=== PATIENT | male | born 1945 | race Caucasian/White ===

== ENCOUNTER 2020-04-24 14:58 | Outpatient (REF) | payer MEDICARE, SELFPAY | END 2020-04-24 14:59 | disposition home or self-care (01) | LOC: HO.LNP 14:58 | PROVIDERS: Visit Provider Internal Medicine | DX: Z20.828 Contact with and (suspected) exposure to other viral communicable diseases (principal); R43.8 Other disturbances of smell and taste | CPT/HCPCS: U0003 ==

== ENCOUNTER 2020-05-06 08:03 | Emergency (ER) | payer MEDICARE, SELFPAY ==
[2020-05-06 08:11] VITALS: BP 150/74; PULSE 86; RESP 18; TEMP 37; O2SAT 97; BMI 18.4
--- NOTE | 2020-05-06 08:23 | ECG_ITS ---
Test Reason : SOB Blood Pressure : / mmHG Vent. Rate : 061 BPM Atrial Rate : 061 BPM P-R Int : 152 ms QRS Dur : 092 ms QT Int : 424 ms P-R-T Axes : 046 083 079 degrees QTc Int : 426 ms Normal sinus rhythm RSR' or QR pattern in V1 suggests right ventricular conduction delay Otherwise normal ECG When compared with ECG of 13-JAN-2020 14:31, No significant change was found Referred By: Iirna Cordon Electronically Signed By:CARLO MONTES MD
--- NOTE | 2020-05-06 08:23 | XR_ITS ---
EXAMINATION: XR CHEST CLINICAL INFORMATION: SOB. COMPARISON: None TECHNIQUE: Frontal view of the chest was obtained. FINDINGS: No significant abnormality is noted involving the heart, lungs, mediastinum, bony thorax or soft tissues. XR/XR chest 1V IMPRESSION: Unremarkable chest exam.
[2020-05-06 08:47] LABS: MANUAL DIFF FLAG NO
[2020-05-06 08:48] LABS: Basophils Absolute Auto 0.1 X10*3/uL (0.0-0.2); Basophils Percent Auto 1.3 % (0-2); Eosinophils Absolute Auto 0.1 X10*3/uL (0.0-0.4); Eosinophils Percent Auto 2.5 % (0-4); Hematocrit 47.1 % (42-52); Hemoglobin 15.9 g/dl (14.0-18.0); Imm Gran Abs Auto 0.01 X10*3/uL (0.00-0.03); Imm Gran Pct Auto 0.2 % (0.0-0.4); Lymphocytes Percent Auto 36.1 % (20-40); Mean Corpuscular HGB Conc 33.8 g/dl (31.0-36.0); Mean Corpuscular Hemoglobin 31.5 pg (27.0-33.0); Mean Corpuscular Volume 93.5 fL (80-98); Mean Platelet Volume 8.5 fL (9.4-12.4); Monocytes Absolute Auto 0.5 X10*3/uL (0.1-1.2); Neutrophils Absolute Auto 2.8 X10*3/uL (2.0-8.3); Neutrophils Percent Auto 50.9 % (45-73); Platelet Count 271 X10*3/uL (160-400); Red Blood Count 5.04 X10*6/uL (4.60-5.80); Red Cell Distribution Width 12.3 % (11.0-16.0); White Blood Count 5.6 X10*3/uL (4.8-10.8)
--- NOTE | 2020-05-06 09:00 | PC.NURSE ---
Patient arrives reporting shortness of breath x 2 days. Reports loss of taste and smell two weeks ago but was COVID tested and negative. Patient is alert and oriented. Respirations appear regular, even, and nonlabored. Skin PWD. O2 sat high 90s on room air. Lungs clear throughout. EKG obtained at bedside. iv established and labs drawn. Patient placed on secured entrance monitor. Awaiting lab results.
[2020-05-06 09:04] LABS: Anion Gap 13 (12-20); Blood Urea Nitrogen 22 mg/dL (9-16); Calcium 10.2 mg/dL (8.4-10.2); Carbon Dioxide 27 mmol/L (22-29); Chloride 105 mmol/L (96-108); Creatinine Clr Calc Pharmacy 67.6; Estimated Glomerular Filt Rate > 60; Glucose Random 96 mg/dL (60-115); Potassium 4.1 mmol/l (3.3-5.1); Sodium 141 mmol/L (135-145)
[2020-05-06 09:11] LABS: B Type Natriuretic Peptide 15 pg/mL (<100); Troponin-I High Sensitivity < 3.5 ng/L (<3.5-35.0)
[2020-05-06 09:32] LABS: Influenza A PCR NEGATIVE (Negative); Influenza B PCR NEGATIVE (Negative); Resp Syncy Virus RNA Qual PCR NEGATIVE (Negative); SARS COV2 PCR INHOUSE NEGATIVE (Negative)
[2020-05-06 10:00] VITALS: BP 128/69; PULSE 54; RESP 18; O2SAT 99
--- NOTE | 2020-05-06 10:44 | ED_ITS ---
HPI - SOB/Dyspnea General Chief Complaint: Dyspnea Stated Complaint: sob Time Seen by Provider: 05/06/20 08:21 History of Present Illness HPI Narrative: 74-year-old male who presents emergency department for evaluation of shortness of breath, fatigue, loss of sense of taste and smell. The patient states that he has not been feeling well for at least 2 weeks. He states that he lost his sense of taste in his mouth but did have a negative COVID-19 test as an outpatient. He states that yesterday he developed shortness of breath. He states that it came on gradually but got progressively worse. He states the shortness of breath is worse with lying down flat. He denied associated fever, chills, cough, myalgias. He states that he has had increased pain in his arthritic joints however but this is not unusual for him. He states that he gets occasional, intermittent, sharp, chest pain which lasts seconds to minutes and is worse if he lies down flat. The patient states he does have increased anxiety but he does not think the anxiety is causing his symptoms. Related Data Previous Rx's Medication Instructions Recorded finasteride 5 mg tablet 5 mg PO DAILY #90 tab 04/10/20 tamsulosin 0.4 mg capsule 0.4 mg PO BEDTIME #90 cap 04/16/20 Allergies Allergy/AdvReac Type Severity Reaction Status Date / Time phenytoin [Dilantin] Allergy Unknown Verified 12/20/19 00:00 From DILANTIN Allergy Unknown ITCH RASH Uncoded 02/28/20 14:49 Review of Systems Review of Systems: Yes all other systems are reviewed and are negative Constitutional: Constitutional: Reports as per HPI Eyes: Eyes: Reports as per HPI ENT: Reports as per HPI Cardiovascular: Cardiovascular: Reports as per HPI Respiratory: Respiratory: Reports as per HPI Gastrointestinal: Gastrointestinal: Reports as per HPI Genitourinary: Genitourinary: Reports as per HPI Musculoskeletal: Musculoskeletal: Reports as per HPI Integumentary/Breasts: Skin/Breast: Reports as per HPI Neurologic: Reports as per HPI and Reports Abnormal speech present Psychiatric: Psychiatric: Reports as per HPI Allergic/Immunologic: Allergic/Immunologic: Reports as per HPI PMFSH Past Medical History Medical History Brain hematoma Enlarged prostate Surgical History History of hip replacement, total Social History Social History Alcohol intake: never Smoking Status: Never smoker Use of substances other than those prescribed or required for medical reasons: No Advance Directives: No Advance Directives Information Provided: No Physical Exam Vital Signs: Vital Signs: Last Vital Signs Temp 98.6 F 05/06/20 08:11 Pulse 54 05/06/20 10:00 Resp 18 05/06/20 10:00 BP 128/69 05/06/20 10:00 Pulse Ox 99 05/06/20 10:00 Body Mass Index 18.4 Const: General: cooperative, no acute distress, alert and awake Orientation/consciousness: oriented to person and oriented to place Limitations: no limitations HENMT: Head: Yes normal to inspection, Yes normocephalic and Yes atraumatic Ears: external ears normal Eyes: General: appearance normal, both eyes and all related structures Periorbital: periorbital findings normal Eyelids: Yes eyelids normal Conjunctivae: conjunctivae normal Sclerae: sclerae normal Corneas: corneas normal Pupils: Equal, round and reactive pupils present Direct Ophthalmoscopy: normal light reflex Neck: Neck: Yes normal visual inspection and Yes supple Lymphatic: no lymphadenopathy noted Chest: Chest palpation & inspection: normal inspection of the chest and normal palpation of entire chest wall Resp: Effort & Inspection: normal respiratory effort, abnormal respiratory pattern, no audible wheezes and no respiratory distress Auscultation: clear to auscultation bilaterally, no crackles, no rales, no rhonchi and no wheezes Cardio: Rate: regular rate Rhythm: regular rhythm Heart sounds: S1 normal heart sound present, S2 normal heart sound present and Murmur heart sound present GI: Inspection: No distended Palpation (GI): Soft to palpation, nontender, no guarding and No hepatosplenomegaly present Auscultation: normal bowel sounds : General: Yes no CVA tenderness Back/Spine/Pelvis: Back: no CVA tenderness Skin: General skin exam: no rashes or lesions noted Lesions: no lesions Rashes: no rashes Wounds: no wounds Neuro: General: oriented to person and oriented to place Cranial nerves: Yes CN's II-XII intact bilaterally and Yes Equal, round and reactive pupils present Cognition (Neuro): normal cognition Speech: Abnormal speech present Motor exam (neuro): 5/5 motor strength present throughout Extrem: General: Yes normal to inspection, Yes full ROM, Yes no pedal edema and Yes no calf tenderness Psych: Appearance: grossly normal Mental Status: mental status grossly normal Speech and movement: Clear speech present Affect: normal affect Thought process: Normal thought process present Course Course Course Narrative: 74-year-old male who presents emergency department for evaluation for loss of sense of taste and smell x2 weeks and shortness of breath that began yesterday. The patient's shortness of breath is worse with lying down flat clearly has minimal dyspnea on exertion. Patient has occasional chest pain which is sometimes associated with shortness of breath. The patient has also had increased fatigue. Patient's physical examination was unremarkable and his vital signs were normal with O2 saturations are 97% on room air. The patient was not tachypneic or tachycardic. The patient's laboratory evaluation was normal. The patient had a COVID/flu/RSV screen which was negative. Laboratory evaluation was unremarkable including a normal troponin and BNP. Chest x-ray revealed no acute abnormality. Twelve lead EKG was unremarkable. At this time I do not have a clear etiology for the patient's symptoms I did discuss this with him. Given his negative workup believes the patient can be discharged home. The patient was advised follow up with his doctor in 2 days and return to the emergency department if his symptoms got worse or he develops any symptoms of a concerning to him. MDM - SOB/Dyspnea Lab Data Result diagrams: 05/06/20 08:33 05/06/20 08:33 Labs: Lab Results 05/06/20 05/06/20 05/06/20 Range/Units 08:33 08:33 08:33 WBC 5.6 (4.8-10.8) X10*3/uL RBC 5.04 (4.60-5.80) X10*6/uL Hgb 15.9 (14.0-18.0) g/dl Hct 47.1 (42-52) % MCV 93.5 (80-98) fL MCH 31.5 (27.0-33.0) pg MCHC 33.8 (31.0-36.0) g/dl RDW 12.3 (11.0-16.0) % Plt Count 271 (160-400) X10*3/uL MPV 8.5 L (9.4-12.4) fL Immature Gran % (Auto) 0.2 (0.0-0.4) % Neut % (Auto) 50.9 (45-73) % Lymph % (Auto) 36.1 (20-40) % [place] % (Auto) 9.0 (2-11) % Eos % (Auto) 2.5 (0-4) % Baso % (Auto) 1.3 (0-2) % Lymph # (Auto) 2.0 (1.2-4.9) X10*3/uL [place] # (Auto) 0.5 (0.1-1.2) X10*3/uL Eos # (Auto) 0.1 (0.0-0.4) X10*3/uL Baso # (Auto) 0.1 (0.0-0.2) X10*3/uL Abs Immat Gran (auto) 0.01 (0.00-0.03) X10*3/uL Absolute Neuts (auto) 2.8 (2.0-8.3) X10*3/uL Absolute Nucleated RBC 0.000 (0.0-0.012) X10*3/uL Nucleated RBC % (auto) 0.0 (0.0-0.2) /100WBC Hold Blue Top SEE NOTE Sodium 141 (135-145) mmol/L Potassium 4.1 (3.3-5.1) mmol/l Chloride 105 (96-108) mmol/L Carbon Dioxide 27 (22-29) mmol/L Anion Gap 13 (12-20) BUN 22 H (9-16) mg/dL Creatinine 0.78 (0.5-1.4) mg/dL Estim Creat Clear Calc 67.6 Estimated GFR > 60 Random Glucose 96 (60-115) mg/dL Calcium 10.2 (8.4-10.2) mg/dL Troponin I High Sens (<3.5-35.0) ng/L B-Natriuretic Peptide (<100) pg/mL Coronavirus (PCR) (Negative) Influenza Type A (PCR) (Negative) Influenza Type B (PCR) (Negative) RSV RNA Qual (PCR) (Negative) 05/06/20 05/06/20 Range/Units 08:33 08:36 WBC (4.8-10.8) X10*3/uL RBC (4.60-5.80) X10*6/uL Hgb (14.0-18.0) g/dl Hct (42-52) % MCV (80-98) fL MCH (27.0-33.0) pg MCHC (31.0-36.0) g/dl RDW (11.0-16.0) % Plt Count (160-400) X10*3/uL MPV (9.4-12.4) fL Immature Gran % (Auto) (0.0-0.4) % Neut % (Auto) (45-73) % Lymph % (Auto) (20-40) % [place] % (Auto) (2-11) % Eos % (Auto) (0-4) % Baso % (Auto) (0-2) % Lymph # (Auto) (1.2-4.9) X10*3/uL [place] # (Auto) (0.1-1.2) X10*3/uL Eos # (Auto) (0.0-0.4) X10*3/uL Baso # (Auto) (0.0-0.2) X10*3/uL Abs Immat Gran (auto) (0.00-0.03) X10*3/uL Absolute Neuts (auto) (2.0-8.3) X10*3/uL Absolute Nucleated RBC (0.0-0.012) X10*3/uL Nucleated RBC % (auto) (0.0-0.2) /100WBC Hold Blue Top Sodium (135-145) mmol/L Potassium (3.3-5.1) mmol/l Chloride (96-108) mmol/L Carbon Dioxide (22-29) mmol/L Anion Gap (12-20) BUN (9-16) mg/dL Creatinine (0.5-1.4) mg/dL Estim Creat Clear Calc Estimated GFR Random Glucose (60-115) mg/dL Calcium (8.4-10.2) mg/dL Troponin I High Sens < 3.5 (<3.5-35.0) ng/L B-Natriuretic Peptide 15 (<100) pg/mL Coronavirus (PCR) NEGATIVE (Negative) Influenza Type A (PCR) NEGATIVE (Negative) Influenza Type B (PCR) NEGATIVE (Negative) RSV RNA Qual (PCR) NEGATIVE (Negative) ECG Data Attestation: I personally reviewed and interpreted this ECG as follows: ECG interpretation date: 05/06/20 ECG interpretation time: 08:50 Prior ECG tracings: not available for review Interpretation: Normal sinus rhythm at a rate of 61, normal GA, QRS and QTC intervals, no ST segment elevation, no ST segment depression, no old EKG for comparison. Discharge Plan Discharge Clinical Impression: Acute dyspnea Patient Disposition: Home, Self-Care Instructions: Dyspnea (ED) Additional Instructions: Your blood work here in the emergency department today was normal which is re assuring. Your EKG was unremarkable. Your chest x-ray revealed no evidence of pneumonia or fluid in the lungs. Your COVID test is negative. Your flu test was negative. At this time, I do not have a clear cause for his symptoms but I think that it is okay to send you home. Please rest at home, take Tylenol 500 mg pills, 2 pills every 4-6 hours as needed for pain and continue medications as prescribed by your doctor. Follow-up with your doctor in 2 days for re-evaluation. Please return to the emergency department if your symptoms get worse or if you develop any new symptoms that are concerning to you. Prescriptions: No Action finasteride 5 mg tablet 5 mg PO DAILY Qty: 90 RF: 2 tamsulosin 0.4 mg capsule 0.4 mg PO BEDTIME Qty: 90 RF: 1
== END 2020-05-06 11:03 | disposition home or self-care (01) ==
PROVIDERS: Physician Assistant; Emergency Provider Emergency Medicine Emergency Medical Services; PCP Internal Medicine
DX: R06.00 Dyspnea, unspecified (principal); Z79.899 Other long term (current) drug therapy; Z20.828 Contact with and (suspected) exposure to other viral communicable diseases
CPT/HCPCS: 0241U; 36415; 71045; 80048; 83880; 84484; 85025; 93005; 99284

== ENCOUNTER → 2020-05-20 13:20 | Outpatient (REF) | payer MEDICARE, SELFPAY ==
--- NOTE | 2020-05-20 13:34 | ECG_ITS ---
Hook-up date: 2020-05-20 13:36:00 Duration: 41:55:00 Test Indications: PVC Medications: 96935 QRS complexes 4338 Ventricular ectopics which represent 4 % of total QRS comp. 203 Supraventricular ectopics which represent <1 % of total QRS comp. * Paced QRS complexs which represent % of total QRS comp. VENTRICULAR ECTOPY 3612 Isolated 526 Bigeminal Cycles 351 Couplets 8 Runs 24 Beats in Runs 3 Beats LONGEST at 133 BPM at 14:37:43 2020-05-20 3 Beats FASTEST at 172 BPM at 09:39:08 2020-05-21 SUPRAVENTRICULAR ECTOPY 166 Isolated 0 Couplets 7 Runs 37 Beats in Runs 9 Beats LONGEST at 140 BPM at 06:39:30 2020-05-21 5 Beats FASTEST at 147 BPM at 11:54:03 2020-05-21 HEART RATES 45 MIN at 00:25:43 2020-05-21 64 AVG 118 MAX at 11:41:39 2020-05-21 LONGEST RR 1.9360 secs at 15:41:04 2020-05-20 S-T LEVELS Channel 1 - 128 mm at 13:36:00 2020-05-20 - 128 mm at 13:36:00 2020-05-20 Channel 2 - 128 mm at 13:36:00 2020-05-20 - 128 mm at 13:36:00 2020-05-20 Channel 3 - 128 mm at 03:25:51 -- - 128 mm at 03:25:51 Pt completed holter for c/o palp,sob, to r/o arhythmias Max HR 118, min 45. No diary entries with this study Baseline rhythm is NSR. Occ PVC's and couplets noted Occ bigeminy runs, and more couplets noted but without reported sxs. Two triplets noted Several SVT runs of between 4-9 beats. no afib. no R on T noted In summary this study shows frequent non-sustained vent ectopic beats without sustained arrhythmias, and no R on T episodes. There are also several short SVT bursts of less than 10 bpm. No sxs reported. no intervention indicated at this time Referred By: Lee Montes Overread By: CARLO MONTES MD
== END ==
LOC: HO.CARD 13:20
PROVIDERS: PCP Internal Medicine; Visit Provider Internal Medicine
DX: I49.3 Ventricular premature depolarization (principal)
CPT/HCPCS: 93225; 93226

== ENCOUNTER 2020-06-19 05:31 | Emergency (ER) | payer MEDICARE, SELFPAY ==
[2020-06-19 05:39] VITALS: PULSE 50; RESP 16; TEMP 36.5; O2SAT 97; BMI 19.5
--- NOTE | 2020-06-19 05:41 | ECG_ITS ---
Test Reason : SOB Blood Pressure : / mmHG Vent. Rate : 052 BPM Atrial Rate : 312 BPM P-R Int : 000 ms QRS Dur : 096 ms QT Int : 438 ms P-R-T Axes : 047 081 066 degrees QTc Int : 407 ms Sinus bradycardia Abnormal ECG When compared with ECG of 06-MAY-2020 08:50, No significant changes seen Referred By: Rosario Sánchez Electronically Signed By:Coy Scott
--- NOTE | 2020-06-19 05:42 | XR_ITS ---
EXAMINATION: XR CHEST CLINICAL INFORMATION: Cough COMPARISON: 05/06/2020 TECHNIQUE: Frontal view of the chest was obtained. FINDINGS: The lungs are well expanded. No consolidation, edema, or effusion. No pneumothorax. The cardiomediastinal silhouette is normal in size, with a calcified aorta. Degenerative changes of the shoulders. XR/XR chest 1V IMPRESSION: No acute pulmonary finding.
--- NOTE | 2020-06-19 05:51 | PC.NURSE ---
PT TO ED VIA AMBULANCE WITH C/O HEARING THUMPING IN LEFT EAR . PT DENIES NAUSEA, VOMITING, FEVER, CHILLS. PT CHG INTO GOWN AND AWAITING MD'S EVAL. PT ALERT, RESPIRATIONS EASY, N/L. SKIN W/D. WILL CONTINUE TO MONITOR PT.
[2020-06-19 06:00] VITALS: BP 138/83; PULSE 55; RESP 18; TEMP 36.7; O2SAT 98
--- NOTE | 2020-06-19 06:34 | ED_ITS ---
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 He states that this jolted him awake and was not associated with any chest pain/palpitations, GI symptoms, or symptoms. He states that he tried telling himself that the sound was likely from something else, but says he was unable to do so and became very anxious and called 911. Patient currently denies any depressive feelings, but states that he has some mild anxiety currently. Related Data Previous Rx's Medication Instructions Recorded finasteride 5 mg tablet 5 mg PO DAILY #90 tab 04/10/20 tamsulosin 0.4 mg capsule 0.4 mg PO BEDTIME #90 cap 04/16/20 Allergies Allergy/AdvReac Type Severity Reaction Status Date / Time phenytoin [Dilantin] Allergy Unknown Verified 12/20/19 00:00 From DILANTIN Allergy Unknown ITCH RASH Uncoded 02/28/20 14:49 Review of Systems Review of Systems: Pertinent positives and negatives as stated in HPI 10 point review of systems otherwise negative. [facility] Past Medical History Medical History (Updated 06/19/20 @ 07:52 by Rosario Sánchez MD) Anxiety Brain hematoma Depression Enlarged prostate Surgical History History of hip replacement, total Social History Social History Alcohol intake: never Smoking Status: Never smoker Smoked in Last 30 Days: No Use of substances other than those prescribed or required for medical reasons: No Advance Directives: No Advance Directives Information Provided: No Physical Exam Vital Signs: Vital Signs: Last Vital Signs Temp 97.7 F 06/19/20 07:19 Pulse 52 06/19/20 07:19 Resp 14 06/19/20 07:19 BP 125/67 06/19/20 07:19 Pulse Ox 97 06/19/20 07:19 Body Mass Index 19.5 VITAL SIGNS: Reviewed. GENERAL: Poor nutrition, in no acute distress. HEAD: Normocephalic/atraumatic, EYES: PERRLA, EOMI EARS: Ext canals without abnormality, TMs non-bulging and non-erythematous NOSE: Nares patent bilateral OROPHARYNX: no oral lesions noted, posterior pharynx clear NECK: Supple, no adenopathy LUNGS: Normal breath sounds. No adventitious sounds or accessory muscle use. SpO2<97> CARDIOVASCULAR: Regular rate and rhythm without noted murmurs, no JVD or lower extremity edema. ABDOMEN: Soft, non-tender, non-distended with bowel sounds. No rigidity. No guarding. No palpable masses or hernias noted NEUROLOGIC: Alert and oriented x 4. Strength and sensation to light touch were grossly intact x 4. Course Course Course Narrative: This is a 75-year-old male with history and clinical presentation consistent with suspected anxiety but will evaluate for any evidence of infection, anemia. All investigations reviewed and there are no acute findings to suggest pneumonia, infection, anemia, and no changes on EKG. Patient is otherwise stable for discharge to home. Medical Decision Making Lab Data Result diagrams: 06/19/20 06:23 06/19/20 06:23 Labs: Lab Results 06/19/20 06/19/20 06/19/20 Range/Units 06:23 06:23 06:23 WBC 6.2 (4.8-10.8) X10*3/uL RBC 4.57 L (4.60-5.80) X10*6/uL Hgb 14.1 (14.0-18.0) g/dl Hct 43.2 (42-52) % MCV 94.5 (80-98) fL MCH 30.9 (27.0-33.0) pg MCHC 32.6 (31.0-36.0) g/dl RDW 12.4 (11.0-16.0) % Plt Count 251 (160-400) X10*3/uL MPV 8.8 L (9.4-12.4) fL Immature Gran % (Auto) 0.2 (0.0-0.4) % Neut % (Auto) 53.6 (45-73) % Lymph % (Auto) 34.9 (20-40) % [place] % (Auto) 8.1 (2-11) % Eos % (Auto) 2.1 (0-4) % Baso % (Auto) 1.1 (0-2) % Lymph # (Auto) 2.2 (1.2-4.9) X10*3/uL [place] # (Auto) 0.5 (0.1-1.2) X10*3/uL Eos # (Auto) 0.1 (0.0-0.4) X10*3/uL Baso # (Auto) 0.1 (0.0-0.2) X10*3/uL Abs Immat Gran (auto) 0.01 (0.00-0.03) X10*3/uL Absolute Neuts (auto) 3.3 (2.0-8.3) X10*3/uL Absolute Nucleated RBC 0.000 (0.0-0.012) X10*3/uL Nucleated RBC % (auto) 0.0 (0.0-0.2) /100WBC Sodium 139 (135-145) mmol/L Potassium 4.1 (3.3-5.1) mmol/l Chloride 103 (96-108) mmol/L Carbon Dioxide 28 (22-29) mmol/L Anion Gap 12 (12-20) BUN 21 H (9-16) mg/dL Creatinine 0.81 (0.5-1.4) mg/dL Estim Creat Clear Calc 67.9 Estimated GFR > 60 Random Glucose 107 (60-115) mg/dL Calcium 9.9 (8.4-10.2) mg/dL Total Bilirubin 0.5 (0.0-1.0) mg/dL AST 17 (5-37) U/L ALT 14 (0-40) U/L Alkaline Phosphatase 62 (39-117) U/L Troponin I High Sens (<3.5-35.0) ng/L Total Protein 6.0 L (6.5-8.0) g/dL Albumin 3.9 (3.5-5.0) g/dL TSH 1.77 (0.32-4.0) mIU/mL Coronavirus (PCR) NEGATIVE (Negative) Influenza Type A (PCR) NEGATIVE (Negative) Influenza Type B (PCR) NEGATIVE (Negative) RSV RNA Qual (PCR) NEGATIVE (Negative) 06/19/20 Range/Units 06:23 WBC (4.8-10.8) X10*3/uL RBC (4.60-5.80) X10*6/uL Hgb (14.0-18.0) g/dl Hct (42-52) % MCV (80-98) fL MCH (27.0-33.0) pg MCHC (31.0-36.0) g/dl RDW (11.0-16.0) % Plt Count (160-400) X10*3/uL MPV (9.4-12.4) fL Immature Gran % (Auto) (0.0-0.4) % Neut % (Auto) (45-73) % Lymph % (Auto) (20-40) % [place] % (Auto) (2-11) % Eos % (Auto) (0-4) % Baso % (Auto) (0-2) % Lymph # (Auto) (1.2-4.9) X10*3/uL [place] # (Auto) (0.1-1.2) X10*3/uL Eos # (Auto) (0.0-0.4) X10*3/uL Baso # (Auto) (0.0-0.2) X10*3/uL Abs Immat Gran (auto) (0.00-0.03) X10*3/uL Absolute Neuts (auto) (2.0-8.3) X10*3/uL Absolute Nucleated RBC (0.0-0.012) X10*3/uL Nucleated RBC % (auto) (0.0-0.2) /100WBC Sodium (135-145) mmol/L Potassium (3.3-5.1) mmol/l Chloride (96-108) mmol/L Carbon Dioxide (22-29) mmol/L Anion Gap (12-20) BUN (9-16) mg/dL Creatinine (0.5-1.4) mg/dL Estim Creat Clear Calc Estimated GFR Random Glucose (60-115) mg/dL Calcium (8.4-10.2) mg/dL Total Bilirubin (0.0-1.0) mg/dL AST (5-37) U/L ALT (0-40) U/L Alkaline Phosphatase (39-117) U/L Troponin I High Sens < 3.5 (<3.5-35.0) ng/L Total Protein (6.5-8.0) g/dL Albumin (3.5-5.0) g/dL TSH (0.32-4.0) mIU/mL Coronavirus (PCR) (Negative) Influenza Type A (PCR) (Negative) Influenza Type B (PCR) (Negative) RSV RNA Qual (PCR) (Negative) ECG Data Attestation: I personally reviewed and interpreted this ECG as follows: Prior ECG tracings: available for review (05/06/2020 no acute changes on comparison) Interpretation: Sinus bradycardia, HR-52, no evidence of acute ischemia, GA/QRS/QTC are within normal limits. Discharge Plan Discharge Clinical Impression: Anxiety Patient Disposition: Home, Self-Care Instructions: Anxiety (ED) Additional Instructions: Please resume all of your home medications as prescribed. Please follow-up with your primary care provider for further management of your anxiety in an outpatient setting. Prescriptions: No Action finasteride 5 mg tablet 5 mg PO DAILY Qty: 90 RF: 2 tamsulosin 0.4 mg capsule 0.4 mg PO BEDTIME Qty: 90 RF: 1 Referrals: Physician,Unknown [Primary Care Provider] - 2 days (Re-evaluation for anxiety)
[2020-06-19 06:37] LABS: MANUAL DIFF FLAG NO
[2020-06-19 06:48] LABS: Basophils Absolute Auto 0.1 X10*3/uL (0.0-0.2); Basophils Percent Auto 1.1 % (0-2); Eosinophils Absolute Auto 0.1 X10*3/uL (0.0-0.4); Eosinophils Percent Auto 2.1 % (0-4); Hematocrit 43.2 % (42-52); Hemoglobin 14.1 g/dl (14.0-18.0); Imm Gran Abs Auto 0.01 X10*3/uL (0.00-0.03); Imm Gran Pct Auto 0.2 % (0.0-0.4); Lymphocytes Absolute Auto 2.2 X10*3/uL (1.2-4.9); Lymphocytes Percent Auto 34.9 % (20-40); Mean Corpuscular HGB Conc 32.6 g/dl (31.0-36.0); Mean Corpuscular Hemoglobin 30.9 pg (27.0-33.0); Mean Corpuscular Volume 94.5 fL (80-98); Mean Platelet Volume 8.8 fL (9.4-12.4); Monocytes Absolute Auto 0.5 X10*3/uL (0.1-1.2); Monocytes Percent Auto 8.1 % (2-11); Neutrophils Absolute Auto 3.3 X10*3/uL (2.0-8.3); Neutrophils Percent Auto 53.6 % (45-73); Platelet Count 251 X10*3/uL (160-400); Red Blood Count 4.57 X10*6/uL (4.60-5.80); Red Cell Distribution Width 12.4 % (11.0-16.0); White Blood Count 6.2 X10*3/uL (4.8-10.8)
[2020-06-19 07:12] LABS: Alanine Aminotransferase 14 U/L (0-40); Albumin Level 3.9 g/dL (3.5-5.0); Alkaline Phosphatase 62 U/L (39-117); Anion Gap 12 (12-20); Aspartate Amino Transferase 17 U/L (5-37); Bilirubin Total 0.5 mg/dL (0.0-1.0); Blood Urea Nitrogen 21 mg/dL (9-16); Calcium 9.9 mg/dL (8.4-10.2); Carbon Dioxide 28 mmol/L (22-29); Chloride 103 mmol/L (96-108); Creatinine Clr Calc Pharmacy 67.9; Estimated Glomerular Filt Rate > 60; Glucose Random 107 mg/dL (60-115); Potassium 4.1 mmol/l (3.3-5.1); Sodium 139 mmol/L (135-145)
[2020-06-19 07:18] LABS: Influenza A PCR NEGATIVE (Negative); Influenza B PCR NEGATIVE (Negative); Resp Syncy Virus RNA Qual PCR NEGATIVE (Negative); SARS COV2 PCR INHOUSE NEGATIVE (Negative); Troponin-I High Sensitivity < 3.5 ng/L (<3.5-35.0)
[2020-06-19 07:19] VITALS: BP 125/67; PULSE 52; RESP 14; TEMP 36.5; O2SAT 97
[2020-06-19 07:33] LABS: TSH reflex Free T4 1.77 mIU/mL (0.32-4.0)
== END 2020-06-19 08:09 | disposition home or self-care (01) ==
PROVIDERS: Emergency Provider Student in an Organized Health Care Education/Training Program
DX: F41.9 Anxiety disorder, unspecified (principal); Z20.822 Contact with and (suspected) exposure to COVID-19
CPT/HCPCS: 0241U; 36415; 71045; 80053; 84443; 84484; 85025; 93005; 99283; 99284

== ENCOUNTER 2020-09-05 10:45 | Outpatient (REF) | payer MEDICARE, SELFPAY ==
[2020-09-05 15:02] LABS: Prostate Specific Antigen 5.52 ng/mL (<0.05-4.0)
== END 2020-09-05 10:46 | disposition home or self-care (01) ==
LOC: HO.HMGCLDS 10:45
PROVIDERS: PCP Internal Medicine; Visit Provider Urology
DX: R97.20 Elevated prostate specific antigen [PSA] (principal); Z12.5 Encounter for screening for malignant neoplasm of prostate
CPT/HCPCS: 36415; 84153

== ENCOUNTER → 2020-09-11 16:02 | Outpatient (BNVA) | payer MEDICARE, SELFPAY | PROVIDERS: PCP Internal Medicine; Visit Provider Urology | CPT/HCPCS: Q3014 ==

== ENCOUNTER 2020-10-13 11:46 | Outpatient (REF) | payer MEDICARE, SELFPAY ==
[2020-10-13 14:03] LABS: Glucose Urine UA NEG (NEG); Leukocyte Esterase Urine NEG (NEG); Nitrite Urine POS (NEG); UACC Culture Trigger YES; Urine Blood TRACE (NEG); Urine Ketones NEG (NEG); Urine Protein NEG (NEG-TRACE)
[2020-10-13 14:08] LABS: Appearance Urine HAZY; Color Urine YELLOW
[2020-10-13 14:56] LABS: Amorphous Sediment Urine 4+ /LPF; Bacteria Urine 1+ /LPF; RBC Urine 0 /HPF (0); Squamous Epithelial Cell Urine 1+ /LPF
== END 2020-10-13 11:47 | disposition home or self-care (01) ==
LOC: HO.HMGCLDS 11:46
PROVIDERS: PCP Internal Medicine; Visit Provider Internal Medicine
DX: R30.0 Dysuria (principal)
CPT/HCPCS: 81001; 81003; 87086

== ENCOUNTER 2020-10-14 15:20 | Emergency (ER) | payer MEDICARE, SELFPAY ==
--- NOTE | ~2020-10-14 | XR_ITS ---
EXAMINATION: XR CHEST CLINICAL INFORMATION: Palpitations. Shortness of breath. COMPARISON: 06/19/2020 TECHNIQUE: Frontal view of the chest was obtained. FINDINGS: The lungs are well expanded. There is no focal consolidation, edema, or effusion. No pneumothorax. The cardiomediastinal silhouette is within normal limits of size with a calcified aorta. No acute osseous abnormality. XR/XR chest 1V IMPRESSION: No acute pulmonary finding.
[2020-10-14 15:27] VITALS: BP 152/80; PULSE 71; RESP 18; TEMP 36.6; O2SAT 96; BMI 20.3
[2020-10-14 19:45] VITALS: BP 158/70; PULSE 66; RESP 18; TEMP 37; O2SAT 97
--- NOTE | 2020-10-14 19:46 | ED_ITS ---
HPI - General Adult General Chief complaint: General Medical Stated complaint: Crisis Time Seen by Provider: 10/14/20 19:46 Source: patient Mode of arrival: ambulatory Limitations: no limitations History of Present Illness HPI narrative: 75-year-old male with past anxiety disorder, brain hematoma in the past, depression, enlarged prostate and status post total hip replacement was history of elevated PSA and chronic hematuria being followed by Urology here he presents today with constellation of symptoms since yesterday having inability to sleep has been overwhelmed thinking a lot upset stomach and feels like he is having palpitations. States onset symptoms after finding out that a close friend of theirs suddenly through mail notification. Onset (ago): day(s) Radiation: non-radiation Severity: moderate Quality: aching Pain Consistency: intermittent Relieving factors: none Exacerbating factors: none Associated symptoms: denies other symptoms Treatments prior to arrival: none Related Data Previous Rx's Medication Instructions Recorded finasteride 5 mg tablet 5 mg PO DAILY #90 tab 04/10/20 tamsulosin 0.4 mg capsule 0.4 mg PO BEDTIME #90 cap 04/16/20 hydroxyzine HCl 50 mg PO BID PRN #30 tab 10/15/20 Allergies Allergy/AdvReac Type Severity Reaction Status Date / Time phenytoin [Dilantin] Allergy Unknown Redness of Verified 10/14/20 15:27 Skin Review of Systems Review of Systems: Constitutional: No Weight loss, No Fever, No Chills, No Night Sweats, No Fatigue, No Malaise ENT/Mouth: No Hearing loss, No Ear Pain, No Nasal Congestion, No Sinus Pain, No Hoarseness, No sore throat, No Rhinorrhea, No Swallowing Difficulty Eyes: No Eye Pain, No Swelling, No Redness, No Foreign Body, No Discharge, No Vision Changes Cardiovascular: No SOB, No Dyspnea on Exertion, No Orthopnea, No Edema, No Palpitations Respiratory: No Cough, No Sputum, No Wheezing, No Smoke Exposure, No Dyspnea Gastrointestinal: No Nausea, No Vomiting, No Diarrhea, No Constipation, No abdominal Pain, No Hematochezia, No Melena Genitourinary: no irregular bleeding, No Dysuria, No Urinary Frequency, No Hematuria, No Urinary Incontinence, No Urgency, No Flank Pain, No Urinary Flow Changes, No Hesitancy Musculoskeletal: No joint pain, No Myalgias, No Joint Swelling Skin: No Skin Lesions, No rash Neuro: No Weakness, No Numbness, No Paresthesias, No Loss of Consciousness, No Dizziness, No Headache Psych: + Anxiety/Panic, No Depression, No SI/HI/AH/VH Heme/Lymph: No Bruising, No Bleeding,No Lymphadenopathy Endocrine: No Polyuria, No Polydipsia, No Temperature Intolerance Yes all other systems are reviewed and are negative [facility] Past Medical History Medical History Anxiety Brain hematoma Depression Enlarged prostate Surgical History History of hip replacement, total Social History Social History Alcohol intake: never Smoking Status: Never smoker Use of substances other than those prescribed or required for medical reasons: No Advance Directives: Yes Advance Directives Information Provided: No Advance Directives on File: No Physical Exam Vital Signs: Vital Signs: Last Vital Signs Temp 98.6 F 10/14/20 19:45 Pulse 66 10/14/20 19:45 Resp 18 10/14/20 19:45 BP 158/70 H 10/14/20 19:45 Pulse Ox 97 10/14/20 19:45 Body Mass Index 20.3 Reviewed Const: General: cooperative, healthy appearing and anxious; No intoxicated appearing Nutritional Appearance: average body habitus Orientation/consciousness: patient oriented x3 HENMT: Head: Yes normal to inspection Ears: hearing grossly normal bila terally Eyes: General: appearance normal, both eyes and all related structures Visual Stinson: normal visual stinson by confrontation Neck: Neck: Yes normal visual inspection, No positive Brudzinski's sign, No positive Kernig's sign and No tender Thyroid: Thyroid normal Chest: Chest palpation & inspection: normal inspection of the chest Resp: Effort & Inspection: normal respiratory effort Auscultation: clear to auscultation bilaterally Cardio: Jugular venous distension: no JVD Rhythm: regular rhythm Heart sounds: S1 normal heart sound present and S2 normal heart sound present GI: Inspection: Yes normal to inspection Palpation (GI): Soft to palpation Percussion: Yes normal to percussion Auscultation: normal bowel sounds : General: Yes no CVA tenderness Back/Spine/Pelvis: Back: no CVA tenderness Skin: General skin exam: no rashes or lesions noted Neuro: General: patient oriented x3 Extrem: General: Yes normal to inspection Course Consultations Consultation #1: Urine chronic appearing his asymptomatic a urological standpoint will culture this chronically has nitrate history of BPH with urinary OBS/LUTS, elevated PSA being followed by Urology. In relation today visit labs otherwise stable reports feeling much better after talking to care team and has an appointment coming up with Psychiatry. He takes Ativan at bedtime 1 mg and is requesting additional medication will start on p.r.n. hydroxyzine. No SI or HI. Cleared from care team for discharge with outpatient services. Medical Decision Making Lab Data Result diagrams: 10/14/20 20:07 10/14/20 20:07 Labs: Lab Results 10/14/20 10/14/20 10/14/20 Range/Units 20:07 20:07 20:07 WBC 9.5 (4.8-10.8) X10*3/uL RBC 5.05 (4.60-5.80) X10*6/uL Hgb 15.8 (14.0-18.0) g/dl Hct 46.9 (42-52) % MCV 92.9 (80-98) fL MCH 31.3 (27.0-33.0) pg MCHC 33.7 (31.0-36.0) g/dl RDW 12.5 (11.0-16.0) % Plt Count 293 (160-400) X10*3/uL MPV 8.6 L (9.4-12.4) fL Immature Gran % (Auto) 0.3 (0.0-0.4) % Neut % (Auto) 72.5 (45-73) % Lymph % (Auto) 19.5 L (20-40) % Vance % (Auto) 6.8 (2-11) % Eos % (Auto) 0.3 (0-4) % Baso % (Auto) 0.6 (0-2) % Lymph # (Auto) 1.9 (1.2-4.9) X10*3/uL Vance # (Auto) 0.7 (0.1-1.2) X10*3/uL Eos # (Auto) 0.0 (0.0-0.4) X10*3/uL Baso # (Auto) 0.1 (0.0-0.2) X10*3/uL Abs Immat Gran (auto) 0.03 (0.00-0.03) X10*3/uL Absolute Neuts (auto) 6.9 (2.0-8.3) X10*3/uL Absolute Nucleated RBC 0.000 (0.0-0.012) X10*3/uL Nucleated RBC % (auto) 0.0 (0.0-0.2) /100WBC PT 12.6 (10.8-13.0) SEC INR 1.1 (0.9-1.1) APTT 36.0 (24.1-38.0) SEC Sodium 140 (135-145) mmol/L Potassium 4.0 (3.3-5.1) mmol/L Chloride 104 (96-108) mmol/L Carbon Dioxide 27 (22-29) mmol/L Anion Gap 13 (12-20) BUN 21 H (9-16) mg/dL Creatinine 0.83 (0.5-1.4) mg/dL Estim Creat Clear Calc 69.1 Estimated GFR > 60 Random Glucose 165 H D (60-115) mg/dL Calcium 10.5 H D (8.4-10.2) mg/dL Magnesium 2.0 (1.6-2.6) mg/dL Total Bilirubin 0.7 (0.0-1.0) mg/dL AST 18 (5-37) U/L ALT 10 (0-40) U/L Alkaline Phosphatase 73 (39-117) U/L Troponin I High Sens (<3.5-35.0) ng/L Total Protein 6.9 (6.5-8.0) g/dL Albumin 4.5 (3.5-5.0) g/dL TSH 1.61 (0.32-4.0) uIU/mL Urine Color Urine Appearance Urine pH (5.0-8.0) Ur Specific [place] (1.005-1.025) Urine Protein (NEG-TRACE) MG/DL Urine Glucose (UA) (NEG) MG/DL Urine Ketones (NEG) MG/DL Urine Blood (NEG) Urine Nitrite (NEG) Ur Leukocyte Esterase (NEG) Urine RBC (0) /HPF Urine WBC (0-4) /HPF Ur Squamous Epith Cells /LPF Urine Bacteria /LPF Urine Opiates Screen (Not Detect) Ur Barbiturates Screen (Not Detect) Ur Phencyclidine Scrn (Not Detect) Ur Amphetamines Screen (Not Detect) U Benzodiazepines Scrn (Not Detect) Urine Cocaine Screen (Not Detect) U Marijuana (THC) Screen (Not Detect) Ethyl Alcohol mg/dL 10/14/20 10/14/20 10/14/20 Range/Units 20:07 20:07 21:21 WBC (4.8-10.8) X10*3/uL RBC (4.60-5.80) X10*6/uL Hgb (14.0-18.0) g/dl Hct (42-52) % MCV (80-98) fL MCH (27.0-33.0) pg MCHC (31.0-36.0) g/dl RDW (11.0-16.0) % Plt Count (160-400) X10*3/uL MPV (9.4-12.4) fL Immature Gran % (Auto) (0.0-0.4) % Neut % (Auto) (45-73) % Lymph % (Auto) (20-40) % Vance % (Auto) (2-11) % Eos % (Auto) (0-4) % Baso % (Auto) (0-2) % Lymph # (Auto) (1.2-4.9) X10*3/uL Vance # (Auto) (0.1-1.2) X10*3/uL Eos # (Auto) (0.0-0.4) X10*3/uL Baso # (Auto) (0.0-0.2) X10*3/uL Abs Immat Gran (auto) (0.00-0.03) X10*3/uL Absolute Neuts (auto) (2.0-8.3) X10*3/uL Absolute Nucleated RBC (0.0-0.012) X10*3/uL Nucleated RBC % (auto) (0.0-0.2) /100WBC PT (10.8-13.0) SEC INR (0.9-1.1) APTT (24.1-38.0) SEC Sodium (135-145) mmol/L Potassium (3.3-5.1) mmol/L Chloride (96-108) mmol/L Carbon Dioxide (22-29) mmol/L Anion Gap (12-20) BUN (9-16) mg/dL Creatinine (0.5-1.4) mg/dL Estim Creat Clear Calc Estimated GFR Random Glucose (60-115) mg/dL Calcium (8.4-10.2) mg/dL Magnesium (1.6-2.6) mg/dL Total Bilirubin (0.0-1.0) mg/dL AST (5-37) U/L ALT (0-40) U/L Alkaline Phosphatase (39-117) U/L Troponin I High Sens < 3.5 (<3.5-35.0) ng/L Total Protein (6.5-8.0) g/dL Albumin (3.5-5.0) g/dL TSH (0.32-4.0) uIU/mL Urine Color YELLOW Urine Appearance CLOUDY Urine pH 6.5 (5.0-8.0) Ur Specific [place] 1.025 (1.005-1.025) Urine Protein NEG (NEG-TRACE) MG/DL Urine Glucose (UA) NEG (NEG) MG/DL Urine Ketones 15 (NEG) MG/DL Urine Blood 2+ H (NEG) Urine Nitrite POS H (NEG) Ur Leukocyte Esterase NEG (NEG) Urine RBC 1-4 (0) /HPF Urine WBC 1-4 (0-4) /HPF Ur Squamous Epith Cells TRACE /LPF Urine Bacteria 2+ /LPF Urine Opiates Screen (Not Detect) Ur Barbiturates Screen (Not Detect) Ur Phencyclidine Scrn (Not Detect) Ur Amphetamines Screen (Not Detect) U Benzodiazepines Scrn (Not Detect) Urine Cocaine Screen (Not Detect) U Marijuana (THC) Screen (Not Detect) Ethyl Alcohol < 10 mg/dL 10/14/20 Range/Units 21:21 WBC (4.8-10.8) X10*3/uL RBC (4.60-5.80) X10*6/uL Hgb (14.0-18.0) g/dl Hct (42-52) % MCV (80-98) fL MCH (27.0-33.0) pg MCHC (31.0-36.0) g/dl RDW (11.0-16.0) % Plt Count (160-400) X10*3/uL MPV (9.4-12.4) fL Immature Gran % (Auto) (0.0-0.4) % Neut % (Auto) (45-73) % Lymph % (Auto) (20-40) % Vance % (Auto) (2-11) % Eos % (Auto) (0-4) % Baso % (Auto) (0-2) % Lymph # (Auto) (1.2-4.9) X10*3/uL Vance # (Auto) (0.1-1.2) X10*3/uL Eos # (Auto) (0.0-0.4) X10*3/uL Baso # (Auto) (0.0-0.2) X10*3/uL Abs Immat Gran (auto) (0.00-0.03) X10*3/uL Absolute Neuts (auto) (2.0-8.3) X10*3/uL Absolute Nucleated RBC (0.0-0.012) X10*3/uL Nucleated RBC % (auto) (0.0-0.2) /100WBC PT (10.8-13.0) SEC INR (0.9-1.1) APTT (24.1-38.0) SEC Sodium (135-145) mmol/L Potassium (3.3-5.1) mmol/L Chloride (96-108) mmol/L Carbon Dioxide (22-29) mmol/L Anion Gap (12-20) BUN (9-16) mg/dL Creatinine (0.5-1.4) mg/dL Estim Creat Clear Calc Estimated GFR Random Glucose (60-115) mg/dL Calcium (8.4-10.2) mg/dL Magnesium (1.6-2.6) mg/dL Total Bilirubin (0.0-1.0) mg/dL AST (5-37) U/L ALT (0-40) U/L Alkaline Phosphatase (39-117) U/L Troponin I High Sens (<3.5-35.0) ng/L Total Protein (6.5-8.0) g/dL Albumin (3.5-5.0) g/dL TSH (0.32-4.0) uIU/mL Urine Color Urine Appearance Urine pH (5.0-8.0) Ur Specific [place] (1.005-1.025) Urine Protein (NEG-TRACE) MG/DL Urine Glucose (UA) (NEG) MG/DL Urine Ketones (NEG) MG/DL Urine Blood (NEG) Urine Nitrite (NEG) Ur Leukocyte Esterase (NEG) Urine RBC (0) /HPF Urine WBC (0-4) /HPF Ur Squamous Epith Cells /LPF Urine Bacteria /LPF Urine Opiates Screen Not Detected (Not Detect) Ur Barbiturates Screen Not Detected (Not Detect) Ur Phencyclidine Scrn Not Detected (Not Detect) Ur Amphetamines Screen Not Detected (Not Detect) U Benzodiazepines Scrn Not Detected (Not Detect) Urine Cocaine Screen Not Detected (Not Detect) U Marijuana (THC) Screen Not Detected (Not Detect) Ethyl Alcohol mg/dL Imaging Data Chest x-ray: Radiologist's impression: Dominguez Solitario [address] [id number] ReportSigned Patient: Dominguez Solitario RMR#: [id number]: [id number]/Sex: 75 / MADM Date: 10/14/20Loc: [email or web address].EDAttending Dr: Ordering Physician: Vincent Estrada NP Date of Service: 10/14/20 Procedure(s): XR chest 1V Accession Number(s): [id number] cc: Vincent Estrada BOILER WASHER~ EXAMINATION: XR CHEST CLINICAL INFORMATION: Palpitations. Shortness of breath. COMPARISON: 06/19/2020 TECHNIQUE: Frontal view of the chest was obtained. FINDINGS: The lungs are well expanded. There is no focal consolidation, edema, or effusion. No pneumothorax. The cardiomediastinal silhouette is within normal limits of size with a calcified aorta. No acute osseous abnormality. XR/XR chest 1V IMPRESSION: No acute pulmonary finding. Dictated By:Garrett Rubin MDSigned By:<Electronically signed by Garrett Rubin MD in OV>10/14/20 2338 DD/ 2227TD/TT: Financial Aid Coordinator: JUSTINO ECG Data Interpretation: Sinus bradycardia Rate 57 NH interval 138 QT/QTC 418/[address] segment changes Discharge Plan Discharge Clinical Impression: Anxiety Patient Disposition: Home, Self-Care Instructions: Anxiety (ED), Anxiolysis in Adults (ED) Additional Instructions: Please take medication as prescribed Return if any concerns or worsening symptoms Follow-up with your psychiatrist appointment as planned Stress relieving techniques Meditation Balanced diet Plenty of sleep Also schedule follow-up with her primary care doctor Thank you Prescriptions: New hydroxyzine HCl 50 mg tablet 50 mg PO BID PRN (Reason: anxiety) Qty: 30 RF: 0 No Action finasteride 5 mg tablet 5 mg PO DAILY Qty: 90 RF: 2 tamsulosin 0.4 mg capsule 0.4 mg PO BEDTIME Qty: 90 RF: 1 Referrals: Lee Patel MD [Primary Care Provider] - 1 week Discharge Date/Time: 10/15/20 00:35
--- NOTE | 2020-10-14 19:48 | ECG_ITS ---
Test Reason : Medical clearance Blood Pressure : / mmHG Vent. Rate : 057 BPM Atrial Rate : 057 BPM P-R Int : 138 ms QRS Dur : 088 ms QT Int : 418 ms P-R-T Axes : 006 076 061 degrees QTc Int : 406 ms Sinus bradycardia Otherwise normal ECG When compared with ECG of 19-JUN-2020 06:28, No significant changes seen Referred By: Vincent Estrada Electronically Signed By:KANE GARZA
[2020-10-14 20:12] LABS: MANUAL DIFF FLAG NO
[2020-10-14 20:14] LABS: Basophils Absolute Auto 0.1 X10*3/uL (0.0-0.2); Basophils Percent Auto 0.6 % (0-2); Eosinophils Percent Auto 0.3 % (0-4); Hematocrit 46.9 % (42-52); Hemoglobin 15.8 g/dl (14.0-18.0); Imm Gran Abs Auto 0.03 X10*3/uL (0.00-0.03); Imm Gran Pct Auto 0.3 % (0.0-0.4); Lymphocytes Absolute Auto 1.9 X10*3/uL (1.2-4.9); Lymphocytes Percent Auto 19.5 % (20-40); Mean Corpuscular HGB Conc 33.7 g/dl (31.0-36.0); Mean Corpuscular Hemoglobin 31.3 pg (27.0-33.0); Mean Corpuscular Volume 92.9 fL (80-98); Mean Platelet Volume 8.6 fL (9.4-12.4); Monocytes Absolute Auto 0.7 X10*3/uL (0.1-1.2); Monocytes Percent Auto 6.8 % (2-11); Neutrophils Absolute Auto 6.9 X10*3/uL (2.0-8.3); Neutrophils Percent Auto 72.5 % (45-73); Platelet Count 293 X10*3/uL (160-400); Red Blood Count 5.05 X10*6/uL (4.60-5.80); Red Cell Distribution Width 12.5 % (11.0-16.0); White Blood Count 9.5 X10*3/uL (4.8-10.8)
[2020-10-14 20:19] LABS: INTERNATIONAL NORM RATIO 1.1 (0.9-1.1); Prothrombin Time 12.6 SEC (10.8-13.0)
[2020-10-14 20:33] LABS: Ethanol < 10 mg/dL
[2020-10-14 20:39] LABS: Alanine Aminotransferase 10 U/L (0-40); Albumin Level 4.5 g/dL (3.5-5.0); Alkaline Phosphatase 73 U/L (39-117); Anion Gap 13 (12-20); Aspartate Amino Transferase 18 U/L (5-37); Bilirubin Total 0.7 mg/dL (0.0-1.0); Blood Urea Nitrogen 21 mg/dL (9-16); Calcium 10.5 mg/dL (8.4-10.2); Carbon Dioxide 27 mmol/L (22-29); Chloride 104 mmol/L (96-108); Creatinine Clr Calc Pharmacy 69.1; Estimated Glomerular Filt Rate > 60; Glucose Random 165 mg/dL (60-115); Sodium 140 mmol/L (135-145); Total Protein 6.9 g/dL (6.5-8.0)
[2020-10-14 20:55] LABS: TSH reflex Free T4 1.61 uIU/mL (0.32-4.0)
[2020-10-14 21:47] LABS: Glucose Urine UA NEG (NEG); Leukocyte Esterase Urine NEG (NEG); Nitrite Urine POS (NEG); PH 6.5 (5.0-8.0); Specific Gravity - Urine 1.025 (1.005-1.025); UACC Culture Trigger YES; Urine Blood 2+ (NEG); Urine Ketones 15 MG/DL (NEG); Urine Protein NEG (NEG-TRACE)
[2020-10-14 21:48] LABS: Appearance Urine CLOUDY; Color Urine YELLOW
[2020-10-14 21:57] LABS: Bacteria Urine 2+ /LPF; Squamous Epithelial Cell Urine TRACE /LPF; UACC CULT YES
[2020-10-14 22:12] LABS: Amphetamine Screen Urine Not Detected (Not Detect); Barbiturates, Urine Not Detected (Not Detect); Benzodiazepines Screen Urine Not Detected (Not Detect); Cannabinoid Screen Urine Not Detected (Not Detect); Cocaine Screen Urine Not Detected (Not Detect); Opiate Screen Urine Not Detected (Not Detect); Phencyclidine Screen Urine Not Detected (Not Detect)
[2020-10-14 23:16] LABS: Troponin-I High Sensitivity < 3.5 ng/L (<3.5-35.0)
--- NOTE | 2020-10-15 00:26 | MHC.CARE ---
Pt is a 75 year old homosexual, , white male who self presented to ED with somatic complaints of eye swelling, nausea when eyes are closed, and difficulty with sleep and anxiety. Pt has a history of similar somatic preoccupation and anxiety and was admitted for psychiatric treatment in October 2019. Pt's presentation is not acute and pt is not experiencing thoughts of suicide, helplessness, or hopelessness at this time. Pt denied any changes with his appetite, though endorsed that he has been having trouble sleeping and has been increasingly anxious about possible medical problems that could be happening to him. Pt reported that he has been working with a therapist through [facility] (Dacia Guillen) though he doesn't feel like she listens to him, and when he tried to talk to her about what was going on with him this afternoon she recommended that he come to the emergency department. Pt reported that he has been on the same medications since his discharge from , with a brief trial of another antidepressant prescribed by his PCP (Dr. Patel). Pt has an appointment on 12/08/20 with a psychiatrist at [facility], however he feels that he needs help sooner, particularly for his anxiety and sleep, and his PCP is not agreeable to trialing any medications for sleep. Pt expressed frustration and feeling that things will get worse if he doesn't get help. This group underwriter spoke with pt about various treatment options, such as respite, partial hospitalization program (PHP), and inpatient. Given pt's presentation, out of the aforementioned options it is the impression of this group underwriter that PHP would be the most appropriate and beneficial with regards to pt's symptoms and needs. Pt was provided with information for PHP, consulted with ED provider who is in agreement with plan of care. ED is also provider providing pt with a short term script for hydroxyzine as needed for sleep and anxiety. Current medications: lorazepam 1mg BID PRN mirtazapine 15mg QD
== END 2020-10-15 00:35 | disposition home or self-care (01) ==
PROVIDERS: Nurse Practitioner Primary Care; Emergency Provider Internal Medicine; PCP Internal Medicine
DX: F41.9 Anxiety disorder, unspecified (principal); Z79.899 Other long term (current) drug therapy; R00.1 Bradycardia, unspecified
CPT/HCPCS: 36415; 71045; 80053; 80307; 80320; 81001; 83735; 84443; 84484; 85025; 85610; 85730; 93005; 99285

== ENCOUNTER 2020-11-27 15:37 | Outpatient (REF) | payer MEDICARE, SELFPAY ==
--- NOTE | ~2020-11-27 | MR_ITS ---
EXAMINATION: MR BRAIN WITHOUT CONTRAST CLINICAL INFORMATION: Tinnitus. COMPARISON: None available. TECHNIQUE: Multiplanar multisequence MRI of the brain was performed without contrast. FINDINGS: The inner ear structures demonstrate normal fluid signal. No vestibular schwannoma is seen. There is no mass in the posterior fossa. Fairly extensive superficial siderosis is seen throughout the cerebellum predominantly involving the cerebellar folia. In the supratentorial structures, scattered superficial siderosis is seen about the sulci and numerous foci of microhemorrhage are noted in the parenchyma in a peripheral distribution. There is no acute infarction, mass, or extra-axial fluid collection. 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 The ventricles and sulci are commensurate. Some gliotic changes seen within the cerebellar vermis. The right vertebral artery flow void is not seen. The remainder of the major arterial flow voids appear preserved. There are bilateral lens replacements. A mucosal retention cyst is present within the right maxillary sinus. MR/MR head/brain wo con IMPRESSION: Fairly extensive superficial siderosis seen within the infratentorial and supratentorial compartments. Numerous foci of susceptibility signal are seen in a peripheral distribution within the cerebral hemispheres. 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 Small areas of chronic infarction are seen in the high left frontal and high left parietal lobes.
== END 2020-11-27 15:38 | disposition home or self-care (01) ==
LOC: HO.MRI 15:37
PROVIDERS: Visit Provider Psychiatry & Neurology Neurology
DX: H93.19 Tinnitus, unspecified ear (principal); Z86.79 Personal history of other diseases of the circulatory system
CPT/HCPCS: 70551

== ENCOUNTER 2021-03-11 09:25 | Emergency (ER) | payer MEDICARE, SELFPAY ==
--- NOTE | 2021-03-11 | ECG_ITS ---
Test Reason : PALPITATIONS Blood Pressure : / mmHG Vent. Rate : 057 BPM Atrial Rate : 057 BPM P-R Int : 146 ms QRS Dur : 090 ms QT Int : 414 ms P-R-T Axes : 031 078 064 degrees QTc Int : 402 ms Sinus bradycardia Nonspecific ST abnormality Abnormal ECG When compared with ECG of 14-OCT-2020 20:02, Nonspecific ST abnormality is now Present Referred By: Generic ED Physician Electronically Signed By:AIXA CLEMONS
--- NOTE | ~2021-03-11 | XR_ITS ---
EXAMINATION: XR CHEST CLINICAL INFORMATION: Chest pain COMPARISON: Chest radiographs 10/14/2020, 06/19/2020, 05/06/2020 TECHNIQUE: 2 views of the chest were obtained. FINDINGS: There is mild hyperinflation similar to prior pneumothorax or pneumomediastinum. The lungs are clear and there is no consolidation or groundglass opacity or effusion. There is a probable nipple shadow overlying the left anterior fifth rib. This could be confirmed with repeat frontal view with nipple marker. The heart is normal in size. The vascularity is normal. The hilar and mediastinal contours are unremarkable. There is no acute bony abnormality. XR/XR chest 2V IMPRESSION: 1. No acute intrathoracic disease. 2. Probable nipple shadow overlying left anterior fifth rib. This could be confirmed with repeat frontal view with nipple marker
[2021-03-11 10:02] VITALS: BP 123/72; PULSE 54; RESP 22; TEMP 36.7; O2SAT 97; BMI 19.2
--- NOTE | 2021-03-11 10:20 | ED_ITS ---
HPI - Arrhythmia/Palpitations General Chief Complaint: Arrhythmia/Palpitations Stated Complaint: Heart palpitations Time Seen by Provider: 03/11/21 09:56 Source: patient Mode of arrival: ambulatory Limitations: no limitations History of Present Illness HPI narrative: 75-year-old male with a past medical history of anxiety, BPH here with complaints of palpitations. Patient tells me that yesterday he had episode of palpitations which lasted for several seconds and resolved while at rest. Today he had a similar episode prior to arrival. Both episodes occurred while at rest. There was no other associated symptoms with them. Patient tells me is a history of same. He had outpatient Holter on 05/20/2020 which was showed -In summary this study shows frequent non-sustained vent ectopic beats without sustained arrhythmias, and no R on T episodes. There are also several short SVT bursts of less than 10 bpm. No sxs reported. no intervention indicated at this time This is ordered by his primary care doctor and he has not seen a inspector materials and processes. Patient tells me does have a history of anxiety depression. He has Ativan as needed at home. Also started Prozac 2 weeks ago by his psychiatrist. He does see a therapist at [facility] Related Data Previous Rx's Medication Instructions Recorded finasteride 5 mg tablet 5 mg PO DAILY #90 tab 04/10/20 hydroxyzine HCl 50 mg tablet 50 mg PO BID PRN #30 tab 10/15/20 tamsulosin 0.4 mg capsule 0.4 mg PO BEDTIME #90 cap 11/11/20 Allergies Allergy/AdvReac Type Severity Reaction Status Date / Time phenytoin [Dilantin] Allergy Unknown Redness of Verified 10/14/20 15:27 Skin Review of Systems Review of Systems: Yes all other systems are reviewed and are negative Constitutional: Constitutional: Reports no additional constitutional complaints, Denies body ache(s), Denies chills, Denies fever(s), Denies headache(s) and Denies weakness Eyes: Eyes: Reports no additional eye complaints and Denies change in vision ENT: Reports system reviewed and no additional complaints, except as documented, Denies dizziness, Denies headache(s), Denies nasal congestion, Denies nasal discharge and Denies neck pain Cardiovascular: Cardiovascular: Reports no additional cardiovascular complaints, Denies chest pain, Denies leg edema, Reports palpitations and Denies dyspnea Respiratory: Respiratory: Reports no additional respiratory complaints, Denies cough and Denies dyspnea Gastrointestinal: Gastrointestinal: Reports no additional gastrointestinal complaints, Denies abdominal pain, Denies diarrhea, Denies nausea and Denies vomiting Genitourinary: Genitourinary: Denies urinary incontinence Musculoskeletal: Musculoskeletal: Reports no additional musculoskeletal complaints, Denies back pain, Denies arthralgias, Denies joint swelling, Denies neck pain, Denies numbness and Denies tingling Integumentary/Breasts: Skin/Breast: Reports system reviewed and no additional complaints, except as docu and Denies rash Neurologic: Reports system reviewed and no additional complaints, except as documented, Denies Abnormal speech present, Denies dizziness, Denies headache(s), Denies numbness, Denies tingling and Denies weakness Endocrine: Endocrine: Reports palpitations PMFSH Past Medical History Attestation statement: The following information was validated with the patient. Source: old records reviewed and nursing notes reviewed Medical History Anxiety Brain hematoma Depression Enlarged prostate Surgical History History of hip replacement, total Social History Social History Alcohol intake: never Patient Tobacco Use Status: Never used Tobacco Use of substances other than those prescribed or required for medical reasons: No Advance Directives: Yes Advance Directives Information Provided: No Advance Directives on File: No Physical Exam Vital Signs: Vital Signs: Last Vital Signs Temp 98.0 F 03/11/21 10:02 Pulse 74 03/11/21 12:47 Resp 18 03/11/21 12:47 BP 121/68 03/11/21 12:47 Pulse Ox 100 03/11/21 12:47 Body Mass Index 19.2 Const: General: cooperative, healthy appearing, comfortable and no acute distress Orientation/consciousness: patient oriented x3 Limitations: no limitations HENMT: Head: Yes normal to inspection Ears: hearing grossly normal bilatera lly General nose exam: Normal external nose present Face and sinus: Yes normal facial exam Mouth: Normal oral and palatal mucosa present Throat: Yes posterior oropharynx normal Eyes: General: appearance normal, both eyes and all related structures Pupils: Equal, round and reactive pupils present Neck: Neck: Yes normal visual inspection Chest: Chest palpation & inspection: normal inspection of the chest Resp: Effort & Inspection: normal respiratory effort Auscultation: clear to auscultation bilaterally Cardio: Rate: bradycardic (57) Rhythm: regular rhythm Peripheral pulses: Peripheral pulses 2+ throughout GI: Inspection: Yes normal to inspection Palpation (GI): Soft to palpation and nontender Auscultation: normal bowel sounds Back/Spine/Pelvis: Thoracic/Lumbar Spine: thoracic and lumbar spine normal to inspection Skin: General skin exam: no rashes or lesions noted Neuro: General: patient oriented x3, no focal motor deficits and normal sensation to monofilament Cranial nerves: Yes Equal, round and reactive pupils present Cognition (Neuro): normal cognition Speech: No Abnormal speech present Gait exam (Neuro): Normal gait present Motor exam (neuro): 5/5 motor strength present throughout Extrem: General: Yes normal to inspection, Yes no pedal edema and Yes no calf tenderness Course Course Course Narrative: 75-year-old male here with 2 episodes of palpitations which lasted several seconds long in the last 48 hours. On arrival he is not having any palpitations. He has no other reported symptoms with these palpitations. He has a history of same and has had all patient Holter which showed frequent nonsustained ventricular topic beats without any sustained arrhythmias and several short SVT purse of less than 10 beats per minute. He also has a history of anxiety depression and is taking Ativan as needed and recently started Prozac 2 weeks ago. Will check EKG, labs, chest x-ray 1330-labs unremarkable. EKG and chest x-ray show no acute finding. Patient was monitored in the emergency department for 3 hours with no changes in his rhythm . ?anxiety. I recommended the patient follow-up with his primary care doctor as well as a inspector materials and processes for outpatient Holter. Reviewed worrisome signs and symptoms of when to return to the emergency department. Comfortable discharge home. MDM - Arrhythmia/Palpitations MDM Narrative Medical decision making narrative: Tachyarrhythmia, anxiety, acs, thyroiditis Differential Diagnosis Differential diagnosis: Likely palpitations Medical Records Attestation: I reviewed the patient's medical records. Lab Data Attestation: I reviewed the patient's lab results. Result diagrams: 03/11/21 11:42 03/11/21 11:42 Labs: Lab Results 03/11/21 03/11/21 03/11/21 Range/Units 11:42 11:42 11:42 WBC 6.1 (4.8-10.8) X10*3/uL RBC 5.05 (4.60-5.80) X10*6/uL Hgb 15.6 (14.0-18.0) g/dl Hct 47.5 (42-52) % MCV 94.1 (80-98) fL MCH 30.9 (27.0-33.0) pg MCHC 32.8 (31.0-36.0) g/dl RDW 12.2 (11.0-16.0) % Plt Count 254 (160-400) X10*3/uL MPV 9.0 L (9.4-12.4) fL Immature Gran % (Auto) 0.2 (0.0-0.4) % Neut % (Auto) 72.8 (45-73) % Lymph % (Auto) 20.2 (20-40) % [place] % (Auto) 5.8 (2-11) % Eos % (Auto) 0.2 (0-4) % Baso % (Auto) 0.8 (0-2) % Lymph # (Auto) 1.2 (1.2-4.9) X10*3/uL [place] # (Auto) 0.4 (0.1-1.2) X10*3/uL Eos # (Auto) 0.0 (0.0-0.4) X10*3/uL Baso # (Auto) 0.1 (0.0-0.2) X10*3/uL Abs Immat Gran (auto) 0.01 (0.00-0.03) X10*3/uL Absolute Neuts (auto) 4.4 (2.0-8.3) X10*3/uL Absolute Nucleated RBC 0.000 (0.0-0.012) X10*3/uL Nucleated RBC % (auto) 0.0 (0.0-0.2) /100WBC Sodium 140 (135-145) mmol/L Potassium 4.4 (3.3-5.1) mmol/L Chloride 106 (96-108) mmol/L Carbon Dioxide 27 (22-29) mmol/L Anion Gap 11 L (12-20) BUN 17 H (9-16) mg/dL Creatinine 0.86 (0.5-1.4) mg/dL Estim Creat Clear Calc 62.8 Estimated GFR > 60 Random Glucose 170 H (60-115) mg/dL Calcium 10.2 (8.4-10.2) mg/dL Magnesium 2.1 (1.6-2.6) mg/dL Total Bilirubin 1.0 (0.0-1.0) mg/dL Direct Bilirubin 0.4 (0.0-0.5) mg/dL AST 20 (5-37) U/L ALT 15 (0-40) U/L Alkaline Phosphatase 70 (39-117) U/L Troponin I High Sens < 3.5 (<3.5-35.0) ng/L Total Protein 6.4 L (6.5-8.0) g/dL Albumin 4.2 (3.5-5.0) g/dL TSH 1.12 (0.32-4.0) uIU/mL Imaging Data Chest x-ray: Attestation: I personally reviewed and interpreted this imaging study as follows: Radiologist's impression: [place] [id number] XRay Report Signed Patient: Dominguez Solitario MR#: [id number] : 1945 Acct:[id number] Age/Sex: 75 / M ADM Date: 03/11/21 Loc: .ED Attending Dr: Ordering Physician: Vane Duong NP Date of Service: 03/11/21 Procedure(s): XR chest 2V Accession Number(s): [id number] cc: Vane Duong NP~ EXAMINATION: XR CHEST CLINICAL INFORMATION: Chest pain COMPARISON: Chest radiographs 10/14/2020, 06/19/2020, 05/06/2020 TECHNIQUE: 2 views of the chest were obtained. FINDINGS: There is mild hyperinflation similar to prior pneumothorax or pneumomediastinum. The lungs are clear and there is no consolidation or groundglass opacity or effusion. There is a probable nipple shadow overlying the left anterior fifth rib. This could be confirmed with repeat frontal view with nipple marker. The heart is normal in size. The vascularity is normal. The hilar and mediastinal contours are unremarkable. There is no acute bony abnormality. XR/XR chest 2V IMPRESSION: ? 1. No acute intrathoracic disease. ? 2. Probable nipple shadow overlying left anterior fifth rib. This could be confirmed with repeat frontal view with nipple marker ECG Data Attestation: I personally reviewed and interpreted this ECG as follows: ECG interpretation date: 03/11/21 ECG interpretation time: : Interpretation: Sinus bradycardia with a rate of 57, normal SD, normal QRS, normal QT Discharge Plan Discharge Clinical Impression: Palpitations Patient Disposition: Home, Self-Care Instructions: Heart Palpitations (ED) Additional Instructions: Your lab work, EKG and chest x-ray all look normal Follow-up with cardiology as discussed Continue your normal medication Prescriptions: No Action finasteride 5 mg tablet 5 mg PO DAILY Qty: 90 RF: 2 tamsulosin 0.4 mg capsule 0.4 mg PO BEDTIME Qty: 90 RF: 1 hydroxyzine HCl 50 mg tablet 50 mg PO BID PRN (Reason: anxiety) Qty: 30 RF: 0 Referrals: Mirza Morton MD [Physician] - 2 days Interventions: ED Discharge Assessment Last Done: 03/11/21 12:53 Discharge Date/Time: 03/11/21 12:54
[2021-03-11 11:32] VITALS: PULSE 67
[2021-03-11 11:52] LABS: MANUAL DIFF FLAG NO
[2021-03-11 11:56] LABS: Basophils Absolute Auto 0.1 X10*3/uL (0.0-0.2); Basophils Percent Auto 0.8 % (0-2); Eosinophils Percent Auto 0.2 % (0-4); Hematocrit 47.5 % (42-52); Hemoglobin 15.6 g/dl (14.0-18.0); Imm Gran Abs Auto 0.01 X10*3/uL (0.00-0.03); Imm Gran Pct Auto 0.2 % (0.0-0.4); Lymphocytes Absolute Auto 1.2 X10*3/uL (1.2-4.9); Lymphocytes Percent Auto 20.2 % (20-40); Mean Corpuscular HGB Conc 32.8 g/dl (31.0-36.0); Mean Corpuscular Hemoglobin 30.9 pg (27.0-33.0); Mean Corpuscular Volume 94.1 fL (80-98); Monocytes Absolute Auto 0.4 X10*3/uL (0.1-1.2); Monocytes Percent Auto 5.8 % (2-11); Neutrophils Absolute Auto 4.4 X10*3/uL (2.0-8.3); Neutrophils Percent Auto 72.8 % (45-73); Platelet Count 254 X10*3/uL (160-400); Red Blood Count 5.05 X10*6/uL (4.60-5.80); Red Cell Distribution Width 12.2 % (11.0-16.0); White Blood Count 6.1 X10*3/uL (4.8-10.8)
[2021-03-11 12:15] LABS: Alanine Aminotransferase 15 U/L (0-40); Albumin Level 4.2 g/dL (3.5-5.0); Alkaline Phosphatase 70 U/L (39-117); Anion Gap 11 (12-20); Aspartate Amino Transferase 20 U/L (5-37); Bilirubin Direct 0.4 mg/dL (0.0-0.5); Blood Urea Nitrogen 17 mg/dL (9-16); Calcium 10.2 mg/dL (8.4-10.2); Carbon Dioxide 27 mmol/L (22-29); Chloride 106 mmol/L (96-108); Creatinine Clr Calc Pharmacy 62.8; Estimated Glomerular Filt Rate > 60; Glucose Random 170 mg/dL (60-115); Magnesium 2.1 mg/dL (1.6-2.6); Potassium 4.4 mmol/L (3.3-5.1); Sodium 140 mmol/L (135-145); Total Protein 6.4 g/dL (6.5-8.0)
[2021-03-11 12:16] LABS: Troponin-I High Sensitivity < 3.5 ng/L (<3.5-35.0)
[2021-03-11 12:30] LABS: Thyroid Stimulating Hormone 1.12 uIU/mL (0.32-4.0)
[2021-03-11 12:47] VITALS: BP 121/68; PULSE 74; RESP 18; O2SAT 100
== END 2021-03-11 12:54 | disposition home or self-care (01) ==
PROVIDERS: Nurse Practitioner Family; Emergency Provider Emergency Medicine Emergency Medical Services; PCP Internal Medicine
DX: R00.2 Palpitations (principal); R07.9 Chest pain, unspecified; Z79.899 Other long term (current) drug therapy
CPT/HCPCS: 36415; 71046; 80048; 80076; 83735; 84443; 84484; 85025; 93005; 99283; 99285

== ENCOUNTER 2021-03-20 12:53 | Emergency (ER) | payer MEDICARE, SELFPAY ==
--- NOTE | ~2021-03-20 | CT_ITS ---
EXAMINATION: CT ABDOMEN AND PELVIS WITH CONTRAST CLINICAL INFORMATION: Abdominal pain and weight loss. COMPARISON: CT abdomen/pelvis dated from 11/30/2019. TECHNIQUE: Multidetector volumetric images were obtained from the superior aspect of the liver through the pubic symphysis following administration 85 mL of Omnipaque 350 intravenous contrast. Sagittal and coronal reformatted images were obtained on the technologist's workstation. Oral contrast: No This CT examination was performed using dose optimization techniques as appropriate, variously including the following: *Automated exposure control *Adjustment of mA and/or kV according to patient size (this includes techniques or standardized protocols for targeted exams where dose is matched to indication/reason for exam; i.e. extremities or head) *Use of iterative reconstruction technique DLP: 432 mGy-cm FINDINGS: LUNG BASES: A 2 mm partially calcified nodule in the left lung base (114:4) is unchanged. Mild subsegmental atelectasis. No focal consolidation or pleural effusion. LIVER, GALLBLADDER, AND BILIARY TREE: The liver is normal in size, shape, and attenuation. No focal hepatic lesion or biliary ductal dilatation is present. The gallbladder is unremarkable with no evidence of radiopaque gallstones, gallbladder wall thickening, or obvious pericholecystic inflammatory changes. PANCREAS: No focal abnormalities. The main pancreatic duct is nondilated. No peripancreatic free fluid or fat stranding. SPLEEN: Unremarkable. ADRENAL GLANDS: Unremarkable. KIDNEYS AND URETERS: Unchanged cortical thinning/scarring in the inferior pole of the left kidney with a similar associated 3 mm parenchymal calcification (33:7). Stable nonobstructive 3 mm calculus in the interpolar region of the right kidney (36, 7). There are a few bilateral too small to characterize hypodensities that appears similar since 2020 and statistically are likely to represent simple cysts not requiring further workup. There is no hydronephrosis or hydroureter. There is no perinephric fat stranding. BLADDER: The urinary bladder wall is slightly trabeculated likely related with chronic outlet obstruction in the setting of an enlarged prostate. No focal abnormalities. No perivesical fat stranding. GASTROINTESTINAL TRACT: Small hiatal hernia. There is mild hyperemia of the duodenal sweep, predominantly descending duodenum, of uncertain significance in the absence of associated inflammatory changes. There is no bowel obstruction. The distal colon is underdistended limiting assessment for wall thickening, there are however no significant pericolic inflammatory changes to suspect acute colitis or diverticulitis. ABDOMINAL WALL: Small fat-containing umbilical hernia. Small fat-containing bilateral inguinal hernias. LYMPH NODES: A few prominent pelvic lymph nodes measuring up to 7 mm short axis on the left side (64:3) and 1.2 cm short axis on the right side (57:3) are unchanged. No abdominal lymphadenopathy. VASCULAR: Scattered atherosclerotic disease. The abdominal aorta is of normal caliber. PELVIC VISCERA: Redemonstration of a markedly enlarged prostate protruding into the bladder base, similar since 2020. OSSEOUS STRUCTURES: No acute or aggressive osseous abnormalities. Multilevel thoracolumbar spondylosis. Partial visualization of a total left hip arthroplasty. CT/CT abdomen pelvis w con IMPRESSION: Questionable hyperemia of the duodenal sweep of uncertain significance in the absence of surrounding inflammatory changes or bowel obstruction. This could be seen in the setting of gastroenteritis. Colonic diverticulosis without significant associated inflammatory changes to suspect acute diverticulitis. Nonobstructive right renal calculus, similar to prior. Redemonstration of a markedly enlarged heterogeneous prostate protruding into the bladder base and leading to chronic outlet obstruction. Prominent pelvic lymph nodes are of uncertain etiology and stable since 2020.
--- NOTE | ~2021-03-20 | XR_ITS ---
EXAMINATION: XR CHEST CLINICAL INFORMATION: Palpitations. COMPARISON: Chest 03/11/2021 TECHNIQUE: Frontal view of the chest was obtained. FINDINGS: The lungs are well-expanded and clear. Heart size and pulmonary vascularity is normal. There is mild spondylosis dorsal spine. No lytic process. XR/XR chest 1V IMPRESSION: No acute process seen in the chest. Previously seen nipple shadow in the left lower lobe is not visualized at this time.
--- NOTE | 2021-03-20 13:14 | ECG_ITS ---
Test Reason : PALPITATIONS Blood Pressure : / mmHG Vent. Rate : 070 BPM Atrial Rate : 070 BPM P-R Int : 112 ms QRS Dur : 088 ms QT Int : 402 ms P-R-T Axes : -28 077 077 degrees QTc Int : 434 ms Normal sinus rhythm RSR' or QR pattern in V1 suggests right ventricular conduction delay Nonspecific ST abnormality Abnormal ECG When compared with ECG of 11-MAR-2021 09:29, Heart rate has increased Referred By: Generic ED Physician Electronically Signed By:CARLO MONTES MD
[2021-03-20 14:27] VITALS: BP 141/85; PULSE 83; RESP 16; TEMP 36.8; O2SAT 83; BMI 16.5
--- NOTE | 2021-03-20 15:51 | ED_ITS ---
HPI - General Adult General Chief complaint: Arrhythmia/Palpitations Stated complaint: heart palpitations Time Seen by Provider: 03/20/21 14:34 Source: patient Mode of arrival: ambulatory Limitations: no limitations History of Present Illness HPI narrative: 75-year-old patient with past medical history of BPH, elevated PSA, anxiety presents to ED with palpitations for months. Patient has been seen in the ED multiple times for this complaint and also has had Holter monitor workup that did not show any sustained arrhythmia. Patient states also abdominal pain and some weight loss. Patient denies any chest pain or shortness of breath. Patient does have history of anxiety Related Data Previous Rx's Medication Instructions Recorded finasteride 5 mg tablet 5 mg PO DAILY #90 tab 04/10/20 hydroxyzine HCl 50 mg tablet 50 mg PO BID PRN #30 tab 10/15/20 tamsulosin 0.4 mg capsule 0.4 mg PO BEDTIME #90 cap 11/11/20 Allergies Allergy/AdvReac Type Severity Reaction Status Date / Time phenytoin [Dilantin] Allergy Unknown Redness of Verified 10/14/20 15:27 Skin Review of Systems Constitutional: Constitutional: Reports as per HPI and Reports no additional constitutional complaints Eyes: Eyes: Reports as per HPI and Reports no additional eye complaints ENT: Reports system reviewed and no additional complaints, except as documented and Reports as per HPI Cardiovascular: Cardiovascular: Reports as per HPI and Reports no additional cardiovascular complaints Respiratory: Respiratory: Reports as per HPI and Reports no additional respiratory complaints Gastrointestinal: Gastrointestinal: Reports as per HPI, Reports no additional gastrointestinal complaints and Reports abdominal pain Comments: Weight loss Musculoskeletal: Musculoskeletal: Reports no additional musculoskeletal complaints and Reports as per HPI Neurologic: Reports system reviewed and no additional complaints, except as documented and Reports as per HPI Psychiatric: Psychiatric: Reports no additional psychiatric complaints and Reports as per HPI Comments: Seemed anxious PMFSH Past Medical History Medical History Anxiety Brain hematoma Depression Enlarged prostate Surgical History History of hip replacement, total Social History Social History Alcohol intake: never Patient Tobacco Use Status: Never used Tobacco Advance Directives: No Advance Directives Information Provided: No Physical Exam Vital Signs: Vital Signs: Last Vital Signs Temp 98.4 F 03/20/21 15:59 Pulse 70 03/20/21 17:15 Resp 18 03/20/21 17:15 BP 118/88 03/20/21 17:15 Pulse Ox 98 03/20/21 17:15 Body Mass Index 16.5 Const: General: cooperative, healthy appearing, comfortable, no acute distress, well developed, alert, awake and Physically active Orientation/co nsciousness: patient oriented x3 HENMT: Head: Yes normal to inspection, Yes No palpable skull fracture present, Yes normocephalic, Yes atraumatic and No abrasion Eyes: General: appearance normal, both eyes and all related structures Neck: Neck: Yes normal visual inspection, Yes full ROM, Yes no lymphadenopathy, Yes no meningeal signs, Yes trachea midline, Yes supple and No tender Chest: Chest palpation & inspection: normal inspection of the chest and normal palpation of entire chest wall Resp: Effort & Inspection: normal respiratory effort and able to speak in complete sentences Auscultation: clear to auscultation bilaterally Cardio: Jugular venous distension: no JVD Heart sounds: S1 normal heart sound present and S2 normal heart sound present GI: Inspection: Yes normal to inspection and No abdominal wall ecchymosis Palpation (GI): Soft to palpation, not firm, nontender, no guarding and not rigid : General: No CVA tenderness and Yes no CVA tenderness Back/Spine/Pelvis: Back: no CVA tenderness, No CVA tenderness and No back tenderness Skin: General skin exam: no rashes or lesions noted and elasticity normal Neuro: General: patient oriented x3, gait normal, no meningeal signs and CN's II-XI intact bilaterally Cranial nerves: Yes CN's II-XII intact bilaterally Extrem: Other: Lower extremities negative for swelling, pitting edema, or calf tenderness. General: Yes normal to inspection and Yes full ROM Psych: Appearance: grossly normal, well kempt and not disheveled Course Course Course Narrative: Patient is not hypoxic. Repeat O2 sat 96% on room air with good waveform patient speaking in full sentence not use accessory muscles. O2 sat 83% was not accurate. Will do medical evaluation due to age. Reevaluation(s) Reevaluation #1: Patient's EKG negative STEMI. Patient's troponin and D-dimer negative. Patient's thyroid came back normal. BNP normal. COVID swab is negative Due to patient stating abdominal pain and weight loss. Patient will be sent for CT scan to rule out mass and cancer. Case will be signed out to night TATIANNA provider Time: 18:33 Medical Decision Making MDM Narrative Medical decision making narrative: Anxiety. Palpitations. Lab Data Result diagrams: 03/20/21 16:10 03/20/21 16:58 Labs: Lab Results 03/20/21 03/20/21 03/20/21 Range/Units 16:10 16:10 16:10 WBC 8.2 (4.8-10.8) X10*3/uL RBC 5.16 (4.60-5.80) X10*6/uL Hgb 15.6 (14.0-18.0) g/dl Hct 47.4 (42-52) % MCV 91.9 (80-98) fL MCH 30.2 (27.0-33.0) pg MCHC 32.9 (31.0-36.0) g/dl RDW 12.2 (11.0-16.0) % Plt Count 302 (160-400) X10*3/uL MPV 9.1 L (9.4-12.4) fL Immature Gran % (Auto) 0.2 (0.0-0.4) % Neut % (Auto) 73.8 H (45-73) % Lymph % (Auto) 18.3 L (20-40) % [place] % (Auto) 6.8 (2-11) % Eos % (Auto) 0.5 (0-4) % Baso % (Auto) 0.4 (0-2) % Lymph # (Auto) 1.5 (1.2-4.9) X10*3/uL [place] # (Auto) 0.6 (0.1-1.2) X10*3/uL Eos # (Auto) 0.0 (0.0-0.4) X10*3/uL Baso # (Auto) 0.0 (0.0-0.2) X10*3/uL Abs Immat Gran (auto) 0.02 (0.00-0.03) X10*3/uL Absolute Neuts (auto) 6.0 (2.0-8.3) X10*3/uL Absolute Nucleated RBC 0.000 (0.0-0.012) X10*3/uL Nucleated RBC % (auto) 0.0 (0.0-0.2) /100WBC PT 11.7 (9.9-13.0) SEC INR 1.0 (0.9-1.1) APTT 31.4 (24.1-38.0) SEC D-Dimer < 200 NG/ML Sodium (135-145) mmol/L Potassium (3.3-5.1) mmol/L Chloride (96-108) mmol/L Carbon Dioxide (22-29) mmol/L Anion Gap (12-20) BUN (9-16) mg/dL Creatinine (0.5-1.4) mg/dL Estim Creat Clear Calc Estimated GFR Random Glucose (60-115) mg/dL Calcium (8.4-10.2) mg/dL Total Bilirubin (0.0-1.0) mg/dL Direct Bilirubin (0.0-0.5) mg/dL AST (5-37) U/L ALT (0-40) U/L Alkaline Phosphatase (39-117) U/L Troponin I High Sens < 3.5 (<3.5-35.0) ng/L B-Natriuretic Peptide 47 (<100) pg/mL Total Protein (6.5-8.0) g/dL Albumin (3.5-5.0) g/dL TSH (0.32-4.0) uIU/mL COVID-19 ([facility]) (Negative) COVID-19 Clin Com 03/20/21 03/20/21 Range/Units 16:10 16:58 WBC (4.8-10.8) X10*3/uL RBC (4.60-5.80) X10*6/uL Hgb (14.0-18.0) g/dl Hct (42-52) % MCV (80-98) fL MCH (27.0-33.0) pg MCHC (31.0-36.0) g/dl RDW (11.0-16.0) % Plt Count (160-400) X10*3/uL MPV (9.4-12.4) fL Immature Gran % (Auto) (0.0-0.4) % Neut % (Auto) (45-73) % Lymph % (Auto) (20-40) % [place] % (Auto) (2-11) % Eos % (Auto) (0-4) % Baso % (Auto) (0-2) % Lymph # (Auto) (1.2-4.9) X10*3/uL [place] # (Auto) (0.1-1.2) X10*3/uL Eos # (Auto) (0.0-0.4) X10*3/uL Baso # (Auto) (0.0-0.2) X10*3/uL Abs Immat Gran (auto) (0.00-0.03) X10*3/uL Absolute Neuts (auto) (2.0-8.3) X10*3/uL Absolute Nucleated RBC (0.0-0.012) X10*3/uL Nucleated RBC % (auto) (0.0-0.2) /100WBC PT (9.9-13.0) SEC INR (0.9-1.1) APTT (24.1-38.0) SEC D-Dimer NG/ML Sodium 141 (135-145) mmol/L Potassium 4.6 (3.3-5.1) mmol/L Chloride 108 (96-108) mmol/L Carbon Dioxide 27 (22-29) mmol/L Anion Gap 11 L (12-20) BUN 18 H (9-16) mg/dL Creatinine 0.72 (0.5-1.4) mg/dL Estim Creat Clear Calc 64.6 Estimated GFR > 60 Random Glucose 102 D (60-115) mg/dL Calcium 9.5 D (8.4-10.2) mg/dL Total Bilirubin 0.9 (0.0-1.0) mg/dL Direct Bilirubin 0.4 (0.0-0.5) mg/dL AST 15 (5-37) U/L ALT 12 (0-40) U/L Alkaline Phosphatase 66 (39-117) U/L Troponin I High Sens (<3.5-35.0) ng/L B-Natriuretic Peptide (<100) pg/mL Total Protein 5.7 L (6.5-8.0) g/dL Albumin 3.7 (3.5-5.0) g/dL TSH 0.83 (0.32-4.0) uIU/mL COVID-19 ([facility]) Negative (Negative) COVID-19 Clin Com See Note ECG Data Interpretation: Normal sinus rhythm. Ventricular rate 70. Pr interval 112. QRS 88. QTC 434. Negative STEMI Discharge Plan Discharge Clinical Impression: Palpitations Instructions: Heart Palpitations (ED) Additional Instructions: Return to the ED immediately for any chest pain, shortness of breath, abdominal pain, dysuria, hematuria, flank pain, fever, chills, any other concerning symptoms. Please follow-up with PCP Prescriptions: No Action finasteride 5 mg tablet 5 mg PO DAILY Qty: 90 RF: 2 tamsulosin 0.4 mg capsule 0.4 mg PO BEDTIME Qty: 90 RF: 1 hydroxyzine HCl 50 mg tablet 50 mg PO BID PRN (Reason: anxiety) Qty: 30 RF: 0 Print Language: Slovenian
[2021-03-20 15:59] VITALS: BP 124/69; PULSE 60; RESP 18; TEMP 36.9; O2SAT 97
[2021-03-20] MEDS: 0.9 % Sodium Chloride 1,000 ML 999 ML IV ×2 (16:12→18:39)
[2021-03-20 16:19] LABS: MANUAL DIFF FLAG NO
[2021-03-20 16:29] LABS: Prothrombin Time 11.7 SEC (9.9-13.0)
[2021-03-20 16:30] LABS: Basophils Percent Auto 0.4 % (0-2); Eosinophils Percent Auto 0.5 % (0-4); Hematocrit 47.4 % (42-52); Hemoglobin 15.6 g/dl (14.0-18.0); Imm Gran Abs Auto 0.02 X10*3/uL (0.00-0.03); Imm Gran Pct Auto 0.2 % (0.0-0.4); Lymphocytes Absolute Auto 1.5 X10*3/uL (1.2-4.9); Lymphocytes Percent Auto 18.3 % (20-40); Mean Corpuscular HGB Conc 32.9 g/dl (31.0-36.0); Mean Corpuscular Hemoglobin 30.2 pg (27.0-33.0); Mean Corpuscular Volume 91.9 fL (80-98); Mean Platelet Volume 9.1 fL (9.4-12.4); Monocytes Absolute Auto 0.6 X10*3/uL (0.1-1.2); Monocytes Percent Auto 6.8 % (2-11); Neutrophils Percent Auto 73.8 % (45-73); Platelet Count 302 X10*3/uL (160-400); Red Blood Count 5.16 X10*6/uL (4.60-5.80); Red Cell Distribution Width 12.2 % (11.0-16.0); White Blood Count 8.2 X10*3/uL (4.8-10.8)
[2021-03-20 16:32] LABS: Partial Thromboplastin Time 31.4 SEC (24.1-38.0)
[2021-03-20 16:33] LABS: D Dimer < 200 NG/ML
[2021-03-20 16:41] LABS: B Type Natriuretic Peptide 47 pg/mL (<100); Troponin-I High Sensitivity < 3.5 ng/L (<3.5-35.0)
[2021-03-20 17:15] VITALS: BP 118/88; PULSE 70; RESP 18; O2SAT 98
[2021-03-20 17:27] LABS: Alanine Aminotransferase 12 U/L (0-40); Albumin Level 3.7 g/dL (3.5-5.0); Alkaline Phosphatase 66 U/L (39-117); Anion Gap 11 (12-20); Aspartate Amino Transferase 15 U/L (5-37); Bilirubin Direct 0.4 mg/dL (0.0-0.5); Bilirubin Total 0.9 mg/dL (0.0-1.0); Blood Urea Nitrogen 18 mg/dL (9-16); Calcium 9.5 mg/dL (8.4-10.2); Carbon Dioxide 27 mmol/L (22-29); Chloride 108 mmol/L (96-108); Creatinine Clr Calc Pharmacy 64.6; Estimated Glomerular Filt Rate > 60; Glucose Random 102 mg/dL (60-115); Potassium 4.6 mmol/L (3.3-5.1); Sodium 141 mmol/L (135-145); Total Protein 5.7 g/dL (6.5-8.0)
[2021-03-20 17:45] LABS: COVID-19 Test Negative (Negative)
[2021-03-20 17:47] LABS: TSH reflex Free T4 0.83 uIU/mL (0.32-4.0)
[2021-03-20] MEDS: iohexoL 350 MG/ML 100 ML INFUS..BTL 85 ML IV (18:29)
[2021-03-20 19:44] VITALS: BP 138/75; PULSE 65; RESP 18; TEMP 36.4; O2SAT 98
--- NOTE | 2021-03-20 20:01 | PC.NURSE ---
maintenance mechanic technician at bedside for bladder scan, 850 ml noted on scan. maintenance mechanic technician placing valdes cath due to urinary retention.
[2021-03-20 20:11] LABS: Appearance Urine HAZY; Color Urine YELLOW; Glucose Urine UA NEG (NEG); Leukocyte Esterase Urine NEG (NEG); Nitrite Urine POS (NEG); UACC Culture Trigger YES; Urine Blood 2+ (NEG); Urine Ketones 40 MG/DL (NEG); Urine Protein NEG (NEG-TRACE)
[2021-03-20 20:18] LABS: Bacteria Urine 4+ /LPF; Squamous Epithelial Cell Urine TRACE /LPF
[2021-03-20 20:20] LABS: Mucus Urine TRACE /LPF
[2021-03-20 21:13] VITALS: BP 142/76; PULSE 70; RESP 20; O2SAT 95
--- NOTE | 2021-03-20 21:17 | PC.NURSE ---
LEG BAG APPLIED FOR DISCHARGE PER MD.
== END 2021-03-20 21:22 | disposition home or self-care (01) ==
PROVIDERS: Physician Assistant; Emergency Provider Emergency Medicine; PCP Internal Medicine
DX: R00.2 Palpitations (principal); R63.4 Abnormal weight loss; N40.1 Benign prostatic hyperplasia with lower urinary tract symptoms; R33.8 Other retention of urine; Z20.822 Contact with and (suspected) exposure to COVID-19
CPT/HCPCS: 36415; 71045; 74177; 80053; 81001; 82248; 83880; 84443; 84484; 85025; 85379; 85610; 85730; 87086; 87635; 93005; 96360; 99284; Q9967

== ENCOUNTER 2021-03-21 16:13 | Emergency (ER) | payer MEDICARE, SELFPAY ==
[2021-03-21 16:18] VITALS: BP 118/73; PULSE 107; RESP 20; TEMP 37; BMI 19.2
--- NOTE | 2021-03-21 20:31 | ED_ITS ---
HPI - Male Genitourinary General Chief complaint: Urogenital-Male Stated complaint: Catheter issue Time Seen by Provider: 03/21/21 20:28 Source: patient and old records reviewed Mode of arrival: ambulatory Limitations: no limitations History of Present Illness Complaint: other (urinating around the valdes and noted some blood at the meatus) Onset (ago): hour(s) (earlier today) Duration: intermittent Location: penis Radiation: penis Severity: mild Relieving factors: none Exacerbating factors: urination Context: other (new 16Fr valdes yesterday) Associated symptoms: Reports denies other symptoms Related Data Previous Rx's Medication Instructions Recorded finasteride 5 mg tablet 5 mg PO DAILY #90 tab 04/10/20 hydroxyzine HCl 50 mg tablet 50 mg PO BID PRN #30 tab 10/15/20 tamsulosin 0.4 mg capsule 0.4 mg PO BEDTIME #90 cap 11/11/20 cefuroxime axetil 500 mg tablet 500 mg PO BID 10 Days #20 tab 03/21/21 Allergies Allergy/AdvReac Type Severity Reaction Status Date / Time phenytoin [Dilantin] Allergy Unknown Redness of Verified 10/14/20 15:27 Skin Review of Systems Review of Systems: Constitutional : No Weight loss, No Fever, No Chills, No Fatigue, No Malaise ENT/Mouth : No sore throat, No Rhinorrhea Eyes: No Eye Pain, No Swelling, No Redness Cardiovascular : No Chest Pain, No SOB, No Dyspnea on Exertion, No Orthopnea, No Edema, No Palpitations Respiratory : No Cough, No Sputum, No Wheezing Gastrointestinal : No Nausea, No Vomiting, No Diarrhea, No Constipation, No abdominal Pain, No Hematochezia, No Melena Genitourinary : No Dysuria, No Urinary Frequency, No Hematuria, pos urination around the catheter Musculoskeletal : No joint pain, No Myalgias, No Joint Swelling Skin : No Skin Lesions, No rash Neuro : No Weakness, No Numbness, No Dizziness, No Headache PMFSH Past Medical History Attestation statement: The following information was validated with the patient. Medical History Anxiety Brain hematoma Depression Enlarged prostate Surgical History History of hip replacement, total Social History Social History Alcohol intake: never Patient Tobacco Use Status: Never used Tobacco Advance Directives: No Advance Directives Information Provided: No Physical Exam Vital Signs: Vital Signs: Last Vital Signs Temp 98.4 F 03/21/21 21:55 Pulse 74 03/21/21 21:55 Resp 16 03/21/21 21:55 BP 141/73 H 03/21/21 21:55 Pulse Ox 97 03/21/21 21:55 Body Mass Index 19.2 Appearance: Alert. Oriented X3. No acute distress. Eyes: Pupils equal, round and reactive to light. ENT: Pharynx normal. Neck: Normal inspection. Neck supple. CVS: Normal heart rate and rhythm. Pulses normal. Respiratory: No respiratory distress. Breath sounds normal. Abdomen: Soft and nontender. : valdes seems too small for his urethral opening I do not see blood at his meatus or in the catheter Skin: Skin warm and dry. Normal skin color. Normal skin turgor. Extremities: No lower extremity edema. No calf ttp Neuro: Oriented X 3. No motor deficit. No sensory deficit. Course Course Course Narrative: valdes cath placed without issue, given ceftin for UTI no fevers, vomiting or flank pain MDM - Male Genitourinary MDM Narrative Medical decision making narrative: 75 yo male with hx of PSA< anxiety, BPH with frequent caths had catheter placed yesterday - leaking around it and noted blood at the tip, his exam is normal at this time. Will obtain UA and switch out for larger size. Dispo per results and findings. Lab Data Labs: Lab Results 03/21/21 Range/Units 21:57 Urine Color NNAMDI Urine Appearance CLOUDY Urine pH 6.0 (5.0-8.0) Ur Specific [place] >= 1.030 H (1.005-1.025) Urine Protein 2+ H (NEG-TRACE) MG/DL Urine Glucose (UA) NEG (NEG) MG/DL Urine Ketones 15 (NEG) MG/DL Urine Blood 3+ H (NEG) Urine Nitrite POS H (NEG) Ur Leukocyte Esterase TRACE H (NEG) Discharge Plan Discharge Clinical Impression: Valdes catheter in place Urinary tract infection Qualifiers: Urinary tract infection type: acute cystitis Hematuria presence: without hematuria Qualified Code(s): N30.00 - Acute cystitis without hematuria Patient Disposition: Home, Self-Care Instructions: Urinary Tract Infection in Men (ED), How to Care for Your Suprapubic Catheter (DC) Additional Instructions: return to ED for any worsening symptoms or concerns Prescriptions: New cefuroxime axetil 500 mg tablet 500 mg PO BID 10 Days Qty: 20 RF: 0 No Action finasteride 5 mg tablet 5 mg PO DAILY Qty: 90 RF: 2 tamsulosin 0.4 mg capsule 0.4 mg PO BEDTIME Qty: 90 RF: 1 hydroxyzine HCl 50 mg tablet 50 mg PO BID PRN (Reason: anxiety) Qty: 30 RF: 0 Referrals: Lee Patel MD [Primary Care Provider] - 3 days
[2021-03-21] MEDS: Lidocaine HCl 2 % Urojet 10 ML JEL.PF.APP TOPICAL (21:19)
--- NOTE | 2021-03-21 21:52 | PC.NURSE ---
MD Webster ask to have size 18 Frisian catch be inserted
[2021-03-21 21:55] VITALS: BP 141/73; PULSE 74; RESP 16; TEMP 36.9; O2SAT 97
[2021-03-21 22:10] LABS: Appearance Urine CLOUDY; Glucose Urine UA NEG (NEG); Leukocyte Esterase Urine TRACE (NEG); Nitrite Urine POS (NEG); Specific Gravity - Urine >= 1.030 (1.005-1.025); UACC Culture Trigger YES; Urine Blood 3+ (NEG); Urine Ketones 15 MG/DL (NEG); Urine Protein 2+ MG/DL (NEG-TRACE)
[2021-03-21 22:12] LABS: Color Urine AMBER
[2021-03-21 22:39] LABS: Bacteria Urine TRACE /LPF; Calcium Oxalate Crystals Urine 3+ /LPF; Mucus Urine 4+ /LPF; RBC Urine TNTC /HPF (0); Squamous Epithelial Cell Urine 2+ /LPF; WBC Clumps Urine NOTED
== END 2021-03-21 22:40 | disposition home or self-care (01) ==
PROVIDERS: Emergency Provider Emergency Medicine; PCP Internal Medicine
DX: N30.00 Acute cystitis without hematuria (principal); Z79.899 Other long term (current) drug therapy
CPT/HCPCS: 81001; 81003; 87086; 99284

== ENCOUNTER 2021-03-28 11:24 | Emergency (ER) | payer MEDICARE, SELFPAY ==
--- NOTE | ~2021-03-28 | XR_ITS ---
EXAMINATION: XR CHEST CLINICAL INFORMATION: Chest pain. COMPARISON: Multiple priors, most recent chest radiograph dated 03/20/2021. TECHNIQUE: Frontal view of the chest was obtained. FINDINGS: Hyperexpansion of the lungs, consistent with COPD. No new airspace consolidation. No pleural effusion or pneumothorax. Stable cardiomediastinal silhouette. No acute osseous abnormality. XR/XR chest 1V IMPRESSION: No acute cardiopulmonary findings.
[2021-03-28 11:29] VITALS: BP 123/82; PULSE 87; RESP 16; TEMP 36.2; O2SAT 96; BMI 18.3
--- NOTE | 2021-03-28 13:32 | ECG_ITS ---
Test Reason : cp Blood Pressure : / mmHG Vent. Rate : 080 BPM Atrial Rate : 080 BPM P-R Int : 146 ms QRS Dur : 088 ms QT Int : 390 ms P-R-T Axes : 070 084 068 degrees QTc Int : 449 ms Normal sinus rhythm RSR' or QR pattern in V1 suggests right ventricular conduction delay Nonspecific ST abnormality Abnormal ECG No significant changes seen Referred By: Micah Plaza Electronically Signed By:CARLO MONTES MD
--- NOTE | 2021-03-28 13:33 | ED_ITS ---
HPI - Chest Pain General Chief Complaint: Chest Pain Stated Complaint: CHEST PAIN Time Seen by Provider: 03/28/21 11:40 Source: patient Mode of arrival: ambulatory Limitations: no limitations History of Present Illness HPI narrative: 75 years old male came in for evaluation of left-sided chest pain and palpitation. Symptoms started about 3 weeks ago patient was evaluated in the emergency department 2 weeks ago and is already have an appointment with looping machine operator in 2 weeks. Pain is localized to the left chest area, no radiation, described as intermittent, moderate about 5/10, no relieving factor, no aggravating factor, associated with palpitation. No shortness of breath, no fever, no chills. No lower extremities swelling or edema. Related Data Previous Rx's Medication Instructions Recorded hydroxyzine HCl 50 mg tablet 50 mg PO BID PRN #30 tab 10/15/20 tamsulosin 0.4 mg capsule 0.4 mg PO BEDTIME #90 cap 11/11/20 cefuroxime axetil 500 mg tablet 500 mg PO BID 10 Days #20 tab 03/21/21 finasteride 5 mg tablet 5 mg PO DAILY #90 tab 03/27/21 Allergies Allergy/AdvReac Type Severity Reaction Status Date / Time phenytoin [Dilantin] Allergy Unknown Redness of Verified 10/14/20 15:27 Skin Review of Systems Review of Systems: All other systems are reviewed and are negative Constitutional: Reports as per HPI and Reports no additional constitutional complaints Eyes: Reports as per HPI and Reports no additional eye complaints Reports system reviewed and no additional complaints, except as documented Cardiovascular: Reports as per HPI and Reports no additional cardiovascular complaints Respiratory: Reports as per HPI and Reports no additional respiratory complaints Gastrointestinal: Reports as per HPI and Reports no additional gastrointestinal complaints Genitourinary: Reports no additional female genitourinary complaints Musculoskeletal: Reports no additional musculoskeletal complaints Skin/Breast: Reports system reviewed and no additional complaints, except as docu Psychiatric: Reports no additional psychiatric complaints Endocrine: Reports no additional endocrine complaints Hematologic/Lymphatic: Reports no additional hematologic/lymphatic complaints Allergic/Immunologic: Reports no additional allergic/immunologic complaints Reports system reviewed and no additional complaints, except as documented and Reports Abnormal speech present PMFSH Past Medical History Medical History Anxiety Brain hematoma Depression Enlarged prostate Surgical History History of hip replacement, total Social History Social History Alcohol intake: never Patient Tobacco Use Status: Never used Tobacco Advance Directives: Yes Advance Directives Information Provided: Yes Advance Directives on File: No Physical Exam Vital Signs: Vital Signs: Last Vital Signs Temp 98 F 03/28/21 13:45 Pulse 78 03/28/21 13:45 Resp 18 03/28/21 13:45 BP 131/72 03/28/21 13:45 Pulse Ox 98 03/28/21 13:45 Body Mass Index 18.3 Vital signs have been reviewed as appeared to be correct. Blood pressure normal. Heart rate normal. Respiration rate normal. Temperature normal. Oxygen saturation normal. Appearance: Alert. Oriented X3. No acute distress. Head: Normal external exam. Normocephalic. Atraumatic. No Humphries signs noted. No raccoon eyes noted Eyes: PERRLA. EOMI. Conjunctiva and sclera normal. Eyelids normal. ENT: TM's Normal. Pharynx normal. Uvula midline. Moist mucous membranes. No trismus noted. No drooling noted. No muffled voice noted. Neck: Normal inspection. Neck supple. FROM. No adenopathy. Thyroid Normal. No meningeal signs. No neck mass noted. CVS: Normal heart rate and rhythm. Heart sound normal. No murmurs noted. Pulses normal throughout. Respiratory: No respiratory distress. Painless inspiration. Breath sounds normal. No wheezes/rales/rhonchi noted. Chest nontender. No accessory muscle usage noted or decreased air movement noted. Abdomen: Soft and nontender. Bowel sounds normal in all 4 quadrants. No distention noted. No organomegaly noted. No visible injury noted. Back: No CVA tenderness. Full range of motion noted. Skin: Skin warm and dry. Normal skin color. Normal skin turgor. No rashes/lesions/lacerations noted. Extremities: No lower extremity edema. Extremities exhibit normal range of motion. Extremities nontender. Neuro: Oriented X 3. Cranial nerve exam: II-XII are grossly intact No motor deficit. No sensory deficit. Reflexes normal. Course Course Course Narrative: Assessment and plan. 75-year-old male came in for evaluation chest pain, patient has been evaluated for chest pain in the emergency department in the past with negative blood workup, today's workup was negative for ACS or PE. already has an appointment with looping machine operator in 2 weeks. Will reassure and discharge to continue his appointment was looping machine operator to [facility] - Chest Pain Medical Records Data Attestation: I reviewed the patient's medical records. Lab Data Attestation: I reviewed the patient's lab results. Result diagrams: 03/28/21 13:50 03/28/21 13:50 Labs: Lab Results 03/28/21 03/28/21 03/28/21 Range/Units 13:50 13:50 13:50 WBC 7.9 (4.8-10.8) X10*3/uL RBC 4.84 (4.60-5.80) X10*6/uL Hgb 15.1 (14.0-18.0) g/dl Hct 44.3 (42-52) % MCV 91.5 (80-98) fL MCH 31.2 (27.0-33.0) pg MCHC 34.1 (31.0-36.0) g/dl RDW 12.3 (11.0-16.0) % Plt Count 330 (160-400) X10*3/uL MPV 8.8 L (9.4-12.4) fL Immature Gran % (Auto) 0.4 (0.0-0.4) % Neut % (Auto) 73.2 H (45-73) % Lymph % (Auto) 16.3 L (20-40) % [place] % (Auto) 8.0 (2-11) % Eos % (Auto) 1.5 (0-4) % Baso % (Auto) 0.6 (0-2) % Lymph # (Auto) 1.3 (1.2-4.9) X10*3/uL [place] # (Auto) 0.6 (0.1-1.2) X10*3/uL Eos # (Auto) 0.1 (0.0-0.4) X10*3/uL Baso # (Auto) 0.1 (0.0-0.2) X10*3/uL Abs Immat Gran (auto) 0.03 (0.00-0.03) X10*3/uL Absolute Neuts (auto) 5.8 (2.0-8.3) X10*3/uL Absolute Nucleated RBC 0.000 (0.0-0.012) X10*3/uL Nucleated RBC % (auto) 0.0 (0.0-0.2) /100WBC D-Dimer NG/ML Sodium 139 (135-145) mmol/L Potassium 3.9 (3.3-5.1) mmol/L Chloride 103 (96-108) mmol/L Carbon Dioxide 29 (22-29) mmol/L Anion Gap 11 L (12-20) BUN 21 H (9-16) mg/dL Creatinine 0.82 (0.5-1.4) mg/dL Estim Creat Clear Calc 62.8 Estimated GFR > 60 Random Glucose 119 H (60-115) mg/dL Calcium 10.1 D (8.4-10.2) mg/dL Total Bilirubin 0.8 (0.0-1.0) mg/dL Direct Bilirubin 0.3 (0.0-0.5) mg/dL AST 15 (5-37) U/L ALT 9 (0-40) U/L Alkaline Phosphatase 73 (39-117) U/L Troponin I High Sens < 3.5 (<3.5-35.0) ng/L B-Natriuretic Peptide 25 (<100) pg/mL Total Protein 6.1 L (6.5-8.0) g/dL Albumin 3.9 (3.5-5.0) g/dL Lipase 32 (8-78) U/L 03/28/ Range/Units 13:50 WBC (4.8-10.8) X10*3/uL RBC (4.60-5.80) X10*6/uL Hgb (14.0-18.0) g/dl Hct (42-52) % MCV (80-98) fL MCH (27.0-33.0) pg MCHC (31.0-36.0) g/dl RDW (11.0-16.0) % Plt Count (160-400) X10*3/uL MPV (9.4-12.4) fL Immature Gran % (Auto) (0.0-0.4) % Neut % (Auto) (45-73) % Lymph % (Auto) (20-40) % [place] % (Auto) (2-11) % Eos % (Auto) (0-4) % Baso % (Auto) (0-2) % Lymph # (Auto) (1.2-4.9) X10*3/uL [place] # (Auto) (0.1-1.2) X10*3/uL Eos # (Auto) (0.0-0.4) X10*3/uL Baso # (Auto) (0.0-0.2) X10*3/uL Abs Immat Gran (auto) (0.00-0.03) X10*3/uL Absolute Neuts (auto) (2.0-8.3) X10*3/uL Absolute Nucleated RBC (0.0-0.012) X10*3/uL Nucleated RBC % (auto) (0.0-0.2) /100WBC D-Dimer < 200 NG/ML Sodium (135-145) mmol/L Potassium (3.3-5.1) mmol/L Chloride (96-108) mmol/L Carbon Dioxide (22-29) mmol/L Anion Gap (12-20) BUN (9-16) mg/dL Creatinine (0.5-1.4) mg/dL Estim Creat Clear Calc Estimated GFR Random Glucose (60-115) mg/dL Calcium (8.4-10.2) mg/dL Total Bilirubin (0.0-1.0) mg/dL Direct Bilirubin (0.0-0.5) mg/dL AST (5-37) U/L ALT (0-40) U/L Alkaline Phosphatase (39-117) U/L Troponin I High Sens (<3.5-35.0) ng/L B-Natriuretic Peptide (<100) pg/mL Total Protein (6.5-8.0) g/dL Albumin (3.5-5.0) g/dL Lipase (8-78) U/L Imaging Data Chest x-ray: Radiologist's impression: No acute cardiopulmonary findings. ECG Data ECG #1: Attestation: I personally reviewed and interpreted this ECG as follows: Interpretation: Normal sinus rhythm at 80 beats per minutes, normal intervals, nonspecific ST-T changes to Discharge Plan Discharge Clinical Impression: Anxiety, Chest pain Patient Disposition: Home, Self-Care Instructions: Chest Pain (ED) Prescriptions: No Action tamsulosin 0.4 mg capsule 0.4 mg PO BEDTIME Qty: 90 RF: 1 finasteride 5 mg tablet 5 mg PO DAILY Qty: 90 RF: 3 hydroxyzine HCl 50 mg tablet 50 mg PO BID PRN (Reason: anxiety) Qty: 30 RF: 0 cefuroxime axetil 500 mg tablet 500 mg PO BID 10 Days Qty: 20 RF: 0 Referrals: Lee Patel MD [Primary Care Provider] - 2 days Mirza Morton MD [Physician] - 2 days
[2021-03-28 13:45] VITALS: BP 131/72; PULSE 78; RESP 18; TEMP 36.6; O2SAT 98
[2021-03-28 13:55] LABS: MANUAL DIFF FLAG NO
[2021-03-28 13:56] LABS: Basophils Absolute Auto 0.1 X10*3/uL (0.0-0.2); Basophils Percent Auto 0.6 % (0-2); Eosinophils Absolute Auto 0.1 X10*3/uL (0.0-0.4); Eosinophils Percent Auto 1.5 % (0-4); Hematocrit 44.3 % (42-52); Hemoglobin 15.1 g/dl (14.0-18.0); Imm Gran Abs Auto 0.03 X10*3/uL (0.00-0.03); Imm Gran Pct Auto 0.4 % (0.0-0.4); Lymphocytes Absolute Auto 1.3 X10*3/uL (1.2-4.9); Lymphocytes Percent Auto 16.3 % (20-40); Mean Corpuscular HGB Conc 34.1 g/dl (31.0-36.0); Mean Corpuscular Hemoglobin 31.2 pg (27.0-33.0); Mean Corpuscular Volume 91.5 fL (80-98); Mean Platelet Volume 8.8 fL (9.4-12.4); Monocytes Absolute Auto 0.6 X10*3/uL (0.1-1.2); Neutrophils Absolute Auto 5.8 X10*3/uL (2.0-8.3); Neutrophils Percent Auto 73.2 % (45-73); Platelet Count 330 X10*3/uL (160-400); Red Blood Count 4.84 X10*6/uL (4.60-5.80); Red Cell Distribution Width 12.3 % (11.0-16.0); White Blood Count 7.9 X10*3/uL (4.8-10.8)
[2021-03-28 14:09] LABS: D Dimer < 200 NG/ML
[2021-03-28 14:10] LABS: Alanine Aminotransferase 9 U/L (0-40); Albumin Level 3.9 g/dL (3.5-5.0); Alkaline Phosphatase 73 U/L (39-117); Anion Gap 11 (12-20); Aspartate Amino Transferase 15 U/L (5-37); Bilirubin Direct 0.3 mg/dL (0.0-0.5); Bilirubin Total 0.8 mg/dL (0.0-1.0); Blood Urea Nitrogen 21 mg/dL (9-16); Calcium 10.1 mg/dL (8.4-10.2); Carbon Dioxide 29 mmol/L (22-29); Chloride 103 mmol/L (96-108); Creatinine Clr Calc Pharmacy 62.8; Estimated Glomerular Filt Rate > 60; Glucose Random 119 mg/dL (60-115); Lipase 32 U/L (8-78); Potassium 3.9 mmol/L (3.3-5.1); Sodium 139 mmol/L (135-145); Total Protein 6.1 g/dL (6.5-8.0)
[2021-03-28 14:17] LABS: B Type Natriuretic Peptide 25 pg/mL (<100); Troponin-I High Sensitivity < 3.5 ng/L (<3.5-35.0)
== END 2021-03-28 16:10 | disposition home or self-care (01) ==
PROVIDERS: Emergency Provider Emergency Medicine; PCP Internal Medicine
DX: F41.9 Anxiety disorder, unspecified (principal); R07.9 Chest pain, unspecified
CPT/HCPCS: 36415; 71045; 80048; 80076; 83690; 83880; 84484; 85025; 85379; 93005; 99283

== ENCOUNTER → 2021-04-03 09:13 | Outpatient (BNVA) | payer MEDICARE, SELFPAY | PROVIDERS: PCP Internal Medicine; Visit Provider Urology | DX: N13.8 Other obstructive and reflux uropathy (principal) | CPT/HCPCS: 51700; 51701; 51798 ==

== ENCOUNTER → 2021-05-01 09:53 | Outpatient (BNVA) | payer MEDICARE, SELFPAY | PROVIDERS: PCP Internal Medicine; Visit Provider Urology | DX: N40.1 Benign prostatic hyperplasia with lower urinary tract symptoms (principal); N13.8 Other obstructive and reflux uropathy; R33.9 Retention of urine, unspecified; R97.20 Elevated prostate specific antigen [PSA] | CPT/HCPCS: 51700; 52000; 99212 ==

== ENCOUNTER 2021-05-02 09:58 | Emergency (ER) | payer MEDICARE, SELFPAY ==
[2021-05-02 10:50] VITALS: BP 107/64; PULSE 85; RESP 18; TEMP 36.2; O2SAT 96; BMI 40.6
--- NOTE | 2021-05-02 12:20 | ED_ITS ---
HPI - General Adult General Chief complaint: General Medical Stated complaint: unable to urinate Time Seen by Provider: 05/02/21 11:28 Source: patient Mode of arrival: ambulatory Limitations: no limitations History of Present Illness HPI narrative: 75 y/o male with history of BPH with urinary retention requiring Haq catheter for the last 3+ weeks who presents back to the ER 1 day after Haq removal for complaints of urinary retention. He reports after the catheter was removed in Dr. iWggins's office yesterday he was able to void completely while in the office. When he went home he woke up in the middle of the night at 3am and was able to void a small amount. He has been afraid to drink anything because the urine has no where to go. He is currently on treatment for UTI with Ciprofloxicin. He denies any dysuria, hematuria, urgency or frequency. No fever, chills, diarrhea or vomiting. He is anxious and worried to drink due to urinary retention. MD complaint: urinary retention Onset (ago): hour(s) Related Data Home Medications Medication Instructions Recorded Confirmed ciprofloxacin HCl 500 mg tablet 500 mg PO BID 05/01/21 famotidine 20 mg tablet 20 mg PO BID 05/01/21 fluoxetine 20 mg tablet 20 mg PO DAILY 05/01/21 lorazepam 1 mg tablet 1 mg PO DAILY PRN 05/01/21 mirtazapine 15 mg tablet 15 mg PO BEDTIME 05/01/21 omeprazole 40 mg capsule,delayed 40 mg PO DAILY 05/01/21 release ondansetron HCl 4 mg tablet mg PO 05/01/21 simvastatin 40 mg tablet 40 mg PO BEDTIME 05/01/21 Previous Rx's Medication Instructions Recorded hydroxyzine HCl 50 mg tablet 50 mg PO BID PRN #30 tab 10/15/20 tamsulosin 0.4 mg capsule 0.4 mg PO BEDTIME #90 cap 11/11/20 cefuroxime axetil 500 mg tablet 500 mg PO BID 10 Days #20 tab 03/21/21 finasteride 5 mg tablet 5 mg PO DAILY #90 tab 03/27/21 oxybutynin chloride 5 mg tablet 5 mg PO .PRN PRN #20 tab 04/03/21 Allergies Allergy/AdvReac Type Severity Reaction Status Date / Time phenytoin [Dilantin] Allergy Unknown Redness of Verified 05/01/21 10:07 Skin Review of Systems Review of Systems: Constitutional: No Fever, No Chills ENT/Mouth: No sore throat, No Rhinorrhea, No Swallowing Difficulty Cardiovascular: No Chest Pain, No SOB Respiratory: No Cough, No Sputum, No Wheezing, No dyspnea Gastrointestinal: No Nausea, No Vomiting, No Diarrhea, No abdominal Pain Genitourinary: No Dysuria, No Urinary Frequency, No Hematuria, +urinary retention Musculoskeletal: No joint pain, No Myalgias Skin: No Skin Lesions, No rash Neuro: No Weakness, No Numbness, No Dizziness, No Headache Psych: + Anxiety/Panic, No Depression Heme/Lymph: No Bruising, No Lymphadenopathy Endocrine: No Polyuria, No Polydipsia PMFSH Past Medical History Medical History Anxiety Brain hematoma Depression Enlarged prostate H/O urinary frequency H/O urinary retention History of elevated PSA Hydrocele Renal stones Spermatocele Vasculogenic erectile dysfunction Surgical History History of hip replacement, total Social History Social History Alcohol intake: former Patient Tobacco Use Status: Former Tobacco user Use of substances other than those prescribed or required for medical reasons: No Advance Directives: No Physical Exam Vital Signs: Vital Signs: Last Vital Signs Temp 97.9 F 05/02/21 14:00 Pulse 61 05/02/21 14:00 Resp 18 05/02/21 14:00 BP 144/85 H 05/02/21 14:00 Pulse Ox 98 05/02/21 14:00 Body Mass Index 40.6 Appearance: Alert. Oriented X3. No acute distress. Eyes: Pupils equal, round and reactive to light. ENT: Pharynx normal. Neck: Normal inspection. Neck supple. CVS: Normal heart rate and rhythm. Pulses normal. Respiratory: No respiratory distress. Breath sounds normal. Abdomen: Soft and nontender, No suprapubic tenderness. no palpable bladder distention. normal +BS x4 Skin: Skin warm and dry. Normal skin color. Normal skin turgor. No rashes. Extremities: No lower extremity edema. Neuro: Oriented X 3. No motor deficit. No sensory deficit. Course Course Course Narrative: 75-year-old male with a history of BPH and urinary retention requiring a Haq catheter presents to the ER with reports of difficulty urinating 1 day after Haq catheter was removed. On arrival he only has 180 cc in his bladder. He has no desire or urge to urinate at this time. He denies any suprapubic pain. No dysuria. He remains on ciprofloxacin for her current UTI. Will plan to encourage oral fluids and get a vomiting trial in the emergency room. Will get a postvoid ultrasound to see if he is retaining or not completely emptying his bladder. If he is unable to urinate will need to replace Haq catheter. Reevaluation(s) Reevaluation #1: Patient concerned about dehydration, basic lab workup been ordered. He is drinking adequate amount of fluids in the ER with no urge to urinate. Reevaluation #2: After oral hydration patient only able to urinate 170 cc in and 350 cc were left in her bladder on postvoid ultrasound. Therefore will place coude Haq catheter for ongoing urinary retention. Urinalysis sent to assess ongoing presence of infection. He will call Dr. Wiggins office on Tuesday for follow-up. He reports Dr. Wiggins wants to do a surgical procedure to remove part of the prostate and alleviate the obstruction. At this time is stable for discharge home with a Haq catheter in place. Reevaluation #3: 18- [place] Islander coude catheter successfully place. Urinalysis sent. Plan to continue oral Cipro whiile awaiting urine culture. Stable for discharge home Medical Decision Making Lab Data Result diagrams: 05/02/21 13:11 05/02/21 13:11 Labs: Lab Results 05/02/21 05/02/21 05/02/21 Range/Units 13:11 13:11 14:10 WBC 6.5 (4.8-10.8) X10*3/uL RBC 4.78 (4.60-5.80) X10*6/uL Hgb 14.8 (14.0-18.0) g/dl Hct 45.2 (42.0-52.0) % MCV 94.6 (80.0-98.0) fL MCH 31.0 (27.0-33.0) pg MCHC 32.7 (31.0-36.0) g/dl RDW 12.7 (11.0-16.0) % Plt Count 262 (160-400) X10*3/uL MPV 8.5 L (9.4-12.4) fL Immature Gran % (Auto) 0.5 H (0.0-0.4) % Neut % (Auto) 68.4 (45-73) % Lymph % (Auto) 21.6 (20-40) % [place] % (Auto) 7.6 (2-11) % Eos % (Auto) 1.1 (0-4) % Baso % (Auto) 0.8 (0-2) % Lymph # (Auto) 1.4 (1.2-4.9) X10*3/uL [place] # (Auto) 0.5 (0.1-1.2) X10*3/uL Eos # (Auto) 0.1 (0.0-0.4) X10*3/uL Baso # (Auto) 0.1 (0.0-0.2) X10*3/uL Abs Immat Gran (auto) 0.03 (0.00-0.03) X10*3/uL Absolute Neuts (auto) 4.5 (2.0-8.3) x10*3/uL Absolute Nucleated RBC 0.000 (0.0-0.012) X10*3/uL Nucleated RBC % (auto) 0.0 (0.0-0.2) /100WBC Sodium 134 L (135-145) mmol/L Potassium 3.9 (3.3-5.1) mmol/L Chloride 100 (96-108) mmol/L Carbon Dioxide 27 (22-29) mmol/L Anion Gap 11 L (12-20) BUN 14 (9-16) mg/dL Creatinine 0.78 (0.5-1.4) mg/dL Estim Creat Clear Calc 108.6 Estimated GFR > 60 Random Glucose 149 H (60-115) mg/dL Calcium 9.9 (8.4-10.2) mg/dL Urine Color YELLOW Urine Appearance HAZY Urine pH 6.0 (5.0-8.0) Ur Specific [place] 1.025 (1.005-1.025) Urine Protein TRACE (NEG-TRACE) MG/DL Urine Glucose (UA) NEG (NEG) MG/DL Urine Ketones NEG (NEG) MG/DL Urine Blood 3+ H (NEG) Urine Nitrite NEG (NEG) Ur Leukocyte Esterase 2+ H (NEG) Urine RBC 30-49 H (0) /HPF Urine WBC 30-49 H (0-4) /HPF Ur Squamous Epith Cells NONE /LPF Calcium Oxalate Crystal 2+ /LPF Urine Bacteria TRACE /LPF Urine Mucus TRACE /LPF Discharge Plan Discharge Clinical Impression: Urinary retention with incomplete bladder emptying Patient Disposition: Home, Self-Care Instructions: Urinary Retention in Men (ED), Haq Catheter Placement and Care (ED) Additional Instructions: Your lab workup today was unremarkable. Follow-up with Dr. Wiggins next week. Continue your previously prescribed antibiotics. If you develop new or worsening symptoms call 911 or come back to the ER for further evaluation. Prescriptions: No Action tamsulosin 0.4 mg capsule 0.4 mg PO BEDTIME Qty: 90 RF: 1 finasteride 5 mg tablet 5 mg PO DAILY Qty: 90 RF: 3 hydroxyzine HCl 50 mg tablet 50 mg PO BID PRN (Reason: anxiety) Qty: 30 RF: 0 cefuroxime axetil 500 mg tablet 500 mg PO BID 10 Days Qty: 20 RF: 0 oxybutynin chloride 5 mg tablet 5 mg PO .PRN PRN (Reason: bladder spasms) Qty: 20 RF: 0 Referrals: Zaid Wiggins MD [Physician] - 2 days ( BPH with urinary retention requiring replacement of Haq catheter.)
[2021-05-02 12:21] VITALS: BP 145/79; PULSE 53; RESP 17; O2SAT 99
--- NOTE | 2021-05-02 12:23 | PC.NURSE ---
patient a&ox3, vss, family at bedside, pt drinking pitcher of water given to him by provider, will continue to monitor.
[2021-05-02 13:19] LABS: Basophils Absolute Auto 0.1 X10*3/uL (0.0-0.2); Basophils Percent Auto 0.8 % (0-2); Eosinophils Absolute Auto 0.1 X10*3/uL (0.0-0.4); Eosinophils Percent Auto 1.1 % (0-4); Hematocrit 45.2 % (42.0-52.0); Hemoglobin 14.8 g/dl (14.0-18.0); Imm Gran Abs Auto 0.03 X10*3/uL (0.00-0.03); Imm Gran Pct Auto 0.5 % (0.0-0.4); Lymphocytes Absolute Auto 1.4 X10*3/uL (1.2-4.9); Lymphocytes Percent Auto 21.6 % (20-40); MANUAL DIFF FLAG NO; Mean Corpuscular HGB Conc 32.7 g/dl (31.0-36.0); Mean Corpuscular Volume 94.6 fL (80.0-98.0); Mean Platelet Volume 8.5 fL (9.4-12.4); Monocytes Absolute Auto 0.5 X10*3/uL (0.1-1.2); Monocytes Percent Auto 7.6 % (2-11); Neutrophils Absolute Auto 4.5 x10*3/uL (2.0-8.3); Neutrophils Percent Auto 68.4 % (45-73); Platelet Count 262 X10*3/uL (160-400); Red Blood Count 4.78 X10*6/uL (4.60-5.80); Red Cell Distribution Width 12.7 % (11.0-16.0); White Blood Count 6.5 X10*3/uL (4.8-10.8)
[2021-05-02 13:47] LABS: Anion Gap 11 (12-20); Blood Urea Nitrogen 14 mg/dL (9-16); Calcium 9.9 mg/dL (8.4-10.2); Carbon Dioxide 27 mmol/L (22-29); Chloride 100 mmol/L (96-108); Creatinine Clr Calc Pharmacy 108.6; Estimated Glomerular Filt Rate > 60; Glucose Random 149 mg/dL (60-115); Potassium 3.9 mmol/L (3.3-5.1); Sodium 134 mmol/L (135-145)
[2021-05-02 14:00] VITALS: BP 144/85; PULSE 61; RESP 18; TEMP 36.6; O2SAT 98
--- NOTE | 2021-05-02 14:12 | PC.NURSE ---
patient a&ox3, no c/o pain, vss, obtained urine for lab, bladder scan obtained-tech will notify provider of retention, will continue to monitor.
[2021-05-02 14:17] LABS: Appearance Urine HAZY; Color Urine YELLOW; Glucose Urine UA NEG (NEG); Leukocyte Esterase Urine 2+ (NEG); Nitrite Urine NEG (NEG); Specific Gravity - Urine 1.025 (1.005-1.025); UACC Culture Trigger YES; Urine Blood 3+ (NEG); Urine Ketones NEG (NEG); Urine Protein TRACE MG/DL (NEG-TRACE)
[2021-05-02 14:30] LABS: Bacteria Urine TRACE /LPF; Calcium Oxalate Crystals Urine 2+ /LPF; Mucus Urine TRACE /LPF; RBC Urine 30-49 /HPF (0); WBC Urine 30-49 /HPF (0-4)
[2021-05-02] MEDS: Lidocaine HCl 2 % Urojet 10 ML JEL.PF.APP TOPICAL (14:30)
--- NOTE | 2021-05-02 14:45 | PC.NURSE ---
1430 valdes inserted per order
== END 2021-05-02 14:54 | disposition home or self-care (01) ==
PROVIDERS: Physician Assistant; Emergency Provider Emergency Medicine Emergency Medical Services; PCP Internal Medicine
DX: N40.1 Benign prostatic hyperplasia with lower urinary tract symptoms (principal); R33.8 Other retention of urine; N39.0 Urinary tract infection, site not specified
CPT/HCPCS: 36415; 51701; 51798; 80048; 81001; 85025; 87086; 99283; 99285

== ENCOUNTER 2021-06-01 07:16 | Day surgery (SDC) | payer MEDICARE, SELFPAY ==
[2021-05-25 14:33] VITALS: BMI 18.3
[2021-05-29 14:50] LABS: MANUAL DIFF FLAG NO
[2021-05-29 14:55] LABS: Basophils Absolute Auto 0.1 X10*3/uL (0.0-0.2); Basophils Percent Auto 0.8 % (0-2); Eosinophils Absolute Auto 0.1 X10*3/uL (0.0-0.4); Eosinophils Percent Auto 1.9 % (0-4); Hematocrit 45.4 % (42.0-52.0); Hemoglobin 14.6 g/dl (14.0-18.0); Imm Gran Abs Auto 0.01 X10*3/uL (0.00-0.03); Imm Gran Pct Auto 0.2 % (0.0-0.4); Lymphocytes Absolute Auto 1.5 X10*3/uL (1.2-4.9); Lymphocytes Percent Auto 23.3 % (20-40); Mean Corpuscular HGB Conc 32.2 g/dl (31.0-36.0); Mean Corpuscular Hemoglobin 30.2 pg (27.0-33.0); Mean Platelet Volume 8.6 fL (9.4-12.4); Monocytes Absolute Auto 0.5 X10*3/uL (0.1-1.2); Monocytes Percent Auto 7.4 % (2-11); Neutrophils Absolute Auto 4.1 x10*3/uL (2.0-8.3); Neutrophils Percent Auto 66.4 % (45-73); Platelet Count 328 X10*3/uL (160-400); Red Blood Count 4.83 X10*6/uL (4.60-5.80); Red Cell Distribution Width 12.6 % (11.0-16.0); White Blood Count 6.2 X10*3/uL (4.8-10.8)
[2021-05-29 15:03] LABS: Estimated Average Glucose 114 mg/dL; Hemoglobin A1c % 5.6 %
[2021-05-29 15:29] LABS: Alanine Aminotransferase 11 U/L (0-40); Alkaline Phosphatase 75 U/L (39-117); Anion Gap 11 (12-20); Aspartate Amino Transferase 16 U/L (5-37); Bilirubin Total 0.7 mg/dL (0.0-1.0); Blood Urea Nitrogen 21 mg/dL (9-16); Calcium 10.1 mg/dL (8.4-10.2); Carbon Dioxide 29 mmol/L (22-29); Chloride 104 mmol/L (96-108); Creatinine Clr Calc Pharmacy 61.3; Estimated Glomerular Filt Rate > 60; Glucose Random 104 mg/dL (60-115); Potassium 3.9 mmol/L (3.3-5.1); Sodium 140 mmol/L (135-145); Total Protein 6.3 g/dL (6.5-8.0)
[2021-05-29 15:44] LABS: PSA,Total (Free>4and<10) 4.51 ng/mL (0.00-4.00)
[2021-06-01] VITALS (12 sets, daily range): BP systolic 112–144; BP diastolic 64–86; PULSE 71–89; RESP 12–16; TEMP 36.1–36.8; O2SAT 98–100
[2021-06-01] MEDS: Acetaminophen 325 MG TABLET 650 MG PO (08:15)
--- NOTE | 2021-06-01 08:25 | P.HPSUR_ITS ---
Pre-Procedural Eval Section A Date of Service: 06/01/21 Section B Chief Complaint: BPH Details of Present Illness: BPH Relevant Family History (Specify if Yes): No Relevant Social History: None Present Medications: see Short Stay Collaborative assessment Medical History: No relevant PMH History of Previous Operations: No relevant previous surgery Allergies: Allergies Allergy/AdvReac Type Severity Reaction Status Date / Time phenytoin [Dilantin] Allergy Severe Redness of Verified 05/25/21 14:26 Skin lactose Allergy Intermediate Gastrointestinal Verified 05/25/21 14:26 Upset Review of Systems Sugical H&P ROS: Negative: Constitution, Cardiovascular, Respiratory, Neurological, Psychiatric, Hem-Onc, Allergic/Immunologic, Gastrointestinal, Genitourinary, Musculoskeletal, Integumentary, Endocrine and Eyes/Ears/Nose/Thro at Exam Surgical H&P Exam: Normal: HEENT, Normal: Heart, Normal: Lungs, Normal: Extremities, Normal: Abdomen, Normal: Skin and Normal: Neurological Plan Diagnosis/Plan: Unchanged (GreenLight laser prostatectomy) I have reviewed the history and physical and performed a pertinent physical examination on my patient. No changes have occurred unless specified.
--- NOTE | 2021-06-01 08:41 | P.CONAN_ITS ---
HPI - Anesthesia Eval Consult details Narrative: 75 M for laser ablation PMFSH Active Problems Active Problems: All Active Problems (Updated 05/25/21 @ 14:47 by Zulma Alvarez, STEPHON) Elevated PSA (Acute) BPH w urinary obs/LUTS (Acute) Urinary retention with incomplete bladder emptying (Acute) Anxiety (Acute) Past Medical History Medical History (Updated 06/01/21 @ 08:44 by Winsome Killian RN) Anxiety Balance problems Brain hematoma Depression Enlarged prostate H/O urinary frequency H/O urinary retention History of elevated PSA History of skin cancer Hydrocele Renal stones Spermatocele Vasculogenic erectile dysfunction Family History Family history of problems with anesthesia: No Surgical History Surgical History (Updated 06/01/21 @ 08:44 by Winsome Killian RN) History of brain surgery History of hip replacement, total Hx of colonoscopy History of Problems with Anesthesia: No Social History Social History Are you a primary physician locums urgent care to a significant other at home: No Alcohol intake: former Patient Tobacco Use Status: Former Tobacco user Quit Date: 1978 Tobacco use type: Cigarette Use of substances other than those prescribed or required for medical reasons: No Have you been hit, kicked, punched, or otherwise hurt by someone within the past year? If so, by whom?: No Are you DNR?: No Advance Directives: Yes Advance Directives Information Provided: No Advance Directives on File: Yes Advance Directives Date on File: 06/01/21 Recently lost weight without trying: Yes How much weight loss: 2-13 pounds Eating poorly because of decreased appetite: Yes Nutrition screen score: 4 Poor oral hygiene: No Meds Allergies Allergy/AdvReac Type Severity Reaction Status Date / Time phenytoin [Dilantin] Allergy Severe Redness of Verified 05/25/21 14:26 Skin lactose Allergy Intermediate Gastrointestinal Verified 05/25/21 14:26 Upset Active Medications: Current Medications Lactated Ringer's (Lr) 1,000 mls @ 80 mls/hr IVCONT .[id number] [facility] Home Medications Medication Instructions Recorded Confirmed Last Taken Type fluoxetine 20 mg tablet 20 mg PO DAILY 05/01/21 05/25/21 Unknown History lorazepam 1 mg tablet 1 mg PO BEDTIME PRN 05/01/21 05/25/21 Unknown History simvastatin 40 mg tablet 40 mg PO BEDTIME 05/01/21 05/25/21 Unknown History Exam Exam Date and Time: June 01, 2021 0841 Height,Weight and Vital Signs: Height 5 ft 9 in Weight 56.245 kg Last Vital Signs Temp 98.3 F 06/01/21 07:45 Pulse 72 06/01/21 07:45 Resp 16 06/01/21 07:45 BP 144/86 H 06/01/21 07:45 Pulse Ox 98 06/01/21 07:45 Pertinent Lab Results Pertinent Lab Results: Laboratory Tests 05/29/21 05/29/21 05/29/21 14:48 14:48 14:48 WBC 6.2 RBC 4.83 Hgb 14.6 Hct 45.4 MCV 94.0 MCH 30.2 MCHC 32.2 RDW 12.6 Plt Count 328 D MPV 8.6 L Immature Gran % (Auto) 0.2 Neut % (Auto) 66.4 Lymph % (Auto) 23.3 [place] % (Auto) 7.4 Eos % (Auto) 1.9 Baso % (Auto) 0.8 Lymph # (Auto) 1.5 [place] # (Auto) 0.5 Eos # (Auto) 0.1 Baso # (Auto) 0.1 Abs Immat Gran (auto) 0.01 Absolute Neuts (auto) 4.1 Absolute Nucleated RBC 0.000 Nucleated RBC % (auto) 0.0 Sodium 140 Potassium 3.9 Chloride 104 Carbon Dioxide 29 Anion Gap 11 L BUN 21 H Creatinine 0.84 Estim Creat Clear Calc 61.3 Estimated GFR > 60 Random Glucose 104 Estimat Average Glucose 114 Hemoglobin A1c % 5.6 Calcium 10.1 Total Bilirubin 0.7 AST 16 ALT 11 Alkaline Phosphatase 75 Total Protein 6.3 L Albumin 4.0 Total PSA 05/29/21 14:48 WBC RBC Hgb Hct MCV MCH MCHC RDW Plt Count MPV Immature Gran % (Auto) Neut % (Auto) Lymph % (Auto) [place] % (Auto) Eos % (Auto) Baso % (Auto) Lymph # (Auto) [place] # (Auto) Eos # (Auto) Baso # (Auto) Abs Immat Gran (auto) Absolute Neuts (auto) Absolute Nucleated RBC Nucleated RBC % (auto) Sodium Potassium Chloride Carbon Dioxide Anion Gap BUN Creatinine Estim Creat Clear Calc Estimated GFR Random Glucose Estimat Average Glucose Hemoglobin A1c % Calcium Total Bilirubin AST ALT Alkaline Phosphatase Total Protein Albumin Total PSA 4.51 H Airway Mallampati Class: I Neck ROM: Full Denture: Upper Loose/Missing/Broken Teeth: Yes (Chipped and missing ) Heart: rrr Lungs: bl breath sounds Assessment and Plan Final Anesthetic Review Family History of Problems with Anesthesia: No History of Problems with Anesthesia: No NPO: Yes ASA Class: III Final Preanesthetic Review: Meds/Allgs Chart Reviewed and Anes Risks/Benef Reviewed Patient Risk: Intermediate Procedure Risk: Intermediate Anesthetic Plan Anesthetic Plan: GA Disposition: Standard PACU
[2021-06-01] MEDS: Lactated Ringers 1,000 ML 80 ML IVCONT (08:50)
--- NOTE | 2021-06-01 08:52 | PC.NURSE ---
Anesthia made aware of no med clearance note from 05/29 visit, and okay to proceed without it.
--- NOTE | 2021-06-01 08:57 | PC.NURSE ---
PCP office called - verbally cleared for surg.
--- NOTE | 2021-06-01 11:07 | W.PM.OPN ---
Operative Note Operative Note Date of Service: 06/01/21 Narrative: PreOperative Diagnosis: Bladder outlet obstruction Post Operative Diagnosis: Bladder outlet obstruction Procedure: GreenLight laser enucleation of the prostate Surgeon: Dr Zaid Wiggins Anesthesia: General Indications for procedure: History of bladder outlet obstruction. Seen with urinary retention. Failed voiding trial. Has been on combination therapy for 6 weeks. Large median lobe seen during cystoscopy in office. Procedure: After informed consent was verified the patient was brought to the operating room and placed in a supine position. Anesthesia was administered per protocol. Patient was placed in modified dorsal lithotomy position and prepped and draped in a sterile fashion. Safety pause time-out was confirmed. Antibiotics have been given. Twenty-four [place] laser cystoscope was inserted per urethra. No abnormalities found the anterior posterior urethra. The bladder was filled on both ureteric orifices were seen in normal position away from our area of interest. Using a GreenLight laser settings of 80 w incisions were made at the 5 and 7 o'clock position. They were taken down and then laterally on each side. They were brought from the bladder neck down to the level of the veru. These defined the lateral aspects of the median lobe area. The median lobe was extremely large. We carefully controlled each side taken down through to the veru which was over 4 cm. The large median lobe was then divided longer 2 newly into 4 separate segments. Then horizontal ablation enucleation was performed. This was extensive and took approximately 60 minutes. Once completed there was freedom throughout the opening of the prostatic fossa. Each of the lateral lobes was relatively minor in comparison. These had been effectively ablated in the bottom half. A decision was made to complete the procedure at this point. When this was completed debris and pieces of prostate removed from the bladder. Both ureteric orifices were reviewed again in shown to be patent in away from any areas of energy damage. The apical area was reviewed in any stray ooze was controlled. A 22 [place] 30 cc balloon Haq catheter was placed over stylet into the bladder. Clear efflux was obtained. 30 cc was placed in the balloon and gentle traction was placed. A snap was used to hold tension once the patient will be moved and transported. Once transportation its finish this novel be removed. A belladonna and opiate suppository was placed for postprocedure pain management. He tolerated procedure well was extubated in the operating and transferred in a stable condition to the recovery area. Total laser energy 365 kilojoules. total lasing time 45 minutes 20 seconds Pathology: Prostate tissue Drains: Haq catheter
[2021-06-01 13:07] LABS: Free Prostate Spec Ag 0.7 ng/mL; Percent Free Prostate Spec Ag 16 % (calc) (>25); Prostate Specific Ag Total 4.5 ng/mL (< OR = 4.0)
--- NOTE | 2021-06-03 16:41 | HP_ITS ---
DATE OF SERVICE: 06/01/2021 The patient is a 75-year-old male who is seen today for preop evaluation prior to prostate surgery scheduled on June [address] Wiggins. REVIEW OF SYSTEMS: The patient has lost 8 pounds since his last visit in September. He was 139, he is now 116, so he has lost a total of 23 pounds in the last 8 months. No fevers, chills, or sweats. No chest pains, some palpitations. No voice changes. No shortness of breath, coughing, or wheezing. No peripheral edema. Some occasional lightheadedness. No headaches. No stomach pains, heartburn. Some constipation. He has a Haq catheter in place. No arthritis complaints. Speech is normal. Chronic anxiety and depression. Sleep and appetite are unchanged. Occasional seasonal allergies. No skin complaints. PAST MEDICAL HISTORY: Significant for BPH, elevated cholesterol, hay fever, anxiety, depression, elevated PSA, diverticulosis. FAMILY HISTORY: Mother and father passed, 1 brother from mesothelioma, 1 brother from cirrhosis, 1 brother survives. SOCIAL HISTORY: He lives with his significant other. He has no children. He is retired. PRESENT MEDICATIONS: Simvastatin 40 mg a day. Flomax 0.4 mg a day. Vitamin D, mirtazapine 15 mg, lorazepam 0.5 mg, Claritin 10 mg as needed for hay fever. He has a Haq catheter in place at this time. ALLERGIES: HE LISTS AN ALLERGY TO DILANTIN AND BEES. PHYSICAL EXAMINATION: GENERAL: He is awake, anxious, in no acute distress. VITAL SIGNS: Temperature 98.2, pulse 70, respirations 12, pressure 100/60. His weight is 116. He is 5 feet 9 inches. EYES: Pupils equal, pharynx clear. NECK: Supple. No nodes, bruits, or masses. HEART: Sounds S1 and S2. LUNGS: Clear. ABDOMEN: Soft, nontender. Positive bowel sounds. No HSM. EXTREMITIES: No clubbing, cyanosis, or edema. 1+ pulses. NEUROLOGIC: Nonfocal. He is medically stable for the proposed procedure. EKG done in the office shows sinus rhythm at 65. Some artifact. No ischemic changes. No arrhythmias. Within normal limits. He is going to get a CBC, chemistry profile, an A1c completed today or tomorrow morning before the surgery. He does have labs from an emergency room visit on May 02 with a normal CBC. Normal electrolytes. Sugar 149, calcium 9.9. He is medically stable for the proposed procedure. I will be available if there are any medical questions. Kristofer Patel MD FC/COREY / [id number]
== END 2021-06-01 15:35 | disposition home or self-care (01) ==
PROVIDERS: Absent Provider Internal Medicine; PCP Internal Medicine; Visit Provider Urology
PROC: (CPT 52648; principal; 2021-06-01 09:00)
DX: N40.1 Benign prostatic hyperplasia with lower urinary tract symptoms (principal); N13.8 Other obstructive and reflux uropathy; R33.8 Other retention of urine; F32.9 Major depressive disorder, single episode, unspecified; Z88.8 Allergy status to other drugs, medicaments and biological substances
CPT/HCPCS: 52649; 36415; 80053; 83036; 84153; 84154; 85025; 88305; J1956; J3010

== ENCOUNTER → 2021-06-04 09:38 | Outpatient (BNVA) | payer MEDICARE, SELFPAY | PROVIDERS: Visit Provider Urology | DX: R33.9 Retention of urine, unspecified (principal) | CPT/HCPCS: 51700; 51798 ==

== ENCOUNTER → 2021-07-14 13:27 | Outpatient (BNVA) | payer MEDICARE, SELFPAY | PROVIDERS: PCP Internal Medicine; Visit Provider Urology | DX: Z48.816 Encounter for surgical aftercare following surgery on the genitourinary system (principal); N40.1 Benign prostatic hyperplasia with lower urinary tract symptoms; N13.8 Other obstructive and reflux uropathy; N39.0 Urinary tract infection, site not specified | CPT/HCPCS: 51798; 99212 ==

== ENCOUNTER 2021-09-21 16:17 | Emergency (ER) | payer MEDICARE, SELFPAY ==
--- NOTE | ~2021-09-21 | XR_ITS ---
EXAMINATION: PORTABLE CHEST 1 VIEW CLINICAL INFORMATION: SOB . COMPARISON: 03/28/2021. TECHNIQUE: Portable frontal view of the chest was obtained. FINDINGS: The lungs are hyperinflated. No focal infiltrate, effusion, edema, or pneumothorax. Cardiac and mediastinal silhouettes are within normal limits for technique. No acute bony abnormality seen. XR/XR chest 1V IMPRESSION: Hyperinflated but otherwise no evidence of acute disease.
[2021-09-21 16:41] VITALS: BP 153/85; PULSE 115; RESP 18; TEMP 37.8; O2SAT 96; BMI 18.4
--- NOTE | 2021-09-21 16:46 | ECG_ITS ---
Test Reason : SOB Blood Pressure : / mmHG Vent. Rate : 098 BPM Atrial Rate : 098 BPM P-R Int : 200 ms QRS Dur : 078 ms QT Int : 336 ms P-R-T Axes : 095 084 069 degrees QTc Int : 428 ms Normal sinus rhythm Normal ECG When compared with ECG of 28-MAR-2021 11:59, No significant change was found Referred By: Generic ED Physician Electronically Signed By:Coy Scott
[2021-09-21 17:08] LABS: MANUAL DIFF FLAG NO
[2021-09-21 17:09] LABS: Basophils Percent Auto 0.5 % (0-2); Eosinophils Percent Auto 0.4 % (0-4); Hematocrit 47.6 % (42.0-52.0); Hemoglobin 15.9 g/dl (14.0-18.0); Imm Gran Abs Auto 0.01 X10*3/uL (0.00-0.03); Imm Gran Pct Auto 0.1 % (0.0-0.4); Lymphocytes Absolute Auto 0.7 X10*3/uL (1.2-4.9); Lymphocytes Percent Auto 10.1 % (20-40); Mean Corpuscular HGB Conc 33.4 g/dl (31.0-36.0); Mean Corpuscular Hemoglobin 30.9 pg (27.0-33.0); Mean Corpuscular Volume 92.4 fL (80.0-98.0); Mean Platelet Volume 8.6 fL (9.4-12.4); Monocytes Absolute Auto 0.4 X10*3/uL (0.1-1.2); Monocytes Percent Auto 5.7 % (2-11); Neutrophils Absolute Auto 6.1 x10*3/uL (2.0-8.3); Neutrophils Percent Auto 83.2 % (45-73); Platelet Count 227 X10*3/uL (160-400); Red Blood Count 5.15 X10*6/uL (4.60-5.80); Red Cell Distribution Width 12.6 % (11.0-16.0); White Blood Count 7.3 X10*3/uL (4.8-10.8)
[2021-09-21 17:32] LABS: B Type Natriuretic Peptide 65 pg/mL (<100); Troponin-I High Sensitivity < 3.5 ng/L (<3.5-35.0)
[2021-09-21 17:40] LABS: Anion Gap 11 (12-20); Blood Urea Nitrogen 15 mg/dL (9-16); Calcium 10.5 mg/dL (8.4-10.2); Carbon Dioxide 27 mmol/L (22-29); Chloride 104 mmol/L (96-108); Creatinine Clr Calc Pharmacy 60.9; Estimated Glomerular Filt Rate > 60; Glucose Random 130 mg/dL (60-115); Sodium 138 mmol/L (135-145)
--- NOTE | 2021-09-21 20:43 | ED_ITS ---
HPI - SOB/Dyspnea General Chief Complaint: Dyspnea Stated Complaint: SOB Time Seen by Provider: 09/21/21 20:43 Source: patient Mode of arrival: ambulatory Limitations: no limitations History of Present Illness HPI Narrative: Patient history of anxiety on lorazepam has not taken his medicine lately and next refill is due next month has old prescription bottle at home comes here for increased anxiety palpitation shortness of breath similar to that when he gets anxiety attack no cough no fever no chills Related Data Home Medications Medication Instructions Recorded Confirmed fluoxetine 20 mg tablet 20 mg PO DAILY 05/01/21 05/25/21 lorazepam 1 mg tablet 1 mg PO BEDTIME PRN 05/01/21 05/25/21 simvastatin 40 mg tablet 40 mg PO BEDTIME 05/01/21 05/25/21 azithromycin 500 mg tablet 0 mg PO 07/14/21 erythromycin 5 mg/gram (0.5 %) eye 0 mg OPHTHALMIC (EYE) 07/14/21 ointment mirtazapine 15 mg tablet 15 mg PO BEDTIME 07/14/21 Previous Rx's Medication Instructions Recorded hydroxyzine HCl 50 mg tablet 50 mg PO BID PRN #30 tab 10/15/20 finasteride 5 mg tablet 5 mg PO DAILY #90 tab 03/27/21 tamsulosin 0.4 mg capsule 0.8 mg PO BEDTIME 90 Days #180 cap 05/11/21 sulfamethoxazole 400 1 tab PO DAILY #10 tab 06/01/21 mg-trimethoprim 80 mg tablet (Bactrim) tramadol 50 mg tablet 50 mg PO Q6H PRN #14 tab 06/01/21 tranexamic acid 650 mg tablet 650 mg PO BID 5 Days #10 tab 06/01/21 sulfamethoxazole 800 1 tab PO BID 5 Days #10 tab 07/14/21 mg-trimethoprim 160 mg tablet (Bactrim DS) Allergies Allergy/AdvReac Type Severity Reaction Status Date / Time phenytoin [Dilantin] Allergy Severe Redness of Verified 07/14/21 13:31 Skin lactose Allergy Intermediate Gastrointestinal Verified 07/14/21 13:31 Upset Review of Systems Review of Systems: Yes all other systems are reviewed and are negative PMFSH Past Medical History Medical History Anxiety Balance problems Brain hematoma Depression Enlarged prostate H/O urinary frequency H/O urinary retention History of elevated PSA History of skin cancer Hydrocele Renal stones Spermatocele Vasculogenic erectile dysfunction Surgical History History of brain surgery History of hip replacement, total Hx of colonoscopy Social History Social History Are you a primary career technical counselor to a significant other at home: No Alcohol intake: former Patient Tobacco Use Status: Former Tobacco user Quit Date: 1978 Tobacco use type: Cigarette Advance Directives: Yes Advance Directives on File: Yes Advance Directives Date on File: 06/01/21 Physical Exam Vital Signs: Vital Signs: Last Vital Signs Temp 100.1 F 09/21/21 16:41 Pulse 115 H 09/21/21 16:41 Resp 18 09/21/21 16:41 BP 153/85 H 09/21/21 16:41 Pulse Ox 96 09/21/21 16:41 BMI result Body Mass Index 18.4 Appearance: Alert. Oriented X3. No acute distress. Anxious Eyes: No pallor ENT: Pharynx normal. Oral Mucosa moist Neck: Normal inspection. Neck supple. CVS: Normal heart rate and rhythm. Pulses normal. Respiratory: No respiratory distress. Equal air entry bilateral, no wheezing/rales/rhonchi Abdomen: Soft and nontender. Bowel sounds are present, Skin: Skin warm and dry. Normal skin color. Normal skin turgor. Extremities: No lower extremity edema. No calf tenderness Neuro: Oriented X 3. No motor deficit. MDM - SOB/Dyspnea MDM Narrative Medical decision making narrative: Patient anxiety lungs are clear workup is negative saturating 96% at room air no fever no chills COVID influenza negative will discharge patient home Lab Data Attestation: I reviewed the patient's lab results. Result diagrams: 09/21/21 17:02 09/21/21 17:02 Labs: Lab Results 09/21/21 09/21/21 09/21/21 Range/Units 17:02 17:02 17:02 WBC 7.3 (4.8-10.8) X10*3/uL RBC 5.15 (4.60-5.80) X10*6/uL Hgb 15.9 (14.0-18.0) g/dl Hct 47.6 (42.0-52.0) % MCV 92.4 (80.0-98.0) fL MCH 30.9 (27.0-33.0) pg MCHC 33.4 (31.0-36.0) g/dl RDW 12.6 (11.0-16.0) % Plt Count 227 D (160-400) X10*3/uL MPV 8.6 L (9.4-12.4) fL Immature Gran % (Auto) 0.1 (0.0-0.4) % Neut % (Auto) 83.2 H (45-73) % Lymph % (Auto) 10.1 L (20-40) % [place] % (Auto) 5.7 (2-11) % Eos % (Auto) 0.4 (0-4) % Baso % (Auto) 0.5 (0-2) % Lymph # (Auto) 0.7 L (1.2-4.9) X10*3/uL [place] # (Auto) 0.4 (0.1-1.2) X10*3/uL Eos # (Auto) 0.0 (0.0-0.4) X10*3/uL Baso # (Auto) 0.0 (0.0-0.2) X10*3/uL Abs Immat Gran (auto) 0.01 (0.00-0.03) X10*3/uL Absolute Neuts (auto) 6.1 (2.0-8.3) x10*3/uL Absolute Nucleated RBC 0.000 (0.0-0.012) X10*3/uL Nucleated RBC % (auto) 0.0 (0.0-0.2) /100WBC Sodium 138 (135-145) mmol/L Potassium 4.0 (3.3-5.1) mmol/L Chloride 104 (96-108) mmol/L Carbon Dioxide 27 (22-29) mmol/L Anion Gap 11 L (12-20) BUN 15 (9-16) mg/dL Creatinine 0.84 (0.5-1.4) mg/dL Estim Creat Clear Calc 60.9 Estimated GFR > 60 Random Glucose 130 H (60-115) mg/dL Calcium 10.5 H (8.4-10.2) mg/dL Troponin I High Sens < 3.5 (<3.5-35.0) ng/L B-Natriuretic Peptide 65 (<100) pg/mL COVID-19 (MARYAM) (Negative) COVID-19 Clin Com Influenza Type A (TEJINDER) (Negative) Influenza Type B (TEJINDER) (Negative) Influenza A & B Note 09/21/21 09/21/21 Range/Units 21:12 21:12 WBC (4.8-10.8) X10*3/uL RBC (4.60-5.80) X10*6/uL Hgb (14.0-18.0) g/dl Hct (42.0-52.0) % MCV (80.0-98.0) fL MCH (27.0-33.0) pg MCHC (31.0-36.0) g/dl RDW (11.0-16.0) % Plt Count (160-400) X10*3/uL MPV (9.4-12.4) fL Immature Gran % (Auto) (0.0-0.4) % Neut % (Auto) (45-73) % Lymph % (Auto) (20-40) % [place] % (Auto) (2-11) % Eos % (Auto) (0-4) % Baso % (Auto) (0-2) % Lymph # (Auto) (1.2-4.9) X10*3/uL [place] # (Auto) (0.1-1.2) X10*3/uL Eos # (Auto) (0.0-0.4) X10*3/uL Baso # (Auto) (0.0-0.2) X10*3/uL Abs Immat Gran (auto) (0.00-0.03) X10*3/uL Absolute Neuts (auto) (2.0-8.3) x10*3/uL Absolute Nucleated RBC (0.0-0.012) X10*3/uL Nucleated RBC % (auto) (0.0-0.2) /100WBC Sodium (135-145) mmol/L Potassium (3.3-5.1) mmol/L Chloride (96-108) mmol/L Carbon Dioxide (22-29) mmol/L Anion Gap (12-20) BUN (9-16) mg/dL Creatinine (0.5-1.4) mg/dL Estim Creat Clear Calc Estimated GFR Random Glucose (60-115) mg/dL Calcium (8.4-10.2) mg/dL Troponin I High Sens (<3.5-35.0) ng/L B-Natriuretic Peptide (<100) pg/mL COVID-19 (MARYAM) Negative (Negative) COVID-19 Clin Com See Note Influenza Type A (TEJINDER) Negative (Negative) Influenza Type B (TEJINDER) Negative (Negative) Influenza A & B Note See Note Discharge Plan Discharge Clinical Impression: Anxiety Patient Disposition: Home, Self-Care Instructions: Anxiety (ED) Additional Instructions: Take medication as prescribed by your PCP and follow-up with him Prescriptions: No Action finasteride 5 mg tablet 5 mg PO DAILY Qty: 90 3RF tamsulosin 0.4 mg capsule 0.8 mg PO BEDTIME 90 Days Qty: 180 1RF hydroxyzine HCl 50 mg tablet 50 mg PO BID PRN (Reason: anxiety) Qty: 30 0RF sulfamethoxazole-trimethoprim [Bactrim] 400-80 mg tablet 1 tab PO DAILY Qty: 10 0RF tramadol 50 mg tablet 50 mg PO Q6H PRN (Reason: pain (scale score 4-6)) Qty: 14 0RF tranexamic acid 650 mg tablet 650 mg PO BID 5 Days Qty: 10 0RF simvastatin 40 mg tablet 40 mg PO BEDTIME 0RF lorazepam 1 mg tablet 1 mg PO BEDTIME PRN (Reason: Anxiety) 0RF fluoxetine 20 mg tablet 20 mg PO DAILY 0RF mirtazapine 15 mg tablet 15 mg PO BEDTIME 0RF azithromycin 500 mg tablet 0 mg PO 0RF erythromycin 5 mg/gram (0.5 %) ointment 0 mg ophthalmic (eye) 0RF sulfamethoxazole-trimethoprim [Bactrim DS] 800-160 mg tablet 1 tab PO BID 5 Days Qty: 10 0RF
[2021-09-21] MEDS: LORazepam 1 MG TABLET PO (21:20)
[2021-09-21 21:34] LABS: COVID-19 Test Negative (Negative); IDNOW Serial# 16C4AD1C; Influenza A Negative (Negative); Influenza B2 Negative (Negative)
[2021-09-21 22:29] VITALS: BP 133/84; PULSE 90; RESP 17; O2SAT 98
== END 2021-09-21 22:30 | disposition home or self-care (01) ==
PROVIDERS: Emergency Provider Internal Medicine; PCP Internal Medicine
DX: F41.9 Anxiety disorder, unspecified (principal); R06.02 Shortness of breath; Z20.822 Contact with and (suspected) exposure to COVID-19
CPT/HCPCS: 36415; 71045; 80048; 83880; 84484; 85025; 87502; 87635; 93005; 99283

== ENCOUNTER 2021-10-06 14:14 | Outpatient (REF) | payer MEDICARE, SELFPAY ==
[2021-10-06 17:29] LABS: PSA,Total (Free>4and<10) 3.83 ng/mL (0.00-4.00)
== END 2021-10-06 14:15 | disposition home or self-care (01) ==
LOC: HO.HMGCLDS 14:14
PROVIDERS: PCP Internal Medicine; Visit Provider Urology
DX: Z12.5 Encounter for screening for malignant neoplasm of prostate (principal); N40.1 Benign prostatic hyperplasia with lower urinary tract symptoms; N13.8 Other obstructive and reflux uropathy
CPT/HCPCS: 36415; 84153

== ENCOUNTER → 2021-10-13 12:47 | Outpatient (BNVA) | payer MEDICARE, SELFPAY | PROVIDERS: PCP Internal Medicine; Visit Provider Urology | DX: N40.1 Benign prostatic hyperplasia with lower urinary tract symptoms (principal); N13.8 Other obstructive and reflux uropathy; R97.20 Elevated prostate specific antigen [PSA] | CPT/HCPCS: 99212 ==

== ENCOUNTER 2021-11-06 12:42 | Emergency (ER) | payer MEDICARE, SELFPAY ==
--- NOTE | ~2021-11-06 | XR_ITS ---
EXAMINATION: XR CHEST CLINICAL INFORMATION: Heart palpitations and shortness of breath COMPARISON: Previous chest x-ray September 2021 TECHNIQUE: Frontal view of the chest was obtained. FINDINGS: The cardiac and mediastinal contours are normal. The lungs are clear. There is no pleural effusion or pneumothorax. There are degenerative changes of the spine. XR/XR chest 1V IMPRESSION: No evidence for acute disease in the chest.
--- NOTE | 2021-11-06 13:32 | ECG_ITS ---
Test Reason : palpitations Blood Pressure : / mmHG Vent. Rate : 060 BPM Atrial Rate : 060 BPM P-R Int : 154 ms QRS Dur : 088 ms QT Int : 396 ms P-R-T Axes : 027 082 066 degrees QTc Int : 396 ms Normal sinus rhythm Normal ECG When compared with ECG of 21-SEP-2021 16:43, Vent. rate has decreased BY 38 BPM Referred By: Generic ED Physician Electronically Signed By:Coy Scott
[2021-11-06 14:05] VITALS: BP 151/63; PULSE 60; RESP 18; TEMP 35.6; O2SAT 98; BMI 19.2
[2021-11-06 14:24] LABS: Basophils Absolute Auto 0.1 X10*3/uL (0.0-0.2); Basophils Percent Auto 0.7 % (0-2); Eosinophils Absolute Auto 0.1 X10*3/uL (0.0-0.4); Eosinophils Percent Auto 0.8 % (0-4); Hematocrit 49.4 % (42.0-52.0); Hemoglobin 16.4 g/dl (14.0-18.0); Imm Gran Abs Auto 0.02 X10*3/uL (0.00-0.03); Imm Gran Pct Auto 0.3 % (0.0-0.4); MANUAL DIFF FLAG NO; Mean Corpuscular HGB Conc 33.2 g/dl (31.0-36.0); Mean Corpuscular Hemoglobin 30.7 pg (27.0-33.0); Mean Corpuscular Volume 92.5 fL (80.0-98.0); Mean Platelet Volume 8.7 fL (9.4-12.4); Monocytes Absolute Auto 0.6 X10*3/uL (0.1-1.2); Monocytes Percent Auto 7.7 % (2-11); Neutrophils Absolute Auto 4.5 x10*3/uL (2.0-8.3); Neutrophils Percent Auto 62.5 % (45-73); Platelet Count 276 X10*3/uL (160-400); Red Blood Count 5.34 X10*6/uL (4.60-5.80); Red Cell Distribution Width 12.2 % (11.0-16.0); White Blood Count 7.2 X10*3/uL (4.8-10.8)
[2021-11-06 14:45] LABS: Anion Gap 13 (12-20); Blood Urea Nitrogen 17 mg/dL (9-16); Calcium 10.6 mg/dL (8.4-10.2); Carbon Dioxide 26 mmol/L (22-29); Chloride 105 mmol/L (96-108); Creatinine Clr Calc Pharmacy 61.9; Estimated Glomerular Filt Rate > 60; Glucose Random 106 mg/dL (60-115); Potassium 4.8 mmol/L (3.3-5.1); Sodium 139 mmol/L (135-145); Troponin-I High Sensitivity < 3.5 ng/L (<3.5-35.0)
--- NOTE | 2021-11-06 21:41 | ED_ITS ---
HPI - Arrhythmia/Palpitations General Chief Complaint: Arrhythmia/Palpitations Stated Complaint: heart palpitaions/stomach issues Time Seen by Provider: 11/06/21 21:11 Source: patient Mode of arrival: ambulatory Limitations: no limitations History of Present Illness HPI narrative: 76-year-old male who presents emergency department for evaluation of palpitations and hearing his pulse in his right ear. The patient states that he has a history of palpitations and gets them frequently. He states that since yesterday however the palpitations have become more frequent. He also states that he can hear his heartbeat in his right ear. He states that this is constant as well. The patient states that occasionally he feels short of breath when his heart being his rapid. He states that yesterday he did have a brief episode of chest pressure located in his left chest that lasted 30 seconds. He states that his had difficulty sleeping he does feel more anxious. The patient does take Ativan but he states that he ran out of this medication 2 days prior. He believes that the prescription may be at the pharmacy but he has not picked that up yet. The patient denied fever, chills. He has had rhinorrhea times several days. He denied sore throat, cough, dyspnea on exertion. He denied change in his bowel movements such as black tarry stools or bloody stools MD complaint: rapid heart beat and heart racing Onset (ago): day(s) (2) Duration: constant Severity: moderate Context: occurred during rest Associated symptoms: chest pain (One brief episode yesterday), shortness of breath and anxiety Related Data Home Medications Medication Instructions Recorded Confirmed fluoxetine 20 mg tablet 20 mg PO DAILY 05/01/21 10/13/21 lorazepam 1 mg tablet 1 mg PO BEDTIME PRN 05/01/21 10/13/21 simvastatin 40 mg tablet 40 mg PO BEDTIME 05/01/21 10/13/21 azithromycin 500 mg tablet 0 mg PO 07/14/21 10/13/21 erythromycin 5 mg/gram (0.5 %) eye 0 mg OPHTHALMIC (EYE) 07/14/21 10/13/21 ointment mirtazapine 15 mg tablet 15 mg PO BEDTIME 07/14/21 10/13/21 Previous Rx's Medication Instructions Recorded hydroxyzine HCl 50 mg tablet 50 mg PO BID PRN #30 tab 10/15/20 finasteride 5 mg tablet 5 mg PO DAILY #90 tab 03/27/21 tamsulosin 0.4 mg capsule 0.8 mg PO BEDTIME 90 Days #180 cap 05/11/21 sulfamethoxazole 400 1 tab PO DAILY #10 tab 06/01/21 mg-trimethoprim 80 mg tablet (Bactrim) tramadol 50 mg tablet 50 mg PO Q6H PRN #14 tab 06/01/21 tranexamic acid 650 mg tablet 650 mg PO BID 5 Days #10 tab 06/01/21 sulfamethoxazole 800 1 tab PO BID 5 Days #10 tab 07/14/21 mg-trimethoprim 160 mg tablet (Bactrim DS) lorazepam 1 mg tablet (Ativan) 1 mg PO BID PRN #10 tab 11/06/21 Allergies Allergy/AdvReac Type Severity Reaction Status Date / Time phenytoin [Dilantin] Allergy Severe Redness of Verified 10/13/21 13:01 Skin lactose Allergy Intermediate Gastrointestinal Verified 10/13/21 13:01 Upset Review of Systems Review of Systems: Yes all other systems are reviewed and are negative PMFSH Past Medical History Medical History Anxiety Balance problems Brain hematoma Depression Enlarged prostate H/O urinary frequency H/O urinary retention History of elevated PSA History of skin cancer Hydrocele Renal stones Spermatocele Vasculogenic erectile dysfunction Surgical History History of brain surgery History of hip replacement, total Hx of colonoscopy Social History Social History Are you a primary skin care instructor to a significant other at home: No Alcohol intake: former Patient Tobacco Use Status: Former Tobacco user Quit Date: 1978 Tobacco use type: Cigarette Advance Directives: Yes Advance Directives on File: Yes Advance Directives Date on File: 06/01/21 Physical Exam Vital Signs: Vital Signs: Last Vital Signs Temp 96.0 F L 11/06/21 14:05 Pulse 60 11/06/21 14:05 Resp 18 11/06/21 14:05 BP 151/63 H 11/06/21 14:05 Pulse Ox 98 11/06/21 14:05 BMI result Body Mass Index 19.2 Const: General: cooperative and no acute distress Orientation/consciousness: oriented to person and oriented to place Limitations: no limitations HEENT: Head: Yes normal to inspection, Yes normocephalic and Yes atraumatic Ears: external ears normal and TM's normal bilaterally General nose exam: Normal external nose present Face and sinus: Yes normal facial exam Mouth: Normal oral and palatal mucosa present Throat: Yes posterior oropharynx normal Eyes: General: appearance normal, both eyes and all related structures Pupils: Equal, round and reactive pupils present Neck: Neck: Yes normal visual inspection, Yes no lymphadenopathy, Yes trachea midline and Yes supple Chest: Chest palpation & inspection: normal inspection of the chest and normal palpation of entire chest wall Resp: Effort & Inspection: normal respiratory effort and able to speak in c omplete sentences Auscultation: clear to auscultation bilaterally Cardio: Rate: regular rate Rhythm: regular rhythm Heart sounds: S1 normal heart sound present, S2 normal heart sound present and no murmurs GI: Inspection: Yes normal to inspection Palpation (GI): Soft to palpation, nontender and no guarding Auscultation: normal bowel sounds : General: Yes no CVA tenderness Back/Spine/Pelvis: Back: no CVA tenderness Skin: General skin exam: no rashes or lesions noted Neuro: General: oriented to person and oriented to place Cranial nerves: Yes CN's II-XII intact bilaterally and Yes Equal, round and reactive pupils present Cognition (Neuro): normal cognition Motor exam (neuro): 5/5 motor strength present throughout Extrem: General: Yes normal to inspection Psych: Appearance: grossly normal Speech and movement: Normal speech and movement present Affect: normal affect Attitude: cooperative Thought process: Normal thought process present Thought content: Normal thought content present Course Course Course Narrative: 76-year-old male who presents emergency department for evaluation palpitations and hearing his heartbeat in his right ear. Patient states that he has a history of palpitations but they been worse over the past 2 days. He had 1 brief episode of chest pain yesterday he does feel short of breath but he has had no dyspnea on exertion. Patient does take Ativan for his anxiety but ran out of this med 2 days prior. Vital signs revealed an elevated blood pressure of 151/63, vital signs were otherwise unremarkable. Patient's physical examination was normal. Laboratory evaluation revealed a normal CBC and CMP. Patient's troponin was below detectable limits. Twelve EKG was unremarkable. At this time I think the patient's palpitations are secondary to anxiety and the fact that he ran out of his Ativan. Patient was given Ativan 1 mg orally here in the emergency department. I did prescribe Ativan 1 mg twice a day, dispense 10 tablets until he can get a refill from his PCP. He was given printed and verbal instructions discharged home. MDM - Arrhythmia/Palpitations Lab Data Result diagrams: 11/06/21 14:13 11/06/21 14:13 Labs: Lab Results 11/06/21 11/06/21 11/06/21 Range/Units 14:13 14:13 14:13 WBC 7.2 (4.8-10.8) X10*3/uL RBC 5.34 (4.60-5.80) X10*6/uL Hgb 16.4 (14.0-18.0) g/dl Hct 49.4 (42.0-52.0) % MCV 92.5 (80.0-98.0) fL MCH 30.7 (27.0-33.0) pg MCHC 33.2 (31.0-36.0) g/dl RDW 12.2 (11.0-16.0) % Plt Count 276 (160-400) X10*3/uL MPV 8.7 L (9.4-12.4) fL Immature Gran % (Auto) 0.3 (0.0-0.4) % Neut % (Auto) 62.5 (45-73) % Lymph % (Auto) 28.0 (20-40) % [place] % (Auto) 7.7 (2-11) % Eos % (Auto) 0.8 (0-4) % Baso % (Auto) 0.7 (0-2) % Lymph # (Auto) 2.0 (1.2-4.9) X10*3/uL [place] # (Auto) 0.6 (0.1-1.2) X10*3/uL Eos # (Auto) 0.1 (0.0-0.4) X10*3/uL Baso # (Auto) 0.1 (0.0-0.2) X10*3/uL Abs Immat Gran (auto) 0.02 (0.00-0.03) X10*3/uL Absolute Neuts (auto) 4.5 (2.0-8.3) x10*3/uL Absolute Nucleated RBC 0.000 (0.0-0.012) X10*3/uL Nucleated RBC % (auto) 0.0 (0.0-0.2) /100WBC Sodium 139 (135-145) mmol/L Potassium 4.8 (3.3-5.1) mmol/L Chloride 105 (96-108) mmol/L Carbon Dioxide 26 (22-29) mmol/L Anion Gap 13 (12-20) BUN 17 H (9-16) mg/dL Creatinine 0.86 (0.5-1.4) mg/dL Estim Creat Clear Calc 61.9 Estimated GFR > 60 Random Glucose 106 (60-115) mg/dL Calcium 10.6 H (8.4-10.2) mg/dL Troponin I High Sens < 3.5 (<3.5-35.0) ng/L ECG Data Attestation: I personally reviewed and interpreted this ECG as follows: Interpretation: 1347: Normal sinus rhythm rate of 60, normal ME interval, QRS duration and QTC interval, no ST segment elevation, no ST segment depression, no PACs, no PVCs, this is a normal EKG. Discharge Plan Discharge Clinical Impression: Palpitation, Anxiety Patient Disposition: Home, Self-Care Instructions: Heart Palpitations (DC), Anxiety (ED) Additional Instructions: Your blood work was unremarkable. Your high sensitivity troponin I (a marker of heart damage) was normal which is very reassuring. Your EKG was unremarkable. At this time, I believe that your rapid heart rate is due to your anxiety and the fact that she ran out of Ativan. I am prescribing Ativan 1 mg tablets twice a day and I am giving you 10 pills until you can get a refill from your primary care doctor. I want you to take 1/2 pill in the morning and 1/2 a pill at night, he continued to experience palpitations then you can increase the dose to 1/2 pill in the morning and 1 pill at night. Follow-up with your doctor in 2 days. Please return to the emergency department if your symptoms get worse or if you develop any symptoms that are concerning to you. Prescriptions: New lorazepam [Ativan] 1 mg tablet 1 mg PO BID PRN (Reason: anxiety) Qty: 10 0RF Rx Instructions: Patient may request partial fill No Action finasteride 5 mg tablet 5 mg PO DAILY Qty: 90 3RF tamsulosin 0.4 mg capsule 0.8 mg PO BEDTIME 90 Days Qty: 180 1RF hydroxyzine HCl 50 mg tablet 50 mg PO BID PRN (Reason: anxiety) Qty: 30 0RF sulfamethoxazole-trimethoprim [Bactrim] 400-80 mg tablet 1 tab PO DAILY Qty: 10 0RF tramadol 50 mg tablet 50 mg PO Q6H PRN (Reason: pain (scale score 4-6)) Qty: 14 0RF tranexamic acid 650 mg tablet 650 mg PO BID 5 Days Qty: 10 0RF simvastatin 40 mg tablet 40 mg PO BEDTIME 0RF lorazepam 1 mg tablet 1 mg PO BEDTIME PRN (Reason: Anxiety) 0RF fluoxetine 20 mg tablet 20 mg PO DAILY 0RF mirtazapine 15 mg tablet 15 mg PO BEDTIME 0RF azithromycin 500 mg tablet 0 mg PO 0RF erythromycin 5 mg/gram (0.5 %) ointment 0 mg ophthalmic (eye) 0RF sulfamethoxazole-trimethoprim [Bactrim DS] 800-160 mg tablet 1 tab PO BID 5 Days Qty: 10 0RF
[2021-11-06] MEDS: LORazepam 1 MG TABLET PO (22:15)
== END 2021-11-06 22:23 | disposition home or self-care (01) ==
PROVIDERS: Emergency Provider Emergency Medicine Emergency Medical Services; PCP Internal Medicine
DX: R00.2 Palpitations (principal); F41.9 Anxiety disorder, unspecified; Z79.899 Other long term (current) drug therapy
CPT/HCPCS: 36415; 71045; 80048; 84484; 85025; 93005; 99282; 99283

== ENCOUNTER 2022-03-17 12:32 | Emergency (ER) | payer MEDICARE, SELFPAY ==
--- NOTE | ~2022-03-17 | XR_ITS ---
EXAMINATION: XR RIBS, LEFT CLINICAL INFORMATION: Status post fall, chair caught under ribs COMPARISON: Chest x-ray 11/06/2021 TECHNIQUE: 3 views of the left ribs were obtained. FINDINGS: Lungs are clear. No consolidation, pneumothorax, or pleural effusion. Mild biapical pleural thickening, unchanged. The cardiomediastinal silhouette and pulmonary vasculature are normal. Osseous structures are unremarkable. No acute displaced rib fractures identified. XR/XR ribs LT min 3V w CXR1V IMPRESSION: 1. No acute pulmonary process. 2. No acute displaced rib fracture identified.
[2022-03-17 12:56] VITALS: BP 120/68; PULSE 77; RESP 16; TEMP 36.7; O2SAT 97; BMI 19.2
--- NOTE | 2022-03-17 13:00 | ECG_ITS ---
Test Reason : CHEST DISCOMFORT Blood Pressure : / mmHG Vent. Rate : 065 BPM Atrial Rate : 065 BPM P-R Int : 152 ms QRS Dur : 090 ms QT Int : 402 ms P-R-T Axes : 057 086 074 degrees QTc Int : 418 ms Normal sinus rhythm Normal ECG When compared with ECG of 06-NOV-2021 13:47, No significant change was found Referred By: Generic ED Physician Electronically Signed By:AIXA CLEMONS
[2022-03-17 13:56] LABS: Hematocrit 47.8 % (42.0-52.0); Hemoglobin 15.9 g/dl (14.0-18.0); Mean Corpuscular HGB Conc 33.3 g/dl (31.0-36.0); Mean Corpuscular Hemoglobin 30.8 pg (27.0-33.0); Mean Corpuscular Volume 92.5 fL (80.0-98.0); Mean Platelet Volume 8.6 fL (9.4-12.4); Platelet Count 238 X10*3/uL (160-400); Red Blood Count 5.17 X10*6/uL (4.60-5.80); Red Cell Distribution Width 12.4 % (11.0-16.0); White Blood Count 6.4 X10*3/uL (4.8-10.8)
[2022-03-17 14:22] LABS: Anion Gap 12 (12-20); Blood Urea Nitrogen 16 mg/dL (9-16); Carbon Dioxide 29 mmol/L (22-29); Chloride 104 mmol/L (96-108); Creatinine Clr Calc Pharmacy 64.1; Estimated Glomerular Filt Rate > 60; Glucose Random 106 mg/dL (60-115); Sodium 141 mmol/L (135-145)
[2022-03-17 14:27] LABS: Troponin-I High Sensitivity < 3.5 ng/L (<3.5-35.0)
--- NOTE | 2022-03-17 17:43 | ED.CHESTPAIN ---
HPI - Chest Pain General Chief Complaint: Fall Stated Complaint: chest rib pain palpations fall wk ago Time Seen by Provider: 03/17/22 17:26 Source: patient Mode of arrival: ambulatory Limitations: no limitations History of Present Illness HPI narrative: Patient presents emergency department for evaluation of left anterior rib pain. He states about 1 week ago tripped and fell with his left anterior chest landing into the arm of a chair. He states that he initially had significant pain but is overall improving. He reports an episode this morning where he awoke from his sleep at 02:00 and felt as though he was gasping for air and had mid chest pain at that time. This pain and shortness of breath lasted a couple of seconds until he sat up in bed. Denies this pain at this time, and denies shortness of breath. He does reports some intermittent dizziness over the past few weeks but that is significantly improving, states that this was contributed to fluoxetine that he was initially started on and then had discontinued due to the dizziness. Related Data Home Medications Medication Instructions Recorded Confirmed fluoxetine 20 mg tablet 20 mg PO DAILY 05/01/21 10/13/21 lorazepam 1 mg tablet 1 mg PO BEDTIME PRN Anxiety 05/01/21 10/13/21 simvastatin 40 mg tablet 40 mg PO BEDTIME 05/01/21 10/13/21 azithromycin 500 mg tablet 0 mg PO 07/14/21 10/13/21 erythromycin 5 mg/gram (0.5 %) eye 0 mg ophthalmic (eye) 07/14/21 10/13/21 ointment mirtazapine 15 mg tablet 15 mg PO BEDTIME 07/14/21 10/13/21 Previous Rx's Medication Instructions Recorded hydroxyzine HCl 50 mg tablet 50 mg PO BID PRN anxiety #30 tabs 10/15/20 finasteride 5 mg tablet 5 mg PO DAILY #90 tabs 03/27/21 sulfamethoxazole 400 1 tab PO DAILY #10 tabs 06/01/21 mg-trimethoprim 80 mg tablet (Bactrim) tramadol 50 mg tablet 50 mg PO Q6H PRN pain (scale score 06/01/21 4-6) #14 tabs tranexamic acid 650 mg tablet 650 mg PO BID 5 days #10 tabs 06/01/21 sulfamethoxazole 800 1 tab PO BID 5 days #10 tabs 07/14/21 mg-trimethoprim 160 mg tablet (Bactrim DS) lorazepam 1 mg tablet (Ativan) 1 mg PO BID PRN anxiety #10 tabs 11/06/21 tamsulosin 0.4 mg capsule 0.8 mg PO BEDTIME 90 days #180 caps 11/12/21 Allergies Allergy/AdvReac Type Severity Reaction Status Date / Time phenytoin [Dilantin] Allergy Severe Redness of Verified 10/13/21 13:01 Skin lactose Allergy Intermediate Gastrointestinal Verified 10/13/21 13:01 Upset Review of Systems Review of Systems: Constitutional : No Weight loss, No Fever, No Chills ENT/Mouth :? No sore throat, No Rhinorrhea Eyes: No Eye Pain, No Swelling Cardiovascular : pos Chest Pain, pos SOB, no Dyspnea on Exertion, No Orthopnea, No Edema, No Palpitations Respiratory : No Cough, No Sputum Gastrointestinal : pos Nausea, No Vomiting, No Diarrhea, No abdominal Pain, No Hematochezia, No Melena Genitourinary : No Dysuria, No Urinary Frequency Musculoskeletal : No joint pain, No Myalgias, No Joint Swelling Skin : No Skin Lesions, No rash Neuro : No Weakness, No Numbness, No Dizziness, No Headache Psych : No Anxiety/Panic, No Depression Heme/Lymph: No Bruising, No Lymphadenopathy Endocrine : No Polyuria, No Polydipsia Yes all other systems are reviewed and are negative PMFSH Past Medical History Attestation statement: The following information was validated with the patient. Source: old records reviewed Medical History Anxiety Balance problems Brain hematoma Depression Enlarged prostate H/O urinary frequency H/O urinary retention History of elevated PSA History of skin cancer Hydrocele Renal stones Spermatocele Vasculogenic erectile dysfunction Surgical History History of brain surgery History of hip replacement, total Hx of colonoscopy Social History Social History Are you a primary primary health care nurse to a significant other at home: No Alcohol intake: former Patient Tobacco Use Status: Former Tobacco user Quit Date: 1978 Tobacco use type: Cigarette Advance Directives: Yes Advance Directives on File: Yes Advance Directives Date on File: 06/01/21 Physical Exam Vital Signs: Vital Signs: Last Vital Signs Temp 98.1 F 03/17/22 12:56 Pulse 77 03/17/22 12:56 Resp 16 03/17/22 12:56 BP 120/68 03/17/22 12:56 Pulse Ox 97 03/17/22 12:56 O2 Del Method 03/17/22 12:56 BMI result Body Mass Index 19.2 Vital signs have been reviewed as normal and appeared to be correct. Blood pressure normal.? Heart rate normal.? Respiration rate normal. Temperature normal.? Oxygen saturation normal. Appearance: Alert.?Oriented to person, place and time. No acute distress.?Normal affect. Eyes: Pupils equal, round and reactive to light.? ENT: Pharynx normal.?? Neck: Normal inspection.? Neck supple.?? CVS: Heart sounds normal. Normal heart rate and rhythm.? Pulses normal.?? Respiratory: No respiratory distress.? Lung sounds clear to auscultation bilaterally. Mild tenderness upon palpation over the left anterior lower ribs approximately 6-8. No crepitus. No obvious deformity. Abdomen: Soft and non-tender. Normoactive bowel sounds. Skin: Skin warm and dry.? Normal skin color.? Extremities: No lower extremity edema.? No calf ttp? Neuro: Moves all extremities spontaneously. Sensation intact bilaterally. CN II-XII intact. No focal neuro deficits. Ambulates with normal steady gait. Course Course Course Narrative: Patient is a 76-year-old male with a past medical history of anxiety, depression, BPH who presents emergency department for evaluation of chest pain. Left anterior chest pain /rib pain, with no concerning findings upon physical exam. Chest x-ray obtained reveals no acute rib fractures, no acute pulmonary process. Overall the pain is significantly improving since its onset 1 week ago. Patient was more concerned about the awaking from his sleep gasping for air with mid chest pain lasting only a few seconds. Does not seem consistent with pleuritic chest pain, unlikely to be pulmonary embolism. PERC Negative. EKG reveals normal sinus rhythm with no acute ischemic findings, troponin <3.5, not consistent with ACS. CBC and BMP are overall unremarkable. Discussed with patient that chest pain seems most consistent with rib contusion. Discussed plan of care for discharge home, rest, acetaminophen, bracing of the chest with coughing or certain movements. Outpatient follow-up with his primary care provider. Discussed worrisome signs and symptoms to return back to the emergency department for. All questions were answered. Patient discharged home in stable condition. MDM - Chest Pain Medical Records Data Attestation: I reviewed the patient's medical records. Lab Data Attestation: I reviewed the patient's lab results. Result diagrams: 03/17/22 13:50 03/17/22 13:50 Labs: Lab Results 03/17/22 03/17/22 03/17/22 Range/Units 13:50 13:50 13:50 WBC 6.4 (4.8-10.8) X10*3/uL RBC 5.17 (4.60-5.80) X10*6/uL Hgb 15.9 (14.0-18.0) g/dl Hct 47.8 (42.0-52.0) % MCV 92.5 (80.0-98.0) fL MCH 30.8 (27.0-33.0) pg MCHC 33.3 (31.0-36.0) g/dl RDW 12.4 (11.0-16.0) % Plt Count 238 (160-400) X10*3/uL MPV 8.6 L (9.4-12.4) fL Absolute Nucleated RBC 0.000 (0.0-0.012) X10*3/uL Nucleated RBC % (auto) 0.0 (0.0-0.2) /100WBC Sodium 141 (135-145) mmol/L Potassium 4.0 (3.3-5.1) mmol/L Chloride 104 (96-108) mmol/L Carbon Dioxide 29 (22-29) mmol/L Anion Gap 12 (12-20) BUN 16 (9-16) mg/dL Creatinine 0.83 (0.5-1.4) mg/dL Estim Creat Clear Calc 64.1 Estimated GFR > 60 Random Glucose 106 (60-115) mg/dL Calcium 10.0 (8.4-10.2) mg/dL Troponin I High Sens < 3.5 (<3.5-35.0) ng/L Imaging Data Chest x-ray: Radiologist's impression: XR/XR ribs LT min 3V w CXR1V IMPRESSION: ? 1. No acute pulmonary process. 2. No acute displaced rib fracture identified. ECG Data ECG #1: Attestation: I personally reviewed and interpreted this ECG as follows: ECG interpretation date: 03/17/22 Prior ECG tracings: available for review Interpretation: Rate: 65 Rhythm:? normal sinus rhythm [place]:? normal Normal P waves.? Normal MEE.?? Normal QRS complex.?? ST T wave :?? no ST elevation, no ST depression, no T-wave inversion qTC: 418 prior studies:? October 2021 The study has been interpreted contemporaneously by me. Discharge Plan Discharge Clinical Impression: Contusion of rib on left side Qualifiers: Encounter type: initial encounter Qualified Code(s): S20.212A - Contusion of left front wall of thorax, initial encounter Patient Disposition: Home, Self-Care Instructions: Rib Contusion (ED) Additional Instructions: You can take Tylenol 500 mg, 2 tablets (1,000mg) every 4-6 hours as needed for pain, but not to exceed 3 doses daily (3,000mg).? Return to emergency department with any new or worsening symptoms or concerns, including but not limited to increasing or worsening pain, shortness of breath, coughing up blood, fever, difficulty breathing. Contact your primary care provider to arrange for a follow-up visit within 3 days. Prescriptions: No Action finasteride 5 mg tablet 5 mg PO DAILY Qty: 90 3RF tamsulosin 0.4 mg capsule 0.8 mg PO BEDTIME 90 Days Qty: 180 3RF hydroxyzine HCl 50 mg tablet 50 mg PO BID PRN (Reason: anxiety) Qty: 30 0RF sulfamethoxazole-trimethoprim [Bactrim] 400-80 mg tablet 1 tab PO DAILY Qty: 10 0RF tramadol 50 mg tablet 50 mg PO Q6H PRN (Reason: pain (scale score 4-6)) Qty: 14 0RF tranexamic acid 650 mg tablet 650 mg PO BID 5 Days Qty: 10 0RF lorazepam [Ativan] 1 mg tablet 1 mg PO BID PRN (Reason: anxiety) Qty: 10 0RF Rx Instructions: Patient may request partial fill simvastatin 40 mg tablet 40 mg PO BEDTIME lorazepam 1 mg tablet 1 mg PO BEDTIME PRN (Reason: Anxiety) fluoxetine 20 mg tablet 20 mg PO DAILY mirtazapine 15 mg tablet 15 mg PO BEDTIME azithromycin 500 mg tablet 0 mg PO erythromycin 5 mg/gram (0.5 %) ointment 0 mg ophthalmic (eye) sulfamethoxazole-trimethoprim [Bactrim DS] 800-160 mg tablet 1 tab PO BID 5 Days Qty: 10 0RF
== END 2022-03-17 18:25 | disposition home or self-care (01) ==
PROVIDERS: Emergency Provider Emergency Medicine; PCP Internal Medicine
DX: R07.89 Other chest pain (principal); R00.2 Palpitations; Z79.899 Other long term (current) drug therapy; Z87.891 Personal history of nicotine dependence
CPT/HCPCS: 36415; 71101; 80048; 84484; 85027; 93005; 99283

== ENCOUNTER 2022-04-08 13:58 | Outpatient (REF) | payer MEDICARE, SELFPAY ==
[2022-04-08 16:43] LABS: Appearance Urine Clear; Color Urine Yellow; Glucose Urine UA Negative (Negative); Leukocyte Esterase Urine Small (1+) (Negative); Nitrite Urine Positive (Negative); Specific Gravity - Urine 1.015 (1.005-1.025); UMIC TRIGGER UA YES; Urine Blood Negative (Negative); Urine Ketones Negative (Negative); Urine Protein 30 (1+) mg/dL (Neg-Trace)
[2022-04-08 16:47] LABS: Bacteria Urine Trace (None Seen); Hyaline Casts Urine 0-2 /LPF (0-2); RBC Urine 0-2 /HPF (0-2)
== END 2022-04-08 13:59 | disposition home or self-care (01) ==
LOC: HO.HMGCLDS 13:58
PROVIDERS: PCP Internal Medicine; Visit Provider Urology
DX: Z12.5 Encounter for screening for malignant neoplasm of prostate (principal); A49.9 Bacterial infection, unspecified; N39.0 Urinary tract infection, site not specified; N13.8 Other obstructive and reflux uropathy; N40.1 Benign prostatic hyperplasia with lower urinary tract symptoms
CPT/HCPCS: 36415; 81001; 84153; 87086

== ENCOUNTER → 2022-04-14 12:56 | Outpatient (BNVA) | payer MEDICARE, SELFPAY | PROVIDERS: PCP Internal Medicine; Visit Provider Urology | DX: N40.1 Benign prostatic hyperplasia with lower urinary tract symptoms (principal); N13.8 Other obstructive and reflux uropathy; R97.20 Elevated prostate specific antigen [PSA] | CPT/HCPCS: 51798; 99212 ==

== ENCOUNTER 2022-06-09 11:03 | Outpatient (REF) | payer MEDICARE, SELFPAY ==
[2022-06-09 13:59] LABS: Appearance Urine Turbid; Color Urine Orange; Glucose Urine UA Negative (Negative); Leukocyte Esterase Urine Moderate (2+) (Negative); Nitrite Urine Positive (Negative); PH 5.5 (5.0-9.0); Specific Gravity - Urine 1.025 (1.005-1.025); UMIC TRIGGER UA YES; Urine Blood Large (3+) (Negative); Urine Ketones Trace mg/dL (Negative); Urine Protein 300 (3+) mg/dL (Neg-Trace)
[2022-06-09 14:13] LABS: Bacteria Urine 4+ (None Seen); Calcium Oxalate Crystals Urine Present; RBC Urine >20 /HPF (0-2); WBC Urine 21-50 /HPF (0-5)
== END 2022-06-09 11:04 | disposition home or self-care (01) ==
LOC: HO.HMGCLDS 11:03
PROVIDERS: PCP Internal Medicine; Visit Provider Urology
DX: N39.0 Urinary tract infection, site not specified (principal)
CPT/HCPCS: 81001; 87086

== ENCOUNTER 2022-06-19 08:32 | Emergency (ER) | payer MEDICARE, SELFPAY ==
--- NOTE | ~2022-06-19 | XR_ITS ---
EXAMINATION: XR CHEST CLINICAL INFORMATION: Chest pain COMPARISON: Chest x-ray 03/17/2022 TECHNIQUE: Frontal view of the chest was obtained. FINDINGS: The lungs are hyperinflated but clear. The heart size and pulmonary vascularity is normal. No gross bony abnormality seen. XR/XR chest 1V IMPRESSION: Hyperinflated lungs without acute process.
--- NOTE | 2022-06-19 08:33 | ED.ARRPALP ---
HPI - Arrhythmia/Palpitations General Chief Complaint: Arrhythmia/Palpitations Stated Complaint: palpitations Time Seen by Provider: 06/19/22 08:33 Source: patient, EMS, RN notes reviewed and old records reviewed Mode of arrival: EMS Limitations: no limitations History of Present Illness HPI narrative: 77-year-old male with a history of depression (recently off meds), anxiety on QHS ativan, kidney stones, BPH urinary retention requiring Haq catheter in the past, recurrent UTIs currently on Levaquin who presents to the ER for evaluation of left sided nonradiating chest pain and palpitations that started last night around 5-6pm when he was making dinner. He states the pain was is in his left lower chest and not that bad at a 5-6/10. When he went to lay down around 9pm he states the pain worsened and he had a strong heart beat and palpitations. He states he did not sleep all night and had episodes of whole body twitching. He called 911 this morning. He states his symptoms have improved. No current chest pain or palpations. He states he has had similar episodes and resolve when he is out of his environment. He reports he was seen at [facility] recently for the same and had a negative workup. He denies any history of cardiac issues in the past. MD complaint: rapid heart beat and palpitations Onset (ago): hour(s) (12) Duration: now resolved Severity: similar to previous episodes Context: occurred during rest Associated symptoms: chest pain, shortness of breath and muscle cramps Related Data Home Medications Medication Instructions Recorded Confirmed fluoxetine 20 mg tablet 20 mg PO DAILY 05/01/21 04/14/22 lorazepam 1 mg tablet 1 mg PO BEDTIME PRN Anxiety 05/01/21 04/14/22 simvastatin 40 mg tablet 40 mg PO BEDTIME 05/01/21 04/14/22 azithromycin 500 mg tablet 0 mg PO 07/14/21 04/14/22 erythromycin 5 mg/gram (0.5 %) eye 0 mg ophthalmic (eye) 07/14/21 04/14/22 ointment mirtazapine 15 mg tablet 15 mg PO BEDTIME 07/14/21 04/14/22 escitalopram oxalate 10 mg tablet 10 mg PO DAILY 04/12/22 04/14/22 fluoxetine 20 mg capsule 20 mg PO DAILY 04/12/22 04/14/22 Previous Rx's Medication Instructions Recorded hydroxyzine HCl 50 mg tablet 50 mg PO BID PRN anxiety #30 tabs 10/15/20 tramadol 50 mg tablet 50 mg PO Q6H PRN pain (scale score 06/01/21 4-6) #14 tabs tranexamic acid 650 mg tablet 650 mg PO BID 5 days #10 tabs 06/01/21 lorazepam 1 mg tablet (Ativan) 1 mg PO BID PRN anxiety #10 tabs 11/06/21 finasteride 5 mg tablet 5 mg PO DAILY 90 days #90 tabs 04/14/22 tamsulosin 0.4 mg capsule 0.8 mg PO BEDTIME 90 days #180 caps 04/14/22 levofloxacin 500 mg tablet 500 mg PO DAILY 7 days #7 tabs 06/17/22 Allergies Allergy/AdvReac Type Severity Reaction Status Date / Time phenytoin [Dilantin] Allergy Severe Redness of Verified 04/12/22 12:30 Skin lactose Allergy Intermediate Gastrointestinal Verified 04/12/22 12:30 Upset Review of Systems Review of Systems: Yes all other systems are reviewed and are negative PMFSH Past Medical History Medical History Anxiety Balance problems Brain hematoma Depression Enlarged prostate H/O urinary frequency H/O urinary retention History of elevated PSA History of skin cancer Hydrocele Renal stones Spermatocele Vasculogenic erectile dysfunction Surgical History History of brain surgery History of hip replacement, total Hx of colonoscopy Social History Social History Are you a primary wound care nurse to a significant other at home: No Alcohol intake: never Patient Tobacco Use Status: Former Tobacco user Quit Date: 1978 Tobacco use type: Cigarette Smoked in Last 30 Days: No Use of substances other than those prescribed or required for medical reasons: No Advance Directives: Yes Advance Directives on File: Yes Advance Directives Date on File: 06/01/21 Physical Exam Vital Signs: Vital Signs: Last Vital Signs Temp 99.7 F 06/19/22 09:03 Pulse 68 06/19/22 10:58 Resp 15 06/19/22 10:58 BP 123/65 06/19/22 10:58 Pulse Ox 98 01/07/23 10:58 O2 Del Method 06/19/22 10:58 BMI result Body Mass Index 18.1 Appearance: Alert, thin elderly male sitting up in the stretcher. Oriented X3. No acute distress. Eyes: Pupils equal, round and reactive to light. ENT: Pharynx normal. Neck: Normal inspection. Neck supple. CVS: Normal heart rate and rhythm. Pulses normal. Respiratory: No respiratory distress. Breath sounds normal. Abdomen: Soft and nontender. +BS x4 Skin: Skin warm and dry. Normal skin color. Normal skin turgor. No rashes. Extremities: No lower extremity edema. No calf tenderness or redness. Neuro: Oriented X 3. No motor deficit. No sensory deficit. CN II-XII intact. nonfocal. Normal speech and cognition. Course Course Course Narrative: 77 yo male presenting with palpitations and chest pain that started last night and have since resolved. In NSR for EMS, sinus in the 90s on arrival. Will get labs, EKG, and monitor on telemetry. Reevaluation(s) Reevaluation #1: Lab workup and EKG unremarkable. Patient continues to be chest pain free. Family member at the bedside who reports patient has been increasingly anxious at home. His symptoms may be due to anxiety. Reevaluation #2: Patient remained chest pain-free. Feeling much better. Stable for discharge home. Medical Decision Making Differential Diagnosis Differential Diagnoses: The differential diagnosis associated with the presentation includes AFib, a flutter, VFib, sinus tachycardia, anxiety, electrolyte abnormality or metabolic disturbance, ACS, PE, hyperthyroidism Lab Data MDM Lab Attestation statement: I reviewed the patient's lab results. Independently reviewed lab work, a normal CBC. No major electrolyte abnormalities or metabolic derangements. 06/19/22 09:02 06/19/22 09:02 Labs: Lab Results 06/19/22 06/19/22 06/19/22 Range/Units 09:02 09:02 09:02 WBC 7.8 (4.8-10.8) X10*3/uL RBC 4.88 (4.60-5.80) X10*6/uL Hgb 15.1 (14.0-18.0) g/dl Hct 45.5 (42.0-52.0) % MCV 93.2 (80.0-98.0) fL MCH 30.9 (27.0-33.0) pg MCHC 33.2 (31.0-36.0) g/dl RDW 12.8 (11.0-16.0) % Plt Count 233 (160-400) X10*3/uL MPV 8.9 L (9.4-12.4) fL Immature Gran % (Auto) 0.4 (0.0-0.4) % Neut % (Auto) 75.9 H (45-73) % Lymph % (Auto) 9.0 L (20-40) % [place] % (Auto) 8.8 (2-11) % Eos % (Auto) 5.0 H (0-4) % Baso % (Auto) 0.9 (0-2) % Lymph # (Auto) 0.7 L (1.2-4.9) X10*3/uL [place] # (Auto) 0.7 (0.1-1.2) X10*3/uL Eos # (Auto) 0.4 (0.0-0.4) X10*3/uL Baso # (Auto) 0.1 (0.0-0.2) X10*3/uL Abs Immat Gran (auto) 0.03 (0.00-0.03) X10*3/uL Absolute Neuts (auto) 5.9 (2.0-8.3) x10*3/uL Absolute Nucleated RBC 0.000 (0.0-0.012) X10*3/uL Nucleated RBC % (auto) 0.0 (0.0-0.2) /100WBC PT 12.3 (10.0-13.1) SEC INR 1.1 (0.9-1.1) APTT 34.0 (26.0-36.4) SEC Sodium 140 (135-145) mmol/L Potassium 4.2 (3.3-5.1) mmol/L Chloride 106 (96-108) mmol/L Carbon Dioxide 26 (22-29) mmol/L Anion Gap 12 (12-20) BUN 17 H (9-16) mg/dL Creatinine 0.82 (0.5-1.4) mg/dL Estim Creat Clear Calc 60.3 Estimated GFR > 60 Random Glucose 116 H (60-115) mg/dL Calcium 10.0 (8.4-10.2) mg/dL Magnesium 1.9 (1.6-2.6) mg/dL Total Bilirubin 1.2 H (0.0-1.0) mg/dL Direct Bilirubin 0.4 (0.0-0.5) mg/dL AST 13 (5-37) U/L ALT 8 (0-40) U/L Alkaline Phosphatase 84 (39-117) U/L Troponin I High Sens (<3.5-35.0) ng/L B-Natriuretic Peptide (<100) pg/mL Total Protein 5.9 L (6.5-8.0) g/dL Albumin 3.8 (3.5-5.0) g/dL TSH 0.62 (0.32-4.0) uIU/mL 06/19/22 06/19/22 Range/Units 09:02 09:02 WBC (4.8-10.8) X10*3/uL RBC (4.60-5.80) X10*6/uL Hgb (14.0-18.0) g/dl Hct (42.0-52.0) % MCV (80.0-98.0) fL MCH (27.0-33.0) pg MCHC (31.0-36.0) g/dl RDW (11.0-16.0) % Plt Count (160-400) X10*3/uL MPV (9.4-12.4) fL Immature Gran % (Auto) (0.0-0.4) % Neut % (Auto) (45-73) % Lymph % (Auto) (20-40) % [place] % (Auto) (2-11) % Eos % (Auto) (0-4) % Baso % (Auto) (0-2) % Lymph # (Auto) (1.2-4.9) X10*3/uL [place] # (Auto) (0.1-1.2) X10*3/uL Eos # (Auto) (0.0-0.4) X10*3/uL Baso # (Auto) (0.0-0.2) X10*3/uL Abs Immat Gran (auto) (0.00-0.03) X10*3/uL Absolute Neuts (auto) (2.0-8.3) x10*3/uL Absolute Nucleated RBC (0.0-0.012) X10*3/uL Nucleated RBC % (auto) (0.0-0.2) /100WBC PT (10.0-13.1) SEC INR (0.9-1.1) APTT (26.0-36.4) SEC Sodium (135-145) mmol/L Potassium (3.3-5.1) mmol/L Chloride (96-108) mmol/L Carbon Dioxide (22-29) mmol/L Anion Gap (12-20) BUN (9-16) mg/dL Creatinine (0.5-1.4) mg/dL Estim Creat Clear Calc Estimated GFR Random Glucose (60-115) mg/dL Calcium (8.4-10.2) mg/dL Magnesium (1.6-2.6) mg/dL Total Bilirubin (0.0-1.0) mg/dL Direct Bilirubin (0.0-0.5) mg/dL AST (5-37) U/L ALT (0-40) U/L Alkaline Phosphatase (39-117) U/L Troponin I High Sens < 3.5 (<3.5-35.0) ng/L B-Natriuretic Peptide 29 (<100) pg/mL Total Protein (6.5-8.0) g/dL Albumin (3.5-5.0) g/dL TSH (0.32-4.0) uIU/mL Independent Interpretation I performed an independent interpretation of an: EKG and Plain X-Ray Interpretation: EKG @ 08:45am independently reviewed - normal sinus rhythm with heart rates 74 beats per minute, normal MA interval, normal QTC, isolated T-wave inversion in V1 only. No ST segment elevations or depressions. CXR with no infiltrate or effusion Radiology Impression Discussion of test interpretation with radiology: I have reviewed the radiologist's reading. Radiologist Impression: FINDINGS: The lungs are hyperinflated but clear. The heart size and pulmonary vascularity is normal. No gross bony abnormality seen. XR/XR chest 1V IMPRESSION: Hyperinflated lungs without acute process. Independent Historian Clinical information obtained from an independent historian. History obtained from or confirmed by: EMS NSR on EMS arrival. hemodynamically stable External Record Review External record reviewed: Office record, Outpatient record and Prior outpatient labs Tests considered The following testing was considered but not selected: CTA considered, doubt PE. Critical Care Time Critical Care Time Critical Care Time: No Discharge Plan Discharge Clinical Impression: Palpitations, Anxiety Patient Disposition: Home, Self-Care Instructions: Heart Palpitations (DC), Anxiety (ED) Additional Instructions: Your lab workup today was unremarkable. Your EKG and lab work did not show any signs of damage to your heart. Your symptoms may be due to increased anxiety. If you have recurrent symptoms, recommend taking an extra dose of your lorazepam. Recommend following up with her PCP next week for further evaluation and treatment. Prescriptions: No Action levofloxacin 500 mg tablet 500 mg PO DAILY 7 Days Qty: 7 0RF hydroxyzine HCl 50 mg tablet 50 mg PO BID PRN (Reason: anxiety) Qty: 30 0RF tramadol 50 mg tablet 50 mg PO Q6H PRN (Reason: pain (scale score 4-6)) Qty: 14 0RF tranexamic acid 650 mg tablet 650 mg PO BID 5 Days Qty: 10 0RF lorazepam [Ativan] 1 mg tablet 1 mg PO BID PRN (Reason: anxiety) Qty: 10 0RF Rx Instructions: Patient may request partial fill simvastatin 40 mg tablet 40 mg PO BEDTIME lorazepam 1 mg tablet 1 mg PO BEDTIME PRN (Reason: Anxiety) fluoxetine 20 mg tablet 20 mg PO DAILY mirtazapine 15 mg tablet 15 mg PO BEDTIME azithromycin 500 mg tablet 0 mg PO erythromycin 5 mg/gram (0.5 %) ointment 0 mg ophthalmic (eye) escitalopram oxalate 10 mg tablet 10 mg PO DAILY fluoxetine 20 mg capsule 20 mg PO DAILY finasteride 5 mg tablet 5 mg PO DAILY 90 Days Qty: 90 1RF tamsulosin 0.4 mg capsule 0.8 mg PO BEDTIME 90 Days Qty: 180 1RF Referrals: Lee Patel MD [Primary Care Provider] -
[2022-06-19 08:41] VITALS: BP 120/78; BP 128/75; PULSE 81; PULSE 90; RESP 16; O2SAT 100; O2SAT 95; BMI 18.1
--- NOTE | 2022-06-19 08:41 | ECG_ITS ---
Test Reason : CP Blood Pressure : / mmHG Vent. Rate : 074 BPM Atrial Rate : 074 BPM P-R Int : 146 ms QRS Dur : 088 ms QT Int : 362 ms P-R-T Axes : 037 087 052 degrees QTc Int : 401 ms Normal sinus rhythm Normal ECG When compared with ECG of 17-MAR-2022 13:44, No significant change was found Referred By: Irina Cordon Electronically Signed By:KANE GARZA
[2022-06-19 09:03] VITALS: BP 112/66; PULSE 84; RESP 18; TEMP 37.6; O2SAT 95
[2022-06-19 09:10] LABS: MANUAL DIFF FLAG NO
[2022-06-19 09:14] VITALS: PULSE 73
[2022-06-19 09:17] LABS: INTERNATIONAL NORM RATIO 1.1 (0.9-1.1); Prothrombin Time 12.3 SEC (10.0-13.1)
[2022-06-19 09:25] LABS: Basophils Absolute Auto 0.1 X10*3/uL (0.0-0.2); Basophils Percent Auto 0.9 % (0-2); Eosinophils Absolute Auto 0.4 X10*3/uL (0.0-0.4); Hematocrit 45.5 % (42.0-52.0); Hemoglobin 15.1 g/dl (14.0-18.0); Imm Gran Abs Auto 0.03 X10*3/uL (0.00-0.03); Imm Gran Pct Auto 0.4 % (0.0-0.4); Lymphocytes Absolute Auto 0.7 X10*3/uL (1.2-4.9); Mean Corpuscular HGB Conc 33.2 g/dl (31.0-36.0); Mean Corpuscular Hemoglobin 30.9 pg (27.0-33.0); Mean Corpuscular Volume 93.2 fL (80.0-98.0); Mean Platelet Volume 8.9 fL (9.4-12.4); Monocytes Absolute Auto 0.7 X10*3/uL (0.1-1.2); Monocytes Percent Auto 8.8 % (2-11); Neutrophils Absolute Auto 5.9 x10*3/uL (2.0-8.3); Neutrophils Percent Auto 75.9 % (45-73); Platelet Count 233 X10*3/uL (160-400); Red Blood Count 4.88 X10*6/uL (4.60-5.80); Red Cell Distribution Width 12.8 % (11.0-16.0); White Blood Count 7.8 X10*3/uL (4.8-10.8)
--- NOTE | 2022-06-19 09:33 | PC.NURSE ---
pt is a/o x 4 no sob/vikas speaks in full sentences. noted lungs - cta. heart sound regular. abd soft, non-tender. bs + x 4 quads. pt aware of plan of care.
[2022-06-19 09:35] LABS: Alanine Aminotransferase 8 U/L (0-40); Albumin Level 3.8 g/dL (3.5-5.0); Alkaline Phosphatase 84 U/L (39-117); Anion Gap 12 (12-20); Aspartate Amino Transferase 13 U/L (5-37); Bilirubin Direct 0.4 mg/dL (0.0-0.5); Bilirubin Total 1.2 mg/dL (0.0-1.0); Blood Urea Nitrogen 17 mg/dL (9-16); Carbon Dioxide 26 mmol/L (22-29); Chloride 106 mmol/L (96-108); Creatinine Clr Calc Pharmacy 60.3; Estimated Glomerular Filt Rate > 60; Glucose Random 116 mg/dL (60-115); Magnesium 1.9 mg/dL (1.6-2.6); Potassium 4.2 mmol/L (3.3-5.1); Sodium 140 mmol/L (135-145); Total Protein 5.9 g/dL (6.5-8.0)
[2022-06-19 09:36] LABS: B Type Natriuretic Peptide 29 pg/mL (<100); Troponin-I High Sensitivity < 3.5 ng/L (<3.5-35.0)
[2022-06-19 09:51] LABS: TSH reflex Free T4 0.62 uIU/mL (0.32-4.0)
[2022-06-19 10:58] VITALS: BP 123/65; PULSE 68; RESP 15; O2SAT 98
[2022-06-19 11:12] LABS: Appearance Urine Clear; Color Urine Dark Yellow; Glucose Urine UA Negative (Negative); Leukocyte Esterase Urine Negative (Negative); Nitrite Urine Negative (Negative); PH 5.5 (5.0-9.0); UMIC TRIGGER UACC YES; Urine Blood Small (1+) (Negative); Urine Ketones Trace mg/dL (Negative); Urine Protein 30 (1+) mg/dL (Neg-Trace)
[2022-06-19 11:28] LABS: Bacteria Urine None Seen (None Seen); Calcium Oxalate Crystals Urine Present; Hyaline Casts Urine 0-2 /LPF (0-2); WBC Urine 0-5 /HPF (0-5)
== END 2022-06-19 11:27 | disposition home or self-care (01) ==
PROVIDERS: Physician Assistant; Emergency Provider Emergency Medicine Emergency Medical Services; PCP Internal Medicine
DX: R00.2 Palpitations (principal); F41.9 Anxiety disorder, unspecified; R06.02 Shortness of breath; Z79.899 Other long term (current) drug therapy; Z79.02 Long term (current) use of antithrombotics/antiplatelets
CPT/HCPCS: 36415; 71045; 80048; 80076; 81001; 83735; 83880; 84443; 84484; 85025; 85610; 85730; 93005; 99283; 99285

== ENCOUNTER 2022-07-12 12:42 | Emergency (ER) | payer MEDICARE, SELFPAY ==
--- NOTE | ~2022-07-12 | XR_ITS ---
EXAMINATION: XR CHEST CLINICAL INFORMATION: Chest pain. COMPARISON: Chest radiograph 06/19/2022. TECHNIQUE: Frontal view of the chest was obtained. FINDINGS: Normal appearance of the cardiomediastinal silhouette. EKG wires overlie the chest. No focal airspace opacity, pleural effusion or pneumothorax. No acute osseous abnormalities. Degenerative changes of the right shoulder. The visualized upper abdomen is within normal limits. XR/XR chest 1V IMPRESSION: No acute cardiopulmonary findings.
[2022-07-12 12:52] VITALS: BP 128/73; BP 131/72; PULSE 59; PULSE 60; RESP 18; TEMP 36.8; O2SAT 97; O2SAT 98; BMI 17.9
--- NOTE | 2022-07-12 13:36 | ED_ITS ---
HPI - Chest Pain General Chief Complaint: Chest Pain <SURESH Wallis - Last Filed: 07/12/22 18:10> Stated Complaint: SOB,CP,ASA GIVEN PER EMS <SURESH Wallis - Last Filed: 07/12/22 18:10> Time Seen by Provider: 07/12/22 13:36 <SURESH Wallis - Last Filed: 07/12/22 18:10> Source: patient <SURESH Wallis - Last Filed: 07/12/22 18:10> Mode of arrival: ambulatory <SURESH Wallis - Last Filed: 07/12/22 18:10> History of Present Illness HPI narrative: 77-year-old male with a past medical history of depression, anxiety, renal stones, BPH with urinary retention requiring catheter in the past, recurrent UTIs, presenting to the ED complaining of intermittent left-sided substernal chest pain described as pressure since last night prior to dinner. Reports associated palpitations and mild SOB. Reports increased anxiety, admits to similar symptoms in the past. Admits to symptomatic improvement at present. Denies fever, chills, cough, nausea / vomiting, radiation of pain, abdominal pain, pedal edema. <SURESH Wallis - Last Filed: 07/12/22 18:10> MD complaint: chest discomfort <SURESH Wallis - Last Filed: 07/12/22 18:10> Onset (ago): hour(s) <SURESH Wallis Last Filed: 07/12/22 18:10> Related Data Home Medications: Home Medications Medication Instructions Recorded Confirmed fluoxetine 20 mg tablet 20 mg PO DAILY 05/01/21 04/14/22 lorazepam 1 mg tablet 1 mg PO BEDTIME PRN Anxiety 05/01/21 04/14/22 simvastatin 40 mg tablet 40 mg PO BEDTIME 05/01/21 04/14/22 azithromycin 500 mg tablet 0 mg PO 07/14/21 04/14/22 erythromycin 5 mg/gram (0.5 %) eye 0 mg ophthalmic (eye) 07/14/21 04/14/22 ointment mirtazapine 15 mg tablet 15 mg PO BEDTIME 07/14/21 04/14/22 escitalopram oxalate 10 mg tablet 10 mg PO DAILY 04/12/22 04/14/22 fluoxetine 20 mg capsule 20 mg PO DAILY 04/12/22 04/14/22 Previous Rx's Medication Instructions Recorded hydroxyzine HCl 50 mg tablet 50 mg PO BID PRN anxiety #30 tabs 10/15/20 tramadol 50 mg tablet 50 mg PO Q6H PRN pain (scale score 06/01/21 4-6) #14 tabs tranexamic acid 650 mg tablet 650 mg PO BID 5 days #10 tabs 06/01/21 lorazepam 1 mg tablet (Ativan) 1 mg PO BID PRN anxiety #10 tabs 11/06/21 finasteride 5 mg tablet 5 mg PO DAILY 90 days #90 tabs 04/14/22 tamsulosin 0.4 mg capsule 0.8 mg PO BEDTIME 90 days #180 caps 04/14/22 levofloxacin 500 mg tablet 500 mg PO DAILY 7 days #7 tabs 06/17/22 <SURESH Wallis Last Filed: 07/12/22 18:10> Allergies/Adverse Reactions: Allergies Allergy/AdvReac Type Severity Reaction Status Date / Time phenytoin [Dilantin] Allergy Severe Redness of Verified 04/12/22 12:30 Skin lactose Allergy Intermediate Gastrointestinal Verified 04/12/22 12:30 Upset <SURESH Wallis Last Filed: 07/12/22 18:10> Review of Systems Review of Systems: Constitutional: No Fever, No Chills, No Fatigue, No Malaise ENT/Mouth: No Ear Pain, No Nasal Congestion, No sore throat, No Rhinorrhea, No Swallowing Difficulty Eyes: No Eye Pain, No Swelling, No Redness,No Vision Changes Cardiovascular: + Chest Pain, + SOB, No Dyspnea on Exertion, No Orthopnea, No Edema, + Palpitations Respiratory: No Cough, No Sputum, No Dyspnea Gastrointestinal: No Nausea, No Vomiting, No Diarrhea, No Constipation, No Abdominal pain Genitourinary: No Dysuria, No Urinary Frequency, No Hematuria, No Flank Pain Musculoskeletal: No joint pain, No Myalgias, No Joint Swelling Skin: No Skin Lesions, No rash Neuro: No Weakness, No Numbness, No Headache <SURESH Wallis Last Filed: 07/12/22 18:10> Yes all other systems are reviewed and are negative <SURESH Wallis - Last Filed: 07/12/22 18:10> Constitutional: Constitutional: Reports as per HPI <SURESH Wallis - Last Filed: 07/12/22 18:10> [facility] Past Medical History Attestation statement: The following information was validated with the patient. <SURESH Wallis - Last Filed: 07/12/22 18:10> Medical History: Medical History Anxiety Balance problems Brain hematoma Depression Enlarged prostate H/O urinary frequency H/O urinary retention History of elevated PSA History of skin cancer Hydrocele Renal stones Spermatocele Vasculogenic erectile dysfunction <SURESH Wallis - Last Filed: 07/12/22 18:10> Surgical History: Surgical History History of brain surgery History of hip replacement, total Hx of colonoscopy <SURESH Wallis - Last Filed: 07/12/22 18:10> Social History Social History: Social History Are you a primary long term care administrator to a significant other at home: No Alcohol intake: never Patient Tobacco Use Status: Former Tobacco user Quit Date: 1978 Tobacco use type: Cigarette Advance Directives: Yes Advance Directives on File: Yes Advance Directives Date on File: 06/01/21 <SURESH Wallis - Last Filed: 07/12/22 18:10> Physical Exam Vital Signs: Vital Signs: Last Vital Signs Temp 98.3 F 07/12/22 15:58 Pulse 65 07/12/22 15:58 Resp 19 07/12/22 15:58 BP 126/66 07/12/22 15:58 Pulse Ox 97 07/12/22 15:58 O2 Del Method 07/12/22 15:58 BMI result Body Mass Index 17.9 <SURESH Wallis - Last Filed: 07/12/22 18:10> Vital Signs: Last Vital Signs Temp 98.3 F 07/12/22 15:58 Pulse 65 07/12/22 15:58 Resp 19 07/12/22 15:58 BP 126/66 07/12/22 15:58 Pulse Ox 97 07/12/22 15:58 O2 Del Method 07/12/22 15:58 BMI result Body Mass Index 17.9 <Jt Sanders MD - Last Filed: 07/12/22 18:40> Const: General: cooperative, healthy appearing and no acute distress <SURESH Wallis - Last Filed: 07/12/22 18:10> Orientation/consciousness: patient oriented x3 <SURESH Wallis - Last Filed: 07/12/22 18:10> Limitations: no limitations <SURESH Wallis - Last Filed: 07/12/22 18:10> HEENT: Head: Yes normal to inspection and Yes atraumatic <SURESH Wallis - Last Filed: 07/12/22 18:10> Ears: hearing grossly normal bilaterally <SURESH Wallis - Last Filed: 07/12/22 18:10> General nose exam: Normal external nose present <SURESH Wallis - Last Filed: 07/12/22 18:10> Face and sinus: Yes normal facial exam <SURESH Wallis - Last Filed: 07/12/22 18:10> Eyes: General: appearance normal, both eyes and all related structures <SURESH Wallis - Last Filed: 07/12/22 18:10> EOM: EOMs intact bilaterally <SURESH Wallis - Last Filed: 07/12/22 18:10> Neck: Neck: Yes normal visual inspection and Yes no meningeal signs <SURESH Wallis - Last Filed: 07/12/22 18:10> Chest: Chest palpation & inspection: normal inspection of the chest, no crepitus and no tenderness <SURESH Wallis - Last Filed: 07/12/22 18:10> Resp: Effort & Inspection: normal respiratory effort and no respiratory distress <SURESH Wallis - Last Filed: 07/12/22 18:10> Auscultation: clear to auscultation bilaterally, no crackles, no rales, no r honchi and no wheezes <SURESH Wallis - Last Filed: 07/12/22 18:10> Cardio: Rate: regular rate <SURESH Wallis - Last Filed: 07/12/22 18:10> Heart sounds: S1 normal heart sound present and S2 normal heart sound present <Fabby Flores PA - Last Filed: 07/12/22 18:10> GI: Inspection: Yes normal to inspection <Fabby Flores PA - Last Filed: 07/12/22 18:10> Palpation (GI): Soft to palpation, nontender, no guarding and not rigid <Fabby Flores PA - Last Filed: 07/12/22 18:10> : General: Yes no CVA tenderness <Fabby Flores PA - Last Filed: 07/12/22 18:10> Back/Spine/Pelvis: Back: no CVA tenderness <Fabby Flores PA - Last Filed: 07/12/22 18:10> Skin: Rashes: no rashes <Fabby Flores PA - Last Filed: 07/12/22 18:10> Wounds: no wounds <Fabyb Flores PA - Last Filed: 07/12/22 18:10> Neuro: General: patient oriented x3, tone normal and no meningeal signs <Fabby Flores PA - Last Filed: 07/12/22 18:10> Gait exam (Neuro): Normal gait present <Fabby Flores PA - Last Filed: 18:10> Extrem: General: Yes normal to inspection, Yes no pedal edema and Yes no calf tenderness <SURESH Wallis - Last Filed: 07/12/22 18:10> Course Course Course Narrative: -1707-- no leukocytosis. Labs otherwise reassuring. Troponin negative. XR chest 1V IMPRESSION: No acute cardiopulmonary findings. Results discussed with patient including worrisome signs and symptoms and strict return precautions, and when to return to the emergency department. They verba lized understanding and feel safe for discharge at this time. <SURESH Wallis - Last Filed: 07/12/22 18:10> Medical Decision Making Medical Decision Making MDM Narrative: 77-year-old male with a past medical history of depression, anxiety, renal stones, BPH with urinary retention requiring catheter in the past, recurrent UTIs, presenting to the ED complaining of intermittent left-sided substernal chest pain, palpitations and mild SOB. on exam vital signs stable, NAD, nontoxic appearing, symptoms atypical for ACS or PE. Concern for anxiety. Rule out thyroid dysfunction vs infectious etiology including pneumonia. Low suspicion for DVT Plan: EKG, labs, CXR, COVID-19 testing, re-evaluation Please refer to course for remaining clinical decision making, interpretation of labs/imaging results, and discussions with consultants and/or family members. <SURESH Wallis - Last Filed: 07/12/22 18:10> Differential Diagnosis Differential Diagnoses: The differential diagnosis associated with the presentation includes <SURESH Wallis - Last Filed: 07/12/22 18:10> As above <SURESH Wallis - Last Filed: 07/12/22 18:10> Consult Healthcare Provider Dr. Sanders <SURESH Wallis - Last Filed: 07/12/22 18:10> Lab Data MDM Lab Attestation statement: I reviewed the patient's lab results. <SURESH Wallis - Last Filed: 07/12/22 18:10> Result Diagrams: 07/12/22 15:56 07/12/22 15:56 <SURESH Wallis - Last Filed: 07/12/22 18:10> Labs: Lab Results 07/12/22 07/12/22 07/12/22 Range/Units 15:56 15:56 15:56 WBC 6.5 (4.8-10.8) X10*3/uL RBC 4.81 (4.60-5.80) X10*6/uL Hgb 14.8 (14.0-18.0) g/dl Hct 45.0 (42.0-52.0) % MCV 93.6 (80.0-98.0) fL MCH 30.8 (27.0-33.0) pg MCHC 32.9 (31.0-36.0) g/dl RDW 12.7 (11.0-16.0) % Plt Count 245 (160-400) X10*3/uL MPV 9.1 L (9.4-12.4) fL Immature Gran % (Auto) 0.5 H (0.0-0.4) % Neut % (Auto) 63.4 (45-73) % Lymph % (Auto) 27.0 (20-40) % Swisher % (Auto) 6.3 (2-11) % Eos % (Auto) 1.4 (0-4) % Baso % (Auto) 1.4 (0-2) % Lymph # (Auto) 1.8 (1.2-4.9) X10*3/uL Swisher # (Auto) 0.4 (0.1-1.2) X10*3/uL Eos # (Auto) 0.1 (0.0-0.4) X10*3/uL Baso # (Auto) 0.1 (0.0-0.2) X10*3/uL Abs Immat Gran (auto) 0.03 (0.00-0.03) X10*3/uL Absolute Neuts (auto) 4.2 (2.0-8.3) x10*3/uL Absolute Nucleated RBC 0.000 (0.0-0.012) X10*3/uL Nucleated RBC % (auto) 0.0 (0.0-0.2) /100WBC Sodium 142 (135-145) mmol/L Potassium 4.3 (3.3-5.1) mmol/L Chloride 106 (96-108) mmol/L Carbon Dioxide 30 H (22-29) mmol/L Anion Gap 10 L (12-20) BUN 19 H (9-16) mg/dL Creatinine 0.78 (0.5-1.4) mg/dL Estim Creat Clear Calc 62.7 Estimated GFR > 60 Random Glucose 105 (60-115) mg/dL Calcium 9.8 (8.4-10.2) mg/dL Magnesium 2.0 (1.6-2.6) mg/dL Total Bilirubin 1.2 H (0.0-1.0) mg/dL Direct Bilirubin 0.3 (0.0-0.5) mg/dL AST 12 (5-37) U/L ALT 9 (0-40) U/L Alkaline Phosphatase 85 (39-117) U/L Troponin I High Sens < 3.5 (<3.5-35.0) ng/L Total Protein 5.9 L (6.5-8.0) g/dL Albumin 3.7 (3.5-5.0) g/dL TSH 0.57 (0.32-4.0) uIU/mL COVID-19 ([facility]) (Negative) COVID-19 Clin Com 07/12/22 Range/Units 15:56 WBC (4.8-10.8) X10*3/uL RBC (4.60-5.80) X10*6/uL Hgb (14.0-18.0) g/dl Hct (42.0-52.0) % MCV (80.0-98.0) fL MCH (27.0-33.0) pg MCHC (31.0-36.0) g/dl RDW (11.0-16.0) % Plt Count (160-400) X10*3/uL MPV (9.4-12.4) fL Immature Gran % (Auto) (0.0-0.4) % Neut % (Auto) (45-73) % Lymph % (Auto) (20-40) % Swisher % (Auto) (2-11) % Eos % (Auto) (0-4) % Baso % (Auto) (0-2) % Lymph # (Auto) (1.2-4.9) X10*3/uL Swisher # (Auto) (0.1-1.2) X10*3/uL Eos # (Auto) (0.0-0.4) X10*3/uL Baso # (Auto) (0.0-0.2) X10*3/uL Abs Immat Gran (auto) (0.00-0.03) X10*3/uL Absolute Neuts (auto) (2.0-8.3) x10*3/uL Absolute Nucleated RBC (0.0-0.012) X10*3/uL Nucleated RBC % (auto) (0.0-0.2) /100WBC Sodium (135-145) mmol/L Potassium (3.3-5.1) mmol/L Chloride (96-108) mmol/L Carbon Dioxide (22-29) mmol/L Anion Gap (12-20) BUN (9-16) mg/dL Creatinine (0.5-1.4) mg/dL Estim Creat Clear Calc Estimated GFR Random Glucose (60-115) mg/dL Calcium (8.4-10.2) mg/dL Magnesium (1.6-2.6) mg/dL Total Bilirubin (0.0-1.0) mg/dL Direct Bilirubin (0.0-0.5) mg/dL AST (5-37) U/L ALT (0-40) U/L Alkaline Phosphatase (39-117) U/L Troponin I High Sens (<3.5-35.0) ng/L Total Protein (6.5-8.0) g/dL Albumin (3.5-5.0) g/dL TSH (0.32-4.0) uIU/mL COVID-19 ([facility]) Negative (Negative) COVID-19 Clin Com See Note <SURESH Wallis - Last Filed: 07/12/22 18:10> Lab Results 07/12/22 07/12/22 07/12/22 Range/Units 15:56 15:56 15:56 WBC 6.5 (4.8-10.8) X10*3/uL RBC 4.81 (4.60-5.80) X10*6/uL Hgb 14.8 (14.0-18.0) g/dl Hct 45.0 (42.0-52.0) % MCV 93.6 (80.0-98.0) fL MCH 30.8 (27.0-33.0) pg MCHC 32.9 (31.0-36.0) g/dl RDW 12.7 (11.0-16.0) % Plt Count 245 (160-400) X10*3/uL MPV 9.1 L (9.4-12.4) fL Immature Gran % (Auto) 0.5 H (0.0-0.4) % Neut % (Auto) 63.4 (45-73) % Lymph % (Auto) 27.0 (20-40) % Swisher % (Auto) 6.3 (2-11) % Eos % (Auto) 1.4 (0-4) % Baso % (Auto) 1.4 (0-2) % Lymph # (Auto) 1.8 (1.2-4.9) X10*3/uL Swisher # (Auto) 0.4 (0.1-1.2) X10*3/uL Eos # (Auto) 0.1 (0.0-0.4) X10*3/uL Baso # (Auto) 0.1 (0.0-0.2) X10*3/uL Abs Immat Gran (auto) 0.03 (0.00-0.03) X10*3/uL Absolute Neuts (auto) 4.2 (2.0-8.3) x10*3/uL Absolute Nucleated RBC 0.000 (0.0-0.012) X10*3/uL Nucleated RBC % (auto) 0.0 (0.0-0.2) /100WBC Sodium 142 (135-145) mmol/L Potassium 4.3 (3.3-5.1) mmol/L Chloride 106 (96-108) mmol/L Carbon Dioxide 30 H (22-29) mmol/L Anion Gap 10 L (12-20) BUN 19 H (9-16) mg/dL Creatinine 0.78 (0.5-1.4) mg/dL Estim Creat Clear Calc 62.7 Estimated GFR > 60 Random Glucose 105 (60-115) mg/dL Calcium 9.8 (8.4-10.2) mg/dL Magnesium 2.0 (1.6-2.6) mg/dL Total Bilirubin 1.2 H (0.0-1.0) mg/dL Direct Bilirubin 0.3 (0.0-0.5) mg/dL AST 12 (5-37) U/L ALT 9 (0-40) U/L Alkaline Phosphatase 85 (39-117) U/L Troponin I High Sens < 3.5 (<3.5-35.0) ng/L Total Protein 5.9 L (6.5-8.0) g/dL Albumin 3.7 (3.5-5.0) g/dL TSH 0.57 (0.32-4.0) uIU/mL COVID-19 ([facility]) (Negative) COVID-19 Clin Com 07/12/22 Range/Units 15:56 WBC (4.8-10.8) X10*3/uL RBC (4.60-5.80) X10*6/uL Hgb (14.0-18.0) g/dl Hct (42.0-52.0) % MCV (80.0-98.0) fL MCH (27.0-33.0) pg MCHC (31.0-36.0) g/dl RDW (11.0-16.0) % Plt Count (160-400) X10*3/uL MPV (9.4-12.4) fL Immature Gran % (Auto) (0.0-0.4) % Neut % (Auto) (45-73) % Lymph % (Auto) (20-40) % Swisher % (Auto) (2-11) % Eos % (Auto) (0-4) % Baso % (Auto) (0-2) % Lymph # (Auto) (1.2-4.9) X10*3/uL Swisher # (Auto) (0.1-1.2) X10*3/uL Eos # (Auto) (0.0-0.4) X10*3/uL Baso # (Auto) (0.0-0.2) X10*3/uL Abs Immat Gran (auto) (0.00-0.03) X10*3/uL Absolute Neuts (auto) (2.0-8.3) x10*3/uL Absolute Nucleated RBC (0.0-0.012) X10*3/uL Nucleated RBC % (auto) (0.0-0.2) /100WBC Sodium (135-145) mmol/L Potassium (3.3-5.1) mmol/L Chloride (96-108) mmol/L Carbon Dioxide (22-29) mmol/L Anion Gap (12-20) BUN (9-16) mg/dL Creatinine (0.5-1.4) mg/dL Estim Creat Clear Calc Estimated GFR Random Glucose (60-115) mg/dL Calcium (8.4-10.2) mg/dL Magnesium (1.6-2.6) mg/dL Total Bilirubin (0.0-1.0) mg/dL Direct Bilirubin (0.0-0.5) mg/dL AST (5-37) U/L ALT (0-40) U/L Alkaline Phosphatase (39-117) U/L Troponin I High Sens (<3.5-35.0) ng/L Total Protein (6.5-8.0) g/dL Albumin (3.5-5.0) g/dL TSH (0.32-4.0) uIU/mL COVID-19 ([facility]) Negative (Negative) COVID-19 Clin Com See Note <Jt Sanders MD - Last Filed: 07/12/22 18:40> Independent Interpretation I performed an independent interpretation of an: EKG <SURESH Wallis - Last Filed: 07/12/22 18:10> Interpretation: my interpretation: EKG sinus bradycardia rate of 55. HI interval 146. No STEMI. Nonischemic <SURESH Wallis - Last Filed: 07/12/22 18:10> Radiology Impression Discussion of test interpretation with radiology: I have reviewed the radiologist's reading. <SURESH Wallis - Last Filed: 07/12/22 18:10> Independent Historian 77-year-old male with a past medical history of depression, anxiety, renal stones, BPH with urinary retention requiring catheter in the past, recurrent UTIs, presenting to the ED complaining of intermittent left-sided substernal chest pain described as pressure since last night prior to dinner. Reports associated palpitations and mild SOB. Reports increased anxiety, admits to similar symptoms in the past. Denies fever, chills, cough, nausea / vomiting, radiation of pain, abdominal pain, pedal edema. <SURESH Wallis - Last Filed: 07/12/22 18:10> External Record Review prior ED record <SURESH Wallis - Last Filed: 07/12/22 18:10> Prescription Management I considered prescription management with: Pain Medication <SURESH Wallis - Last Filed: 07/12/22 18:10> Attestation Attending Attestation: 77-year-old male presents with chest pain. Chest pain is nonexertional nature. It does not radiate. Is not associated with any significant additional symptoms. Symptoms have been going on for 2-3 days. Patient denies any recent immobilization or surgeries. Denies any fevers, chills, cough or mucus production. Examination revealed no acute distress male, lungs are clear to auscultation bilaterally. Cardiac exam revealed regular rate and rhythm with no murmurs rubs or gallops. EKG was nonischemic. His troponin was negative. Given the duration of his symptoms, negative troponin and an atypical story, doubt this represents acute coronary syndrome. Patient is safe for discharge. He has follow-up with a sofa cover inspector scheduled within the next couple of months. I personally discussed that should the symptoms return, worsen, change in nature, he should seek immediate attention in the emergency department. All questions were addressed and answered. <Jt Sanders MD - Last Filed: 07/12/22 18:40> Discharge Plan Discharge Clinical Impression: Atypical chest pain <SURESH Wallis - Last Filed: 07/12/22 18:10> Patient Disposition: Home, Self-Care <SURESH Wallis - Last Filed: 07/12/22 18:10> Instructions: Noncardiac Chest Pain (ED) <SURESH Wallis - Last Filed: 07/12/22 18:10> Additional Instructions: Your blood work is reassuring. x-ray is unremarkable. Please follow-up with Cardiology. Call to make an appointment. If symptoms persist or worsen, pain becomes unbearable/ constant you have shortness of breath or leg swelling return to the emergency department <SURESH Wallis - Last Filed: 07/12/22 18:10> Prescriptions: No Action levofloxacin 500 mg tablet 500 mg PO DAILY 7 Days Qty: 7 0RF hydroxyzine HCl 50 mg tablet 50 mg PO BID PRN (Reason: anxiety) Qty: 30 0RF tramadol 50 mg tablet 50 mg PO Q6H PRN (Reason: pain (scale score 4-6)) Qty: 14 0RF tranexamic acid 650 mg tablet 650 mg PO BID 5 Days Qty: 10 0RF lorazepam [Ativan] 1 mg tablet 1 mg PO BID PRN (Reason: anxiety) Qty: 10 0RF Rx Instructions: Patient may request partial fill simvastatin 40 mg tablet 40 mg PO BEDTIME lorazepam 1 mg tablet 1 mg PO BEDTIME PRN (Reason: Anxiety) fluoxetine 20 mg tablet 20 mg PO DAILY mirtazapine 15 mg tablet 15 mg PO BEDTIME azithromycin 500 mg tablet 0 mg PO erythromycin 5 mg/gram (0.5 %) ointment 0 mg ophthalmic (eye) escitalopram oxalate 10 mg tablet 10 mg PO DAILY fluoxetine 20 mg capsule 20 mg PO DAILY finasteride 5 mg tablet 5 mg PO DAILY 90 Days Qty: 90 1RF tamsulosin 0.4 mg capsule 0.8 mg PO BEDTIME 90 Days Qty: 180 1RF <SURESH Wallis - Last Filed: 07/12/22 18:10> Referrals: [facility] Cardi[facility] [Provider Group] Lee Patel MD [Primary Care Provider] - <SURESH Wallis - Last Filed: 07/12/22 18:10> Interventions: ED Discharge Assessment Last Done: 07/12/22 18:33 <SURESH Wallis - Last Filed: 07/12/22 18:10> Discharge Date/Time: 07/12/22 18:35 <SURESH Wallis - Last Filed: 07/12/22 18:10>
--- NOTE | 2022-07-12 13:45 | ECG_ITS ---
Test Reason : CHEST PAIN Blood Pressure : / mmHG Vent. Rate : 055 BPM Atrial Rate : 055 BPM P-R Int : 146 ms QRS Dur : 088 ms QT Int : 430 ms P-R-T Axes : -23 075 076 degrees QTc Int : 411 ms Sinus bradycardia Otherwise normal ECG When compared with ECG of 19-JUN-2022 08:45, No significant change was found Referred By: Fabby Flores Electronically Signed By:Coy Scott
[2022-07-12 15:58] VITALS: BP 126/66; PULSE 65; RESP 19; TEMP 36.8; O2SAT 97
[2022-07-12 16:00] LABS: MANUAL DIFF FLAG NO
[2022-07-12 16:02] LABS: Basophils Absolute Auto 0.1 X10*3/uL (0.0-0.2); Basophils Percent Auto 1.4 % (0-2); Eosinophils Absolute Auto 0.1 X10*3/uL (0.0-0.4); Eosinophils Percent Auto 1.4 % (0-4); Hemoglobin 14.8 g/dl (14.0-18.0); Imm Gran Abs Auto 0.03 X10*3/uL (0.00-0.03); Imm Gran Pct Auto 0.5 % (0.0-0.4); Lymphocytes Absolute Auto 1.8 X10*3/uL (1.2-4.9); Mean Corpuscular HGB Conc 32.9 g/dl (31.0-36.0); Mean Corpuscular Hemoglobin 30.8 pg (27.0-33.0); Mean Corpuscular Volume 93.6 fL (80.0-98.0); Mean Platelet Volume 9.1 fL (9.4-12.4); Monocytes Absolute Auto 0.4 X10*3/uL (0.1-1.2); Monocytes Percent Auto 6.3 % (2-11); Neutrophils Absolute Auto 4.2 x10*3/uL (2.0-8.3); Neutrophils Percent Auto 63.4 % (45-73); Platelet Count 245 X10*3/uL (160-400); Red Blood Count 4.81 X10*6/uL (4.60-5.80); Red Cell Distribution Width 12.7 % (11.0-16.0); White Blood Count 6.5 X10*3/uL (4.8-10.8)
[2022-07-12 16:15] LABS: COVID-19 Test Negative (Negative); IDNOW Serial# 9DB6401D
[2022-07-12 16:32] LABS: Alanine Aminotransferase 9 U/L (0-40); Albumin Level 3.7 g/dL (3.5-5.0); Alkaline Phosphatase 85 U/L (39-117); Anion Gap 10 (12-20); Aspartate Amino Transferase 12 U/L (5-37); Bilirubin Direct 0.3 mg/dL (0.0-0.5); Bilirubin Total 1.2 mg/dL (0.0-1.0); Blood Urea Nitrogen 19 mg/dL (9-16); Calcium 9.8 mg/dL (8.4-10.2); Carbon Dioxide 30 mmol/L (22-29); Chloride 106 mmol/L (96-108); Creatinine Clr Calc Pharmacy 62.7; Estimated Glomerular Filt Rate > 60; Glucose Random 105 mg/dL (60-115); Potassium 4.3 mmol/L (3.3-5.1); Sodium 142 mmol/L (135-145); Total Protein 5.9 g/dL (6.5-8.0)
[2022-07-12 16:36] LABS: Troponin-I High Sensitivity < 3.5 ng/L (<3.5-35.0)
[2022-07-12 16:47] LABS: TSH reflex Free T4 0.57 uIU/mL (0.32-4.0)
== END 2022-07-12 18:35 | disposition home or self-care (01) ==
PROVIDERS: Physician Assistant; Emergency Provider Emergency Medicine; PCP Internal Medicine
DX: R07.89 Other chest pain (principal); R06.02 Shortness of breath; F41.9 Anxiety disorder, unspecified; F43.0 Acute stress reaction; Z20.822 Contact with and (suspected) exposure to COVID-19; Z20.828 Contact with and (suspected) exposure to other viral communicable diseases; Z79.899 Other long term (current) drug therapy
CPT/HCPCS: 36415; 71045; 80048; 80076; 83735; 84443; 84484; 85025; 87635; 93005; 99283; 99284

== ENCOUNTER 2023-04-13 13:54 | Outpatient (REF) | payer MEDICARE, SELFPAY | END 2023-04-13 13:55 | disposition home or self-care (01) | LOC: HO.LAB 13:54 | PROVIDERS: PCP Internal Medicine; Visit Provider Nurse Practitioner Family | DX: N40.1 Benign prostatic hyperplasia with lower urinary tract symptoms (principal); N13.8 Other obstructive and reflux uropathy; Z12.5 Encounter for screening for malignant neoplasm of prostate | CPT/HCPCS: 36415; 84153 ==

== ENCOUNTER 2023-04-15 12:02 | Outpatient (REF) | payer MEDICARE, SELFPAY ==
[2023-04-15 12:16] LABS: MANUAL DIFF FLAG NO
[2023-04-15 12:57] LABS: Basophils Absolute Auto 0.1 X10*3/uL (0.0-0.2); Basophils Percent Auto 0.9 % (0-2); Eosinophils Absolute Auto 0.1 X10*3/uL (0.0-0.4); Eosinophils Percent Auto 1.5 % (0-4); Hematocrit 49.7 % (42.0-52.0); Hemoglobin 16.4 g/dl (14.0-18.0); Imm Gran Abs Auto 0.03 X10*3/uL (0.00-0.03); Imm Gran Pct Auto 0.4 % (0.0-0.4); Lymphocytes Absolute Auto 2.3 X10*3/uL (1.2-4.9); Mean Corpuscular Hemoglobin 30.8 pg (27.0-33.0); Mean Corpuscular Volume 93.2 fL (80.0-98.0); Mean Platelet Volume 9.2 fL (9.4-12.4); Monocytes Absolute Auto 0.6 X10*3/uL (0.1-1.2); Monocytes Percent Auto 7.5 % (2-11); Neutrophils Absolute Auto 4.6 x10*3/uL (2.0-8.3); Neutrophils Percent Auto 59.7 % (45-73); Platelet Count 306 X10*3/uL (160-400); Red Blood Count 5.33 X10*6/uL (4.60-5.80); Red Cell Distribution Width 12.5 % (11.0-16.0); White Blood Count 7.8 X10*3/uL (4.8-10.8)
[2023-04-15 14:13] LABS: Alanine Aminotransferase 13 U/L (0-40); Albumin Level 4.1 g/dL (3.5-5.0); Alkaline Phosphatase 80 U/L (39-117); Anion Gap 11 (12-20); Aspartate Amino Transferase 21 U/L (5-37); Bilirubin Total 1.1 mg/dL (0.0-1.0); Blood Urea Nitrogen 12 mg/dL (9-16); Calcium 10.2 mg/dL (8.4-10.2); Carbon Dioxide 27 mmol/L (22-29); Chloride 101 mmol/L (96-108); Cholesterol 293 mg/dL (<200); Estimated Glomerular Filt Rate > 60; Glucose Fasting 105 mg/dL (60-99); HDL Cholesterol 54 mg/dL (>40); LDL Cholesterol Calculated 220 mg/dL (<100); Sodium 135 mmol/L (135-145); Triglycerides 98 mg/dL (<150)
[2023-04-15 16:27] LABS: Appearance Urine Clear; Color Urine Yellow; Glucose Urine UA Negative (Negative); Leukocyte Esterase Urine Large (3+) (Negative); Nitrite Urine Positive (Negative); Specific Gravity - Urine <= 1.005 (1.005-1.025); UMIC TRIGGER UA YES; Urine Blood Moderate (2+) (Negative); Urine Ketones Negative (Negative); Urine Protein Negative (Neg-Trace)
[2023-04-15 16:36] LABS: Bacteria Urine Trace (None Seen); Hyaline Casts Urine 0-2 /LPF (0-2); Squamous Epithelial Cell Urine 0-2 /HPF (0-2); WBC Urine >50 /HPF (0-5)
== END 2023-04-15 12:03 | disposition home or self-care (01) ==
LOC: HO.LAB 12:02
PROVIDERS: PCP Internal Medicine; Visit Provider Internal Medicine
DX: E78.00 Pure hypercholesterolemia, unspecified (principal); N40.0 Benign prostatic hyperplasia without lower urinary tract symptoms
CPT/HCPCS: 36415; 80053; 80061; 81001; 85025

== ENCOUNTER 2023-04-18 14:12 | Outpatient (AMB) | payer MEDICARE, SELFPAY ==
--- NOTE | 2023-04-18 14:11 | MHC.OFFVIS ---
Intake Intake Visit Reasons: follow up/PSA Intake Note: Patient is present for PSA follow up Urology Medication: Tamsulosin, Finasteride Blood Thinner: none Insulation Nozzleman Required: No Accompanied by: Self / Same As Patient Allergies phenytoin [Dilantin] Allergy (Severe, Verified 04/18/23 14:20) Redness of Skin lactose Allergy (Intermediate, Verified 04/18/23 14:20) Gastrointestinal Upset Medication List - Last Reconciled 04/18/23 by JACOBO Flowers- HPI HPI Comments History of Present Illness Details Dominguez is a 77-year-old male patient of Dr. Patel. He has a past medical history of skin cancer, balance problems, nephrolithiasis, spermatocele, hydrocele, elevated PSA, erectile dysfunction, depression, anxiety, brain hematoma, and enlarged prostate. He is being follow-up on today via telehealth for his neurogenic bladder and elevated PSA. In discussion with the patient today he reports forgetting about todays in office scheduled appointment therefore this visit was telehealth to discussed elevated PSA. When asked patient reports to be doing and feeling well. He reports having stopped all medications approximately 6 months ago and discussing this with his primary care provider Dr. Patel. He denies any bothersome urinary issues or concerns at this time. Recent PSA results reviewed with the patient today. PSA 05/05--25.0. Discussed at length potential causes for elevated PSA. Discussed importance of following up for continuity of care. Discussed obtaining retroperitoneal ultrasound for further assessment evaluation as well as redraw of PSA with no sex the night before, no caffeine morning of, and no heavy lifting 1-2 days prior. Patient with a history of urinary tract infection will also order urinalysis for further assessment evaluation. Discussed and stressed the importance of taking medications as prescribed. Elevated PSA with lower urinary tract symptoms Prior negative biopsy - 2016 PSA - 03/02 5.3, 04/02 6.1, 06/02 4.5 16%, 10/02 3.8, 04/03 3.0, 05/05 25.0 Medication therapy - finasteride and tamsulosin longstanding with oxybutynin for urgency frequency Prostate intervention [facility] laser prostatectomy 06/02 Cystoscopy - prior gross hematuria with friable vessels Erectile dysfunction Positive result with Krysta previously Nephrolithiasis Known 4 mm stone with spermatocele and hydrocele - december 2018 [facility] Medical History History of skin cancer Balance problems Renal stones Spermatocele Hydrocele H/O urinary frequency H/O urinary retention History of elevated PSA Vasculogenic erectile dysfunction Depression Anxiety Brain hematoma Enlarged prostate Surgical History History of brain surgery History of hip replacement, total Hx of colonoscopy Social History Are you a primary healthcare applications analyst to a significant other at home: No Alcohol intake: never Patient Tobacco Use Status: Former Tobacco user Quit Date: 1978 Tobacco use type: Cigarette Advance Directives Date on File: 06/01/21 Review of Systems Eyes Reports no additional complaints ENT Reports no additional complaints Card Reports as per HPI Resp Reports no additional complaints GI Reports no additional complaints Reports as per HPI Musc Reports as per HPI Neuro Reports as per HPI Psych Reports as per HPI Endo Reports no additional complaints Juan Jose/Lymph Reports no additional complaints Aller/Immun Reports no additional complaints Physical Exam Const General: cooperative Orientation/consciousness: patient oriented x3 Resp Effort & Inspection: able to speak in complete sentences Neuro General: patient oriented x3 Psych Speech and movement: Clear speech present Attitude: cooperative Insight: Fair insight present (Psych) Judgement: Fair judgement present (Psych) Assessment & Plan Assessment & Plan (1) Elevated PSA: Code(s): R97.20 - Elevated prostate specific antigen [PSA] (2) Urinary retention with incomplete bladder emptying: Code(s): R33.9 - Retention of urine, unspecified Plan Recent PSA results reviewed with the patient today; as noted above. Discussed at length potential causes for elevated PSA. Discussed possible near future prostate biopsy verses prostate MRI. Will obtain redraw of PSA with specific instructions; as noted above. Will obtain retroperitoneal ultrasound for further assessment evaluation. Will obtain urinalysis for further assessment evaluation. Discussed and stressed the importance of following up with PCP regarding discontinuation of all medications. Discussed importance of taking medications as prescribed. Follow-up in 1 month with imaging and labs to be completed prior; or sooner with any issues, concerns, and or questions. Orders: Orders US retroperitoneal comp Today N13.8 - Other obstructive and reflux uropathy, N40.1 - Benign prostatic hyperplasia with lower urinary tract symptoms, R97.20 - Elevated prostate specific antigen [PSA] UA CC w/rflx Micro + Cult Today A49.9 - Bacterial infection, unspecified, N39.0 - Urinary tract infection, site not specified PSA,Total (Free>4and<10) Today R97.20 - Elevated prostate specific antigen [PSA] Patient Instructions: The patient had an opportunity to ask questions regarding the treatment plan. All questions were answered. Physical exam, labs, and imaging were discussed and reviewed in detail. As well as risks, benefits, and discussion of treatment choices. No major barriers to understanding were identified. The patient expressed understanding and agreement with the above treatment plan. The patient was made aware they should contact our office by phone for worsening of their current condition, the appearance of new symptoms, or with any questions or concerns. Compliance is encouraged with any medications and follow up testing that is ordered. It is a privilege to be allowed the opportunity to participate in? your urological care.? Again, if you have any questions or concerns If you have any questions or concerns please do not hesitate to contact me. The office is [phone]. This note is constructed using voice recognition software. While every effort has been made to ensure accuracy car wash attendant errors may have been included. Yours sincerely, [facility] Tele[facility] Telehealth Location of provider rendering services: practice address Location of patient: address on file Patient Identification confirmed using: Name, : Yes Telehealth method: voice only Patient verbally consented to treatment: Yes Patient verbally consented to billing insurance company: Yes Patient informed of any privacy concerns related to visit: Yes Minutes spent on Phone/Video with Pt.: 15 Coding Level of Care Code Tele Est Pt Level 3 (62714) Diagnoses Elevated PSA R97.20 Urinary retention with incomplete bladder emptying R33.9
== END 2023-04-18 14:30 | disposition home or self-care (01) ==
LOC: HO.HUSH 14:12
PROVIDERS: PCP Internal Medicine; Visit Provider Nurse Practitioner Family
DX: R97.20 Elevated prostate specific antigen [PSA] (principal); R33.9 Retention of urine, unspecified
CPT/HCPCS: 99442

== ENCOUNTER → 2023-04-18 14:12 | Outpatient (BNVA) | payer MEDICARE, SELFPAY | PROVIDERS: PCP Internal Medicine; Visit Provider Nurse Practitioner Family | DX: R97.20 Elevated prostate specific antigen [PSA] (principal); N40.1 Benign prostatic hyperplasia with lower urinary tract symptoms; N13.8 Other obstructive and reflux uropathy ==

== ENCOUNTER 2023-04-19 12:49 | Outpatient (REF) | payer MEDICARE, SELFPAY ==
[2023-04-19 13:55] LABS: Appearance Urine Clear; Color Urine Yellow; Glucose Urine UA Negative (Negative); Leukocyte Esterase Urine Large (3+) (Negative); Nitrite Urine Negative (Negative); Specific Gravity - Urine <= 1.005 (1.005-1.025); UMIC TRIGGER UACC YES; Urine Blood Large (3+) (Negative); Urine Ketones Negative (Negative); Urine Protein Negative (Neg-Trace)
[2023-04-19 14:08] LABS: Bacteria Urine 1+ (None Seen); Hyaline Casts Urine 0-2 /LPF (0-2); Squamous Epithelial Cell Urine 0-2 /HPF (0-2); UACC Culture Trigger YES; WBC Urine >50 /HPF (0-5)
[2023-04-19 14:29] LABS: Prostate Specific Antigen 17.71 ng/mL (<0.05-4.0)
== END 2023-04-19 12:50 | disposition home or self-care (01) ==
LOC: HO.LAB 12:49
PROVIDERS: Absent Provider Internal Medicine; PCP Internal Medicine; Visit Provider Nurse Practitioner Family
DX: N40.0 Benign prostatic hyperplasia without lower urinary tract symptoms (principal); Z12.5 Encounter for screening for malignant neoplasm of prostate
CPT/HCPCS: 36415; 81001; 84153; 87086; 87088; 87186

== ENCOUNTER 2023-05-11 09:07 | Emergency (ER) | payer MEDICARE, SELFPAY ==
--- NOTE | ~2023-05-11 | XR_ITS ---
EXAMINATION: BILATERAL ANKLE CLINICAL INFORMATION: Bilateral ankle pain COMPARISON: None available. TECHNIQUE: 3 views each ankle FINDINGS: Right ankle: No soft tissue swelling. Some minimal degenerative changes are seen with some mild osteophytes arising from the distal tibia both anteriorly and posteriorly. The ankle mortise is maintained. No ankle joint effusion. No fractures. A plantar calcaneal spur is present. Left ankle: There is no soft tissue swelling. The ankle mortise appears stable. No ankle joint effusion is seen. No fractures. XR/XR ankle RT 2V IMPRESSION: 1. Mild degenerative changes right ankle. 2. Normal left ankle.
--- NOTE | ~2023-05-11 | XR_ITS ---
EXAMINATION: BILATERAL ANKLE CLINICAL INFORMATION: Bilateral ankle pain COMPARISON: None available. TECHNIQUE: 3 views each ankle FINDINGS: Right ankle: No soft tissue swelling. Some minimal degenerative changes are seen with some mild osteophytes arising from the distal tibia both anteriorly and posteriorly. The ankle mortise is maintained. No ankle joint effusion. No fractures. A plantar calcaneal spur is present. Left ankle: There is no soft tissue swelling. The ankle mortise appears stable. No ankle joint effusion is seen. No fractures. XR/XR ankle LT 2V IMPRESSION: 1. Mild degenerative changes right ankle. 2. Normal left ankle.
[2023-05-11 09:28] VITALS: BP 155/52; PULSE 55; RESP 19; TEMP 36.6; O2SAT 98; BMI 21.3
--- NOTE | 2023-05-11 09:31 | ED.GENADULT ---
HPI - General Adult General Chief complaint: Extremity Injury, Lower Stated complaint: Pain in legs/feet Time Seen by Provider: 05/11/23 09:31 Source: patient Mode of arrival: ambulatory Limitations: no limitations History of Present Illness HPI narrative: Patient is a 77-year-old male with history of enlarged prostate, a brain hematoma, anxiety, depression, renal stones presenting to the emergency department with complaint of bilateral ankle pain for the past year. States pain radiates to feet. He states that the pain is intermittent. He reports that he has not taken any [id number] medications for his symptoms at all over the past year. He denies weakness, numbness or tingling. He states that he came to the emergency department because today he felt as though blood was being pushed into his feet upon standing which was a new symptom for him. States he has seen his PCP for the same symptoms without a diagnosis. Denies any precipitating injury or trauma to lower extremities. Denies any calf pain or swelling. MD complaint: ankle pain Onset (ago): year(s) Location: lower extremity Radiation: distal Severity: moderate Quality: aching Pain Consistency: intermittent Relieving factors: none Exacerbating factors: none Associated symptoms: denies other symptoms Treatments prior to arrival: none Related Data Previous Rx's Medication Instructions Recorded naproxen 500 mg tablet 500 mg PO BID #30 tabs 05/11/23 Allergies Allergy/AdvReac Type Severity Reaction Status Date / Time phenytoin [Dilantin] Allergy Severe Redness of Verified 05/11/23 09:27 Skin lactose Allergy Intermediate Gastrointestinal Verified 05/11/23 09:27 Upset Review of Systems Review of Systems: As per HPI. Yes all other systems are reviewed and are negative Constitutional: Constitutional: Reports as per HPI [facility], [facility] Past Medical History Medical History History of skin cancer Balance problems Renal stones Spermatocele Hydrocele H/O urinary frequency H/O urinary retention History of elevated PSA Vasculogenic erectile dysfunction Depression Anxiety Brain hematoma Enlarged prostate Surgical History History of brain surgery History of hip replacement, total Hx of colonoscopy Social History Social History Are you a primary dog daycare provider to a significant other at home: No Alcohol intake: never Patient Tobacco Use Status: Former Tobacco user Quit Date: 1978 Tobacco use type: Cigarette Smoked in Last 30 Days: No Use of substances other than those prescribed or required for medical reasons: No Advance Directives: Yes Advance Directives on File: Yes Advance Directives Date on File: 06/01/21 Physical Exam ED Vital Signs: Vital Signs - 24 hr 05/11/23 09:28 Temperature 98 F Pulse Rate 55 Respiratory Rate 19 Blood Pressure 155/52 H Pulse Oximetry 98 Oxygen Delivery Method Room Air BMI result Body Mass Index 21.3 Vital signs have been reviewed and appear to be correct. Blood pressure elevated. Heart rate normal. Respiratory rate normal. Temperature normal. Oxygen saturation normal. Const General: cooperative, healthy appearing and no acute distress Orientation/consciousness: oriented to person, oriented to place, oriented to time and patient oriented x3 Limitations: no limitations HENMT Head: Yes normocephalic and Yes atraumatic Ears: external ears normal General nose exam: Normal external nose present Face and sinus: Yes face symmetric Mouth: oropharynx normal and moist mucous membranes Throat: Yes uvula midline Eyes Pupils: Equal, round and reactive pupils present Neck Neck: Yes normal visual inspection and Yes supple Resp Effort & Inspection: normal respiratory effort and able to speak in complete sentences Auscultation: clear to auscultation bilaterally Cardio Rate: regular rate Rhythm: regular rhythm Heart sounds: S1 normal heart sound present and S2 normal heart sound present GI Palpation (GI): Soft to palpation and nontender Auscultation: normoactive bowel sounds General: Yes no CVA tenderness Back/Spine/Pelvis Back: no CVA tenderness Skin General skin exam: elasticity normal and turgor normal Neuro General: oriented to person, oriented to place, oriented to time, patient oriented x3, moves all extremities, no focal motor deficits and CN's II-XI intact bilaterally Cranial nerves: Yes Equal, round and reactive pupils present Cognition (Neuro): normal cognition Extrem General: Yes normal to inspection, Yes full ROM, Yes capillary refill normal, Yes no pedal edema and Yes no calf tenderness Right lower extremity: ankle Details: normal to inspection, no edema and normal ROM; no tenderness, no swelling and no unusual warmth and foot Details: normal capillary refill, normal to inspection, toes with normal ROM, no edema and vascular exam Details: dorsalis pedis pulse present, posterior tibial pulse present and normal capillary refill; no tenderness Left lower extremity: ankle Details: normal to inspection, no edema and normal ROM; no tenderness, no swelling and no warmth and foot Details: normal capillary refill, normal to inspection, toes with normal ROM, no edema and vascular exam Details: dorsalis pedis pulse present and posterior tibial pulse present; no tenderness and no unusual warmth Psych Mental Status: mental status grossly normal Affect: normal affect Thought process: Normal thought process present Medical Decision Making Medical Decision Making MDM Narrative: Patient is a 77-year-old male with history of enlarged prostate, a brain hematoma, anxiety, depression, renal stones presenting to the emergency department with complaint of bilateral ankle pain for the past year. On exam patient is awake, A+Ox3, BP mildly elevated, VS otherwise WNL, afebrile, normal neurological exam without focal deficits, physical exam findings as above. Given reported symptoms and physical exam findings, initial differential includes myalgias, osteoarthritis, calcaneal bursitis. Do not suspect achilles tendinopathy or tendon rupture. X-ray notable for mild degenerative changes to right ankle, normal left ankle. My interpretation is in agreement with the radiologist's interpretation. Will start patient on naproxen b.i.d. and advised patient to follow-up with primary care provider. Results discussed with patient and all questions answered. Return precautions discussed at bedside. Patient verbalized understanding of and agreement with plan. Differential Diagnosis Differential Diagnoses: The differential diagnosis associated with the presentation includes As per MDM. Independent Interpretation I performed an independent interpretation of an: Plain X-Ray Interpretation: Mild degenerative changes to right ankle, no degenerative changes or fractures to left ankle Radiology Impression Discussion of test interpretation with radiology: I have reviewed the radiologist's reading. Radiologist Impression: XR/XR ankle RT 2V IMPRESSION: 1. Mild degenerative changes right ankle. 2. Normal left ankle. External Record Review External record reviewed: Inpatient record, Office record and Outpatient record Prescription Management I considered prescription management with: Pain Medication Discharge Plan Discharge Clinical Impression: Bilateral ankle pain Qualifiers: Chronicity: unspecified Qualified Code(s): M25.571 - Pain in right ankle and joints of right foot Patient Disposition: Home, Self-Care Instructions: Arthralgia (ED) Additional Instructions: You were evaluated in the emergency department today for pain to your ankles and feet. Your evaluation did not reveal any conditions requiring emergent medical treatment at this time. You are being prescribed naproxen which is an anti inflammatory medication, please begin taking this as prescribed. Please schedule a follow-up appointment with her primary care provider this week. Return to the emergency department if you develop worsening pain, new weakness, numbness, tingling, change of color in your feet, or any other concerning symptoms. Prescriptions: New naproxen 500 mg tablet 500 mg PO BID Qty: 30 0RF
--- NOTE | 2023-05-11 09:51 | PC.NURSE ---
pt seen by provider - awaiting to be taken to xray at this time.
== END 2023-05-11 11:14 | disposition home or self-care (01) ==
PROVIDERS: Emergency Provider Emergency Medicine; PCP Internal Medicine
DX: M25.571 Pain in right ankle and joints of right foot (principal); M25.572 Pain in left ankle and joints of left foot
CPT/HCPCS: 73600; 99283; 99284

== ENCOUNTER 2023-05-15 06:44 | Emergency (ER) | payer MEDICARE, SELFPAY ==
--- NOTE | ~2023-05-15 | CT_ITS ---
EXAMINATION: CT ABDOMEN AND PELVIS WITH CONTRAST CLINICAL INFORMATION: Hematuria COMPARISON: 03/20/2021 TECHNIQUE: Multidetector volumetric images were obtained from the superior aspect of the liver through the pubic symphysis following administration 85 mL of Omnipaque 350 intravenous contrast. Sagittal and coronal reformatted images were obtained on the technologist's workstation. Oral contrast: No This CT examination was performed using dose optimization techniques as appropriate, variously including the following: *Automated exposure control *Adjustment of mA and/or kV according to patient size (this includes techniques or standardized protocols for targeted exams where dose is matched to indication/reason for exam; i.e. extremities or head) *Use of iterative reconstruction technique DLP: 458 mGy-cm FINDINGS: LUNG BASES: The visualized lung bases are unremarkable. LIVER, GALLBLADDER, AND BILIARY TREE: The liver is normal in size, shape, and attenuation. No focal hepatic lesion or biliary ductal dilatation is present. The gallbladder is unremarkable with no evidence of radiopaque gallstones, gallbladder wall thickening, or obvious pericholecystic inflammatory changes. PANCREAS: Unremarkable. SPLEEN: Unremarkable. ADRENAL GLANDS: Unremarkable. KIDNEYS AND URETERS: The kidneys are nonhydronephrotic. Early nephrographic phase. Small 3 mm nonobstructing calculus lower pole left. Probable small cyst medial midpole. Left. Small 2 mm calculus on right. BLADDER: 3 large bladder calculi. Largest 2.1 cm. Bladder wall thickening. GASTROINTESTINAL TRACT: Nonobstructing bowel pattern. Diverticulosis but no evidence for diverticulitis. ABDOMINAL WALL: Beginnings of left inguinal fatty herniation. LYMPH NODES: There is no bulky adenopathy here. Once again mildly prominent left obturator node unchanged. Other noted pelvic nodes not felt to be changed. VASCULAR: Unremarkable. PELVIC VISCERA: Once again significant prostate increase. This has significant effect on the inferior aspect of the bladder and for this reason a mucosal lesion in the bladder cannot be excluded. OSSEOUS STRUCTURES: Degenerative changes. Grade 1 anterolisthesis of L4 and L5. CT/CT abdomen pelvis w IV con IMPRESSION: 3 large bladder calculi are noted here and there is bladder wall thickening which may be consistent with cystitis or hypertrophy. Not present previously. Significant enlargement of the prostate once again seen having effect in the inferior aspect of the bladder and because of this exam mucosal lesion of the bladder cannot be excluded given the history. No evidence for renal obstruction. Fleischner guidelines were followed.
[2023-05-15 07:08] VITALS: BP 149/73; PULSE 62; RESP 20; TEMP 36.6; O2SAT 97; BMI 21.4
[2023-05-15 07:20] LABS: MANUAL DIFF FLAG NO
[2023-05-15 07:21] LABS: Basophils Absolute Auto 0.1 X10*3/uL (0.0-0.2); Basophils Percent Auto 0.8 % (0-2); Eosinophils Absolute Auto 0.2 X10*3/uL (0.0-0.4); Hematocrit 46.5 % (42.0-52.0); Hemoglobin 15.3 g/dl (14.0-18.0); Imm Gran Abs Auto 0.03 X10*3/uL (0.00-0.03); Imm Gran Pct Auto 0.4 % (0.0-0.4); Lymphocytes Percent Auto 25.4 % (20-40); Mean Corpuscular HGB Conc 32.9 g/dl (31.0-36.0); Mean Corpuscular Volume 94.1 fL (80.0-98.0); Mean Platelet Volume 8.6 fL (9.4-12.4); Monocytes Absolute Auto 0.6 X10*3/uL (0.1-1.2); Monocytes Percent Auto 8.1 % (2-11); Neutrophils Percent Auto 63.3 % (45-73); Platelet Count 276 X10*3/uL (160-400); Red Blood Count 4.94 X10*6/uL (4.60-5.80); Red Cell Distribution Width 12.8 % (11.0-16.0); White Blood Count 7.9 X10*3/uL (4.8-10.8)
[2023-05-15 07:33] LABS: Alanine Aminotransferase 17 U/L (0-40); Albumin Level 3.7 g/dL (3.5-5.0); Alkaline Phosphatase 68 U/L (39-117); Anion Gap 11 (12-20); Aspartate Amino Transferase 21 U/L (5-37); Blood Urea Nitrogen 20 mg/dL (9-16); Calcium 9.6 mg/dL (8.4-10.2); Carbon Dioxide 25 mmol/L (22-29); Chloride 107 mmol/L (96-108); Creatinine Clr Calc Pharmacy 71.2; Estimated Glomerular Filt Rate > 60; Glucose Random 105 mg/dL (60-115); Potassium 3.9 mmol/L (3.3-5.1); Sodium 139 mmol/L (135-145); Total Protein 6.3 g/dL (6.5-8.0)
--- NOTE | 2023-05-15 07:34 | ED.MALEGU ---
HPI - Male Genitourinary General Chief complaint: Urogenital-Male Stated complaint: blood in urine Time Seen by Provider: 05/15/23 07:28 Source: patient Mode of arrival: ambulatory Limitations: no limitations History of Present Illness HPI Narrative: This is a 77 years old male presented to emergency room with chief complaint of gross hematuria. Symptoms started this morning. Complaint: other (hematuria) Onset (ago): hour(s) (3) Duration: constant Severity: moderate Quality: aching Relieving factors: none Exacerbating factors: none Related Data Previous Rx's Medication Instructions Recorded naproxen 500 mg tablet 500 mg PO BID #30 tabs 05/11/23 ciprofloxacin HCl 500 mg tablet 500 mg PO BID #14 tabs 05/15/23 (Cipro) Allergies Allergy/AdvReac Type Severity Reaction Status Date / Time phenytoin [Dilantin] Allergy Severe Redness of Verified 05/15/23 07:07 Skin lactose Allergy Intermediate Gastrointestinal Verified 05/15/23 07:07 Upset Review of Systems Constitutional: Constitutional: Reports no additional constitutional complaints Cardiovascular: Cardiovascular: Reports no additional cardiovascular complaints Genitourinary: Genitourinary: Reports hematuria PMFSH Past Medical History Medical History History of skin cancer Balance problems Renal stones Spermatocele Hydrocele H/O urinary frequency H/O urinary retention History of elevated PSA Vasculogenic erectile dysfunction Depression Anxiety Brain hematoma Enlarged prostate Surgical History History of brain surgery Hx of colonoscopy History of hip replacement, total Social History Social History Are you a primary floor care specialist to a significant other at home: No Alcohol intake: never Patient Tobacco Use Status: Former Tobacco user Quit Date: 1978 Tobacco use type: Cigarette Advance Directives: No Advance Directives Information Provided: No Advance Directives Date on File: 06/01/21 Physical Exam Vital Signs: Vital Signs: Last Vital Signs Temp 98.0 F 05/15/23 08:00 Pulse 59 05/15/23 08:07 Resp 18 05/15/23 08:07 BP 133/64 05/15/23 08:07 Pulse Ox 95 05/15/23 08:07 O2 Del Method Room Air 05/15/23 08:07 BMI result Body Mass Index 21.4 Const: Other: Patient looks well is not toxic-appearing General: cooperative, healthy appearing, comfortable and no acute distress Nutritional Appearance: average body habitus and well nourished Orientation/consciousness: patient oriented x3 Limitations: no limitations HEENT: Head: Yes normal to inspection Ears: hearing grossly normal bilaterally General nose exam: Normal external nose present Face and sinus: Yes normal facial exam Mouth: Normal oral and palatal mucosa present Neck: Neck: Yes normal visual inspection and Yes full ROM Chest: Chest palpation & inspection: normal inspection of the chest Resp: Effort & Inspection: normal respiratory effort and able to speak in complete sentences Auscultation: clear to auscultation bilaterally Cardio: Jugular venous distension: no JVD Rate: regular rate Rhythm: regular rhythm GI: Inspection: Yes normal to inspection Palpation (GI): Soft to palpation Auscultation: normal bowel sounds Skin: General skin exam: no rashes or lesions noted and elasticity normal Lesions: no lesions Rashes: no rashes Hair: normal Neuro: General: patient oriented x3 Cranial nerves: Yes CN's II-XII intact bilaterally Course Reevaluation(s) Reevaluation #1: remain stable clinically urine cleared ct stone in the bladder will d/c home Time: 12:21 Medications Administered Discontinued Medications Generic Name Dose Route Start Last Admin Trade Name Freq PRN Reason Stop Dose Admin Iohexol 85 ml 05/15/23 07:58 05/15/23 07:59 Iohexol 350 Mg/Ml 100 Ml Infus..Btl IV 05/15/23 07:59 85 ml ONCE ONE Administration Medical Decision Making Medical Decision Making [facility] Narrative: Patient presented with gross hematuria workup showed 2 large stone in the bladder he is otherwise hemodynamically stable, his urine actually is more clear as 12:25 p.m.. He can follow-up with the urologist is comfortable with the plan of care Differential Diagnosis Differential Diagnoses: The differential diagnosis associated with the presentation includes Kidney stone/bladder cancer/tumor kidney Admission/Observation Consideration of admission/observation: Escalation of care including admission/observation considered Lab Data [facility] Lab Attestation statement: I reviewed the patient's lab results. 05/15/23 07:15 05/15/23 07:15 Labs: Lab Results 05/15/23 05/15/23 Range/Units 07:15 08:10 WBC 7.9 (4.8-10.8) X10*3/uL RBC 4.94 (4.60-5.80) X10*6/uL Hgb 15.3 (14.0-18.0) g/dl Hct 46.5 (42.0-52.0) % MCV 94.1 (80.0-98.0) fL MCH 31.0 (27.0-33.0) pg MCHC 32.9 (31.0-36.0) g/dl RDW 12.8 (11.0-16.0) % Plt Count 276 (160-400) X10*3/uL MPV 8.6 L (9.4-12.4) fL Immature Gran % (Auto) 0.4 (0.0-0.4) % Neut % (Auto) 63.3 (45-73) % Lymph % (Auto) 25.4 (20-40) % Wilbarger % (Auto) 8.1 (2-11) % Eos % (Auto) 2.0 (0-4) % Baso % (Auto) 0.8 (0-2) % Lymph # (Auto) 2.0 (1.2-4.9) X10*3/uL Wil[place]ger # (Auto) 0.6 (0.1-1.2) X10*3/uL Eos # (Auto) 0.2 (0.0-0.4) X10*3/uL Baso # (Auto) 0.1 (0.0-0.2) X10*3/uL Abs Immat Gran (auto) 0.03 (0.00-0.03) X10*3/uL Absolute Neuts (auto) 5.0 (2.0-8.3) x10*3/uL Absolute Nucleated RBC 0.000 (0.0-0.012) X10*3/uL Nucleated RBC % (auto) 0.0 (0.0-0.2) /100WBC Sodium 139 (135-145) mmol/L Potassium 3.9 (3.3-5.1) mmol/L Chloride 107 (96-108) mmol/L Carbon Dioxide 25 (22-29) mmol/L Anion Gap 11 L (12-20) BUN 20 H (9-16) mg/dL Creatinine 0.82 (0.5-1.4) mg/dL Estim Creat Clear Calc 71.2 Estimated GFR > 60 Random Glucose 105 (60-115) mg/dL Calcium 9.6 (8.4-10.2) mg/dL Total Bilirubin 1.0 (0.0-1.0) mg/dL AST 21 (5-37) U/L ALT 17 (0-40) U/L Alkaline Phosphatase 68 (39-117) U/L Total Protein 6.3 L (6.5-8.0) g/dL Albumin 3.7 (3.5-5.0) g/dL Urine Color RED Urine Appearance Cloudy Urine pH 7.5 (5.0-9.0) Ur Specific Harrell <= 1.005 (1.005-1.025) Urine Protein 100 (2+) H (Neg-Trace) mg/dL Urine Glucose (UA) Negative (Negative) mg/dL Urine Ketones Negative (Negative) mg/dL Urine Blood Large (3+) H (Negative) Urine Nitrite Positive H (Negative) Ur Leukocyte Esterase Large (3+) H (Negative) Urine RBC >20 H (0-2) /HPF Urine WBC >50 H (0-5) /HPF Ur Squamous Epith Cells 0-2 (0-2) /HPF Urine Bacteria 4+ (None Seen) Hyaline Casts 0-2 (0-2) /LPF Independent Interpretation I performed an independent interpretation of an: CT Scan Interpretation: Bladder stone Radiology Impression Discussion of test interpretation with radiology: I have reviewed the radiologist's reading. Radiologist Impression: es not felt to be changed. VASCULAR: Unremarkable. PELVIC VISCERA: Once again significant prostate increase. This has significant effect on the inferior aspect of the bladder and for this reason a mucosal lesion in the bladder cannot be excluded. OSSEOUS STRUCTURES: Degenerative changes. Grade 1 anterolisthesis of L4 and L5. CT/CT abdomen pelvis w IV con IMPRESSION: 3 large bladder calculi are noted here and there is bladder wall thickening which may be consistent with cystitis or hypertrophy. Not present previously. Significant enlargement of the prostate once again seen having effect in the inferior aspect of the bladder and because of this exam mucosal lesion of the bladder cannot be excluded given the history. No evidence for renal obstruction. Fleischner guidelines were followed. Dictated By: Roly Killian MD Signed By: <Electronically signed by Roly Killian MD in OV> 05/15/23 1015 Prescription Management I considered prescription management with: Antibiotic Discharge Plan Discharge Clinical Impression: Hematuria Patient Disposition: Home, Self-Care Instructions: Hematuria (ED) Additional Instructions: Follow-up with urology you have large stone in the bladder Prescriptions: New ciprofloxacin HCl [Cipro] 500 mg tablet 500 mg PO BID Qty: 14 0RF No Action naproxen 500 mg tablet 500 mg PO BID Qty: 30 0RF Referrals: Jaden Parra MD [Physician] - 1 day
[2023-05-15] MEDS: iohexoL 350 MG/ML 100 ML INFUS..BTL 85 ML IV (07:59)
[2023-05-15 08:00] VITALS: BP 133/64; PULSE 63; RESP 15; TEMP 36.7; O2SAT 96
[2023-05-15 08:07] VITALS: BP 133/64; PULSE 59; RESP 18; O2SAT 95
--- NOTE | 2023-05-15 08:10 | PC.NURSE ---
Patient reports blood in urine with hx of uti. Takes flomax BID, finasteride, ativan, simvastatin, and lexapro daily. Denies sob, chest pain, headache or abdominal pain.
[2023-05-15 08:17] LABS: Appearance Urine Cloudy; Color Urine RED; Glucose Urine UA Negative (Negative); Leukocyte Esterase Urine Large (3+) (Negative); Nitrite Urine Positive (Negative); PH 7.5 (5.0-9.0); Specific Gravity - Urine <= 1.005 (1.005-1.025); UMIC TRIGGER UACC YES; Urine Blood Large (3+) (Negative); Urine Ketones Negative (Negative); Urine Protein 100 (2+) mg/dL (Neg-Trace)
[2023-05-15 08:20] LABS: Bacteria Urine 4+ (None Seen); Hyaline Casts Urine 0-2 /LPF (0-2); RBC Urine >20 /HPF (0-2); Squamous Epithelial Cell Urine 0-2 /HPF (0-2); UACC Culture Trigger YES; WBC Urine >50 /HPF (0-5)
[2023-05-15 12:36] VITALS: BP 135/65; PULSE 70; RESP 18; O2SAT 97
== END 2023-05-15 12:37 | disposition home or self-care (01) ==
PROVIDERS: Emergency Provider Emergency Medicine; PCP Internal Medicine
DX: R31.9 Hematuria, unspecified (principal); Z87.442 Personal history of urinary calculi
CPT/HCPCS: 36415; 74177; 80053; 81001; 85025; 87086; 99284; Q9967

== ENCOUNTER 2023-05-18 15:37 | Outpatient (AMB) | payer MEDICARE, SELFPAY ==
--- NOTE | 2023-05-18 15:45 | MHC.OFFVIS ---
Intake Intake Visit Reasons: 1 month follow up/ Labs/ US Intake Note: Patient is present for PSA follow up/labs/ultrasound (psa 17.71) Urology Medication: none Blood Thinner: none Forestry And Wildlife Manager Required: No Accompanied by: Self / Same As Patient Allergies phenytoin [Dilantin] Allergy (Severe, Verified 05/18/23 20:31) Redness of Skin lactose Allergy (Intermediate, Verified 05/18/23 20:31) Gastrointestinal Upset Medication List - Last Reconciled 05/18/23 by JACOBO Flowers-LONDON ciprofloxacin HCl (Cipro) 500 mg PO BID naproxen 500 mg PO BID HPI HPI Comments History of Present Illness Details Dominguez is a 77-year-old male patient of Dr. Patel. He has a past medical history of skin cancer, balance problems, nephrolithiasis, spermatocele, hydrocele, elevated PSA, erectile dysfunction, depression, anxiety, brain hematoma, and enlarged prostate. Of note, patient was seen approximately 1 month ago at which time recommendations were made for retroperitoneal ultrasound and redraw of PSA for further assessment evaluation. However, since last office visit approximately 3 days ago patient seeked emergency room care for gross hematuria at which time a CT was ordered and performed. These results reviewed with the patient today. Three large bladder calculi are noted within the bladder as well as bladder wall thickening. Significant enlargement of the prostate is noted having affect in the inferior aspect of the bladder. Mucosal lesion of the bladder cannot be excluded. He has no evidence for renal obstruction. PSAs are as follows: 08/31--5.5 04/03--3.0 05/05--25 05/05--18 He reports having been prescribed ciprofloxacin by ER physician and is compliant with taking it daily BID. In office urinalysis today with positive nitrates. When asked he currently denies any UTI like symptoms. He denies urinary urgency, urinary frequency, incontinence, nocturia, dysuria, changes to urinary stream, flank pain, fever, and or chills. He does however report foul-smelling urine. Of note, during last telehealth visit patient had reported to have stopped all his medications that were prescribed by PCP. He discusses continuing to do so. Discussed at length CT results with bladder stones. Discussed although PSA has decreased it is still elevated. Patient with a history of GreenLight laser of the prostate [place] [address] Wiggins. Discussed surgical intervention of bladder stones as well as prostate biopsy. This was discussed at length. Discussed risks and benefits of further surgical intervention. Discussed and stressed the importance of taking medications as prescribed. Patient had previously been on finasteride, tamsulosin, and oxybutynin however has since stopped all his medications as noted above. Elevated PSA with lower urinary tract symptoms Prior negative biopsy - 2016 PSA - 03/02 5.3, 04/02 6.1, 06/02 4.5 16%, 10/02 3.8, 04/03 3.0, 05/05 25.0 Medication therapy - finasteride and tamsulosin longstanding with oxybutynin for urgency frequency Prostate intervention GreenLight laser prostatectomy 06/02 Cystoscopy - prior gross hematuria with friable vessels Erectile dysfunction Positive result with Cialis previously Nephrolithiasis Known 4 mm stone with spermatocele and hydrocele - december 2018 [facility] Medical History (Updated 05/18/23 @ 20:54 by TY Flowers) History of skin cancer Balance problems Renal stones Spermatocele Hydrocele H/O urinary frequency H/O urinary retention History of elevated PSA Vasculogenic erectile dysfunction Depression Anxiety Brain hematoma Enlarged prostate Surgical History History of brain surgery Hx of colonoscopy History of hip replacement, total Social History Are you a primary respite care provider to a significant other at home: No Alcohol intake: never Patient Tobacco Use Status: Former Tobacco user Quit Date: 1978 Tobacco use type: Cigarette Advance Directives Date on File: 06/01/21 Review of Systems Eyes Reports no additional complaints ENT Reports no additional complaints Card Reports as per HPI Resp Reports no additional complaints GI Reports no additional complaints Reports as per HPI Musc Reports as per HPI Neuro Reports as per HPI Psych Reports as per HPI Endo Reports no additional complaints Juan Jose/Lymph Reports no additional complaints Aller/Immun Reports no additional complaints Physical Exam Const General: cooperative, healthy appearing, comfortable, no acute distress, well developed, alert and awake Nutritional Appearance: thin Orientation/consciousness: oriented to person Limitations: no limitations HEENT Head: Yes normal to inspection, Yes normocephalic and Yes atraumatic Ears: hearing grossly normal bilaterally Eyes General: appearance normal, both eyes and all related structures Neck Neck: Yes normal visual inspection and Yes trachea midline Chest Chest palpation & inspection: normal inspection of the chest Resp Effort & Inspection: normal respiratory effort and able to speak in complete sentences Cardio Rate: regular rate GI Inspection: Yes normal to inspection General: Yes no CVA tenderness Back/Spine/Pelvis Back: no CVA tenderness Skin General skin exam: no rashes or lesions noted Neuro General: oriented to person Extrem General: Yes normal to inspection Psych Appearance: grossly normal and well kempt Mental Status: mental status grossly normal Speech and movement: Normal speech and movement present and Clear speech present Affect: normal affect Attitude: cooperative Thought process: Normal thought process present Thought content: Normal thought content present Insight: Fair insight present (Psych) Judgement: Fair judgement present (Psych) Results AMB Urinalysis, Automated UA Leukoctes 70 Otf/uL Last Edit by Fabulyzer on 05/18/23 16:00 UA Nitrite Positive Last Edit by Fabulyzer on 05/18/23 16:00 UA Urobilinogen 0.2 mg/dL Last Edit by Fidus Writer StephiePhloronol on 05/18/23 16:00 UA Protein 100 mg/dL Last Edit by Fabulyzer on 05/18/23 16:00 UA pH 5.5 Last Edit by Fabulyzer on 05/18/23 16:00 UA Blood 200 Tao/uL Last Edit by Fabulyzer on 05/18/23 16:00 UA Specific Kingman 1.030 Last Edit by Fabulyzer on 05/18/23 16:00 UA Ketone Negative Last Edit by Fidus Writer StephiePhloronol on 05/18/23 16:00 UA Bilirubin 0 mg/dL Last Edit by Fabulyzer on 05/18/23 16:00 UA Glucose 0 mg/dL Last Edit by Fabulyzer on 05/18/23 16:00 Results Reviewed Results Reviewed: Laboratory Last Values Urine pH (Auto) 5.5 05/18/23 15:57 Specific Kingman (Auto) 1.030 05/18/23 15:57 Urine Protein (Auto) 100 mg/dL 05/18/23 15:57 Glucose (UA)(Auto) 0 mg/dL 05/18/23 15:57 Urine Ketones (Auto) Negative 05/18/23 15:57 Urine Blood (Auto) 200 Tao/uL 05/18/23 15:57 Urine Nitrite (Auto) Positive 05/18/23 15:57 Urine Bilirubin (Auto) 0 mg/dL 05/18/23 15:57 Urine Urobilinogen (Auto) 0.2 mg/dL 05/18/23 15:57 Leukocyte Esterase (Auto) 70 Otf/uL 05/18/23 15:57 Date of Service: 05/15/23 EXAMINATION: CT ABDOMEN AND PELVIS WITH CONTRAST FINDINGS: LUNG BASES: The visualized lung bases are unremarkable. LIVER, GALLBLADDER, AND BILIARY TREE: The liver is normal in size, shape, and attenuation. No focal hepatic lesion or biliary ductal dilatation is present. The gallbladder is unremarkable with no evidence of radiopaque gallstones, gallbladder wall thickening, or obvious pericholecystic inflammatory changes. PANCREAS: Unremarkable. SPLEEN: Unremarkable. ADRENAL GLANDS: Unremarkable. KIDNEYS AND URETERS: The kidneys are nonhydronephrotic. Early nephrographic phase. Small 3 mm nonobstructing calculus lower pole left. Probable small cyst medial midpole. Left. Small 2 mm calculus on right. BLADDER: 3 large bladder calculi. Largest 2.1 cm. Bladder wall thickening. GASTROINTESTINAL TRACT: Nonobstructing bowel pattern. Diverticulosis but no evidence for diverticulitis. ABDOMINAL WALL: Beginnings of left inguinal fatty herniation. LYMPH NODES: There is no bulky adenopathy here. Once again mildly prominent left obturator node unchanged. Other noted pelvic nodes not felt to be changed. VASCULAR: Unremarkable. PELVIC VISCERA: Once again significant prostate increase. This has significant effect on the inferior aspect of the bladder and for this reason a mucosal lesion in the bladder cannot be excluded. OSSEOUS STRUCTURES: Degenerative changes. Grade 1 anterolisthesis of L4 and L5. IMPRESSION: 3 large bladder calculi are noted here and there is bladder wall thickening which may be consistent with cystitis or hypertrophy. Not present previously. Significant enlargement of the prostate once again seen having effect in the inferior aspect of the bladder and because of this exam mucosal lesion of the bladder cannot be excluded given the history. No evidence for renal obstruction. Assessment & Plan Assessment & Plan (1) Elevated PSA: Code(s): R97.20 - Elevated prostate specific antigen [PSA] (2) Urinary retention with incomplete bladder emptying: Code(s): R33.9 - Retention of urine, unspecified (3) UTI (urinary tract infection), bacterial: Code(s): N39.0 - Urinary tract infection, site not specified; A49.9 - Bacterial infection, unspecified (4) Bladder calculi: Code(s): N21.0 - Calculus in bladder (5) Hematuria: Code(s): R31.9 - Hematuria, unspecified Plan: Risks, benefits and alternatives to therapy were discussed. These include but are not limited to infection, bleeding, damage to local organs and tissues, need for further interventions. ? Anesthetic risks regarding cardiac arrhythmia, blood clots, and potential mortality were discussed. The patient understands the typical recovery time and the outpatient nature of the procedure. After consideration of these risks the patient gives full informed consent and they wish to move ahead with the procedure. (6) Renal stones: Code(s): N20.0 - Calculus of kidney Plan In office urinalysis results reviewed with the patient today; will send for urine culture as well as urine cytology. Recent CT results reviewed with the patient today; as noted above. Discussed, educated, encouraged on the importance of drinking plenty of water daily. Discussed at length further surgical intervention of bladder stones as well as prostate biopsy in the setting of elevated PSA. All questions were answered Discussed importance of completing antibiotic therapy as prescribed Discussed importance of taking medications as prescribed Will schedule for cystoscopy with laser of bladder stones as well as prostate biopsy in OR with Dr. Wiggins. Orders: Orders AMB Urinalysis Automated Today Z13.9 - Encounter for screening, unspecified Urine Cytology Today A49.9 - Bacterial infection, unspecified, N39.0 - Urinary tract infection, site not specified Urine Culture Today A49.9 - Bacterial infection, unspecified, N39.0 - Urinary tract infection, site not specified Patient Instructions: The patient had an opportunity to ask questions regarding the treatment plan. All questions were answered. Physical exam, labs, and imaging were discussed and reviewed in detail. As well as risks, benefits, and discussion of treatment choices. No major barriers to understanding were identified. The patient expressed understanding and agreement with the above treatment plan. The patient was made aware they should contact our office by phone for worsening of their current condition, the appearance of new symptoms, or with any questions or concerns. Compliance is encouraged with any medications and follow up testing that is ordered. It is a privilege to be allowed the opportunity to participate in? your urological care.? Again, if you have any questions or concerns If you have any questions or concerns please do not hesitate to contact me. The office is [phone]. This note is constructed using voice recognition software. While every effort has been made to ensure accuracy manager cosmetics errors may have been included. Yours sincerely, JACOBO Flowers-L[place]ON Coding Level of Care Code Est Pt Level 4 (35165) Diagnoses Elevated PSA R97.20 Urinary retention with incomplete bladder emptying R33.9 UTI (urinary tract infection), bacterial N39.0; A49.9 Bladder calculi N21.0 Hematuria R31.9 Renal stones N20.0
== END 2023-05-18 16:18 | disposition home or self-care (01) ==
LOC: HO.HUSH 15:37
PROVIDERS: PCP Internal Medicine; Visit Provider Nurse Practitioner Family
DX: R97.20 Elevated prostate specific antigen [PSA] (principal); R33.9 Retention of urine, unspecified; N39.0 Urinary tract infection, site not specified; A49.9 Bacterial infection, unspecified; N21.0 Calculus in bladder; R31.9 Hematuria, unspecified; N20.0 Calculus of kidney
CPT/HCPCS: 99214

== ENCOUNTER 2023-05-18 15:37 | Outpatient (REF) | payer MEDICARE, SELFPAY ==
[2023-05-18 16:45] LABS: Urine Cytology See Pathology rpt
== END 2023-05-18 15:38 | disposition home or self-care (01) ==
LOC: HO.LNP 15:37
PROVIDERS: PCP Internal Medicine; Visit Provider Nurse Practitioner Family
DX: R97.20 Elevated prostate specific antigen [PSA] (principal); R33.9 Retention of urine, unspecified; N39.0 Urinary tract infection, site not specified; A49.9 Bacterial infection, unspecified; N21.0 Calculus in bladder; R31.9 Hematuria, unspecified; N20.0 Calculus of kidney
CPT/HCPCS: 81003; 87086; 88112; 99212

== ENCOUNTER 2023-05-19 08:20 | Emergency (ER) | payer MEDICARE, SELFPAY ==
[2023-05-19 08:28] VITALS: BP 154/82; PULSE 64; RESP 18; TEMP 36.5; O2SAT 97; BMI 22.1
--- NOTE | 2023-05-19 09:24 | ED.LOWEXIN ---
HPI - Extremity Injury (Lower) General Chief Complaint: Extremity Injury, Lower Stated Complaint: Pain in feet Time Seen by Provider: 05/19/23 09:23 Source: patient, RN notes reviewed and old records reviewed Mode of arrival: ambulatory History of Present Illness HPI Narrative: 77 year male with a past medical history of arthritis, anxiety, depression, presenting to the ED complaining of bilateral foot pain to bottom of feet/arches x months. Patient reports chronic arthritis to feet/ankles. Takes Tylenol at home with little relief. Denies recent injury, trauma or fall. Admits pain is worse in the morning. Denies numbness, tingling, weakness, fever/chills Related Data Previous Rx's Medication Instructions Recorded naproxen 500 mg tablet 500 mg PO BID #30 tabs 05/11/23 ciprofloxacin HCl 500 mg tablet 500 mg PO BID #14 tabs 05/15/23 (Cipro) Allergies Allergy/AdvReac Type Severity Reaction Status Date / Time phenytoin [Dilantin] Allergy Severe Redness of Verified 05/19/23 08:30 Skin lactose Allergy Intermediate Gastrointestinal Verified 05/19/23 08:30 Upset Review of Systems Review of Systems: Constitutional: No Fever, No Chills Cardiovascular: No Chest Pain, No SOB Respiratory: No Cough Gastrointestinal: No Nausea, No Vomiting, No Diarrhea, No Constipation, No Abdominal pain Genitourinary: No Dysuria, No Urinary Frequency, No Flank Pain Musculoskeletal: + joint pain, No Myalgias, No Joint Swelling Skin: No Skin Lesions, No rash Neuro: No Weakness, No Numbness, No Paresthesias Yes all other systems are reviewed and are negative Constitutional: Constitutional: Reports as per [facility] Past Medical History Attestation statement: The following information was validated with the patient. Source: old records reviewed Medical History History of skin cancer Balance problems Renal stones Spermatocele Hydrocele H/O urinary frequency H/O urinary retention History of elevated PSA Vasculogenic erectile dysfunction Depression Anxiety Brain hematoma Enlarged prostate Surgical History History of brain surgery Hx of colonoscopy History of hip replacement, total Social History Social History Are you a primary after school caregiver to a significant other at home: No Alcohol intake: never Patient Tobacco Use Status: Former Tobacco user Quit Date: 1978 Tobacco use type: Cigarette Advance Directives: Yes Advance Directives on File: Yes Advance Directives Date on File: 06/01/21 Physical Exam Vital Signs: Vital Signs: Last Vital Signs Temp 97.7 F 05/19/23 08:28 Pulse 64 05/19/23 08:28 Resp 18 05/19/23 08:28 BP 154/82 H 05/19/23 08:28 Pulse Ox 97 05/19/23 08:28 O2 Del Method Room Air 05/19/23 08:28 BMI result Body Mass Index 22.1 Const: General: cooperative, healthy appearing and no acute distress Orientation/consciousness: patient oriented x3 Limitations: no limitations HEENT: Head: Yes normal to inspection and Yes atraumatic Ears: hearing grossly normal bilaterally General nose exam: Normal external nose present Face and sinus: Yes normal facial exam Eyes: General: appearance normal, both eyes and all related structures EOM: EOMs intact bilaterally Neck: Neck: Yes normal visual inspection and Yes no meningeal signs Resp: Effort & Inspection: normal respiratory effort and no respiratory distress Cardio: Rate: regular rate Skin: Rashes: no rashes Wounds: no wounds Neuro: General: patient oriented x3, tone normal and no meningeal signs Cranial nerves: Yes CN's II-XII intact bilaterally Gait exam (Neuro): Normal gait present Extrem: Other: Bilateral ankles/feet without deformities/erythema/rash or swelling. Neurovascularly intact. Mild tenderness to palpation to bilateral plantar fascia. No crepitus General: Yes normal to inspection Medical Decision Making Medical Decision Making MDM Narrative: 77 year male with a past medical history of arthritis, anxiety, depression, presenting to the ED complaining of bilateral foot pain to bottom of feet/arches x months. On exam vital signs stable, NAD, nontoxic appearing, physical exam as above consistent with plantar fasciitis. No evidence of cellulitis, infection, open wounds, low suspicion for DVT, septic joint/arthritis Plan: Discussed at length recommended putting a arches in shoes, supportive shoes, and podiatry follow-up Please refer to course for remaining clinical decision making, interpretation of labs/imaging results, and discussions with consultants and/or family members. Differential Diagnosis Differential Diagnoses: The differential diagnosis associated with the presentation includes As above External Record Review External record reviewed: Inpatient record, Office record, Outpatient record, Prior outpatient labs, Prior outpatient radiology, Primary care record and Outside ED record Tests considered The following testing was considered but not selected: As above Prescription Management I considered prescription management with: Pain Medication Discharge Plan Discharge Clinical Impression: Bilateral plantar fasciitis Patient Disposition: Home, Self-Care Instructions: Plantar Fasciitis (ED), Plantar Fasciitis Exercises (ED) Additional Instructions: Please by arches for your shoes Wear supportive shoes Take Tylenol and Motrin for pain Warm compresses Performed foot stretching exercises Follow-up with Podiatry and your doctor Prescriptions: No Action naproxen 500 mg tablet 500 mg PO BID Qty: 30 0RF ciprofloxacin HCl [Cipro] 500 mg tablet 500 mg PO BID Qty: 14 0RF Referrals: Lee Patel MD [Primary Care Provider] - Toño Elliott MD [Physician] - Raoul Elliott DPM [Physician] - Interventions: ED Discharge Assessment Last Done: 05/19/23 09:57 Discharge Date/Time: 05/19/23 09:57
== END 2023-05-19 09:57 | disposition home or self-care (01) ==
PROVIDERS: Emergency Provider Emergency Medicine Emergency Medical Services; PCP Internal Medicine
DX: M72.2 Plantar fascial fibromatosis (principal)
CPT/HCPCS: 99282

== ENCOUNTER 2023-05-25 06:56 | Emergency (ER) | payer MEDICARE, SELFPAY ==
[2023-05-25 07:08] VITALS: BP 147/76; PULSE 65; RESP 18; TEMP 36.6; O2SAT 97; BMI 22.0
--- NOTE | 2023-05-25 09:07 | ED.GENADULT ---
HPI - General Adult General Chief complaint: Extremity Injury, Lower Stated complaint: foot pain Time Seen by Provider: 05/25/23 09:04 Source: patient Mode of arrival: ambulatory Limitations: no limitations History of Present Illness HPI narrative: Patient is a 77 year old assigned male at with a history of BPH and anxiety presenting to the emergency department today with bilateral foot pain. Patient states that this has been going on for weeks in both of his feet. Patient states that he has been seen by an orthopedic doctor and a operation specialist who both told him nothing and did nothing . Patient states that the medication he's been given has not been helping. Patient denies any dizziness, lightheadedness, abdominal pain, nausea, vomiting, fever, chills, blurry vision, double vision, loss of vision, chest pain, difficulty breathing, shortness of breath, back pain, night sweats, pain with urination, increased urinary frequency, increased urinary urgency, blood in his urine or stool, syncope or a near syncopal episode, recent trauma or falls, bowel incontinence, bladder incontinence, bowel retention, bladder retention, or any other complaints at this time. Onset (ago): week(s) Location: left, right and lower extremity Radiation: non-radiation Severity: mild Severity scale (1-10): 4 Quality: aching and dull Pain Consistency: constant Relieving factors: none Exacerbating factors: none Associated symptoms: denies other symptoms Treatments prior to arrival: NSAID Related Data Previous Rx's Medication Instructions Recorded naproxen 500 mg tablet 500 mg PO BID #30 tabs 05/11/23 ciprofloxacin HCl 500 mg tablet 500 mg PO BID #14 tabs 05/15/23 (Cipro) prednisone 20 mg tablet 20 mg PO DAILY 7 days #7 tabs 05/25/23 Allergies Allergy/AdvReac Type Severity Reaction Status Date / Time phenytoin [Dilantin] Allergy Severe Redness of Verified 05/25/23 07:08 Skin lactose Allergy Intermediate Gastrointestinal Verified 05/25/23 07:08 Upset Review of Systems Constitutional: Constitutional: Reports no additional constitutional complaints, Denies chills, Denies fever(s) and Denies night sweats Eyes: Eyes: Reports no additional eye complaints, Denies blurry vision, Denies change in vision, Denies diplopia, Denies eye discharge, Denies loss of vision and Denies eye pain ENT: Denies dizziness Cardiovascular: Cardiovascular: Reports no additional cardiovascular complaints, Denies chest pain, Denies lightheadedness, Denies Loss of Consciousness and Denies dyspnea Respiratory: Respiratory: Reports no additional respiratory complaints and Denies dyspnea Gastrointestinal: Gastrointestinal: Reports no additional gastrointestinal complaints, Denies abdominal pain, Denies melena, Denies hematochezia, Denies change in bowel habits and Denies change in stool character Genitourinary: Genitourinary: Reports no additional male genitourinary complaints, Denies hematuria, Denies oliguria, Denies difficulty urinating, Denies dysuria, Denies urinary frequency, Denies urinary hesitancy, Denies urinary incontinence and Denies urinary urgency Musculoskeletal: Musculoskeletal: Reports no additional musculoskeletal complaints, Denies numbness and Denies tingling Comments: bilateral foot pain Neurologic: Denies dizziness, Denies loss of vision, Denies numbness and Denies tingling Psychiatric: Psychiatric: Reports no additional psychiatric complaints Endocrine: Endocrine: Reports no additional endocrine complaints Hematologic/Lymphatic: Hematologic/Lymphatic: Reports no additional hematologic/lymphatic complaints Allergic/Immunologic: Allergic/Immunologic: Reports no additional allergic/immunologic complaints [facility] Past Medical History Attestation statement: The following information was validated with the patient. Source: old records reviewed and nursing notes reviewed Medical History History of skin cancer Balance problems Renal stones Spermatocele Hydrocele H/O urinary frequency H/O urinary retention History of elevated PSA Vasculogenic erectile dysfunction Depression Anxiety Brain hematoma Enlarged prostate Surgical History History of brain surgery Hx of colonoscopy History of hip replacement, total Social History Social History Are you a primary nurse healthcare manager to a significant other at home: No Alcohol intake: never Patient Tobacco Use Status: Former Tobacco user Quit Date: 1978 Tobacco use type: Cigarette Advance Directives: Yes Advance Directives on File: Yes Advance Directives Date on File: 06/01/21 Physical Exam ED Vital Signs: Vital Signs - 24 hr 05/25/23 07:08 05/25/23 09:28 Temperature 97.8 F 97.7 F Pulse Rate 65 67 Respiratory Rate 18 16 Blood Pressure 147/76 H 128/75 Pulse Oximetry 97 97 Oxygen Delivery Method Room Air Room Air BMI result Body Mass Index 22.0 Const General: cooperative, no acute distress, alert and awake Nutritional Appearance: well nourished Orientation/consciousness: patient oriented x3 Limitations: no limitations HENMT Head: Yes normal to inspection and Yes atraumatic Ears: hearing grossly normal bilaterally and external ears normal General nose exam: Normal external nose present, no nasal discharge noted and no epistaxis Face and sinus: Yes normal facial exam, No abrasion and No laceration Mouth: Normal oral and palatal mucosa present, no drooling and no muffled voice Eyes General: appearance normal, both eyes and all related structures Periorbital: periorbital findings normal Eyelids: Yes eyelids normal Conjunctivae: conjunctivae normal Pupils: Equal, round and reactive pupils present EOM: EOMs intact bilaterally Neck Neck: Yes normal visual inspection, Yes full ROM and Yes no lymphadenopathy Chest Chest palpation & inspection: normal inspection of the chest Resp Effort & Inspection: normal respiratory effort and able to speak in complete sentences GI Inspection: Yes normal to inspection Neuro General: patient oriented x3 and moves all extremities Cranial nerves: Yes Equal, round and reactive pupils present Cognition (Neuro): normal cognition Motor exam (neuro): 5/5 motor strength present throughout Sensory Exam: Normal double simultaneous stimulation for sensation Coordination: [id number] test normal Extrem General: Yes normal to inspection, Yes full ROM and Yes capillary refill normal Psych Appearance: grossly normal Mental Status: mental status grossly normal Affect: normal affect Attitude: cooperative Thought process: Normal thought process present Thought content: Normal thought content present Insight: Good insight present (Psych) Medical Decision Making Medical Decision Making MDM Narrative: Patient is a 77 year old assigned male at with a history of anxiety and BPH presenting to the emergency department today with bilateral foot pain. Patient's physical exam was unremarkable. Patient's clinical presentation is most consistent with bilateral plantar fasciitis. I explained my physical exam findings to the patient. I answered all questions asked by the patient. I stressed the importance of the patient taking his medication as prescribed. I stressed the importance of the patient following up with his primary care provider, a operations plant attendant, and a pain specialist. I stressed the importance of the patient returning to the emergency department immediately if his symptoms were to worsen or if he were to develop any dizziness, shortness of breath, difficulty breathing, chest pain, blurry vision, loss of vision, nausea, vomiting, abdominal pain, fever, chills, back pain, or any other complaints. Patient verbalized agreement and understanding with this treatment plan and discharge. Differential Diagnosis Differential Diagnoses: The differential diagnosis associated with the presentation includes Bilateral foot pain Bilateral plantar fasciitis Discharge Plan Discharge Clinical Impression: Bilateral plantar fasciitis Patient Disposition: Home, Self-Care Instructions: Plantar Fasciitis (ED), Plantar Fasciitis Exercises (ED) Additional Instructions: Follow up with your primary care provider, a operations plant attendant, and a pain specialist. Return to the emergency department immediately if your symptoms worsen or if you develop any dizziness, shortness of breath, difficulty breathing, chest pain, blurry vision, loss of vision, nausea, vomiting, abdominal pain, fever, chills, back pain, or any other complaints. Prescriptions: New prednisone 20 mg tablet 20 mg PO DAILY 7 Days Qty: 7 0RF No Action naproxen 500 mg tablet 500 mg PO BID Qty: 30 0RF ciprofloxacin HCl [Cipro] 500 mg tablet 500 mg PO BID Qty: 14 0RF Referrals: Dominguez Pike DPM [Physician] - (Call to establish and follow up with a operation specialist.) Lee Patel MD [Primary Care Provider] - Evangelist Meadows MD [Physician] - (Call to establish and follow up with a pain specialist.) Interventions: ED Discharge Assessment Last Done: 05/25/23 09:29 Discharge Date/Time: 05/25/23 09:30 Print Language: Malay
[2023-05-25 09:28] VITALS: BP 128/75; PULSE 67; RESP 16; TEMP 36.5; O2SAT 97
== END 2023-05-25 09:30 | disposition home or self-care (01) ==
PROVIDERS: Emergency Provider Student in an Organized Health Care Education/Training Program; PCP Internal Medicine
DX: M72.2 Plantar fascial fibromatosis (principal); M79.672 Pain in left foot; M79.671 Pain in right foot; Z87.891 Personal history of nicotine dependence
CPT/HCPCS: 99283

== ENCOUNTER 2023-05-27 08:12 | Emergency (ER) | payer MEDICARE, SELFPAY ==
[2023-05-27 08:17] VITALS: BP 158/76; PULSE 68; RESP 18; TEMP 36.6; O2SAT 96; BMI 21.4
--- NOTE | 2023-05-27 08:23 | ED_ITS ---
HPI - General Adult General Chief complaint: Extremity Injury, Lower Stated complaint: Pain in Arches of Both Feet Time Seen by Provider: 05/27/23 08:16 Source: patient Mode of arrival: ambulatory Limitations: no limitations History of Present Illness HPI narrative: 77-year-old male with a history of anxiety and depression presents for evaluation of pain in both of his arches x several months. He described the pain as burning/tearing that is worst in the mornings when he first gets out of bed. He has been using Naproxen with good effect and is here today requesting another refill. He denies weakness and abnormalities in gait and coordination. No paresthesias or numbness. No headache or vision changes. No chest pain, palpitations, or shortness of breath. No fevers or chills. Related Data Previous Rx's Medication Instructions Recorded naproxen 500 mg tablet 500 mg PO BID #30 tabs 05/11/23 ciprofloxacin HCl 500 mg tablet 500 mg PO BID #14 tabs 05/15/23 (Cipro) prednisone 20 mg tablet 20 mg PO DAILY 7 days #7 tabs 05/25/23 naproxen 500 mg tablet 500 mg PO BID #30 tabs 05/27/23 Allergies Allergy/AdvReac Type Severity Reaction Status Date / Time phenytoin [Dilantin] Allergy Severe Redness of Verified 05/25/23 07:08 Skin lactose Allergy Intermediate Gastrointestinal Verified 05/25/23 07:08 Upset Review of Systems Review of Systems: Constitutional : No Weight loss, No Fever, No Chills, No Fatigue, No Malaise Cardiovascular : No Chest Pain, No SOB, No Edema, No Palpitations Respiratory : No Cough, No Sputum, No Wheezing Gastrointestinal : No Nausea, No Vomiting, No Diarrhea, No Constipation, No abdominal Pain, No Hematochezia, No Melena Genitourinary : No Dysuria, No Urinary Frequency, No Hematuria, Musculoskeletal : +Bilateral arch pain. No joint pain, No Myalgias, No Joint Swelling Skin : No Skin Lesions, No rash Neuro : No Weakness, No Numbness, No Dizziness, No Headache All other systems reviewed and are negative Yes all other systems are reviewed and are negative [facility] Past Medical History Medical History History of skin cancer Balance problems Renal stones Spermatocele Hydrocele H/O urinary frequency H/O urinary retention History of elevated PSA Vasculogenic erectile dysfunction Depression Anxiety Brain hematoma Enlarged prostate Surgical History History of brain surgery Hx of colonoscopy History of hip replacement, total Social History Social History Are you a primary daycare provider to a significant other at home: No Alcohol intake: never Patient Tobacco Use Status: Former Tobacco user Quit Date: 1978 Tobacco use type: Cigarette Advance Directives: Yes Advance Directives on File: Yes Advance Directives Date on File: 06/01/21 Physical Exam ED Vital Signs: Vital Signs - 24 hr 05/27/23 08:17 Temperature 97.9 F Pulse Rate 68 Respiratory Rate 18 Blood Pressure 158/76 H Pulse Oximetry 96 Oxygen Delivery Method Room Air BMI result Body Mass Index 21.4 Appearance: Alert.? Oriented X3.? No acute distress.? Head: Normocephalic, atraumatic, no step-offs or deformities Eyes: Pupils equal, round and reactive to light.? CVS: Normal heart rate and rhythm.? Pulses normal.? Respiratory: No respiratory distress.? Breath sounds normal.? Abdomen: Soft and nontender.? Skin: Skin warm and dry.? Normal skin color.? Normal skin turgor.? Extremities: No lower extremity edema.? No calf ttp. 5/5 strength and full ROM of bilateral lower extremities. No tenderness to palpation of the bilateral plantar aspects of the feet. 2+ DP, PT pulses bilaterally. No sensory deficits noted. Back: No midline tenderness, no C-spine tenderness, full range of motion, no CVA tenderness bilaterally Neuro: Oriented X 3.? No motor deficit.? No sensory deficit. CN 2-12 intact. Gait normal. Medical Decision Making Medical Decision Making MDM Narrative: 77 year male presents to the ED for evaluation of bilateral foot pain to his arches for several months. PE benign History and physical consistent with bilateral plantar fascitis; unlikely, septic joint, septic arthritis, DVT, , osteomyelitis, NV compromise Plan: DC home with naproxen and orthopedics follow-up. Discussed stretching the feet, using a frozen water bottle/golf ball to massage arches of feet, and util ization of foot braces for extra support Differential Diagnosis Differential Diagnoses: The differential diagnosis associated with the pr esentation includes History and physical consistent with bilateral plantar fascitis; unlikely, septic joint, septic arthritis, DVT, osteomyelitis, NV compromise Admission/Observation Consideration of admission/observation: Escalation of care including admission/observation considered unlikely Tests considered The following testing was considered but not selected: No trauma no neurovascular compromise no indication for imaging Prescription Management I considered prescription management with: Pain Medication Discharge Plan Discharge Clinical Impression: Plantar fasciitis, bilateral Patient Disposition: Home, Self-Care Instructions: Plantar Fasciitis (ED), Plantar Fasciitis Exercises (ED) Additional Instructions: Take your medications as prescribed. If you were prescribed antibiotics today, it is important that you take your medication to their entirety, do not skip any doses, do not finish them early. Follow-up with your primary care provider this week. Return to the emergency department with new or worsening symptoms. Such as fevers, chills, chest pain, shortness of breath, nausea, vomiting, dizziness, headache, vision changes, lethargy In case of emergency call 911 Prescriptions: New naproxen 500 mg tablet 500 mg PO BID Qty: 30 0RF No Action naproxen 500 mg tablet 500 mg PO BID Qty: 30 0RF ciprofloxacin HCl [Cipro] 500 mg tablet 500 mg PO BID Qty: 14 0RF prednisone 20 mg tablet 20 mg PO DAILY 7 Days Qty: 7 0RF Referrals: [facility] [Provider Group] - 1 week Lee Patel MD [Primary Care Provider] - 2 days Stand Alone Forms: Work/School Release Discharge Date/Time: 05/27/23 08:45
== END 2023-05-27 08:45 | disposition home or self-care (01) ==
PROVIDERS: Emergency Provider Emergency Medicine Emergency Medical Services; PCP Internal Medicine
DX: M72.2 Plantar fascial fibromatosis (principal)
CPT/HCPCS: 99281

== ENCOUNTER 2023-05-29 07:20 | Emergency (ER) | payer MEDICARE, SELFPAY ==
--- NOTE | ~2023-05-29 | XR_ITS ---
EXAMINATION: XR CHEST CLINICAL INFORMATION: Chest pain COMPARISON: None available. TECHNIQUE: Frontal view of the chest was obtained. FINDINGS: The lungs are well-expanded and clear of acute process. Heart size and pulmonary vascularity is normal. There is mild spondylosis dorsal spine. No aggressive lytic or sclerotic process seen. XR/XR chest 1V IMPRESSION: Unremarkable chest examination.
--- NOTE | 2023-05-29 07:30 | ECG_ITS ---
Test Reason : SOB Blood Pressure : / mmHG Vent. Rate : 081 BPM Atrial Rate : 081 BPM P-R Int : 160 ms QRS Dur : 090 ms QT Int : 356 ms P-R-T Axes : 024 060 037 degrees QTc Int : 413 ms Normal sinus rhythm with sinus arrhythmia Normal ECG When compared with ECG of 12-JUL-2022 14:54, No significant change was found Referred By: Generic ED Physician Electronically Signed By:Coy Scott
[2023-05-29 07:33] VITALS: BP 170/100; PULSE 103; O2SAT 96; BMI 22.7
[2023-05-29 07:40] VITALS: BP 135/69; PULSE 86; RESP 18; TEMP 37; O2SAT 94
[2023-05-29 08:51] VITALS: BP 126/72; PULSE 70; RESP 22; TEMP 36.6; O2SAT 96
[2023-05-29 09:12] LABS: MANUAL DIFF FLAG NO
[2023-05-29 09:24] LABS: Basophils Absolute Auto 0.1 X10*3/uL (0.0-0.2); Basophils Percent Auto 0.5 % (0-2); Eosinophils Absolute Auto 0.1 X10*3/uL (0.0-0.4); Hematocrit 43.6 % (42.0-52.0); Hemoglobin 14.5 g/dl (14.0-18.0); Imm Gran Abs Auto 0.04 X10*3/uL (0.00-0.03); Imm Gran Pct Auto 0.3 % (0.0-0.4); Lymphocytes Absolute Auto 1.6 X10*3/uL (1.2-4.9); Lymphocytes Percent Auto 13.5 % (20-40); Mean Corpuscular HGB Conc 33.3 g/dl (31.0-36.0); Mean Corpuscular Hemoglobin 31.4 pg (27.0-33.0); Mean Corpuscular Volume 94.4 fL (80.0-98.0); Mean Platelet Volume 8.8 fL (9.4-12.4); Monocytes Absolute Auto 0.8 X10*3/uL (0.1-1.2); Monocytes Percent Auto 6.3 % (2-11); Neutrophils Absolute Auto 9.4 x10*3/uL (2.0-8.3); Neutrophils Percent Auto 78.4 % (45-73); Platelet Count 358 X10*3/uL (160-400); Red Blood Count 4.62 X10*6/uL (4.60-5.80); Red Cell Distribution Width 13.2 % (11.0-16.0)
[2023-05-29 09:28] LABS: COVID-19 Test Negative (Negative); IDNOW Serial# BCCEAD1C
[2023-05-29 09:29] LABS: Alanine Aminotransferase 37 U/L (0-40); Albumin Level 3.7 g/dL (3.5-5.0); Alkaline Phosphatase 70 U/L (39-117); Anion Gap 12 (12-20); Aspartate Amino Transferase 32 U/L (5-37); Bilirubin Total 0.5 mg/dL (0.0-1.0); Blood Urea Nitrogen 26 mg/dL (9-16); Calcium 9.9 mg/dL (8.4-10.2); Carbon Dioxide 26 mmol/L (22-29); Chloride 106 mmol/L (96-108); Creatinine Clr Calc Pharmacy 80.5; Estimated Glomerular Filt Rate > 60; Glucose Random 117 mg/dL (60-115); Magnesium 1.9 mg/dL (1.6-2.6); Potassium 3.9 mmol/L (3.3-5.1); Sodium 140 mmol/L (135-145); Total Protein 6.2 g/dL (6.5-8.0)
[2023-05-29 09:30] VITALS: BP 126/72; PULSE 77; RESP 18; O2SAT 96
[2023-05-29 09:33] LABS: B Type Natriuretic Peptide 65 pg/mL (<100)
[2023-05-29 09:35] LABS: INTERNATIONAL NORM RATIO 0.9 (0.9-1.1); Prothrombin Time 11.2 SEC (11.1-13.3)
--- NOTE | 2023-05-29 09:59 | PC.NURSE ---
labs pending. pt reports that main complaint is a burning sensation in his feet. says it feels like pins and needles. pt is able to walk. telemetry monitor - NSR. plan of care ongoing
[2023-05-29 10:03] LABS: Troponin-I High Sensitivity < 2.7 ng/L (<3.5-35.0)
--- NOTE | 2023-05-29 10:15 | ED_ITS ---
HPI - Chest Pain General Chief Complaint: Chest Pain Stated Complaint: CHEST DISCOMFORT,STS CHEST/FEET FEEL WARM PER EMS Time Seen by Provider: 05/29/23 08:41 Source: patient Mode of arrival: ambulatory Limitations: no limitations History of Present Illness HPI narrative: This is a 77-year-old male history of BPH, anxiety, kidney stones presenting to the emergency department with bilateral lower extremity pain to the bottom of his feet, also complaining of some chest pain particularly to the left anterior chest, nonradiating, intermittent. He reports his feet hurt more he reports he has osteoarthritis of the feet and he thinks this could be contributing. Chest pain started while he was at rest, describes it as an intermittent pressure to the left side of his chest. No associated fevers, chills, shortness of breath, nausea, vomiting, abdominal pain, numbness, tingling. Related Data Previous Rx's Medication Instructions Recorded naproxen 500 mg tablet 500 mg PO BID #30 tabs 05/11/23 ciprofloxacin HCl 500 mg tablet 500 mg PO BID #14 tabs 05/15/23 (Cipro) prednisone 20 mg tablet 20 mg PO DAILY 7 days #7 tabs 05/25/23 naproxen 500 mg tablet 500 mg PO BID #30 tabs 05/27/23 cefuroxime axetil 250 mg tablet 250 mg PO BID 14 days #28 tabs 05/29/23 Allergies Allergy/AdvReac Type Severity Reaction Status Date / Time phenytoin [Dilantin] Allergy Severe Redness of Verified 05/25/23 07:08 Skin lactose Allergy Intermediate Gastrointestinal Verified 05/25/23 07:08 Upset Review of Systems 2 Review of Systems: Constitutional : No Weight loss, No Fever, No Chills, No Fatigue, No Malaise ENT/Mouth : No sore throat, No Rhinorrhea Eyes: No Eye Pain, No Swelling, No Redness Cardiovascular : + Chest Pain, No SOB, No Dyspnea on Exertion, No Orthopnea, No Edema, No Palpitations Respiratory : No Cough, No Sputum, No Wheezing Gastrointestinal : No Nausea, No Vomiting, No Diarrhea, No Constipation, No abdominal Pain, No Hematochezia, No Melena Genitourinary : No Dysuria, No Urinary Frequency, No Hematuria, Musculoskeletal : No joint pain, No Myalgias, No Joint Swelling, + pain to feet Skin : No Skin Lesions, No rash Neuro : No Weakness, No Numbness, No Dizziness, No Headache Psych : No Anxiety/Panic, No Depression All other systems reviewed and are negative Yes all other systems are reviewed and are negative [facility] Past Medical History Attestation statement: The following information was validated with the patient. Source: old records reviewed and nursing notes reviewed Medical History History of skin cancer Balance problems Renal stones Spermatocele Hydrocele H/O urinary frequency H/O urinary retention History of elevated PSA Vasculogenic erectile dysfunction Depression Anxiety Brain hematoma Enlarged prostate Surgical History History of brain surgery Hx of colonoscopy History of hip replacement, total Social History Social History Are you a primary behavioral health care coordinator to a significant other at home: No Alcohol intake: never Patient Tobacco Use Status: Former Tobacco user Quit Date: 1978 Tobacco use type: Cigarette Smoked in Last 30 Days: No Use of substances other than those prescribed or required for medical reasons: No Advance Directives: Yes Advance Directives on File: Yes Advance Directives Date on File: 06/01/21 Physical Exam 2 Vital Signs: Vital Signs: Last Vital Signs Temp 97.9 F 05/29/23 08:51 Pulse 77 05/29/23 09:30 Resp 18 05/29/23 09:30 BP 126/72 05/29/23 09:30 Pulse Ox 96 05/29/23 09:30 O2 Del Method Room Air 05/29/23 09:30 BMI result Body Mass Index 22.7 vss Appearance: Alert.? Oriented X3.? No acute distress.? Head: Normocephalic, atraumatic, no step-offs or deformities Eyes: Pupils equal, round and reactive to light.? ENT: Pharynx normal.? Neck: Normal inspection.? Neck supple.? CVS: Normal heart rate and rhythm.? Pulses normal.? Respiratory: No respiratory distress.? Breath sounds normal.? Abdomen: Soft and nontender.? Skin: Skin warm and dry.? Normal skin color.? Normal skin turgor.? Extremities: No lower extremity edema.? No calf ttp. 5/5 strength to bilateral upper and lower extremities Full rom to b/l feet 2+ DP,AT,PT pulses equal and b/l. Normal sensation distally. Cap refil < 2 seconds to b/l UE. Neuro: Oriented X 3.? No motor deficit.? No sensory deficit. CN 2-12 intact Course Reevaluation(s) Reevaluation #1: CBC leukocytosis, I do not suspect this is from infection. Chemistry unremarkable. Troponin negative, EKG nonischemic unlikely ACS ( heart score 2 no need for repeat trop MACE of 0.9-1.7%). BNP within normal limits. Covid negative. Chest xray unremarkable. Tordol given will reevaluate forrp ain Time: 10:24 Reevaluation #2: Patient's urine with infection, this also could explain the leukocytosis. Patient does report urinary frequency and darker urine. Will treat with Ceftin. No signs of pyelo at this time. Patient to be discharged home with urology follow-up and PCP follow-up . Educated patient on diagnosis and treatment plan, answered all question, patient verbalizes understanding. At this time patient will be discharged home, advised to return with new or worsening symptoms. Educated on worrisome signs and symptoms and when to return. At this time I feel comfortable discharge home. Time: 11:08 Reevaluation #3: Patient feeling a lot better after Toradol. Second troponin negative. Patient to be discharged Medications Administered Discontinued Medications Generic Name Dose Route Start Last Admin Trade Name Freq PRN Reason Stop Dose Admin Ketorolac Tromethamine 30 mg 05/29/23 10:20 05/29/23 11:07 Ketorolac Tromethamine 15 Mg/Ml Vial IM 05/29/23 10:21 30 mg ONCE ONE Administration Medical Decision Making Medical Decision Making [facility] Narrative: 47-year-old male presents with chest pain x2 days as well as lower extremity pain particularly in his feet thinks it is his osteoarthritis x2 days Physical examination benign History and physical exam concerning for possible noncardiac related chest pain versus viral illness. Unlikely ACS, PE, dissection, acute respiratory distress, pneumonia. Pain in feet likely osteoarthritis versus plantar fasciitis versus inflammatory arthritis vs neuropathy. No signs of arterial or venous occlusion of lower extremities. No signs of threat to limb or neurovascular compromise. No signs of stroke, posterior stroke. Plan at this time labs, urine, EKG, chest x-ray. Differential Diagnosis Differential Diagnoses: The differential diagnosis associated with the presentation includes History and physical exam concerning for possible noncardiac related chest pain versus viral illness. Unlikely ACS, PE, dissection, acute respiratory distress, pneumonia. Pain in feet likely osteoarthritis versus plantar fasciitis versus inflammatory arthritis vs neuropathy. No signs of arterial or venous occlusion of lower extremities. No signs of threat to limb or neurovascular compromise. No signs of stroke, posterior stroke. Admission/Observation Consideration of admission/observation: Escalation of care including admission/observation considered Unlikely Lab Data MDM Lab Attestation statement: I reviewed the patient's lab results. 05/29/23 09:03 05/29/23 09:03 Labs: Lab Results 05/29/23 05/29/23 Range/Units 09:03 10:40 WBC 12.0 H (4.8-10.8) X10*3/uL RBC 4.62 (4.60-5.80) X10*6/uL Hgb 14.5 (14.0-18.0) g/dl Hct 43.6 (42.0-52.0) % MCV 94.4 (80.0-98.0) fL MCH 31.4 (27.0-33.0) pg MCHC 33.3 (31.0-36.0) g/dl RDW 13.2 (11.0-16.0) % Plt Count 358 D (160-400) X10*3/uL MPV 8.8 L (9.4-12.4) fL Immature Gran % (Auto) 0.3 (0.0-0.4) % Neut % (Auto) 78.4 H (45-73) % Lymph % (Auto) 13.5 L (20-40) % Hartley % (Auto) 6.3 (2-11) % Eos % (Auto) 1.0 (0-4) % Baso % (Auto) 0.5 (0-2) % Lymph # (Auto) 1.6 (1.2-4.9) X10*3/uL Hartley # (Auto) 0.8 (0.1-1.2) X10*3/uL Eos # (Auto) 0.1 (0.0-0.4) X10*3/uL Baso # (Auto) 0.1 (0.0-0.2) X10*3/uL Abs Immat Gran (auto) 0.04 H (0.00-0.03) X10*3/uL Absolute Neuts (auto) 9.4 H (2.0-8.3) x10*3/uL Absolute Nucleated RBC 0.000 (0.0-0.012) X10*3/uL Nucleated RBC % (auto) 0.0 (0.0-0.2) /100WBC PT 11.2 (11.1-13.3) SEC INR 0.9 (0.9-1.1) Sodium 140 (135-145) mmol/L Potassium 3.9 (3.3-5.1) mmol/L Chloride 106 (96-108) mmol/L Carbon Dioxide 26 (22-29) mmol/L Anion Gap 12 (12-20) BUN 26 H (9-16) mg/dL Creatinine 0.77 (0.5-1.4) mg/dL Estim Creat Clear Calc 80.5 Estimated GFR > 60 Random Glucose 117 H (60-115) mg/dL Calcium 9.9 (8.4-10.2) mg/dL Magnesium 1.9 (1.6-2.6) mg/dL Total Bilirubin 0.5 (0.0-1.0) mg/dL AST 32 (5-37) U/L ALT 37 (0-40) U/L Alkaline Phosphatase 70 (39-117) U/L Troponin I High Sens < 2.7 < 2.7 (<3.5-35.0) ng/L B-Natriuretic Peptide 65 (<100) pg/mL Total Protein 6.2 L (6.5-8.0) g/dL Albumin 3.7 (3.5-5.0) g/dL Urine Color Yellow Urine Appearance Cloudy Urine pH 6.0 (5.0-9.0) Ur Specific Robson 1.020 (1.005-1.025) Urine Protein 30 (1+) H (Neg-Trace) mg/dL Urine Glucose (UA) Negative (Negative) mg/dL Urine Ketones Negative (Negative) mg/dL Urine Blood Large (3+) H (Negative) Urine Nitrite Positive H (Negative) Ur Leukocyte Esterase Moderate (2+) H (Negative) Urine RBC >20 H (0-2) /HPF Urine WBC >50 H (0-5) /HPF Ur Squamous Epith Cells 0-2 (0-2) /HPF Urine Bacteria 4+ (None Seen) Hyaline Casts 0-2 (0-2) /LPF COVID-19 ([facility]) Negative (Negative) COVID-19 Clin Com See Note Independent Interpretation I performed an independent interpretation of an: Plain X-Ray Radiology Impression Discussion of test interpretation with radiology: I have reviewed the radiologist's reading. Critical Care Time Critical Care Time Critical Care Time: No Discharge Plan Discharge Clinical Impression: Chest pain, Bilateral foot pain, Acute UTI Patient Disposition: Still a Patient Instructions: Chest Pain (DC), Urinary Tract Infection in Men (ED), Arthralgia (ED) Additional Instructions: Take your medications as prescribed. If you were prescribed antibiotics today, it is important that you take your medication to their entirety, do not skip any doses, do not finish them early. Follow-up with your primary care provider this week. Return to the emergency department with new or worsening symptoms. Such as fevers, chills, chest pain, shortness of breath, nausea, vomiting, dizziness, headache, vision changes, lethargy In case of emergency call 911 Prescriptions: New cefuroxime axetil 250 mg tablet 250 mg PO BID 14 Days Qty: 28 0RF No Action naproxen 500 mg tablet 500 mg PO BID Qty: 30 0RF naproxen 500 mg tablet 500 mg PO BID Qty: 30 0RF ciprofloxacin HCl [Cipro] 500 mg tablet 500 mg PO BID Qty: 14 0RF prednisone 20 mg tablet 20 mg PO DAILY 7 Days Qty: 7 0RF Referrals: [facility] [place] Cardiovascular Services [Provider Group] - 3 days [facility] [place] Urology Services [Provider Group] - 3 days Lee Patel MD [Primary Care Provider] - 2 days Stand Alone Forms: Work/School Release
[2023-05-29 10:59] LABS: Appearance Urine Cloudy; Glucose Urine UA Negative (Negative); Leukocyte Esterase Urine Moderate (2+) (Negative); Nitrite Urine Positive (Negative); UMIC TRIGGER UACC YES; Urine Blood Large (3+) (Negative); Urine Ketones Negative (Negative); Urine Protein 30 (1+) mg/dL (Neg-Trace)
[2023-05-29 11:00] LABS: Bacteria Urine 4+ (None Seen); Color Urine Yellow; Hyaline Casts Urine 0-2 /LPF (0-2); RBC Urine >20 /HPF (0-2); Squamous Epithelial Cell Urine 0-2 /HPF (0-2); UACC Culture Trigger YES; WBC Urine >50 /HPF (0-5)
[2023-05-29] MEDS: Ketorolac Tromethamine 15 MG/ML VIAL 30 MG IM (11:07)
[2023-05-29 11:18] LABS: Troponin-I High Sensitivity < 2.7 ng/L (<3.5-35.0)
[2023-05-29 11:43] VITALS: BP 124/73; PULSE 77; RESP 18; O2SAT 97
== END 2023-05-29 11:45 | disposition still patient (30) ==
PROVIDERS: Physician Assistant; Emergency Provider Emergency Medicine; PCP Internal Medicine
DX: R07.9 Chest pain, unspecified (principal); M79.672 Pain in left foot; M79.671 Pain in right foot; R35.0 Frequency of micturition; D72.829 Elevated white blood cell count, unspecified; Z11.52 Encounter for screening for COVID-19
CPT/HCPCS: 36415; 71045; 80053; 81001; 83735; 83880; 84484; 85025; 85610; 87086; 87635; 93005; 96372; 99285; J1885

== ENCOUNTER → 2023-05-29 07:30 | Outpatient (BNV) | payer MEDICARE, SELFPAY | PROVIDERS: Emergency Provider Emergency Medicine; PCP Internal Medicine; Visit Provider Internal Medicine Cardiovascular Disease | DX: R06.02 Shortness of breath (principal) | CPT/HCPCS: 93010 ==

== ENCOUNTER 2023-06-02 11:16 | Outpatient (REF) | payer MEDICARE, SELFPAY | END 2023-06-02 11:17 | disposition home or self-care (01) | LOC: HO.HMGCX 11:16 | PROVIDERS: PCP Internal Medicine; Visit Provider Nurse Practitioner Family | DX: Z13.89 Encounter for screening for other disorder (principal) ==

== ENCOUNTER 2023-06-07 09:03 | Outpatient (REF) | payer MEDICARE, SELFPAY ==
[2023-06-07 09:30] LABS: Appearance Urine Turbid; Color Urine Yellow; Glucose Urine UA 100 mg/dL (Negative); Leukocyte Esterase Urine Large (3+) (Negative); Nitrite Urine Negative (Negative); PH 5.5 (5.0-9.0); UMIC TRIGGER UA YES; Urine Blood Large (3+) (Negative); Urine Ketones Negative (Negative); Urine Protein 30 (1+) mg/dL (Neg-Trace)
[2023-06-07 09:35] LABS: Bacteria Urine Trace (None Seen); Hyaline Casts Urine 0-2 /LPF (0-2); RBC Urine >20 /HPF (0-2); WBC Urine >50 /HPF (0-5)
== END 2023-06-07 09:04 | disposition home or self-care (01) ==
LOC: HO.LAB 09:03
PROVIDERS: PCP Internal Medicine; Visit Provider Nurse Practitioner Family
DX: N39.0 Urinary tract infection, site not specified (principal); A49.9 Bacterial infection, unspecified
CPT/HCPCS: 81001; 87086

== ENCOUNTER 2023-06-09 13:48 | Outpatient (REF) | payer MEDICARE, SELFPAY ==
--- NOTE | ~2023-06-09 | US_ITS ---
EXAMINATION: US RETROPERITONEAL COMPLETE (RENAL) CLINICAL INFORMATION: Elevated PSA. COMPARISON: CT abdomen and pelvis 05/15/2023. Renal ultrasound 05/02/2015. TECHNIQUE: Real-time imaging of the kidneys and bladder. FINDINGS: RIGHT KIDNEY: 10.1 x 6.2 x 5.7 cm (SAG x AP x TRV). The kidney is normal in size, contour, and echogenicity. Renal cortical thickness is normal. No calculi or focal parenchymal lesions. No hydronephrosis. LEFT KIDNEY: 11.3 x 5.9 x 5.6 cm (SAG x AP x TRV). The kidney is normal in size, contour, and echogenicity. Renal cortical thickness is normal. No calculi or focal parenchymal lesions. No hydronephrosis. BLADDER: Partially distended urinary bladder with prevoid volume 170 mL and postvoid volume 75 mL. The bladder wall is diffusely thickened measuring 0.4 cm. There are 2 large bladder stones measuring 1.9 and 1.5 cm. ADDITIONAL FINDINGS: The prostate is enlarged measuring 115 mL. US/US retroperitoneal comp IMPRESSION: Enlarged prostate with thickened bladder wall consistent with chronic bladder outlet pathophysiology. Post void residual volume 75 mL. Two large bladder stones. No hydronephrosis.
== END 2023-06-09 13:49 | disposition home or self-care (01) ==
LOC: HO.HMGCX 13:48
PROVIDERS: PCP Internal Medicine; Visit Provider Nurse Practitioner Family
DX: R97.20 Elevated prostate specific antigen [PSA] (principal); N40.1 Benign prostatic hyperplasia with lower urinary tract symptoms; N13.8 Other obstructive and reflux uropathy
CPT/HCPCS: 76770

== ENCOUNTER 2023-06-11 09:10 | Outpatient (AMB) | payer MEDICARE, SELFPAY ==
--- NOTE | 2023-06-11 10:34 | MHC.OFFWIV ---
Intake Vital Signs 06/11/23 10:46 Height 5 ft 9 in Weight 151 lb BMI 22.3 BP 118/70 Blood Pressure Location Rt brachial Position Sitting Pulse 98 Pulse Source Pulse Oximeter Temp 98.2 F Temp Source Oral Pulse Oximetry (%) 97 Oxygen Delivery Method Room Air Intake Visit Reasons: EST/exposed to covid([phone]) Intake Note: Pt is here today exposed to COVID on 06/05 no sx's noted Patient Tobacco Use Status: Former Tobacco user Quit Date: 1978 Allergies phenytoin [Dilantin] Allergy (Severe, Verified 05/25/23 07:08) Redness of Skin lactose Allergy (Intermediate, Verified 05/25/23 07:08) Gastrointestinal Upset Do you need a note to return to daycare/school/sports/work: No HPI HPI Comments History of Present Illness Details This is a 77-year-old male with a past medical history of anxiety and BPH presenting after being exposed to COVID-19 at a social function on June 05, 2023. Patient is asymptomatic and denies having any fevers, chills, ear pain, sore throat, chest pain, shortness of breath, cough, nausea, vomiting or diarrhea. Patient states that he is fully vaccinated against COVID-19. [facility] Medical History History of skin cancer Balance problems Renal stones Spermatocele Hydrocele H/O urinary frequency H/O urinary retention History of elevated PSA Vasculogenic erectile dysfunction Depression Anxiety Brain hematoma Enlarged prostate Surgical History History of brain surgery Hx of colonoscopy History of hip replacement, total Social History Are you a primary healthcare social worker to a significant other at home: No Alcohol intake: never Patient Tobacco Use Status: Former Tobacco user Quit Date: 1978 Tobacco use type: Cigarette Advance Directives Date on File: 06/01/21 Review of Systems Const All systems reviewed & are unremarkable except as noted in HPI and below Eyes Reports no additional complaints ENT Reports no additional complaints Card Reports no additional complaints Resp Reports no additional complaints Skin/Breast Reports system reviewed and no additional complaints, except as documented Aller/Immun Reports no additional complaints Physical Exam Vital Signs: Last Vital Signs Temp 98.2 F 06/11/23 10:46 Pulse 98 06/11/23 10:46 BP 118/70 06/11/23 10:46 Pulse Ox 97 06/11/23 10:46 Oxygen Delivery Method Room Air 06/11/23 10:46 BMI result Body Mass Index 22.3 Const General: cooperative, healthy appearing, comfortable and no acute distress; No ill appearing Nutritional Appearance: average body habitus Orientation/consciousness: patient oriented x3 Limitations: no limitations HEENT Head: Yes normal to inspection Ears: hearing grossly normal bilaterally, external ears normal, TM's normal bilaterally and EAC's normal General nose exam: Normal external nose present Face and sinus: Yes normal facial exam and No sinus tenderness Mouth: Normal oral and palatal mucosa present Teeth and gingiva: dentition normal Throat: Yes posterior oropharynx normal and No postnasal drainage Eyes Eyelids: Yes eyelids normal Conjunctivae: conjunctivae normal Sclerae: sclerae normal Corneas: corneas normal Pupils: Equal, round and reactive pupils present EOM: EOMs intact bilaterally Neck Lymphatic: no lymphadenopathy noted Resp Effort & Inspection: normal respiratory effort, able to speak in complete sentences, no audible wheezes, no cough and no respiratory distress Auscultation: clear to auscultation bilaterally Cardio Rate: regular rate Rhythm: regular rhythm Skin General skin exam: no rashes or lesions noted Neuro General: patient oriented x3 Cranial nerves: Yes Equal, round and reactive pupils present Psych Appearance: grossly normal Mental Status: mental status grossly normal Insight: Good insight present (Psych) Judgement: Good judgement present (Psych) Assessment & Plan Assessment & Plan (1) Exposure to COVID-19 virus: Code(s): Z20.822 - Contact with and (suspected) exposure to COVID-19 Plan: SARS panel is initiated and results are pending. Patient to practice safe precautions until the results of his testing are available. Orders: Orders SARS-CoV2/FLU/RSV Today Z20.822 - Contact with and (suspected) exposure to COVID-19 Coding Level of Care Code New Pt Level 3 (52383) Diagnoses Exposure to COVID-19 virus Z20.822 Time Spent (min) 20
[2023-06-11 10:46] VITALS: BP 118/70; PULSE 98; TEMP 36.8; O2SAT 97; BMI 22.3
== END 2023-06-11 11:19 | disposition home or self-care (01) ==
PROVIDERS: PCP Internal Medicine; Visit Provider Physician Assistant
DX: Z20.822 Contact with and (suspected) exposure to COVID-19 (principal)
CPT/HCPCS: 99203

== ENCOUNTER 2023-06-11 11:06 | Outpatient (REF) | payer MEDICARE, SELFPAY ==
[2023-06-11 14:16] LABS: Influenza A PCR NEGATIVE (Negative); Influenza B PCR NEGATIVE (Negative); Resp Syncy Virus RNA Qual PCR NEGATIVE (Negative); SARS COV2 PCR INHOUSE NEGATIVE (Negative)
== END 2023-06-11 11:07 | disposition home or self-care (01) ==
LOC: HO.LAB 11:06
PROVIDERS: Visit Provider Physician Assistant
DX: Z20.822 Contact with and (suspected) exposure to COVID-19 (principal)
CPT/HCPCS: 0241U

== ENCOUNTER 2023-07-03 07:56 | Emergency (ER) | payer MEDICARE, SELFPAY ==
[2023-07-03 07:58] VITALS: BP 130/66; PULSE 114; RESP 18; TEMP 36.2; O2SAT 98; BMI 22.2
--- NOTE | 2023-07-03 08:04 | ED_ITS ---
HPI - Male Genitourinary General Chief complaint: Urogenital-Male Stated complaint: Blood in urine Time Seen by Provider: 07/03/23 08:04 Source: patient Mode of arrival: ambulatory Limitations: no limitations History of Present Illness HPI Narrative: 78 yo male with history of BPH, anxiety, bladder stones here with gross hematuria with no clots since yesterday with dysuria. No abdominal pain, back pain, fevers, chills, vomiting. Patient has f/u with his urologist 2/5 (Dr Wiggins). On 81mg ASA only, no additional AC therapy use Related Data Home Medications Medication Instructions Recorded Confirmed escitalopram oxalate 10 mg tablet 10 mg PO DAILY 06/11/23 finasteride 5 mg tablet 5 mg PO DAILY 06/11/23 lorazepam 0.5 mg tablet 0.5 mg PO DAILY PRN 06/11/23 simvastatin 40 mg tablet 40 mg PO BEDTIME 06/11/23 tamsulosin 0.4 mg capsule 0.8 mg PO DAILY 06/11/23 Previous Rx's Medication Instructions Recorded ciprofloxacin HCl 500 mg tablet 500 mg PO BID #20 tabs 07/03/23 Allergies Allergy/AdvReac Type Severity Reaction Status Date / Time phenytoin [Dilantin] Allergy Severe Redness of Verified 07/03/23 08:01 Skin lactose Allergy Intermediate Gastrointestinal Verified 07/03/23 08:01 Upset Review of Systems 2 Review of Systems: Yes all other systems are reviewed and are negative Constitutional: Constitutional: Reports no additional constitutional complaints, Denies body ache(s), Denies chills, Denies fever(s), Denies headache(s) and Denies weakness Eyes: Eyes: Reports no additional eye complaints and Denies change in vision ENT: Reports system reviewed and no additional complaints, except as documented, Denies dizziness, Denies headache(s), Denies nasal congestion, Denies nasal discharge and Denies neck pain Cardiovascular: Cardiovascular: Reports no additional cardiovascular complaints, Denies chest pain, Denies leg edema and Denies dyspnea Respiratory: Respiratory: Reports no additional respiratory complaints, Denies cough and Denies dyspnea Gastrointestinal: Gastrointestinal: Reports no additional gastrointestinal complaints, Denies abdominal pain, Denies diarrhea, Denies nausea and Denies vomiting Genitourinary: Genitourinary: Reports hematuria, Denies difficulty urinating, Reports dysuria, Denies flank pain, Denies penile discharge, Denies testicular pain, Denies urinary frequency, Denies urinary hesitancy, Denies urinary incontinence and Denies urinary urgency Musculoskeletal: Musculoskeletal: Reports no additional musculoskeletal complaints, Denies back pain, Denies arthralgias, Denies joint swelling, Denies neck pain, Denies numbness and Denies tingling Integumentary/Breasts: Skin/Breast: Reports system reviewed and no additional complaints, except as docu and Denies rash Neurologic: Reports system reviewed and no additional complaints, except as documented, Denies Abnormal speech present, Denies dizziness, Denies headache(s), Denies numbness, Denies tingling and Denies weakness PMFSH Past Medical History Attestation statement: The following information was validated with the patient. Source: old records reviewed and nursing notes reviewed Onset Date is defined in the Problem List Problems that require an onset date and time if occurred within 24 hrs of arrival to the ED Aortic Dissection and Rupture; Neurologic impairment; Cardiopulmonary Arrest; Endotracheal Intubation; Insertion or Replacement of Mechanical Circulatory Assist Device Medical History History of skin cancer Balance problems Renal stones Spermatocele Hydrocele H/O urinary frequency H/O urinary retention History of elevated PSA Vasculogenic erectile dysfunction Depression Anxiety Brain hematoma Enlarged prostate Surgical History History of brain surgery Hx of colonoscopy History of hip replacement, total Social History Social History Are you a primary manager long term care to a significant other at home: No Alcohol intake: never Patient Tobacco Use Status: Former Tobacco user Quit Date: 1978 Tobacco use type: Cigarette Smoked in Last 30 Days: No Advance Directives: Yes Advance Directives on File: Yes Advance Directives Date on File: 06/01/21 Physical Exam 2 Vital Signs: Vital Signs: Last Vital Signs Temp 97.2 F 07/03/23 07:58 Pulse 114 H 07/03/23 07:58 Resp 18 07/03/23 07:58 BP 130/66 07/03/23 07:58 Pulse Ox 98 07/03/23 07:58 O2 Del Method Room Air 01/21/24 07:58 BMI result Body Mass Index 22.2 Const: General: cooperative, healthy appearing, comfortable and no acute distress Orientation/consciousness: patient oriented x3 Limitations: no limitations HEENT: Head: Yes normal to inspection Ears: hearing grossly normal bilaterally General nose exam: Normal external nose present Face and sinus: Yes normal facial exam Mouth: Normal oral and palatal mucosa present Throat: Yes posterior oropharynx normal Eyes: General: appearance normal, both eyes and all related structures P upils: Equal, round and reactive pupils present Neck: Neck: Yes normal visual inspection Chest: Chest palpation & inspection: normal inspection of the chest Resp: Effort & Inspection: normal respiratory effort Auscultation: clear to auscultation bilaterally Cardio: Rate: regular rate Rhythm: regular rhythm Peripheral pulses: P eripheral pulses 2+ throughout GI: Inspection: Yes normal to inspection Palpation (GI): Soft to palpation and nontender Auscultation: normal bowel sounds : General: Yes no CVA tenderness Back/Spine/Pelvis: Back: no CVA tenderness Thoracic/Lumbar Spine: thoracic and lumbar spine normal to inspection Skin: General skin exam: no rashes or lesions noted Neuro: General: patient oriented x3, no focal motor deficits and normal sensation to monofilament Cranial nerves: Yes Equal, round and reactive pupils present Cognition (Neuro): normal cognition Speech: No Abnormal speech present Gait exam (Neuro): Normal gait present Motor exam (neuro): 5/5 motor strength present throughout Extrem: General: Yes normal to inspection Medical Decision Making Medical Decision Making MDM Narrative: 78 yo male with history of BPH, anxiety, bladder stones here with gross hematuria with no clots since yesterday with dysuria. No abdominal pain, back pain, fevers, chills, vomiting. Patient has f/u with his urologist 2/5 (Dr Wiggins). No focal abdominal pain or CVAT VSS Will obtain labs, UA, PVR bladder scan Differential Diagnosis Differential Diagnoses: The differential diagnosis associated with the presentation includes bladder stones, uti low concern for renal colic, pyelo or retention Admission/Observation Consideration of admission/observation: Escalation of care including admission/observation considered Patient with hematuria which appears that he also has a urinary tract infection but not having any difficulty with urinating with stable hemoglobin and hematocrit, not on anticoagulation. I do not feel that he needs a Haq catheter, urgent urology consultation. I will discharge him with antibiotics and he is already connected with Urology who can follow-up with Lab Data MDM Lab Attestation statement: I reviewed the patient's lab results. 07/03/23 08:40 07/03/23 08:40 Labs: Lab Results 07/03/23 Range/Units 08:40 WBC 8.0 (4.8-10.8) X10*3/uL RBC 4.61 (4.60-5.80) X10*6/uL Hgb 14.4 (14.0-18.0) g/dl Hct 43.3 (42.0-52.0) % MCV 93.9 (80.0-98.0) fL MCH 31.2 (27.0-33.0) pg MCHC 33.3 (31.0-36.0) g/dl RDW 12.8 (11.0-16.0) % Plt Count 365 (160-400) X10*3/uL MPV 8.6 L (9.4-12.4) fL Immature Gran % (Auto) 0.5 H (0.0-0.4) % Neut % (Auto) 68.2 (45-73) % Lymph % (Auto) 19.6 L (20-40) % Wheeler % (Auto) 9.4 (2-11) % Eos % (Auto) 1.4 (0-4) % Baso % (Auto) 0.9 (0-2) % Lymph # (Auto) 1.6 (1.2-4.9) X10*3/uL Wheeler # (Auto) 0.8 (0.1-1.2) X10*3/uL Eos # (Auto) 0.1 (0.0-0.4) X10*3/uL Baso # (Auto) 0.1 (0.0-0.2) X10*3/uL Abs Immat Gran (auto) 0.04 H (0.00-0.03) X10*3/uL Absolute Neuts (auto) 5.5 (2.0-8.3) x10*3/uL Absolute Nucleated RBC 0.000 (0.0-0.012) X10*3/uL Nucleated RBC % (auto) 0.0 (0.0-0.2) /100WBC Sodium 140 (135-145) mmol/L Potassium 4.0 (3.3-5.1) mmol/L Chloride 106 (96-108) mmol/L Carbon Dioxide 27 (22-29) mmol/L Anion Gap 11 L (12-20) BUN 18 H (9-16) mg/dL Creatinine 0.85 (0.5-1.4) mg/dL Estim Creat Clear Calc 70.2 Estimated GFR > 60 Random Glucose 114 (60-115) mg/dL Calcium 10.5 H D (8.4-10.2) mg/dL Urine Color Red A Urine Appearance Hazy Urine pH 5.5 (5.0-9.0) Ur Specific [place] 1.010 (1.005-1.025) Urine Protein 300 (3+) H (Neg-Trace) mg/dL Urine Glucose (UA) Negative (Negative) mg/dL Urine Ketones Negative (Negative) mg/dL Urine Blood Large (3+) H (Negative) Urine Nitrite Positive H (Negative) Ur Leukocyte Esterase Large (3+) H (Negative) Urine RBC >20 H (0-2) /HPF Urine WBC >50 H (0-5) /HPF Ur Squamous Epith Cells 3-5 (0-2) /HPF Urine Bacteria 3+ (None Seen) Hyaline Casts 0-2 (0-2) /LPF Independent Historian Clinical information obtained from an independent historian. History obtained from or confirmed by: Spouse (partner) Tests considered The following testing was considered but not selected: NO abdominal pain, flank pain to suggest need for CT Prescription Management I considered prescription management with: Antibiotic Discharge Plan Discharge Clinical Impression: Hematuria Patient Disposition: Home, Self-Care Instructions: Hematuria (ED) Additional Instructions: Increase fluids, rest Follow-up with urology Return for fever, vomiting, abdominal or back pain or inability to empty your bladder Prescriptions: New ciprofloxacin HCl 500 mg tablet 500 mg PO BID Qty: 20 0RF No Action tamsulosin 0.4 mg capsule 0.8 mg PO DAILY lorazepam 0.5 mg tablet 0.5 mg PO DAILY PRN escitalopram oxalate 10 mg tablet 10 mg PO DAILY finasteride 5 mg tablet 5 mg PO DAILY simvastatin 40 mg tablet 40 mg PO BEDTIME Referrals: Zaid Wiggins MD [Physician] - 1 week Discharge Date/Time: 07/03/23 09:11
[2023-07-03 08:45] LABS: MANUAL DIFF FLAG NO
[2023-07-03 08:49] LABS: Basophils Absolute Auto 0.1 X10*3/uL (0.0-0.2); Basophils Percent Auto 0.9 % (0-2); Eosinophils Absolute Auto 0.1 X10*3/uL (0.0-0.4); Eosinophils Percent Auto 1.4 % (0-4); Hematocrit 43.3 % (42.0-52.0); Hemoglobin 14.4 g/dl (14.0-18.0); Imm Gran Abs Auto 0.04 X10*3/uL (0.00-0.03); Imm Gran Pct Auto 0.5 % (0.0-0.4); Lymphocytes Absolute Auto 1.6 X10*3/uL (1.2-4.9); Lymphocytes Percent Auto 19.6 % (20-40); Mean Corpuscular HGB Conc 33.3 g/dl (31.0-36.0); Mean Corpuscular Hemoglobin 31.2 pg (27.0-33.0); Mean Corpuscular Volume 93.9 fL (80.0-98.0); Mean Platelet Volume 8.6 fL (9.4-12.4); Monocytes Absolute Auto 0.8 X10*3/uL (0.1-1.2); Monocytes Percent Auto 9.4 % (2-11); Neutrophils Absolute Auto 5.5 x10*3/uL (2.0-8.3); Neutrophils Percent Auto 68.2 % (45-73); Platelet Count 365 X10*3/uL (160-400); Red Blood Count 4.61 X10*6/uL (4.60-5.80); Red Cell Distribution Width 12.8 % (11.0-16.0)
[2023-07-03 08:53] LABS: Appearance Urine Hazy; Color Urine Red; Glucose Urine UA Negative (Negative); PH 5.5 (5.0-9.0); Urine Blood Large (3+) (Negative); Urine Ketones Negative (Negative); Urine Protein 300 (3+) mg/dL (Neg-Trace)
[2023-07-03 08:55] LABS: Leukocyte Esterase Urine Large (3+) (Negative); Nitrite Urine Positive (Negative); UMIC TRIGGER UACC YES
[2023-07-03 08:57] LABS: Anion Gap 11 (12-20); Blood Urea Nitrogen 18 mg/dL (9-16); Calcium 10.5 mg/dL (8.4-10.2); Carbon Dioxide 27 mmol/L (22-29); Chloride 106 mmol/L (96-108); Creatinine Clr Calc Pharmacy 70.2; Estimated Glomerular Filt Rate > 60; Glucose Random 114 mg/dL (60-115); Sodium 140 mmol/L (135-145)
[2023-07-03 09:02] LABS: Bacteria Urine 3+ (None Seen); Hyaline Casts Urine 0-2 /LPF (0-2); RBC Urine >20 /HPF (0-2); UACC Culture Trigger YES; WBC Urine >50 /HPF (0-5)
== END 2023-07-03 09:11 | disposition home or self-care (01) ==
PROVIDERS: Nurse Practitioner Family; Emergency Provider Emergency Medicine; PCP Internal Medicine
DX: R31.0 Gross hematuria (principal); R30.0 Dysuria; Z87.891 Personal history of nicotine dependence; Z79.899 Other long term (current) drug therapy
CPT/HCPCS: 36415; 51798; 80048; 81001; 85025; 87086; 87088; 87186; 99283; 99284

== ENCOUNTER 2023-07-28 13:54 | Outpatient (AMB) | payer MEDICARE, SELFPAY ==
--- NOTE | 2023-07-28 13:55 | MHC.OFFVIS ---
Intake Vital Signs 07/28/23 14:16 Height 5 ft 9 in Weight 154 lb 6 oz BMI 22.8 BP 136/76 Blood Pressure Location Lt brachial Position Sitting Respiration 14 Pulse 100 Pulse Source Pulse Oximeter Pulse Oximetry (%) 97 Oxygen Delivery Method Room Air Intake Visit Reasons: Arthritic foot pain- Confirmed Intake Note: Patient came in for initial visit was referred by primary care. Reports pain 8/10. Allergies phenytoin [Dilantin] Allergy (Severe, Verified 07/28/23 14:19) Redness of Skin lactose Allergy (Intermediate, Verified 07/28/23 14:19) Gastrointestinal Upset HPI HPI Comments History of Present Illness Details Dominguez is very pleasant 78 years old gentleman who presents in my office with complains on pain in bilateral feet. He reports that his pain started 07/28/2022. He dropped heavy cement blocks on his feet. He reports his pain today 810. He reports that he can not sleep normally but can not do activities of daily living he can not take care of himself but he can not function normally he is retired individual. 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 He is self mobile he does not need assistive devices for ambulation. He reports that his pain is severe and in terms of tissue damage felt as hot burning scalding searing and tingling sensation. He reports that he was in the care of ?a doctor who made me to roll cold bottles as well as put needles into my thighs to improve circulation in my feet . I presume that this was a business ethics professor who made some recommendations for the patient. All of this sounds very weird especially because the patient does not remember the name of his business ethics professor. He denies past medical history he denies prior surgeries he does not smoke cigarettes drink 1 glass of wine every day denies caffeinated beverages denies recreational drugs. [facility], [facility] Medical History History of skin cancer Balance problems Renal stones Spermatocele Hydrocele H/O urinary frequency H/O urinary retention History of elevated PSA Vasculogenic erectile dysfunction Depression Anxiety Brain hematoma Enlarged prostate Surgical History History of brain surgery Hx of colonoscopy History of hip replacement, total Social History Are you a primary career development coordinator/teacher to a significant other at home: No Alcohol intake: never Patient Tobacco Use Status: Former Tobacco user Quit Date: 1978 Tobacco use type: Cigarette Advance Directives Date on File: 06/01/21 Review of Systems Const All systems reviewed & are unremarkable except as noted in HPI and below ENT Reports Normal hearing present Neuro Reports Normal hearing present, Denies Abnormal speech present, Denies confusion and Denies Sensory deficit (Neuro) Psych Denies confusion Physical Exam Vital Signs: Last Vital Signs Pulse 100 07/28/23 14:16 Resp 14 07/28/23 14:16 BP 136/76 07/28/23 14:16 Pulse Ox 97 07/28/23 14:16 Oxygen Delivery Method Room Air 07/28/23 14:16 BMI result Body Mass Index 22.8 Const General: no acute distress; No confusion Orientation/consciousness: patient oriented x3 and No confusion Eyes General: appearance normal, both eyes and all related structures Pupils: Equal, round and reactive pupils present EOM: EOMs intact bilaterally Neck Neck: Yes full ROM Chest Chest palpation & inspection: normal inspection of the chest Resp Effort & Inspection: normal respiratory effort, able to speak in complete sentences, normal respiratory pattern, no audible wheezes and no cough Cardio Jugular venous distension: no JVD GI Inspection: Yes normal to inspection Neuro General: patient oriented x3, gait normal and No confusion Cranial nerves: Yes CN's II-XII intact bilaterally, Yes Equal, round and reactive pupils present, Yes Normal hearing present and Yes Ability to bilaterally elevate shoulders present Speech: No Abnormal speech present Gait exam (Neuro): Normal gait present Motor exam (neuro): 5/5 motor strength present throughout Sensory Exam: No Sensory deficit (Neuro) Extrem Other: Normal sensation of the dorsalis pedis and posterior tibial arterial pulses detected in bilateral feet. There is no or very minimal edema on bilateral feet. There is minor tenderness on palpation on bilateral plantar surfaces. General: No pedal edema Psych Speech and movement: Normal speech and movement present Affect: normal affect Attitude: cooperative Thought process: Normal thought process present Thought content: Normal thought content present Insight: Good insight present (Psych) Judgement: Good judgement present (Psych) Assessment & Plan Assessment & Plan (1) Bilateral foot pain: Code(s): M79.671 - Pain in right foot; M79.672 - Pain in left foot (2) Bilateral plantar fasciitis: Code(s): M72.2 - Plantar fascial fibromatosis (3) Arthritis of both feet: Code(s): M19.071 - Primary osteoarthritis, right ankle and foot; M19.072 - Primary osteoarthritis, left ankle and foot Plan Provided that no longer the patient's pain can be helped by his business ethics professor I offered the patient spinal cord stimulation versus peripheral nerve stimulation sprint. Patient adamantly refused. I explained to the patient that medications such as gabapentin or Lyrica could be given to him to treat his pain, he can not receive this medication from primary care physician. No new appointment is necessary unless patient will change his mind about interventional pain management. Coding Level of Care Code New Pt Level 3 (18438) Diagnoses Bilateral foot pain M79.671; M79.672 Bilateral plantar fasciitis M72.2 Arthritis of both feet M19.071; M19.072
[2023-07-28 14:16] VITALS: BP 136/76; PULSE 100; RESP 14; O2SAT 97; BMI 22.8
== END 2023-07-28 14:49 | disposition home or self-care (01) ==
PROVIDERS: PCP Internal Medicine; Visit Provider Anesthesiology
DX: M79.672 Pain in left foot (principal); M72.2 Plantar fascial fibromatosis; M19.071 Primary osteoarthritis, right ankle and foot; M19.072 Primary osteoarthritis, left ankle and foot
CPT/HCPCS: 99203

== ENCOUNTER → 2023-07-28 13:54 | Outpatient (BNVA) | payer MEDICARE, SELFPAY | PROVIDERS: PCP Internal Medicine; Visit Provider Anesthesiology | DX: M79.671 Pain in right foot (principal); M79.672 Pain in left foot; M72.2 Plantar fascial fibromatosis; M19.071 Primary osteoarthritis, right ankle and foot; M19.072 Primary osteoarthritis, left ankle and foot | CPT/HCPCS: 99202 ==

== ENCOUNTER 2023-08-19 15:35 | Outpatient (AMB) | payer MEDICARE, SELFPAY ==
--- NOTE | 2023-08-19 15:36 | A.OFFVIS_ITS ---
Intake Intake Visit Reasons: H&P Greenlight/Bladder stone removal/Prostate bx Intake Note: Patient presents today for a telehealth follow-up Greenlight/Bladder stone removal/Prostate bx. Meds- Finasteride, Tamsulosin Allergies to Antibiotic- No Known Allergies Blood Thinner- None Scientific Artist Required: No Allergies phenytoin [Dilantin] Allergy (Severe, Verified 08/19/23 15:38) Redness of Skin lactose Allergy (Intermediate, Verified 08/19/23 15:38) Gastrointestinal Upset HPI HPI Comments History of Present Illness Details Dominguez is a pleasant male. He is a patient of Dr. Patel. He is seen for following urologic conditions - bladder stone - BPH - elevated PSA Plan procedure upcoming with bladder stone laser, prostate GreenLight, and prostate biopsy 08/31--5.5, 04/03--3.0, 05/05--25, 05/05- -18 Elevated PSA with lower urinary tract symptoms Prior negative biopsy - 2016 PSA - 03/02 5.3, 04/02 6.1, 06/02 4.5 16%, 10/02 3.8, 04/03 3.0, 05/05 25.0 Medication therapy - finasteride and tamsulosin longstanding with oxybutynin for urgency frequency Prostate intervention GreenLight laser prostatectomy 06/02 Cystoscopy - prior gross hematuria with friable vessels Erectile dysfunction Positive result with Cialis previously Nephrolithiasis Known 4 mm stone with spermatocele and hydrocele - december 2018 [facility] Medical History History of skin cancer Balance problems Renal stones Spermatocele Hydrocele H/O urinary frequency H/O urinary retention History of elevated PSA Vasculogenic erectile dysfunction Depression Anxiety Brain hematoma Enlarged prostate Surgical History History of brain surgery Hx of colonoscopy History of hip replacement, total Social History Household Members: Spouse Housing: Condominium Are you a primary transitional care nurse to a significant other at home: No Do you presently have visiting nurse or other home services: No Alcohol intake: never Patient Tobacco Use Status: Former Tobacco user Quit Date: 1978 Tobacco use type: Cigarette Advance Directives Date on File: 06/01/21 Review of Systems Const All systems reviewed & are unremarkable except as noted in HPI and below Denies chills and Denies fever(s) Card Reports no additional complaints and Denies syncope Resp Denies cough GI Denies abdominal pain and Denies heartburn Reports as per HPI and Denies change in libido Musc Reports no additional complaints Neuro Denies syncope Psych Denies change in libido Endo Denies change in libido Physical Exam Telemedicine evaluation Appropriate responses Regular breathing rate and rhythm HEENT Head: Yes normal to inspection Ears: hearing grossly normal bilaterally Eyes General: appearance normal, both eyes and all related structures Neck Neck: Yes normal visual inspection Chest Chest palpation & inspection: normal inspection of the chest Resp Effort & Inspection: normal respiratory effort and able to speak in complete sentences Assessment & Plan Assessment & Plan (1) BPH w urinary obs/LUTS: Code(s): N40.1 - Benign prostatic hyperplasia with lower urinary tract symptoms; N13.8 - Other obstructive and reflux uropathy (2) Urinary retention with incomplete bladder emptying: Code(s): R33.9 - Retention of urine, unspecified Plan Risks, benefits and alternatives to therapy were discussed. These include but are not limited to infection, bleeding, damage to local organs and tissues, need for further interventions. Anesthetic risks regarding cardiac arrhythmia, blood clots, and potential mortality were discussed. The patient understands the typical recovery time and the outpatient nature of the procedure. After consideration of these risks the patient gives full informed consent and they wish to move ahead with the procedure. Procedure as documented Patient Instructions: Imaging studies, laboratory and physical exam results were discussed and reviewed in detail. No major barriers to patient understanding were identified. An opportunity to ask questions regarding the treatment plan was provided. All questions were answered. The patient expressed understanding and agreement with the above treatment plan. The patient is aware they should contact our office by phone for worsening of their current condition or the appearance of new urologic symptoms. Compliance is encouraged with any medications and followup testing that is ordered. It is a privilege to participate in the urologic care of your patient. If you have any questions or concerns regarding treatment for the above conditions, or other urologic issues, please do not hesitate to contact me. The office telephone contact is [phone]. This note is constructed using voice recognition software. While every effort has been made to ensure accuracy hebrew teacher errors may have been included. Yours sincerely, Dr Zaid Wiggins MD, [facility] - Urology Providers of Expert, Compassionate Care for the Genitourinary System Telehealth Telehealth Location of provider rendering services: practice address Location of patient: address on file Patient Identification confirmed using: Name, : Yes Telehealth method: voice only Patient verbally consented to treatment: Yes Patient verbally consented to billing insurance company: Yes Patient informed of any privacy concerns related to visit: Yes Minutes spent on Phone/Video with Pt.: 15 Coding Level of Care Code Tele Est Pt Level 3 (41343) Diagnoses BPH w urinary obs/LUTS N40.1; N13.8 Urinary retention with incomplete bladder emptying R33.9
== END 2023-08-19 16:27 | disposition home or self-care (01) ==
LOC: HO.HUSH 15:36
PROVIDERS: PCP Internal Medicine; Visit Provider Urology
DX: N40.1 Benign prostatic hyperplasia with lower urinary tract symptoms (principal); N13.8 Other obstructive and reflux uropathy; R33.9 Retention of urine, unspecified
CPT/HCPCS: 99442

== ENCOUNTER → 2023-08-19 15:35 | Outpatient (BNVA) | payer MEDICARE, SELFPAY | PROVIDERS: PCP Internal Medicine; Visit Provider Urology ==

== ENCOUNTER 2023-08-22 06:51 | Day surgery (SDC) | payer MEDICARE, SELFPAY ==
[2023-08-18 11:12] VITALS: BMI 22.1
--- NOTE | 2023-08-18 13:47 | P.CONAN_ITS ---
Documented by User: Leida Gillette NP 08/18/23 13:48 HPI - Anesthesia Eval Consult details Narrative: 78yo M for Laser Ablation Prostate w/Green Light, Cystoscopy Bladder Stone Removal, Prostate Needle PMFSH Active Problems Active Problems: All Active Problems (Updated 07/28/23 @ 14:32 by Evangelist Meadows MD) Arthritis of both feet (Acute) Exposure to COVID-19 virus (Acute) Renal stones (Acute) UTI (urinary tract infection), bacterial (Acute) Elevated PSA (Acute) BPH w urinary obs/LUTS (Acute) Urinary retention with incomplete bladder emptying (Acute) Anxiety (Acute) Past Medical History Medical History History of skin cancer Balance problems Renal stones Spermatocele Hydrocele H/O urinary frequency H/O urinary retention History of elevated PSA Vasculogenic erectile dysfunction Depression Anxiety Brain hematoma Enlarged prostate Family History Family history of problems with anesthesia: No Surgical History Surgical History History of brain surgery Hx of colonoscopy History of hip replacement, total History of Problems with Anesthesia: No Social History Social History Household Members: Sp[facility] Are you a primary care director rn to a significant other at home: No Do you presently have visiting nurse or other home services: No Alcohol intake: never Patient Tobacco Use Status: Former Tobacco user Quit Date: 1978 Tobacco use type: Cigarette Use of substances other than those prescribed or required for medical reasons: No Have you been hit, kicked, punched, or otherwise hurt by someone within the past year? If so, by whom?: No Are you DNR?: No Advance Directives: No Advance Directives Information Provided: Yes Advance Directives on File: Yes Advance Directives Date on File: 06/01/21 Recently lost weight without trying: No Nutrition Risks: Surgical patient >75years Poor oral hygiene: No Meds Allergies Allergy/AdvReac Type Severity Reaction Status Date / Time phenytoin [Dilantin] Allergy Severe Redness of Verified 08/19/23 15:38 Skin lactose Allergy Intermediate Gastrointestinal Verified 08/19/23 15:38 Upset Home Medications Medication Instructions Recorded Confirmed Last Taken Type finasteride 5 mg tablet 5 mg PO BEDTIME 06/11/23 08/18/23 Unknown History simvastatin 40 mg tablet 40 mg PO BEDTIME 06/11/23 08/18/23 Unknown History tamsulosin 0.4 mg capsule 0.8 mg PO BEDTIME 06/11/23 08/18/23 Unknown History Exam Height,Weight and Vital Signs: Height 5 ft 9 in Weight 68.039 kg Pertinent Lab Results Pertinent Lab Results: Laboratory Tests 07/03/23 08:40 WBC 8.0 Hgb 14.4 Hct 43.3 Plt Count 365 Sodium 140 Potassium 4.0 Chloride 106 Carbon Dioxide 27 BUN 18 H Creatinine 0.85 Narrative Narrative: EKG 05/2023 Vent. Rate : 081 BPM Atrial Rate : 081 BPM P-R Int : 160 ms QRS Dur : 090 ms QT Int : 356 ms P-R-T Axes : 024 060 037 degrees QTc Int : 413 ms Normal sinus rhythm with sinus arrhythmia Normal ECG When compared with ECG of 12-JUL-2022 14:54, No significant change was found Assessment and Plan Assessment Anesthesia Assessment: Chart Reviewed Final Anesthetic Review Family History of Problems with Anesthesia: No History of Problems with Anesthesia: No Documented by User: Derrick Claudio MD 08/22/23 08:49 [facility] Past Medical History Medical History History of skin cancer Balance problems Renal stones Spermatocele Hydrocele H/O urinary frequency H/O urinary retention History of elevated PSA Vasculogenic erectile dysfunction Depression Anxiety Brain hematoma Enlarged prostate Surgical History Surgical History History of brain surgery Hx of colonoscopy History of hip replacement, total Social History Social History Household Members: Spouse Housing: Condominium Are you a primary care director rn to a significant other at home: No Do you presently have visiting nurse or other home services: No Alcohol intake: never Patient Tobacco Use Status: Former Tobacco user Quit Date: 1978 Tobacco use type: Cigarette Use of substances other than those prescribed or required for medical reasons: No Have you been hit, kicked, punched, or otherwise hurt by someone within the past year? If so, by whom?: No Are you DNR?: No Advance Directives: No Advance Directives Information Provided: Yes Advance Directives on File: Yes Advance Directives Date on File: 06/01/21 Recently lost weight without trying: No Nutrition Risks: Surgical patient >75years Poor oral hygiene: No Meds Allergies Allergy/AdvReac Type Severity Reaction Status Date / Time phenytoin [Dilantin] Allergy Severe Redness of Verified 08/19/23 15:38 Skin lactose Allergy Intermediate Gastrointestinal Verified 08/19/23 15:38 Upset Home Medications Medication Instructions Recorded Confirmed Last Taken Type finasteride 5 mg tablet 5 mg PO BEDTIME 06/11/23 08/18/23 Unknown History simvastatin 40 mg tablet 40 mg PO BEDTIME 06/11/23 08/18/23 Unknown History tamsulosin 0.4 mg capsule 0.8 mg PO BEDTIME 06/11/23 08/18/23 Unknown History Exam Airway Mallampati Class: II TM Dist: >3cm Neck ROM: Full Denture: Upper Heart: ok Lungs: ok Assessment and Plan Final Anesthetic Review NPO: Yes ASA Class: III Final Preanesthetic Review: No Changes in Pt Med Stat, Meds/Allgs Chart Reviewed, Consent Obtained/Reviewed, Anes Risks/Benef Reviewed and DNR Form (If Appl.) Patient Risk: Intermediate Procedure Risk: Low Anesthetic Plan Anesthetic Plan: GA and Agree w/ Assess. and Plan Disposition: Standard PACU
[2023-08-22] VITALS (8 sets, daily range): BP systolic 104–132; BP diastolic 59–76; PULSE 54–72; RESP 11–16; TEMP 36.3–36.8; O2SAT 92–99; BMI 23.3
[2023-08-22] MEDS: Lactated Ringers 1,000 ML 100 ML IVCONT (08:09)
--- NOTE | 2023-08-22 08:27 | MHC.SHP ---
Pre-Procedural Eval Section A - 24 Hr Update-Section A only Date of Service: 08/22/23 The patient is an INPATIENT: No Changes since office visit: No Cold of Flu in the past 2 weeks, No New Medical Problems, No Changes in Medication and No Patient answered all questions The patient has been examined within 24 hours of the surgical procedure. The History & Physical has been completed within 30 days and I have reviewed it.: Yes Section B - Complete if H&P > 30 days Chief Complaint: Benign prostatic hyperplasia with lower urinary tr Details of Present Illness: Bladder outlet obstruction, bladder stones, elevated PSA Relevant Social History: None Present Medications: see Short Stay Collaborative assessment Medical History: No relevant PMH History of Previous Operations: No relevant previous surgery Allergies: Allergies Allergy/AdvReac Type Severity Reaction Status Date / Time phenytoin [Dilantin] Allergy Severe Redness of Verified 08/19/23 15:38 Skin lactose Allergy Intermediate Gastrointestinal Verified 08/19/23 15:38 Upset Review of Systems Sugical H&P ROS: Negative: Constitution, Cardiovascular, Respiratory, Neurological, Psychiatric, Hem-Onc, Allergic/Immunologic, Gastrointestinal, Genitourinary, Musculoskeletal, Integumentary, Endocrine and Eyes/Ears/Nose/Throat Exam Surgical H&P Exam: Normal: HEENT, Normal: Heart, Normal: Lungs, Normal: Extremities, Normal: Abdomen, Normal: Skin and Normal: Neurological Plan Diagnosis/Plan: Unchanged (Cystoscopy, prostate biopsy, bladder stone laser, prostate laser) I have reviewed the history and physical and performed a pertinent physical examination on my patient. No changes have occurred unless specified. Time Spent With Patient Time: Total time managing care of this patient today ____ minutes.
--- NOTE | 2023-08-22 10:03 | HO.ANESEVENT ---
Anesthesia Event Note Date of Service: 08/22/23 Event Note: During the patient's urology procedure today (done under GA with an LMA), a small amount of what looked like coffee grounds-stained clear fluid issued from the gastric suction port of the LMA. If so, most likely stress gastritis. No change in SpO2, no evidence of aspiration, no chg in vital signs, no suggestion of a signif UGI bleed. Have had similar situation in past. Consultation w GI doc at that time suggested to send the pt home w one week script for Protonix, f/u w PMD within one week, and f/u w an EGD at the patient's earliest convenience. Discussed w Dr. Wiggins. He will write script and f/u.
--- NOTE | 2023-08-22 11:00 | P.OP_ITS ---
Operative Note Operative Note Date of Service: 08/22/23 Narrative: PreOperative Diagnosis: 1) Elevated PSA 2) bladder stone 3) Bladder outlet obstruction Post Operative Diagnosis: 1) Elevated PSA 2) bladder stone 3) Bladder outlet obstruction Procedure: - Trans rectal measurement of prostate volume - Transrectal prostate biopsy - Laser lithotripsy of bladder stones 3 x 1.5 cm - GreenLight Laser Enucleation of the prostate CPT 00003 Surgeon: Dr Zaid Wiggins Anesthesia: General History of bladder outlet obstruction. Elevated PSA. Recent jump from 3.4 up to 17 Bladder stone seen on renal bladder ultrasound Previous GreenLight prostate procedure approximately 4 years ago. Risks and benefits have been discussed. Focus was placed on development of retrograde ejaculation which is a normal part of this procedure. Procedure: After informed consent was verified the patient was brought to the operating room and placed in a supine position. Anesthesia was administered per protocol. Patient was placed in modified dorsal lithotomy position and prepped and draped in a sterile fashion. Safety pause time-out was confirmed. Antibiotics have been given. CALLY performed to dilate rectal sphincter Ultrasound probe was placed per rectum The prostate was measured in 3 dimensions Total volume equals 120 gm No cystic structures were noted No calcifications were noted at the surgical margin The prostate was otherwise homogeneous in nature An ultrasound-guided pudendal nerve block was performed using 10 cc of 1% lidocaine. 8 cc was placed at the base and 2 cc of the apex. A 12 core biopsy was performed with 6 cores each side. Two cores were taken at the apex, mid and base. Cores were spaced between lateral and medial. A Twenty-four Greenlandic laser cystoscope was inserted per urethra. No abnormalities were found of the anterior and bulbar urethra. The bladder was examined and both ureteric orifices were seen in their normal positions away from the area of interest. 3 bladder stones were seen across the base of the bladder. These were each approximately 1.5-2 cm in size. Using a holmium laser with 950 nanometer fiber the stones were broken into small pieces and removed from the bladder. Settings of 1.0 drill with 15 w and 15 hertz. Total energy 1842. Using a GreenLight laser with settings of 80 w incisions were made at the 5 and 7 o'clock position. The incisions were taken down from the bladder neck down to the level of the veru. These were gradually deepened in order to define the lateral aspects of the median lobe area. Once clearly defined they will also extended in the lateral directions in order to create a deep groove. The remnant median lobe was then ablated and enucleated tissue released into the bladder with the laser power increased to 120 W. Once the median lobe area had been cleared attention was directed to the lateral lobes. Starting with the patient's left lateral lobe. First the 05:00 o'clock groove was further developed. This was moved in the lateral direction to undermine the tissue on the lateral side running from the bladder neck to the prostate apex. Focus was then placed on the laser at the 1 o'clock position to developing a secondary groove down to the level of bladder fibers. The creation of a second deep groove defined a segment of intervening tissue similar to a slice of orange. At the apex of the prostate the 2 grooves were linked the us releasing the intervening tissue. This tissue was then removed with a combination of enucleation and ablation working from the apex toward the bladder neck. A similar procedure was repeated on the patient's right-hand side. The only differences being the position of the lateral groove at he 7 'oclock positioin and the secondary groove at the 11 o'clock position, Otherwise the procedure was developed in a mirror fashion. After the majority of tissue had been debulked remnant tissue was ablated with the side fire laser and the curve of the prostate followed up each side wall clearly defining the anterior remnant strip that remained between the 11 and 1 o 'clock positions. When this was had been completed debris and pieces of prostate were removed from the bladder with irrigation. Both ureteric orifices were reviewed again in shown to be patent in away from any areas of energy damage. The apical area was reviewed in any stray ooze was controlled. A 22 Greenlandic 30 cc balloon Haq catheter was placed over a stylet into the bladder. Clear efflux was obtained upopn irrigation with a Mata piston syringe. 50 cc was placed in the balloon and gentle traction was placed. A snap was used to hold tension on the catheter to control bleeding during patient moved and transported. A drainage bag was placed. Once transportation is complete to the PACU the snap will be removed. The patient tolerated the procedure well, he was extubated in the operating and transferred in a stable condition to the recovery area. Total Power 208 kW Lasing time 30:17 - 55G tissue Pathology: Prostate tissue Bladder stones Drains: Haq catheter
[2023-08-22] MEDS: Acetaminophen 325 MG TABLET 975 MG PO (11:29)
== END 2023-08-22 12:57 | disposition home or self-care (01) ==
PROVIDERS: PCP Internal Medicine; Visit Provider Urology
PROC: (CPT 52648; principal; 2023-08-22 09:00)
PROC: 0TCB8ZZ Extirpation of Matter from Bladder, Via Natural or Artificial Opening Endoscopic (ICD-10-PCS; CPT 52352; 2023-08-22 09:00)
PROC: (CPT 55700; 2023-08-22 09:00)
DX: N40.1 Benign prostatic hyperplasia with lower urinary tract symptoms (principal); R33.8 Other retention of urine; R97.20 Elevated prostate specific antigen [PSA]; R31.0 Gross hematuria; N21.0 Calculus in bladder; N32.0 Bladder-neck obstruction; N39.0 Urinary tract infection, site not specified; A49.9 Bacterial infection, unspecified; N52.9 Male erectile dysfunction, unspecified; N20.0 Calculus of kidney; R26.89 Other abnormalities of gait and mobility; F32.A Depression, unspecified; Z79.1 Long term (current) use of non-steroidal anti-inflammatories (NSAID); Z79.899 Other long term (current) drug therapy; Z88.8 Allergy status to other drugs, medicaments and biological substances; Z85.828 Personal history of other malignant neoplasm of skin; Z87.891 Personal history of nicotine dependence; Z98.890 Other specified postprocedural states
CPT/HCPCS: 52649; 55700; 52318; 76942; 88300; 88305; C9113; J1956; J2405; J2704; J3010

== ENCOUNTER → 2023-08-22 06:51 | Outpatient (BNV) | payer MEDICARE, SELFPAY | PROVIDERS: PCP Internal Medicine; Visit Provider Urology | DX: R97.20 Elevated prostate specific antigen [PSA] (principal); N21.0 Calculus in bladder; N32.0 Bladder-neck obstruction | CPT/HCPCS: 55700 ==

== ENCOUNTER → 2023-08-30 08:58 | Outpatient (BNVA) | payer MEDICARE, SELFPAY | PROVIDERS: PCP Internal Medicine; Visit Provider Urology | DX: N40.1 Benign prostatic hyperplasia with lower urinary tract symptoms (principal); N13.8 Other obstructive and reflux uropathy | CPT/HCPCS: 51700; 51798 ==

== ENCOUNTER 2023-09-09 15:01 | Outpatient (AMB) | payer MEDICARE, SELFPAY ==
--- NOTE | 2023-09-09 15:43 | A.OFFVIS_ITS ---
Intake Visit Reasons: Prostate bx results Intake Note: Patient is present for biopsy results Allergies phenytoin [Dilantin] Allergy (Severe, Verified 08/19/23 15:38) Redness of Skin lactose Allergy (Intermediate, Verified 08/19/23 15:38) Gastrointestinal Upset HPI Comments Details: Dominguez is a pleasant male. He is a patient of Dr. Patel. He is seen for following urologic conditions - bladder stone - BPH - elevated PSA Postprocedure Prostate biopsy normal Discussed procedure with bladder stone removal 08/31--5.5, 04/03--3.0, 05/05--25, 05/05--18 Elevated PSA with lower urinary tract symptoms Prior negative biopsy - 2016 PSA - 03/02 5.3, 04/02 6.1, 06/02 4.5 16%, 10/02 3.8, 04/03 3.0, 05/05 25.0 Medication therapy - finasteride and tamsulosin longstanding with oxybutynin for urgency frequency Prostate intervention GreenLight laser prostatectomy 06/02 Cystoscopy - prior gross hematuria with friable vessels 09/03 GreenLight laser, bladder stone, prostate biopsy - NAD Erectile dysfunction Positive result with Cialis previously Nephrolithiasis Known 4 mm stone with spermatocele and hydrocele - december 2018 [facility] Medical History History of skin cancer Balance problems Renal stones Spermatocele Hydrocele H/O urinary frequency H/O urinary retention History of elevated PSA Vasculogenic erectile dysfunction Depression Anxiety Brain hematoma Enlarged prostate Surgical History History of brain surgery Hx of colonoscopy History of hip replacement, total Social History Household Members: Spouse Housing: Condominium Are you a primary home care consultant to a significant other at home: No Do you presently have visiting nurse or other home services: No Alcohol intake: never Patient Tobacco Use Status: Former Tobacco user Quit Date: 1978 Tobacco use type: Cigarette Advance Directives Date on File: 06/01/21 Review of Systems Const Denies chills and Denies fever(s) Card Reports no additional complaints and Denies syncope Resp Denies cough GI Denies abdominal pain and Denies heartburn Reports as per HPI and Denies change in libido Neuro Denies syncope Psych Denies change in libido Endo Denies change in libido Physical Exam Const General: cooperative, healthy appearing, comfortable and no acute distress Orientation/consciousness: patient oriented x3 HEENT Face and sinus: Yes normal facial exam Mouth: moist mucous membranes Neck Neck: Yes normal visual inspection, Yes full ROM and Yes trachea midline Chest Chest palpation & inspection: normal inspection of the chest Resp Effort & Inspection: normal respiratory effort, able to speak in complete sentences and no respiratory distress GI Inspection: Yes normal to inspection Back/Spine/Pelvis Cervical Spine: normal cervical lordosis Thoracic/Lumbar Spine: thoracic and lumbar spine normal to inspection Skin General skin exam: no rashes or lesions noted Neuro General: patient oriented x3, gait normal, tone normal and moves all extremities Extrem General: Yes normal to inspection and Yes capillary refill normal Assessment & Plan Assessment & Plan (1) BPH w urinary obs/LUTS: Code(s): N40.1 - Benign prostatic hyperplasia with lower urinary tract symptoms; N13.8 - Other obstructive and reflux uropathy Category: Medical (2) Urinary retention with incomplete bladder emptying: Code(s): R33.9 - Retention of urine, unspecified Category: Medical (3) Elevated PSA: Code(s): R97.20 - Elevated prostate specific antigen [PSA] Category: Medical Plan Six-month follow-up PSA Orders: Orders Prostate Specific Antigen 6 Months R97.20 - Elevated prostate specific antigen [PSA] Patient Instructions: Imaging studies, laboratory and physical exam results were discussed and reviewed in detail. No major barriers to patient understanding were identified. An opportunity to ask questions regarding the treatment plan was provided. All questions were answered. The patient expressed understanding and agreement with the above treatment plan. The patient is aware they should contact our office by phone for worsening of their current condition or the appearance of new urologic symptoms. Compliance is encouraged with any medications and followup testing that is ordered. It is a privilege to participate in the urologic care of your patient. If you have any questions or concerns regarding treatment for the above conditions, or other urologic issues, please do not hesitate to contact me. The office telephone contact is [phone]. This note is constructed using voice recognition software. While every effort has been made to ensure accuracy wood router hand errors may have been included. Yours sincerely, Dr Zaid Wiggins MD, [facility] - Urology Providers of Expert, Compassionate Care for the Genitourinary System
== END 2023-09-09 15:50 | disposition home or self-care (01) ==
PROVIDERS: PCP Internal Medicine; Visit Provider Urology
DX: N40.1 Benign prostatic hyperplasia with lower urinary tract symptoms (principal); N13.8 Other obstructive and reflux uropathy; R33.9 Retention of urine, unspecified; R97.20 Elevated prostate specific antigen [PSA]
CPT/HCPCS: 99213

== ENCOUNTER → 2023-09-09 15:01 | Outpatient (BNVA) | payer MEDICARE, SELFPAY | PROVIDERS: PCP Internal Medicine; Visit Provider Urology | DX: N40.1 Benign prostatic hyperplasia with lower urinary tract symptoms (principal); N13.8 Other obstructive and reflux uropathy; R97.20 Elevated prostate specific antigen [PSA]; N52.9 Male erectile dysfunction, unspecified; R33.8 Other retention of urine; Z87.442 Personal history of urinary calculi; Z79.899 Other long term (current) drug therapy | CPT/HCPCS: 99212 ==

== ENCOUNTER 2023-10-21 07:26 | Emergency (ER) | payer MEDICARE, SELFPAY ==
--- NOTE | ~2023-10-21 | CT_ITS ---
EXAMINATION: CT ABDOMEN AND PELVIS WITHOUT CONTRAST CLINICAL INFORMATION: Left flank pain, left lower quadrant pain, history of stones. COMPARISON: CT abdomen/pelvis 05/15/2023. TECHNIQUE: Multidetector volumetric imaging was performed from the superior aspect of the liver through the pubic symphysis. Sagittal and coronal reformatted images were obtained on the technologist's workstation. This CT examination was performed using dose optimization techniques as appropriate, variously including the following: *Automated exposure control *Adjustment of mA and/or kV according to patient size (this includes techniques or standardized protocols for targeted exams where dose is matched to indication/reason for exam; i.e. extremities or head) *Use of iterative reconstruction technique DLP: 493 mGy-cm FINDINGS: The lack of intravenous contrast limits evaluation of the solid visceral organs including the liver, spleen, pancreas, and kidneys. Evaluation is also limited due to motion. LUNG BASES: No focal consolidation or pleural effusion. Possibly 7 mm pulmonary nodule in the left lower lobe (image 79, series 4), suboptimally assessed due to motion. LIVER, GALLBLADDER, AND BILIARY TREE: The liver is normal in size, shape, and attenuation. No focal hepatic lesion or biliary ductal dilatation is present. The gallbladder is unremarkable with no evidence of radiopaque gallstones, gallbladder wall thickening, or obvious pericholecystic inflammatory changes. PANCREAS: Unremarkable. SPLEEN: Unremarkable. ADRENAL GLANDS: Unremarkable. KIDNEYS AND URETERS: Nonobstructive punctate calculus in the interpolar right kidney and lower left kidney. Redemonstration of a 6 mm calcification in the lower pole the left kidney (3:42). No hydronephrosis. No significant perinephric fat stranding. BLADDER: Chronic diffuse urinary bladder wall thickening. Punctate calculi in the posterior urinary bladder (4:560 and 4:577) Previously seen large urinary bladder calculi are resolved. No significant perivesical fat stranding. GASTROINTESTINAL TRACT: Small hiatal hernia. Mildly prominent loops of small bowel scattered throughout the abdomen with some degree of fecalization. Normal appendix. Colonic diverticulosis without significant pericolonic inflammatory changes. Moderate degree of colonic stool burden. No evidence of bowel obstruction. ABDOMINAL WALL: Small fat-containing umbilical hernia. Moderate size left-sided inguinal hernia containing fat and a small protrusion of the sigmoid colon without evidence of obstruction. LYMPH NODES: Enlarged right pelvic sidewall lymph node measuring 1.2 cm in short axis (4:495), unchanged compared to 05/15/2023. VASCULAR: Atherosclerotic disease. Normal caliber of the abdominal aorta. PELVIC VISCERA: Enlarged prostate protruding into the bladder base, transverse diameter is 5.8 cm. Nonspecific small amount of free fluid (image 526 series 4). OSSEOUS STRUCTURES: Partially seen total left hip arthroplasty. Degenerative changes of the spine. Chronic bilateral L5 pars defects. No acute or aggressive appearing osseous findings. Chronic left anterior seventh rib fracture with callus formation. CT/CT abdomen pelvis wo IV con IMPRESSION: 1. Nonobstructive bilateral renal calculi. 2. Punctate calculi in the posterior urinary bladder. 3. Chronic diffuse urinary bladder wall thickening. 4. Enlarged prostate, recommend correlation with biopsy results from 08/22/2023. An enlarged right pelvic sidewall lymph node is unchanged, attention on follow-up is recommended in future examinations to ensure stability/resolution. 5. Moderate size left inguinal hernia containing fat and a small protrusion of the sigmoid colon without evidence of obstruction. 6. Small hiatal hernia. 7. Mildly prominent loops of small bowel with some degree of fecalization suggesting slow transit. 8. Colonic diverticulosis but no evidence of acute diverticulitis. 9. Nonspecific small amount of free fluid in the pelvis. 10. Possible 7 mm pulmonary nodule in the left lower lobe, suboptimally assessed due to motion. Fleischner guidelines were followed.
[2023-10-21 07:32] VITALS: BP 146/80; PULSE 90; RESP 16; TEMP 36.9; O2SAT 98; BMI 22.1
--- NOTE | 2023-10-21 07:41 | ED_ITS ---
HPI - General Adult General Chief complaint: Abdominal Pain Stated complaint: pain on L abd Time Seen by Provider: 10/21/23 07:40 Source: patient Mode of arrival: ambulatory Limitations: no limitations History of Present Illness HPI narrative: 78 year old male presents to the ER with multiple compliants. 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 Related Data Home Medications ?Medication ?Instructions ?Recorded ?Confirmed simvastatin 40 mg tablet 40 mg PO BEDTIME 06/11/23 08/18/23 tamsulosin 0.4 mg capsule 0.8 mg PO BEDTIME 06/11/23 08/18/23 Previous Rx's ?Medication ?Instructions ?Recorded pantoprazole 40 mg tablet,delayed 40 mg PO DAILY 30 days #30 tabs 08/22/23 release (Protonix) finasteride 5 mg tablet 5 mg PO BEDTIME 90 days #90 tabs 09/09/23 bacitracin-polymyxin B 500 1 appl ophthalmic (eye) 6XD #3.5 10/21/23 unit-10,000 unit/gram eye ointment grams Allergies Allergy/AdvReac Type Severity Reaction Status Date / Time phenytoin [Dilantin] Allergy Severe Redness of Verified 10/21/23 07:35 Skin lactose Allergy Intermediate Gastrointestinal Verified 10/21/23 07:35 Upset Review of Systems 2 Review of Systems: Review of systems: General: Patient denies any fever chills recent illness or falls Musculoskeletal: Denies back pain or body aches or other injuries HEENT: Red eyes denies headache, runny nose, ear pain Respiratory: denies shortness of breath, cough Cardiovascular: no chest pain or palpitations : denies dysuria, frequency Abdomen: no nausea vomiting he does have left lower quadrant abdominal pain Extremities: no swelling, no pain Skin: no diaphoresis Yes all other systems are reviewed and are negative PMFSH Past Medical History Medical History History of skin cancer Balance problems Renal stones Spermatocele Hydrocele H/O urinary frequency H/O urinary retention History of elevated PSA Vasculogenic erectile dysfunction Depression Anxiety Brain hematoma Enlarged prostate Surgical History History of brain surgery Hx of colonoscopy History of hip replacement, total Social History Social History Household Members: Spouse Housing: Condominium Are you a primary manager critical care to a significant other at home: No Do you presently have visiting nurse or other home services: No Alcohol intake: never Patient Tobacco Use Status: Former Tobacco user Quit Date: 1978 Tobacco use type: Cigarette Smoked in Last 30 Days: No Use of substances other than those prescribed or required for medical reasons: No Advance Directives: No Advance Directives Information Provided: No Advance Directives Date on File: 06/01/21 Physical Exam ED Vital Signs: Vital Signs - 24 hr 10/21/23 07:32 10/21/23 08:44 10/21/23 10:20 Temperature 98.4 F 98.4 F Pulse Rate 90 70 70 Respiratory Rate 16 20 18 Blood Pressure 146/80 H 124/66 136/76 Pulse Oximetry 98 94 94 Oxygen Delivery Method Room Air Room Air Room Air BMI result Body Mass Index 22.1 General: Well-appearing well-nourished in no signs of distress HEENT: Normocephalic atraumatic Neck: No signs of JVD, no masses no tenderness or lymphadenopathy Cardiovascular: Regular rate and rhythm Respiratory: Clear to auscultation bilaterally Abdomen: Soft tender to left lower quadrant no rebound or guarding Extremities: Normal pedal pulses no signs of edema Skin: Dry warm no rashes Back: No tenderness full ROM Course Course Course Narrative: Patient looks well I think this is conjunctivitis the abdominal pain could be due to constipation does have a hernia which he did disclose the patient I feel comfortable discharging the patient home at this time with close PCP follow-up Medications Administered Discontinued Medications Generic Name Dose Route Start Last Admin Trade Name Freq PRN Reason Stop Dose Admin Sodium Chloride 1,000 mls @ 999 mls/hr 10/21/23 08:15 10/21/23 10:17 Ns IV 10/21/23 09:15 Infused .Q1H1M [facility] Infusion Morphine Sulfate 4 mg 10/21/23 08:09 10/21/23 08:42 Morphine Sulfate 4 Mg/Ml Cartridge IVPUSH 10/21/23 08:10 4 mg ONCE ONE Administration Protocol Neomycin/Polymyxin/Bacitr/Hydrocort 0.5 inch 10/21/23 08:03 10/21/23 10:18 Neomy/Polymyx/Bacit/Hc Oph Oin 3.5 Gm Tube EYE-BOTH 10/21/23 08:04 0.5 inch ONCE ONE Administration Medical Decision Making Medical Decision Making [facility] Narrative: I will start the patient on some eye ointment I will send the patient for CT scan will check labs and urinalysis Differential Diagnosis Differential Diagnoses: The differential diagnosis associated with the presentation includes Kidney stone diverticulitis UTI hematuria with his eyes he does have conjunctivitis Lab Data [facility] Lab Attestation statement: I reviewed the patient's lab results. 10/21/23 08:38 10/21/23 08:38 Labs: Lab Results 10/21/23 10/21/23 Range/Units 08:38 10:29 WBC 9.9 (4.8-10.8) X10*3/uL RBC 4.41 L (4.60-5.80) X10*6/uL Hgb 13.8 L (14.0-18.0) g/dl Hct 41.0 L (42.0-52.0) % MCV 93.0 (80.0-98.0) fL MCH 31.3 (27.0-33.0) pg MCHC 33.7 (31.0-36.0) g/dl RDW 12.5 (11.0-16.0) % Plt Count 278 (160-400) X10*3/uL MPV 8.9 L (9.4-12.4) fL Immature Gran % (Auto) 0.4 (0.0-0.4) % Neut % (Auto) 71.0 (45-73) % Lymph % (Auto) 16.8 L (20-40) % Worth % (Auto) 8.7 (2-11) % Eos % (Auto) 2.5 (0-4) % Baso % (Auto) 0.6 (0-2) % Lymph # (Auto) 1.7 (1.2-4.9) X10*3/uL Worth # (Auto) 0.9 (0.1-1.2) X10*3/uL Eos # (Auto) 0.3 (0.0-0.4) X10*3/uL Baso # (Auto) 0.1 (0.0-0.2) X10*3/uL Abs Immat Gran (auto) 0.04 H (0.00-0.03) X10*3/uL Absolute Neuts (auto) 7.0 (2.0-8.3) x10*3/uL Absolute Nucleated RBC 0.000 (0.0-0.012) X10*3/uL Nucleated RBC % (auto) 0.0 (0.0-0.2) /100WBC Sodium 140 (135-145) mmol/L Potassium 4.0 (3.3-5.1) mmol/L Chloride 106 (96-108) mmol/L Carbon Dioxide 26 (22-29) mmol/L Anion Gap 12 (12-20) BUN 12 (9-16) mg/dL Creatinine 0.77 (0.5-1.4) mg/dL Estim Creat Clear Calc 77.3 Estimated GFR > 60 Random Glucose 112 (60-115) mg/dL Calcium 10.1 (8.4-10.2) mg/dL Total Bilirubin 0.6 (0.0-1.0) mg/dL Direct Bilirubin 0.2 (0.0-0.5) mg/dL AST 19 (5-37) U/L ALT 11 (0-40) U/L Alkaline Phosphatase 87 (39-117) U/L Total Protein 6.2 L (6.5-8.0) g/dL Albumin 3.5 (3.5-5.0) g/dL Lipase 21 (8-78) U/L Urine Color Yellow Urine Appearance Clear Urine pH 7.0 (5.0-9.0) Ur Specific [place] 1.010 (1.005-1.025) Urine Protein Negative (Neg-Trace) mg/dL Urine Glucose (UA) Negative (Negative) mg/dL Urine Ketones Negative (Negative) mg/dL Urine Blood Negative (Negative) Urine Nitrite Negative (Negative) Ur Leukocyte Esterase Small (1+) H (Negative) Urine RBC 0-2 (0-2) /HPF Urine WBC 6-10 (0-5) /HPF Ur Squamous Epith Cells 0-2 (0-2) /HPF Urine Bacteria 1+ (None Seen) Hyaline Casts 0-2 (0-2) /LPF Independent Interpretation I performed an independent interpretation of an: CT Scan Radiology Impression Discussion of test interpretation with radiology: I have reviewed the radiologist's reading. Discharge Plan Discharge Clinical Impression: Hernia, Abdominal pain, Acute constipation, Acute bacterial conjunctivitis of both eyes Patient Disposition: Home, Self-Care Instructions: Constipation (DC), Umbilical Hernia (ED), Abdominal Pain (ED), Conjunctivitis (ED) Additional Instructions: You seen emergency department today for red eyes and found to have conjunctivitis as well as for abdominal pain. Your CT and labs withdrawal normal for the belly pain. You do need take the eye drops for her eyes and then follow up with her doctor. Prescriptions: New bacitracin-polymyxin B 500-10,000 unit/gram ointment 1 appl ophthalmic (eye) 6XD Qty: 3.5 2RF Rx Instructions: administer while awake No Action pantoprazole [Protonix] 40 mg tablet,delayed release (DR/EC) 40 mg PO DAILY 30 Days Qty: 30 0RF Rx Instructions: take daily tamsulosin 0.4 mg capsule 0.8 mg PO BEDTIME simvastatin 40 mg tablet 40 mg PO BEDTIME finasteride 5 mg tablet 5 mg PO BEDTIME 90 Days Qty: 90 1RF Print Language: Nicaraguan
[2023-10-21 08:42] LABS: MANUAL DIFF FLAG NO
[2023-10-21] MEDS: Morphine Sulfate 4 MG/ML CARTRIDGE IVPUSH (08:42)
[2023-10-21] MEDS: 0.9 % Sodium Chloride 1,000 ML 999 ML IV (08:42)
[2023-10-21 08:44] VITALS: BP 124/66; PULSE 70; RESP 20; O2SAT 94
[2023-10-21 08:49] LABS: Basophils Absolute Auto 0.1 X10*3/uL (0.0-0.2); Basophils Percent Auto 0.6 % (0-2); Eosinophils Absolute Auto 0.3 X10*3/uL (0.0-0.4); Eosinophils Percent Auto 2.5 % (0-4); Hemoglobin 13.8 g/dl (14.0-18.0); Imm Gran Abs Auto 0.04 X10*3/uL (0.00-0.03); Imm Gran Pct Auto 0.4 % (0.0-0.4); Lymphocytes Absolute Auto 1.7 X10*3/uL (1.2-4.9); Lymphocytes Percent Auto 16.8 % (20-40); Mean Corpuscular HGB Conc 33.7 g/dl (31.0-36.0); Mean Corpuscular Hemoglobin 31.3 pg (27.0-33.0); Mean Platelet Volume 8.9 fL (9.4-12.4); Monocytes Absolute Auto 0.9 X10*3/uL (0.1-1.2); Monocytes Percent Auto 8.7 % (2-11); Platelet Count 278 X10*3/uL (160-400); Red Blood Count 4.41 X10*6/uL (4.60-5.80); Red Cell Distribution Width 12.5 % (11.0-16.0); White Blood Count 9.9 X10*3/uL (4.8-10.8)
--- NOTE | 2023-10-21 08:50 | PC.NURSE ---
Addendum entered by Rosalind Rudolph 10/21/23 08:54: pt also has bilateral eye redness and states it feels like sand Original Note: pt is alert, skin pwd, respirations even and unlabored, pt reports having left lower abd pain for a couple of weeks, denies nausea/constipation or diarrhea, last bowel movement was yesterday, abd soft but tender on left lower with palliations, vs stable at this time
[2023-10-21 08:57] LABS: Alanine Aminotransferase 11 U/L (0-40); Albumin Level 3.5 g/dL (3.5-5.0); Alkaline Phosphatase 87 U/L (39-117); Anion Gap 12 (12-20); Aspartate Amino Transferase 19 U/L (5-37); Bilirubin Direct 0.2 mg/dL (0.0-0.5); Bilirubin Total 0.6 mg/dL (0.0-1.0); Blood Urea Nitrogen 12 mg/dL (9-16); Calcium 10.1 mg/dL (8.4-10.2); Carbon Dioxide 26 mmol/L (22-29); Chloride 106 mmol/L (96-108); Creatinine Clr Calc Pharmacy 77.3; Estimated Glomerular Filt Rate > 60; Glucose Random 112 mg/dL (60-115); Lipase 21 U/L (8-78); Sodium 140 mmol/L (135-145); Total Protein 6.2 g/dL (6.5-8.0)
[2023-10-21] MEDS: NeoMY/Polymyx/Bacit/HC Oph Oin 3.5 GM TUBE 0.5 INCH EYE-BOTH (10:18)
[2023-10-21 10:20] VITALS: BP 136/76; PULSE 70; RESP 18; TEMP 36.9; O2SAT 94
[2023-10-21 10:40] LABS: Appearance Urine Clear; Color Urine Yellow; Glucose Urine UA Negative (Negative); Leukocyte Esterase Urine Small (1+) (Negative); Nitrite Urine Negative (Negative); UMIC TRIGGER UACC YES; Urine Blood Negative (Negative); Urine Ketones Negative (Negative); Urine Protein Negative (Neg-Trace)
[2023-10-21 10:53] LABS: Bacteria Urine 1+ (None Seen); Hyaline Casts Urine 0-2 /LPF (0-2); RBC Urine 0-2 /HPF (0-2); Squamous Epithelial Cell Urine 0-2 /HPF (0-2); UACC Culture Trigger YES
[2023-10-21 11:46] VITALS: BP 120/77; PULSE 73; RESP 16; TEMP 36.7; O2SAT 96
== END 2023-10-21 11:45 | disposition home or self-care (01) ==
PROVIDERS: Emergency Provider Student in an Organized Health Care Education/Training Program; PCP Internal Medicine
DX: K46.9 Unspecified abdominal hernia without obstruction or gangrene (principal); K59.00 Constipation, unspecified; H10.33 Unspecified acute conjunctivitis, bilateral; R11.0 Nausea; Z79.899 Other long term (current) drug therapy
CPT/HCPCS: 36415; 74176; 80048; 80076; 81001; 83690; 85025; 87086; 87088; 87186; 96361; 96374; 99284; J2270

== ENCOUNTER 2023-10-28 14:59 | Outpatient (AMB) | payer MEDICARE, SELFPAY ==
--- NOTE | 2023-10-28 15:39 | A.OFFVIS_ITS ---
Intake Visit Reasons: Greenlight/Bladder stone- follow up Intake Note: Patient presents today for Greenlight/Bladder stone removal FOLLOW-UP Meds- Finasteride, Tamsulosin Allergies to Antibiotic- No Known Allergies Blood Thinner- None Pump Station Operator Required: No Accompanied by: Self / Same As Patient Allergies phenytoin [Dilantin] Allergy (Severe, Verified 10/28/23 15:39) Redness of Skin lactose Allergy (Intermediate, Verified 10/28/23 15:39) Gastrointestinal Upset Medication List - Last Reconciled 10/28/23 by Zaid Wiggins MD bacitracin-polymyxin B 500-10,000 unit/gram 1 appl ophthalmic (eye) 6XD finasteride 5 mg PO BEDTIME 90 days levofloxacin 250 mg PO DAILY 5 days pantoprazole (Protonix) 40 mg PO DAILY 30 days simvastatin 40 mg PO BEDTIME tamsulosin 0.8 mg PO BEDTIME HPI Comments Details: Dominguez is a pleasant male. He is a patient of Dr. Patel. He is seen for following urologic conditions - bladder stone - BPH - elevated PSA Six week follow-up GreenLight laser with bladder stone removal on prostate biopsy Very happy with results Sleeping through the night Good stream Four month follow-up PSA Brought [facility] for office 08/31--5.5, 04/03--3.0, 05/05--25, 05/05--18 Elevated PSA with lower urinary tract symptoms Prior negative biopsy - 2016 PSA - 03/02 5.3, 04/02 6.1, 06/02 4.5 16%, 10/02 3.8, 04/03 3.0, 05/05 25.0 Medication therapy - finasteride and tamsulosin longstanding with oxybutynin for urgency frequency Prostate intervention GreenLight laser prostatectomy 06/02 Cystoscopy - prior gross hematuria with friable vessels 09/03 GreenLight laser, bladder stone, prostate biopsy - NAD Erectile dysfunction Positive result with Cialis previously Nephrolithiasis Known 4 mm stone with spermatocele and hydrocele - december 2018 [facility] Medical History History of skin cancer Balance problems Renal stones Spermatocele Hydrocele H/O urinary frequency H/O urinary retention History of elevated PSA Vasculogenic erectile dysfunction Depression Anxiety Brain hematoma Enlarged prostate Surgical History History of brain surgery Hx of colonoscopy History of hip replacement, total Social History Household Members: Spouse Housing: Condominium Are you a primary care manager cna to a significant other at home: No Do you presently have visiting nurse or other home services: No Alcohol intake: never Patient Tobacco Use Status: Former Tobacco user Quit Date: 1978 Tobacco use type: Cigarette Advance Directives Date on File: 06/01/21 Review of Systems Const Denies chills and Denies fever(s) Card Reports no additional complaints and Denies syncope Resp Denies cough GI Denies abdominal pain and Denies heartburn Reports as per HPI and Denies change in libido Neuro Denies syncope Psych Denies change in libido Endo Denies change in libido Physical Exam Const General: cooperative, healthy appearing, comfortable and no acute distress Orientation/consciousness: patient oriented x3 HEENT Face and sinus: Yes normal facial exam Mouth: moist mucous membranes Neck Neck: Yes normal visual inspection, Yes full ROM and Yes trachea midline Chest Chest palpation & inspection: normal inspection of the chest Resp Effort & Inspection: normal respiratory effort, able to speak in complete sentences and no respiratory distress GI Inspection: Yes normal to inspection Back/Spine/Pelvis Cervical Spine: normal cervical lordosis Thoracic/Lumbar Spine: thoracic and lumbar spine normal to inspection Skin General skin exam: no rashes or lesions noted Neuro General: patient oriented x3, gait normal, tone normal and moves all extremities Extrem General: Yes normal to inspection and Yes capillary refill normal Assessment & Plan Assessment & Plan (1) Elevated PSA: Code(s): R97.20 - Elevated prostate specific antigen [PSA] Category: Medical (2) BPH w urinary obs/LUTS: Code(s): N40.1 - Benign prostatic hyperplasia with lower urinary tract symptoms; N13.8 - Other obstructive and reflux uropathy Category: Medical Plan Four month follow-up PSA Orders: Orders Prostate Specific Antigen 4 Months N13.8 - Other obstructive and reflux uropathy, N40.1 - Benign prostatic hyperplasia with lower urinary tract symptoms Patient Instructions: Imaging studies, laboratory and physical exam results were discussed and reviewed in detail. No major barriers to patient understanding were identified. An opportunity to ask questions regarding the treatment plan was provided. All questions were answered. The patient expressed understanding and agreement with the above treatment plan. The patient is aware they should contact our office by phone for worsening of their current condition or the appearance of new urologic symptoms. Compliance is encouraged with any medications and followup testing that is ordered. It is a privilege to participate in the urologic care of your patient. If you have any questions or concerns regarding treatment for the above conditions, or other urologic issues, please do not hesitate to contact me. The office telephone contact is [phone]. This note is constructed using voice recognition software. While every effort has been made to ensure accuracy regional operations manager errors may have been included. Yours sincerely, Dr Zaid Wiggins MD, [facility] - Urology Providers of Expert, Compassionate Care for the Genitourinary System Coding Level of Care Code Est Pt Level 3 (55057) Diagnoses Elevated PSA R97.20 BPH w urinary obs/LUTS N40.1; N13.8
== END 2023-10-28 16:07 | disposition home or self-care (01) ==
PROVIDERS: PCP Internal Medicine; Visit Provider Urology
DX: R97.20 Elevated prostate specific antigen [PSA] (principal); N40.1 Benign prostatic hyperplasia with lower urinary tract symptoms; N13.8 Other obstructive and reflux uropathy
CPT/HCPCS: 99213

== ENCOUNTER → 2023-10-28 14:59 | Outpatient (BNVA) | payer MEDICARE, SELFPAY | PROVIDERS: PCP Internal Medicine; Visit Provider Urology | DX: N40.1 Benign prostatic hyperplasia with lower urinary tract symptoms (principal); N13.8 Other obstructive and reflux uropathy; N21.0 Calculus in bladder; R97.20 Elevated prostate specific antigen [PSA]; Z79.899 Other long term (current) drug therapy | CPT/HCPCS: 99212 ==

== ENCOUNTER 2024-03-09 14:02 | Outpatient (REF) | payer MEDICARE, SELFPAY ==
[2024-03-09 16:55] LABS: Prostate Specific Antigen 8.64 ng/mL (<0.05-4.0)
== END 2024-03-09 14:03 | disposition home or self-care (01) ==
LOC: HO.HMGCLDS 14:02
PROVIDERS: Urology; PCP Internal Medicine; Visit Provider Nurse Practitioner Family
DX: R97.20 Elevated prostate specific antigen [PSA] (principal); Z12.5 Encounter for screening for malignant neoplasm of prostate
CPT/HCPCS: 36415; 84153

== ENCOUNTER 2024-03-13 14:40 | Outpatient (AMB) | payer MEDICARE, SELFPAY ==
--- NOTE | 2024-03-13 14:42 | A.OFFVIS_ITS ---
Intake Visit Reasons: 6m/PSA/PVR(set) Intake Note: Patient is present for 6m/psa/pvr Urology Medication:protonix, finesteride, tamsulosin Antibiotic Allergy:none Blood Thinner:none today's pvr:0ml's Senior Account Manager Required: No Allergies phenytoin [Dilantin] Allergy (Severe, Verified 03/13/24 14:43) Redness of Skin lactose Allergy (Intermediate, Verified 03/13/24 14:43) Gastrointestinal Upset HPI Comments Details: Dominguez is a pleasant male. He is a patient of Dr. Patel. He is seen for following urologic conditions - bladder stone - BPH - elevated PSA Six-month follow-up GreenLight laser PSA down Symptoms were controlled Follow-up 6 months Come off medications finasteride and tamsulosin 08/31--5.5, 04/03--3.0, 05/05--25, 05/05--18 Elevated PSA with lower urinary tract symptoms Prior negative biopsy - 2016 PSA - 03/02 5.3, 04/02 6.1, 06/02 4.5 16%, 10/02 3.8, 04/03 3.0, 05/05 25.0 Medication therapy - finasteride and tamsulosin longstanding with oxybutynin for urgency frequency Prostate intervention GreenLight laser prostatectomy 06/02 Cystoscopy - prior gross hematuria with friable vessels 09/03 GreenLight laser, bladder stone, prostate biopsy - NAD 03/06 8.6 Erectile dysfunction Positive result with Cialis previously Nephrolithiasis Known 4 mm stone with spermatocele and hydrocele - december 2018 [facility] Medical History History of skin cancer Balance problems Renal stones Spermatocele Hydrocele H/O urinary frequency H/O urinary retention History of elevated PSA Vasculogenic erectile dysfunction Depression Anxiety Brain hematoma Enlarged prostate Surgical History History of brain surgery Hx of colonoscopy History of hip replacement, total Social History Household Members: Spouse Housing: Condominium Are you a primary acute care certified nursing assistant to a significant other at home: No Do you presently have visiting nurse or other home services: No Alcohol intake: never Patient Tobacco Use Status: Former Tobacco user Tobacco use type: Cigarette Advance Directives Date on File: 06/01/21 Review of Systems Const Denies chills and Denies fever(s) Card Reports no additional complaints and Denies syncope Resp Denies cough GI Denies abdominal pain and Denies heartburn Reports as per HPI and Denies change in libido Neuro Denies syncope Psych Denies change in libido Endo Denies change in libido Physical Exam Const General: cooperative, healthy appearing, comfortable and no acute distress Orientation/consciousness: patient oriented x3 HEENT Face and sinus: Yes normal facial exam Mouth: moist mucous membranes Neck Neck: Yes normal visual inspection, Yes full ROM and Yes trachea midline Chest Chest palpation & inspection: normal inspection of the chest Resp Effort & Inspection: normal respiratory effort, able to speak in complete sentences and no respiratory distress GI Inspection: Yes normal to inspection Back/Spine/Pelvis Cervical Spine: normal cervical lordosis Thoracic/Lumbar Spine: thoracic and lumbar spine normal to inspection Skin General skin exam: no rashes or lesions noted Neuro General: patient oriented x3, gait normal, tone normal and moves all extremities Extrem General: Yes normal to inspection and Yes capillary refill normal Office Procedures Post Void Residual Post Residual Void Post Void Residual (PVR): 0 22254-Qmns Void Residual by ultrasound Results AMB Urinalysis, Automated UA Leukoctes 0 Otf/uL Last Edit by JAVIER Salgado on 03/13/24 14:56 UA Nitrite Negative Last Edit by JAVIER Salgado on 03/13/24 14:56 UA Urobilinogen 0.2 mg/dL Last Edit by JAVIER Salgado on 03/13/24 14:5 6 UA Protein 15 mg/dL Last Edit by JAVIER Salgado on 03/13/24 14:56 UA pH 7.0 Last Edit by JAVIER Salgado on 03/13/24 14:56 UA Blood 10 Tao/uL Last Edit by JAVIER Salgado on 03/13/24 14:56 UA Specific [place] 1.015 Last Edit by JAVIER Salgado on 03/13/24 14: 56 UA Ketone Negative Last Edit by JAVIER Salgado on 03/13/24 14:56 UA Bilirubin 0 mg/dL Last Edit by JAVIER Salgado on 03/13/24 14:56 UA Glucose 0 mg/dL Last Edit by JAVIER Salgado on 03/13/24 14:56 Results Reviewed Results Reviewed: Laboratory Last Values Urine pH (Auto) 7.0 03/13/24 14:55 Specific [place] (Auto) 1.015 03/13/24 14:55 Urine Protein (Auto) 15 mg/dL 03/13/24 14:55 Glucose (UA)(Auto) 0 mg/dL 03/13/24 14:55 Urine Ketones (Auto) Negative 03/13/24 14:55 Urine Blood (Auto) 10 Tao/uL 03/13/24 14:55 Urine Nitrite (Auto) Negative 03/13/24 14:55 Urine Bilirubin (Auto) 0 mg/dL 03/13/24 14:55 Urine Urobilinogen (Auto) 0.2 mg/dL 03/13/24 14:55 Leukocyte Esterase (Auto) 0 Otf/uL 03/13/24 14:55 Assessment & Plan Assessment & Plan (1) Elevated PSA: Code(s): R97.20 - Elevated prostate specific antigen [PSA] Category: Medical (2) BPH w urinary obs/LUTS: Code(s): N40.1 - Benign prostatic hyperplasia with lower urinary tract symptoms; N13.8 - Other obstructive and reflux uropathy Category: Medical Plan Six-month follow-up Orders: Orders AMB Urinalysis Automated Today Z13.9 - Encounter for screening, unspecified PSA,Total (Free>4and<10) 6 Months R97.20 - Elevated prostate specific antigen [PSA] Patient Instructions: Imaging studies, laboratory and physical exam results were discussed and rev iewed in detail. No major barriers to patient understanding were identified. An opportunity to ask questions regarding the treatment plan was provided. All questions were answered. The patient expressed understanding and agreement with the above treatment plan. The patient is aware they should contact our office by phone for worsening of their current condition or the appearance of new urologic symptoms. Compliance is encouraged with any medications and followup testing that is ordered. It is a privilege to participate in the urologic care of your patient. If you have any questions or concerns regarding treatment for the above conditions, or other urologic issues, please do not hesitate to contact me. The office telephone contact is [phone]. This note is constructed using voice recognition software. While every effort has been made to ensure accuracy disposal operator errors may have been included. Yours sincerely, Dr Zaid Wiggins MD, [facility] - Urology Providers of Expert, Compassionate Care for the Genitourinary System Coding Level of Care Code Est Pt Level 3 (04552) Diagnoses Elevated PSA R97.20 BPH w urinary obs/LUTS N40.1; N13.8 CPT Codes Post Residual Void - PVR CPT Code: 93824-Qbon Void Residual by ultrasound ([id number])
== END 2024-03-13 15:23 | disposition home or self-care (01) ==
PROVIDERS: PCP Internal Medicine; Visit Provider Urology
DX: R97.20 Elevated prostate specific antigen [PSA] (principal); N40.1 Benign prostatic hyperplasia with lower urinary tract symptoms; N13.8 Other obstructive and reflux uropathy; Z13.9 Encounter for screening, unspecified
CPT/HCPCS: 99213

== ENCOUNTER → 2024-03-13 14:40 | Outpatient (BNVA) | payer MEDICARE, SELFPAY | PROVIDERS: PCP Internal Medicine; Visit Provider Urology | DX: N40.1 Benign prostatic hyperplasia with lower urinary tract symptoms (principal); R97.20 Elevated prostate specific antigen [PSA]; N13.8 Other obstructive and reflux uropathy; N52.9 Male erectile dysfunction, unspecified; N21.0 Calculus in bladder | CPT/HCPCS: 51798; 81003; 99212 ==

== ENCOUNTER 2024-08-01 14:57 | Emergency (ER) | payer MEDICARE, SELFPAY ==
[2024-08-01] VITALS (7 sets, daily range): BP systolic 128–163; BP diastolic 66–99; PULSE 76–96; RESP 16–23; TEMP 36.8–37; O2SAT 92–98; BMI 22.1
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
--- OUTSIDE RECORDS SUMMARY | 2024-08-01 15:36 | XMS_ITS ---
Author Organization [facility] Address [address] [facility] [place] [address] Care Team Providers Care Automotive Collision Repair Instructor Name Role Phone Lee Patel MD Primary Care Provider Briseidaa Zac Taylor Unavailable [phone] Allergies Allergen (clinical drug ingredient) Drug/Non Drug Allergy documented on EMR Reaction Allergy Type Onset Date Status phenytoin Dilantin increased blood pressure Drug Allergy Active REASON FOR VISIT At Risk Footcare, Painful Nail(s) aggrevated by shoes and causing difficulty standing/walking., Foot pain Social History Tobacco Use: Social History Observation Description Date Details (start date - stop date) Former Smoker NA - NA Tobacco Use/Smoking Question Answer Notes Are you a: former smoker Additional Findings: Tobacco Non-User Current no n-smoker Alcohol Screen Question Answer Notes Did you have a drink containing alcohol in the p ast year? No Points 0 Interpretation Negative Tobacco use other than smoking: Question Answer Notes Are you an other tobacco user? No Problems Problem Type SNOMED Code ICD Code Onset Dates Problem Status W/U Status Risk Notes Problem Atherosclerosis of [place] arteries of the extremities ([id number]) Atherosclerosis of [place] artery of both lower extremities, with unspecified presence of clinical manifestation (I70.203) Active confirmed Vital Signs Height 5 ft 9 in in 08/16/2023 Weight 150 lbs 08/16/2023 BMI 22.15 kg/m2 08/16/2023 Procedures Procedure Date Ordered Date Performed Result Body Sit e 96767-TYWOZNG NAIL, 6 OR MORE 08/16/2023 N/A 52720-CJNM SKIN LESIONS, 2 TO 4 08/16/2023 N/A Encounters Encounter Location Date Provider Diagnosis [facility] [address] [address] 08/16/2023 Zac Overton Atherosclerosis of [place] artery of both lower extremities, with unspecified presence of clinical manifestation I70.203 ; Tinea unguium B35.1 ; Pain in right toe(s) M79.674 ; Pain in left toe(s) M79.675 ; Pain in left foot M79.672 ; Pain in left ankle and joints of left foot M25.572 ; Bursitis of intermetatarsal bursa of left foot M77.52 ; Metatarsalgia of left foot M77.42 ; Pain in right foot M79.671 ; Pain in right ankle and joints of right foot M25.571 ; Bursitis of intermetatarsal bursa of right foot M77.51 and Metatarsalgia, right foot M77.41 Assessments Encounter Date Diagnosis (ICD Code) Assessment Notes Treatment Notes Treatment Clinical Notes Section Notes 08/16/2023 Atherosclerosis of [place] artery of both lower extremities, with unspecified presence of clinical manifestation (ICD-10 - I70.203) 08/16/2023 Tinea unguium (ICD-10 - B35.1) 08/16/2023 Pain in right toe(s) (ICD-10 - M79.674) 08/16/2023 Pain in left toe(s) (ICD-10 - M79.675) 08/16/2023 Pain in left foot (ICD-10 - M79.672) 08/16/2023 Pain in left ankle and joints of left foot (ICD-10 - M25.572) 08/16/2023 Bursitis of intermetatarsal bursa of left foot (ICD-10 - M77.52) 08/16/2023 Metatarsalgia of left foot (ICD-10 - M77.42) 08/16/2023 Pain in right foot (ICD-10 - M79.671) 08/16/2023 Pain in right ankle and joints of right foot (ICD-10 - M25.571) 08/16/2023 Bursitis of intermetatarsal bursa of right foot (ICD-10 - M77.51) 08/16/2023 Metatarsalgia, right foot (ICD-10 - M77.41) Plan Of Treatment Pending Test Test Name Order Date 31591-XSIBPHP NAIL, 6 OR MORE 08/16/2023 76722-AUEH SKIN LESIONS, 2 TO 4 08/16/19 24 Next Appt Details Follow Up: prn, Reason: Procedure Notes * Category Sub-Category Detail Notes Debride Nail 6-10 Nail debridement Nail debridem ent performed extensively to reduce/remove overall nail length, girth, thickness, subungual debris, and necrotic tissue, by manual and electrical means through the use of a nail nipper and/or dremel, to more viable healthy nail plate or bed tissue 1-5. Silver nitrate used for any petechial bleeding as necessary. Patient chooses, no pharmaceutical tx (08014) Keratoma Treatment Parring or Cutting o f Benign Hyperkeratotic Lesion(s) 20228 ( 2-4 Lesions ) - The Benign hyperkeratotic lesions, as described above were pared, and/or cut utilizing a sterile 15 blade, tissue nippers, and/or dremel , Q8 Progress Notes * Dominguez SOLITARIO RDOB: [birth year] (79 yo M)Acc No.[id number]:08/16/2023 Progress Notes Patient:?Dominguez SOLITARIO Coreen Provider:?Zac Overton DPM :1945???Age:78 Y???Sex:Male Ermias e:08/16/2023 Address:[facility] [place] [facility] Pcp:Lee Patel MD Subjective: * Chief Complaints: * ???At Risk FootcarePainful N ail(s) aggrevated by shoes and causing difficulty standing/walking.Foot pain * HPI: ???At Risk footcare:?Pt States Last PCP Visit:?Date?07/25/2023 ???Foot Pain:?Location:?Bottom, Forefoot, B/L.?Duration:?several weeks.?Course:?worse.?Treatments:?rest/alter normal daily activity.? * ROS:?General/Constitutional:?Nausea?denies.?Vomiting?denies.?Hunger Thirst?denies.?Loss appetite?denies.?Chills?denies.?Fatigue?denies.?Fever?denies.?Night Sweats?denies.?Unexplained weight loss?denies.?Unexplained weight gain?denies.?HEENTM:?Dentures?denies.?Dizziness?denies.?Glasses/contacts?denies.?Retinopathy?de nies.?Blurred/double vision?denies.?TMJ?denies.?Discharge/drainage?denies.?Implants?denies.?Sore throat?denies.?Dental implants?denies.?Hard of hearing ?denies.?Difficulty chewing/swallowing/speaking?denies.?Nose bleeds?denies.?Sore mouth?denies.?Respiratory:?On Oxygen?denies.?Pneumonia/pleurisy?denies.?Bronchitis?denies.?Emphysema?denies.?C oughing?denies.?Cough blood?denies.?Shortness of breath?denies.?Wheezing?denies.?Cardiovascular:?Pacemaker?denies.?MVP?denies.?WPW?denies.?CHF?denies.?Heart attack?denies.?Septal defect?denies.?Rapid beat?denies.?Chest pain ?denies.?Atrial Fib.?denies.?Murmur/Palpitations?denies.?Gastrointestinal:?Hemorrhoids?denies.?Stomach/Abdominal pain?denies.?Dark blood stool?denies.?Irritable bowel ?denies.?Constipation?denies.?Diarrhea?denies.?Hematology:?Swelling?admits.?Clots?denies.?Varicose Veins?denies.?Bruising?denies.?Bleeding problem?denies.?Genitourinary:?Blood urine?denies.?Frequent/Painfu/urination/bladder control?denies.?Kidney stones?denies.?Infection (UTI)?denies.?Nephropathy?denies.?sex trans dis (STD)?denies.?Prostate?denies.?Musculoskeletal:?Hammertoes?denies.?Bunions?denies.?Back Pain?denies.?Muscle Cramps/ Resting?denies.?Muscle cramps / walking?denies.?Generalized aches and pains?denies.?Weakness?denies.?Integ.:?Kaufman?denies.?Scars?denies.?Corns/calluses?admits.?Ingrown nails?admits.?Painful nails?admits.?Open Sores?denies.?Rashes?denies.?Neurologic:?Difficulty sleeping?denies.?Brain disorder?denies.?Numbness?denies.?Balance trouble?denies.?Confusion?denies.?Fainting/blackouts?denies.?Tingling?denies.?Tr emors?denies.? * Medical History:? * Surgical History:?Denies Pas t Surgical History * Hospitalization/Major Diagno stic Procedure:?Denies Past Hospitalization * Family History:?Mother: dece ased, diagnosed with Unspecified heart disease.?Father: , diagnosed with Unspecified heart disease.? * Social History:?Tobacco Use:?Tobacco Use/Smoking?Are you a:?former smoker ?Additional Findings: Tobacco Non-User?Current non-smoker ?Tobacco use other than smoking?Are you an other tobacco user??No ???Drugs/Alcohol:?Drugs?Have you used drugs other than those for medical reasons in the past 12 months??No ?Alcohol Screen?Did you have a drink containing alcohol in the past year??No ?Points?0 ?Interpretation?Negative ???Miscellaneous:?Caffeine: no. ?Exercise: yes, motor bike. ?Marital status: . 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 * Medications:?None * Allergies:?Dilantin: increas ed blood pressureyes[Allergies Verified] Objective: * Vitals:?Ht: 5 ft 9 in, Wt: 1 50, BMI:22.15, Shoe size: 10.5. * Examination: ???Vascular: ?DP PULSES (B):?0/4 , LEFT , 1/4 , RIGHT.?PT PULSES (B):? 0/4, B/L.?CAPILLARY FILL TIME:? delayed, all digits, B/L.?TROPHIC CONDITION-TEXTURE/ELASTICITY/TURGOR/HAIR GROWTH (B):? decreased, B/L.?TEMPERTURE GRADIENT (C):? decreased, cool to cool, proximal to distal, B/L.?PIGMENTATION:?rubrous, B/L.?EDEMA (C):?1/4 , non-pitting , without aching pain , Leg(s) , Ankle(s).?CLAUDICATION (C):?denies, B/L.?REST PAIN:?denies, B/L.?Nails: ?NAILS are:? Elongated, overgrown, dystrophic, lytic, greater than 3mm thick, discolored and friable with crumbly malodorous subungual debris, with pain on palpation, TA, T2, T3, T4, 1-5 Right foot, remaining nails are elongated, overgrown, dystrophic.?Dermatologic: ?SKIN FINDINGS:?Skin exam reveals Keratotic lesion(s) located at , Heel(s) , B/L.?Orthopedic: ?MUSCLE STRENGTH:?5/5 all groups in a symmetrical fashion, B/L.?GAIT ABNORMALITY:?antalgic.?MPJ PATHOLOGY:?Atrophied anterior fat pad, Pain, swelling, and inflammation to plantar 2nd, 3rd, 4th, MPJ(s), B/L , No MPJ pain with ROM , [ - ] Ecchymosis.?Neuroma Pain: ?PALPATION:?No interspace pain noted on palpation.?Neurological: ?SENSORY:?Neurological exam reveals intact sensorium, pain sensation normal, vibration sensation intact, pinprick sensation is normal in the lower extremities, Pt denies, anesthesia, burning, paresthesia, tingling, B/L.?TINEL'S COMPRESSION:? Negative tarsal tunnel, vidal pedis, and medial calcaneal nerves.?General Examination: ?GENERAL APPEARANCE:?Reveals a pleasant, alert, well nourished, well- developed, well hydrated individual, who demonstrates proper attention to hygiene/body habitus, and is in no acute distress, Pt serves as own historian for office visit today.?ORIENTED:?person, place, and time.? Assessment: * Assessment: 1.?Atherosclerosis of [place] artery of both lower extremities, with unspecified presence of clinical manifestation - I70.203???2.?Tinea unguium - B35.1???3.?Pain in right toe(s) - M79.674???4.?Pain in left toe(s) - M79.675?? 5.?Pain in left foot - M79.672 (Primary)???6.?Pain in left ankle and joints of left foot - M25.572???7.?Bursitis of intermetatarsal bursa of left foot - M77.52???8.?Metatarsalgia of left foot - M77.42???Specify :Acute problem, Uncomplicated (3)???9.?Pain in right foot - M79.671???10.?Pain in right ankle and joints of right foot - M25.571???11.?Bursitis of intermetatarsal bursa of right foot - M77.51???12.?Metatarsalgia, right foot - M77.41???Specify :Acute problem, Uncomplicated (3)??? Plan: * Treatment: 2.?Tinea unguium?Procedure: 18849-LZSSQVD NAIL, 6 OR MORE * Procedures:?Debride Nail 6-10:?Nail debridement?Nail debridement performed extensively to reduce/remove overall nail length, girth, thickness, subungual debris, and necrotic tissue, by manual and electrical means through the use of a nail nipper and/or dremel, to more viable healthy nail plate or bed tissue 1-5. Silver nitrate used for any petechial bleeding as necessary. Patient chooses, no pharmaceutical tx (03235).?Keratoma Treatment:?Parring or Cutting of Benign Hyperkeratotic Lesion(s)?36060 ( 2-4 Lesions ) - The Benign hyperkeratotic lesions, as described above were pared, and/or cut utilizing a sterile 15 blade, tissue nippers, and/or dremel , Q8.? * Procedure Codes:?26780 DEBRI DE NAIL, 6 OR MORE, Modifiers: XS 16266 TRIM SKIN LESIONS, 2 TO 4, Modifiers: XS , Q8 * Preventive Medicine:? ??Counseling:?Discussion:?-03: Office or other outpatient visit for the evaluation and management of a new patient, which required a medically appropriate history and/or examination and LOW level of DECISION MAKING for: 1 STABLE ACUTE UNCOMPLICATED PROBLEM, 2 OR MORE MINOR PROBLEMS, OR 1 STABLE CHRONIC PROBLEM, THAT POSE(S) A LOW RISK FOR MORBIDITY/MORTALITY. The visit on the day of the encounter encompassed interpreting the data and educating the patient as to the nature of their condition, treatment options available according to their individual PMH, meds, allergies, and overall health/living conditions, as well as any potential risks or complications that may occur from a failure to adhere to, and participate in, the recommended course of therapy. The discussion included a complete verbal, and/or written explanation of the examination results, any x-rays taken, the proposed diagnosis, and outline of the treatment plan. A schedule for future care needs was also explained. The patient verbalized an understanding of the instructions at this time and agreed to be an active participant in their treatment. If the patient should think of any questions or concerns after the visit, I have encouraged the patient to call the office.?Metatarsalgea:?I explained to the patient the possible etiologies of their Metatarsalgea Foot pain, including foot type/shoegear/activity level/exercise routine and the risks/benefits of all the different treatment options for pain including: No treatment at all, Rest, Ice, NSAIDs(only if well tolerated after meals), New/supportive Shoegear, Strappings and Tapings, Foot/Ankle AFO Bracing, Stretching exercises, Deep Tissue Massage, Arch support/shoe inserts, Custom orthoses, Topical analgesics including Aspercream/Voltaren gel, Physical Therapy, Cortisone injection therapy, EPAT/ESWT. Advantages and disadvantages of each option were discussed and the patients questions re: shoegear, custom vs prefabricated inserts, activity level, PO vs Topical medications (and their respective potential complications/drug interactions/side effects), and consistency in home treatment regimens for optimal success were answered to their verbally confirmed satisfaction.?Orthotics:?I explained to the patient the benefits of OT use. I explained that orthoses are medically necessary to decrease the foot pain through proper mechanical control, support of their foot, decrease pain under the painful metatarsal by supplementing the soft tissue, cushion the forefoot by supplementing the soft tissue.?P.R.I.C.E.:?The patient was counseled on the use of P.R.I.C.E. and NSAIDS (if well tolerated) to aid in the recovery from their painful condition.?Podiatric Surgery Counseling:?We elected to try conservative treatment at the present time, due to the patients age, medical history, and circulatory constraints.?Shoe Gear Counseling:?The patient and I reviewed the types of shoes they should be wearing. My recommendation included obtaining a well-fitted shoe with a good supportive, non-foldable nor twistable sole, plenty of toe/room for the forefoot, and proper arch support. Based on todays examination, I recommended the patient look for new shoes, by having their feet professionally measured. We discussed that generally the best time of the day for a shoe fitting is the afternoon. Different shoes types and brands to best match the patients occupation and vocation were discussed. Specific brand selection will be up to the patient, their individual foot condition/deformities, and fit. The patient and I reviewed the standard new shoe break in period by wearing them for a few hours a day while checking for redness or sores as wear time is increased. The patient verbally confirmed to understanding the information discussed.? ??Screening/Special Tests:?Fall Risk?Screening:?No falls in the past year ?FALLS: Screening for Future Fall Risk?Have you had any falls with injury in the past year??No * Follow Up:?prn * Images: * Sign off status: Completed true * Provider:?Zac Overton DPM Date:?2023 Generated for Maite sommer/Danielito/Marco Antonioitting on:?08/01/2024 03:36 PM EST History and Physical Notes * HPI (History of Present Illness) Category Sub-Category Detail Notes Category Not es At Risk footcare Pt States Last PCP Visit: Date: 4 Foot Pain Location: Bottom, Forefoot, B/L Duration: several weeks Course: worse Treatments: rest/alter normal da lamar activity Examination Category Sub-Category Detail Notes Category Not es Neuroma Pain PALPATION: No interspace pain noted on palpation Neurological SENSORY: Neurological exa m reveals intact sensorium, pain sensation normal, vibration sensation intact, pinprick sensation is normal in the lower extremities, Pt denies, anesthesia, burning, paresthesia, tingling, B/L TINEL'S COMPRESSION: Negative tarsal nicole venessa, vidal pedis, and medial calcaneal nerves Dermatologic SKIN FINDINGS: Skin exam reveal s Keratotic lesion(s) located at , Heel(s) , B/L Orthopedic GAIT ABNORMALITY: antalgic MPJ PATHOLOGY: Atrophied anterior f at pad, Pain, swelling, and inflammation to plantar 2nd, 3rd, 4th, MPJ(s), B/L , No MPJ pain with ROM , [ - ] Ecchymosis MUSCLE STRENGTH: 5/5 all groups in a symmetrical fashion, B/L General Examination GENERAL APPEARANCE: Reveals a pleasant, alert, well nourished, well-developed, well hydrated individual, who demonstrates proper attention to hygiene/body habitus, and is in no acute distress, Pt serves as own historian for office visit today ORIENTED: person, place, and t sohail Vascular DP PULSES (B): 0/4 , LEFT , 1/4 , RIGHT PT PULSES (B): 0/4, B/L CAPILLARY FILL TIME: delayed, all digits , B/L TEMPERTURE GRADIENT (C): decreased, cool to cool, proximal to distal, B/L TROPHIC CONDITION-TEXTURE/ELASTICITY/TURGOR/HAIR GROWTH (B): decreased, B/L EDEMA (C): 1/4 , non-pitting , without aching pain , Leg(s) , Ankle(s) CLAUDICATION (C): denies, B/L REST PAIN: denies, B/L PIGMENTATION: rubrous, B/L Nails NAILS are: Elongated, overg rown, dystrophic, lytic, greater than 3mm thick, discolored and friable with crumbly malodorous subungual debris, with pain on palpation, TA, T2, T3, T4, 1-5 Right foot, remaining nails are elongated, overgrown, dystrophic
--- OUTSIDE RECORDS SUMMARY | 2024-08-01 15:36 | XMS_ITS | Patient Health Record ---
Author Organization [facility] Address [address] [facility] [place] [address] Care Team Providers Care Signals Collector/Analyst Name Role Phone Lee Patel MD Primary Care Provider Zac Gamez Unavailable [phone] Allergies Allergen (clinical drug ingredient) Drug/Non Drug Allergy documented on EMR Reaction Allergy Type Onset Date Status phenytoin Dilantin increased blood pressure Drug Allergy Active Reason For Referral No Information Social History Tobacco Use: Social History Observation [...] W/U Status Risk Notes Problem Atherosclerosis of [place] arteries of the extremities (779453526358807) Atherosclerosis of [place] artery of both lower extremities, with unspecified presence of clinical manifestation (I70.203) Active confirmed Vital Signs Height 5 ft 9 in in 08/16/2023 Weight 150 lbs 08/16/2023 BMI 22.15 kg/m2 08/16/2023 Procedures Procedure Date Ordered Date Performed Result Body Sit e 16306-XVRFTKR NAIL, 6 OR MORE 08/16/2023 N/A 59269-ENYH SKIN LESIONS, 2 TO 4 08/16/2023 N/A Encounters Encounter Location Date Provider Diagnosis [facility] [address] [place] [address] 08/16/2023 Zac Overton Atherosclerosis of [place] artery of both lower extremities, with unspecified [...] foot M77.51 and Metatarsalgia, right foot M77.41 [facility] [address] [address] 08/11/2023 Zac Overton Assessments Encounter Date Diagnosis (ICD Code) Assessment Notes Treatment Notes Treatment Clinical Notes Section Notes 08/16/2023 Atherosclerosis of [place] artery of both lower extremities, with unspecified [...] Treatment Pending Test Test Name Order Date 47720-FAFGZSU NAIL, 6 OR MORE 08/16/2023 19938-ZJPM SKIN LESIONS, 2 TO 4 08/16/19 24 Insurance Providers Payer Name Payer Address Payer Phone Subscriber Number Group Number Insured Name Patient Relationship to Insured Coverage Start Date Coverage End Date Medicare National [employer] [address] [place] [address] [id number] Dominguez Solitario Self - patient is the insured [employer] [address] [place] [address] [phone] [id number] Dominguez Solitario Self - patient is the insured Medical (General) History Medical History History ICD Code Anxiety Arthritis Depression Surgical History Surgery Date(Month/Year)
--- OUTSIDE RECORDS SUMMARY | 2024-08-01 15:37 | XMS_ITS ---
Author Organization [facility] Address [address] [place] [address] Care Team Providers Care Machine Hoop Maker Name Role Phone Lee Patel MD Primary Care Provider Zac Gamez Unavailable [phone] Encounters Encounter Location Date Provider Diagnosis [facility] [address] [place] [address] 08/12/2023 Zac Overton Plan Of Treatment No Information Progress Notes * Dominguez SOLITARIO RDOB: [birth year] (79 yo M)Acc No.[id number]:08/12/2023 Progress Notes Patient:?Dominguez SOLITARIO Provider:?Zac Overton DPM :1945???Age:78 Y???Sex:Male Ermias e:08/12/2023 Address:[address] [place] [address] , [id number] Pcp:Lee Patel MD Subjective: * Chief Complaints: * ??? * Medical History:? Objective: * Vitals:? Assessment: Plan: * Treatment: * Images: * The named appointment provid er may or may not be the originator of this progress note, and it is not deemed complete until electronically signed by the appointment provider. Sign off status: Pending * Provider:Jesse Overton DPM Date:?2023 Generated for Kiai ros/Fajeromy/eTransmitting on:?08/01/2024 03:36 PM EST
--- OUTSIDE RECORDS SUMMARY | 2024-08-01 15:37 | XMS_ITS | Clinical Summary ---
Author Organization [facility] it Address [address] [place] [address] Care Team Providers Care Senior Web Applications Developer Name Role Phone Lee Patel MD Primary Care Provider [phone] Social History Tobacco Use Types Packs/Day Years Used Date Smoking Tobacco: Never Assessed Sex and Gender Information Value Date Recorded Sex Assigned at Not on file Legal Sex Male 11:11 AM EST Gender Identity Not on file Sexual Orientation Not on file Plan of Treatment Health Maintenance Due Date Last Done Comments DTaP,Tdap,and Td Vaccines (1 - Tdap) 1965 Pneumococcal Vaccine: 50+ Ye ars (1 of 1 - PCV) 1996 Zoster Vaccines (1 of 2) 1996 RSV Immunization Patients 60 + Years Old (1 - 1-dose 75+ series) 2021 Cholesterol Screening (Lipid Panel) 05/11/2022 Depression Screening 05/11/2022 Falls Risk Assessment 05/11/2022 Hepatitis C Screening 05/11/2022 Social Influencers of Health Screening 05/11/2022 COVID-19 Vaccine ( - 2023-2 5 season) 2024 Influenza Vaccine (#1) 2024 HIB Vaccines Aged Out No longer eligi ble based on patient's age to complete this topic HPV Vaccines Aged Out No longer eligi ble based on patient's age to complete this topic Hepatitis A Vaccines Aged Out No long er eligible based on patient's age to complete this topic Hepatitis B Vaccines Aged Out No long er eligible based on patient's age to complete this topic IPV Vaccines Aged Out No longer eligi ble based on patient's age to complete this topic MMR Vaccines Aged Out No longer eligi ble based on patient's age to complete this topic Meningococcal ACWY Vaccine Aged Out N o longer eligible based on patient's age to complete this topic Meningococcal B Vacine Aged Out No lo nger eligible based on patient's age to complete this topic RSV Immunization Patients Un francisco j 20 months Aged Out No longer eligible b ased on patient's age to complete this topic Varicella Vaccines Aged Out No longer eligible based on patient's age to complete this topic Care Teams Senior Web Applications Developer Relationship Specialty Start Date End Date Lee Patel MD [address] [place] [address] Dr Rosalinda [place] PCP - General Internal Medicine 04/28/21
--- OUTSIDE RECORDS SUMMARY | 2024-08-01 15:37 | XMS_ITS ---
Author Organization [facility] Address [address] [place] [address] Care Team Providers Care Knurling Machine Operator Name Role Phone Lee Patel MD Primary Care Provider Unavaila Zac Taylor Unavailable [phone] REASON FOR VISIT Seen Sooner Encounters Encounter Location Date Provider Diagnosis [facility] [address] [place] [address] 11/01/2023 Zac Overton Plan Of Treatment No Information Progress Notes * SOLITARIO Dominguez RDOB: [birth year] (79 yo M)Acc No.[id number]:11/01/2023 Progress Notes Patient:?Dominguez SOLITARIO Provider:?Zac Overton DPM :1945???Age:78 Y???Sex:Male Ermias e:11/01/2023 Address:[address] [place] [address] , [id number] Pcp:Lee Patel MD Subjective: * Chief Complaints: * ???1. Seen Sooner. * Medical History:? Objective: * Vitals:? Assessment: Plan: * Treatment: * Images: * The named appointment provid er may or may not be the originator of this progress note, and it is not deemed complete until electronically signed by the appointment provider. Sign off status: Pending * Provider:?Zac Overton DPM Date:?2023 Generated for Printi ros/Fajeromy/eTransmitting on:?08/01/2024 03:36 PM EST
--- NOTE | 2024-08-01 16:09 | ECG_ITS ---
Test Reason : chest pain Blood Pressure : */* mmHG Vent. Rate : 71 BPM Atrial Rate : 71 BPM P-R Int : 160 ms QRS Dur : 88 ms QT Int : 382 ms P-R-T Axes : -14 63 48 degrees QTcB Int : 415 ms Normal sinus rhythm Normal ECG When compared with ECG of 29-May-2023 07:36, No significant change was found Referred By: Jaci Thomson Electronically Signed By: KANE GARZA
[2024-08-01] MEDS: Acetaminophen 325 MG TABLET 650 MG PO (16:48)
[2024-08-01 17:09] LABS: MANUAL DIFF FLAG NO
[2024-08-01] MEDS: Lactated Ringers 1,000 ML 999 ML IV (17:10)
[2024-08-01 17:17] LABS: Basophils Percent Auto 0.3 % (0-2); Eosinophils Absolute Auto 0.1 X10*3/uL (0.0-0.4); Eosinophils Percent Auto 0.9 % (0-4); Hematocrit 44.8 % (42.0-52.0); Hemoglobin 15.4 g/dl (14.0-18.0); Imm Gran Abs Auto 0.07 X10*3/uL (0.00-0.03); Imm Gran Pct Auto 0.5 % (0.0-0.4); Lymphocytes Absolute Auto 1.4 X10*3/uL (1.2-4.9); Lymphocytes Percent Auto 10.5 % (20-40); Mean Corpuscular HGB Conc 34.4 g/dl (31.0-36.0); Mean Corpuscular Volume 93.1 fL (80.0-98.0); Mean Platelet Volume 8.6 fL (9.4-12.4); Monocytes Absolute Auto 0.7 X10*3/uL (0.1-1.2); Monocytes Percent Auto 5.6 % (2-11); Neutrophils Absolute Auto 10.7 x10*3/uL (2.0-8.3); Neutrophils Percent Auto 82.2 % (45-73); Platelet Count 270 X10*3/uL (160-400); Red Blood Count 4.81 X10*6/uL (4.60-5.80); Red Cell Distribution Width 12.5 % (11.0-16.0)
[2024-08-01] MEDS: iohexoL 350 MG/ML 100 ML INFUS..BTL IV (17:21)
[2024-08-01 17:31] LABS: Alanine Aminotransferase 17 U/L (0-40); Albumin Level 3.8 g/dL (3.5-5.0); Alkaline Phosphatase 77 U/L (39-117); Anion Gap 10 (12-20); Aspartate Amino Transferase 33 U/L (5-37); Bilirubin Direct 0.1 mg/dL (0.0-0.5); Bilirubin Total 0.5 mg/dL (0.0-1.0); Blood Urea Nitrogen 23 mg/dL (9-16); Calcium 9.4 mg/dL (8.4-10.2); Carbon Dioxide 26 mmol/L (22-29); Chloride 107 mmol/L (96-108); Creatinine Clr Calc Pharmacy 72.3; Estimated Glomerular Filt Rate > 60; Glucose Random 113 mg/dL (60-115); Magnesium 1.9 mg/dL (1.6-2.6); Potassium 4.3 mmol/L (3.3-5.1); Sodium 139 mmol/L (135-145); Total Protein 6.8 g/dL (6.5-8.0)
--- NOTE | 2024-08-01 17:54 | MHC.EDTECH ---
Knee mobilizer was applied patient tolerated very well, he is resting in his bed and call hilton on his reach.
[2024-08-01 17:58] LABS: Lipase 38 U/L (8-78)
[2024-08-01 19:06] LABS: COVID-19 Test Negative (Negative); IDNOW Serial# 55D5AD1C
--- NOTE | 2024-08-01 20:48 | PC.NURSE ---
Confirmed w/ Dr. Webster patient okay to take out of C-collar, collar removed. Patient okay to eat before midnight, waiting on transfer to [facility] bed assignment.
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
== END 2024-08-01 22:35 | disposition short-term general hospital (02) ==
PROVIDERS: Emergency Provider Emergency Medicine
DX: S22.22XA Fracture of body of sternum, initial encounter for closed fracture (principal); S82.141A Displaced bicondylar fracture of right tibia, initial encounter for closed fracture; S27.322A Contusion of lung, bilateral, initial encounter; V57.5XXA Driver of pick-up truck or van injured in collision with fixed or stationary object in traffic accident, initial encounter; M25.561 Pain in right knee; Y93.89 Activity, other specified; Y92.414 Local residential or business street as the place of occurrence of the external cause; Y99.9 Unspecified external cause status; Z11.52 Encounter for screening for COVID-19
CPT/HCPCS: 36415; 70450; 71250; 71260; 72125; 73564; 74177; 80048; 80076; 83690; 83735; 85025; 86850; 86900; 86901; 87635; 93005; 96360; 96361; 99285; J7120; Q9967

== ENCOUNTER → 2024-08-01 15:12 | Outpatient (BNV) | payer MEDICARE, SELFPAY | PROVIDERS: Emergency Provider Emergency Medicine; Visit Provider Radiology Diagnostic Radiology | DX: R07.89 Other chest pain (principal); S22.22XA Fracture of body of sternum, initial encounter for closed fracture; M54.2 Cervicalgia; R51.9 Headache, unspecified; M25.561 Pain in right knee; R10.9 Unspecified abdominal pain; V47.5XXA Car driver injured in collision with fixed or stationary object in traffic accident, initial encounter; Z04.3 Encounter for examination and observation following other accident | CPT/HCPCS: 70450; 71260; 72125; 73564; 74177 ==

== ENCOUNTER → 2024-08-01 16:09 | Outpatient (BNV) | payer MEDICARE, SELFPAY | PROVIDERS: Emergency Provider Emergency Medicine; Visit Provider Internal Medicine | DX: R07.9 Chest pain, unspecified (principal) | CPT/HCPCS: 93010 ==

== ENCOUNTER 2024-08-29 11:30 | Outpatient (AMB) | payer MEDICARE, SELFPAY ==
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
[2024-08-29 11:38] VITALS: BP 116/70; PULSE 84; RESP 14; TEMP 36.7; O2SAT 97
--- OUTSIDE RECORDS SUMMARY | 2024-08-29 14:08 | XMS_ITS | Patient Health Record ---
[facility] Address [address] [place] [address] Care Team Providers Care Ecommerce Manager Name Role Phone Lee Patel MD Primary Care Provider Zac Gamez Unavailable [phone] Allergies Allergen (clinical drug ingredient) Drug/Non Drug [...] W/U Status Risk Notes Problem Atherosclerosis of [place] arteries of the extremities ([id number]) Atherosclerosis of [place] artery of both lower extremities, with unspecified presence of clinical manifestation (I70.203) Active confirmed Plan Of Treatment Pending Test Test Name Order Date [id number] NAIL, 6 OR MORE 08/16/2023 87745-BKWT SKIN LESIONS, 2 TO 4 08/16/19 24 Insurance Providers Payer Name Payer Address Payer Phone Subscriber Number Group Number Insured Name Patient Relationship to Insured Coverage Start Date Coverage End Date Medicare National [facility] [employer] [address] [place] [address] [id number] Dominguez Solitario Self - patient is the insured [employer] [address] [place] [address] [id number] Dominguez Solitario Self - patient is the insured Medical (General) History Medical History History ICD Code Anxiety Arthritis Depression Surgical History Surgery Date(Month/Year)
--- OUTSIDE RECORDS SUMMARY | 2024-08-29 14:09 | XMS_ITS ---
Author Organization [facility] Address [address] [place] [address] Care Team Providers Care Academic Counselor Name Role Phone Lee Patel MD Primary Care Provider Briseidaa Zac Taylor Unavailable [phone] Allergies Allergen (clinical drug ingredient) Drug/Non Drug [...] W/U Status Risk Notes Problem Atherosclerosis of [place] arteries of the extremities (646608630185980) Atherosclerosis of [place] artery of both lower extremities, with unspecified presence of clinical manifestation (I70.203) Active confirmed Vital Signs Height 5 ft 9 in in 08/16/2023 Weight 150 lbs 08/16/2023 BMI 22.15 kg/m2 08/16/2023 Procedures Procedure Date Ordered Date Performed Result Body Sit e 62680-UCZISIP NAIL, 6 OR MORE 08/16/2023 N/A 84573-RVSW SKIN LESIONS, 2 TO 4 08/16/2023 N/A Encounters Encounter Location Date Provider Diagnosis [facility] [address] [address] 08/16/2023 Zac Overton Atherosclerosis of [place] artery of both lower extremities, with unspecified [...] Clinical Notes Section Notes 08/16/2023 Atherosclerosis of [place] artery of both lower extremities, with unspecified [...] Treatment Pending Test Test Name Order Date [id number] NAIL, 6 OR MORE 08/16/2023 54319-CLGU SKIN LESIONS, 2 TO 4 08/16/19 24 [...] as necessary. Patient chooses, no pharmaceutical tx (37967) Keratoma Treatment Parring or Cutting o f Benign Hyperkeratotic Lesion(s) 87672 ( 2-4 Lesions ) - The Benign hyperkeratotic lesions, as described above were pared, and/or cut utilizing a sterile 15 blade, tissue nippers, and/or dremel , Q8 Progress Notes * Dominguez SOLITARIO RDOB: [birth year] (79 yo M)Acc No.[id number]:08/16/2023 Progress Notes Patient:?Dominguez SOLITARIO Coreen Provider:?Zac Overton DPM :1945???Age:78 Y???Sex:Male Ermias e:08/16/2023 Address:[facility] Pcp:Lee Patel MD Subjective: * Chief Complaints: [...] and time.? Assessment: * Assessment: 1.?Atherosclerosis of [place] artery of both lower extremities, with unspecified [...] Uncomplicated (3)??? Plan: * Treatment: 2.?Tinea unguium?Procedure: 98224-QRIAURK NAIL, 6 OR MORE * Procedures:?Debride Nail 6-10:?Nail debridement?Nail debridement performed extensively to reduce/remove overall nail length, girth, thickness, subungual debris, and necrotic tissue, by manual and electrical means through the use of a nail nipper and/or dremel, to more viable healthy nail plate or bed tissue 1-5. Silver nitrate used for any petechial bleeding as necessary. Patient chooses, no pharmaceutical tx (07259).?Keratoma Treatment:?Parring or Cutting of Benign Hyperkeratotic Lesion(s)?26570 ( 2-4 Lesions ) - The Benign hyperkeratotic lesions, as described above were pared, and/or cut utilizing a sterile 15 blade, tissue nippers, and/or dremel , Q8.? * Procedure Codes:?35942 DEBRI DE NAIL, 6 OR MORE, Modifiers: XS 14567 TRIM SKIN LESIONS, 2 TO 4, Modifiers: [...] DPM Date:?2023 Generated for Maite sommer/Danielito/Marco Antonioitting on:?08/29/2024 02:08 PM EDT History and Physical Notes * HPI (History [...]
--- OUTSIDE RECORDS SUMMARY | 2024-08-29 14:09 | XMS_ITS ---
Author Organization [facility] Address [address] [place] [address] Care Team Providers Care Director Graphics Name Role Phone Lee Patel MD Primary Care Provider Unavaila Zac Taylor Unavailable [phone] REASON FOR VISIT Seen Sooner Encounters Encounter Location Date Provider Diagnosis [facility] [address] [place] [address] 11/01/2023 Zac Overton Plan Of Treatment No Information Progress Notes * SOLITARIO Dominguez RDOB: [birth year] (79 yo M)Acc No.[id number]:11/01/2023 Progress Notes Patient:?Dominguez SOLITARIO Provider:?Zac Overton DPM :1945???Age:78 Y???Sex:Male Ermias e:11/01/2023 Address:[address] [place] [address] , [id number] Pcp:Lee Patel MD Subjective: * Chief Complaints: [...] Provider:?Zac Overton DPM Date:?2023 Generated for Printi ng/Faramóng/eTransmitting on:?08/29/2024 02:08 PM EDT
--- OUTSIDE RECORDS SUMMARY | 2024-08-29 14:10 | XMS_ITS | Clinical Summary ---
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 Active acetaminophen (TYLENOL) 325 mg tablet Take 3 tablets (975 mg total) by mouth 3 (three) times a day if needed for mild pain. 08/14/19 25 Active aspirin 81 mg EC tabletIndicati ons:myocardial infarction prevention Take 1 tablet (81 mg total) by mouth 1 (one) time each day. 30 each 08/14/19 25 025 Active docusate sodium (COLACE) 100 mg capsule Take 1 capsule (100 mg total) by mouth 2 (two) times a day. 60 each 08/14/19 25 025 Active gabapentin (NEURONTIN) 100 mg capsule Take 2 capsules (200 mg total) by mouth 3 (three) times a day. 180 each 08/14/19 25 025 Active pantoprazole (PROTONIX) 40 mg EC tablet Take 1 tablet (40 mg total) by mouth 1 (one) time each day before breakfast. Do not crush, chew, or split. 30 each 08/14/19 25 025 Active senna (SENOKOT) 8.6 mg tablet Take 1 tablet (8.6 mg total) by mouth 1 (one) time each day. 30 each 08/14/19 25 04/02/2 025 Active tamsulosin (FLOMAX) 0.4 mg 24 hr capsule Take 1 capsule (0.4 mg total) by mouth at bedtime. Capsules should be taken 30 minutes following the same meal each day. 30 each 08/14/19 25 Active acetaminophen (TYLENOL) 325 mg tablet Take 3 tablets (975 mg total) by mouth 3 (three) times a day if needed for mild pain. 025 Discontinued aspirin 81 mg EC tablet Take 1 tablet (81 mg total) by mouth 1 (one) time each day. 025 Discontinued docusate sodium (COLACE) 100 mg capsule Take 1 capsule (100 mg total) by mouth 2 (two) times a day. 025 Discontinued gabapentin (NEURONTIN) 100 mg capsule Take 2 capsules (200 mg total) by mouth 3 (three) times a day. Discontinued pantoprazole (PROTONIX) 40 mg EC tablet Take 1 tablet (40 mg total) by mouth 1 (one) time each day before breakfast. Do not crush, chew, or split. 025 Discontinued senna (SENOKOT) 8.6 mg tablet Take 1 tablet (8.6 mg total) by mouth 1 (one) time each day. 025 Discontinued tamsulosin (FLOMAX) 0.4 mg 24 hr capsule Take 1 capsule (0.4 mg total) by mouth 1 (one) time each day with breakfast. Capsules should be taken 30 minutes following the same meal each day. Discontinued(St op Taking at Discharge) enoxaparin (LOVENOX) 40 mg/0.4 mL syringeIndicat ions:deep vein thrombosis prevention Inject 0.4 mL (40 mg total) under the skin 1 (one) time each day for 14 days. 14 each 08/15/19 Active Problems Problem Noted Date Diagnosed Date Multiple fractures 08/06/2024 Encounters Date Type Department Care Team Description 08/08/2024 Plan of Care Documentation [facility] [address] [place] [id number] 08/06/2024 4:01 PM EST - 08/14/2024 11:20 AM EST Hospital Encounter [facility] [address] [place] [address] Seema Montero DO Discharge Disposition: Home-Health Care Svc from Last 3 Months Medical History Medical History Date Comments GERD (gastroesophageal reflux disease) BPH (benign prostatic hyperplasia) HLD (hyperlipidemia) Social History Tobacco Use Types Packs/Day Years Used Date Smoking Tobacco: Never Assessed Health Literacy Answer Date Recorded How often do you need to hav e someone help you when you read instructions, pamphlets, or other written material from your doctor or pharmacy? Never 08/13/2024 Caregiver: How often do you need to have someone help you when you read instructions, pamphlets, or other written material from your doctor or pharmacy? Not on file 08/13/2024 Transportation Answer Date Recorded Has the lack of transportati on kept you from meetings, work, or from getting things needed for daily living? No Has the lack of transportati on kept you from medical appointments or from getting medications? No 08/07/2024 Social Isolation Answer Date Recorded How often do you feel lonely or isolated from th ose around you? Never 08/14/2024 Interpersonal Safety Answer Date Record ed Physical Abuse 08/06/2024 Verbal Abuse 08/06/2024 Sex and Gender Information Value Date Recorded Sex Assigned at Male 08/06/2024 1:12 PM EST Legal Sex Male 11:11 AM EST Gender Identity Male 08/06/2024 1:12 PM EST Sexual Orientation Straight 08/06/2024 1: 12 PM EST Obstetrics History Last Filed Vital Signs Vital Sign Reading Time Taken Comments Blood Pressure 110/71 08/14/2024 9:56 AM EST Pulse 96 08/14/2024 9:56 AM EST Temperature 37 ??C (98.6 ??F) 08/14/2024 9:56 AM EST Respiratory Rate 18 08/14/2024 12:35 AM EST Oxygen Saturation 95% 08/14/2024 9:56 AM EST Inhaled Oxygen Concentration - - Weight 67.9 kg (149 lb 9.6 oz) 08/12/2024 9:00 A M EST Height 175 cm (5' 8.9 ) 08/06/2024 1:21 PM EST Body Mass Index 22.16 08/06/2024 1:21 PM EST Plan of Treatment Health Maintenance Due Date Last Done Comments DTaP,Tdap,and Td Vaccines (1 - Tdap) 1965 Pneumococcal Vaccine: 50+ Ye ars (1 of 1 - PCV) 1996 Zoster Vaccines (1 of 2) 1996 RSV Immunization Patients 60 + Years Old (1 - 1-dose 75+ series) 2021 Cholesterol Screening (Lipid Panel) 05/11/2022 Hepatitis C Screening 05/11/2022 Medicare Annual Wellness Visit 05/11/2022 COVID-19 Vaccine (1 - 2023-2 5 season) 2024 Influenza Vaccine (#1) 2024 Depression Screening 08/14/2025 08/14/2024 Falls Risk Assessment 08/14/2025 08/14/2024 Social Influencers of Health Screening 08/14/2025 08/14/2024 HIB Vaccines Aged Out No longer eligi [...] on patient's age to complete this topic Procedures Procedure Name Priority Date/Time Associated Diagnosis Comments BASIC METABOLIC PANEL Routine 08/14/2024 5:43 AM EST COMPLETE BLOOD COUNT Routine 08/14/2024 5:43 AM EST COMPLETE BLOOD COUNT Routine 08/10/2024 5:23 AM EST COMPREHENSIVE METABOLIC PANEL Routine 08/10/2024 5:23 AM EST COMPLETE BLOOD COUNT Timed 08/07/2024 6:10 AM EST COMPREHENSIVE METABOLIC PANEL Routine 08/07/2024 6:09 AM EST from Last 3 Months Results * (ABNORMAL) Complete blood count (08/14/2024 5:43 AM EST) Only the most recent of3 resultswithin the time period is included. WBC 9.3 4.8 - 10.8 K/mcL LAB HEMETOLOGY METHOD 08/14/2024 6:13 AM [facility] RBC 3.90(L) 4.50 - 5.50 M/mcL LAB HEMETOLOGY METHOD 08/14/2024 6:13 AM [facility] Hemoglobin 12.2(L) 13.5 - 17.5 g/dL LAB HEMETOLOGY METHOD 08/14/2024 6:13 AM [facility] Hematocrit 37.6(L) 42.0 - 54.0 % LAB HEMETOLOGY METHOD 08/14/2024 6:13 AM [facility] MCV 97.4 79.0 - 98.0 FL LAB HEMETOLOGY METHOD 08/14/2024 6:13 AM [facility] MCH 31.6 27.0 - 32.0 pcg LAB HEMETOLOGY METHOD 08/14/2024 6:13 AM [facility] MCHC 32.4 32.0 - 37.0 g/dL LAB HEMETOLOGY METHOD 08/14/2024 6:13 AM [facility] RDW 13.1 11.0 - 15.0 % LAB HEMETOLOGY METHOD 08/14/2024 6:13 AM [facility] Platelets 588(H) 130 - 400 K/mcL LAB HEMETOLOGY METHOD 08/14/2024 6:13 AM [facility] MPV 8.7 7.0 - 11.0 FL LAB HEMETOLOGY METHOD 08/14/2024 6:13 AM EST [facility] NRBC 0.0 <1.0 % LAB HEMETOLOGY METHOD 08/14/2024 6:13 AM EST [facility] NRBC Absolute 0.00 <0.10 K/mcL LAB HEMETOLOGY METHOD 08/14/2024 6:13 AM EST [facility] Blood Venous blood specimen / Unknown Venipuncture / Unknown 08/14/2024 5:43 AM EST 08/14/2024 6:04 AM EST Gardenia Guzman NP LAB BLOOD ORDERABLES Final Result [facility] [address] [place] [address], * (ABNORMAL) Basic metabolic panel (08/14/2024 5:43 AM EST) Sodium 134 133 - 145 mmol/L LAB CHEMISTRY METHOD 08/14/2024 6:30 AM [facility] Potassium 4.3 3.5 - 5.5 mmol/L LAB CHEMISTRY METHOD 08/14/2024 6:30 AM [facility] Chloride 102 96 - 110 mmol/L LAB CHEMISTRY METHOD 08/14/2024 6:30 AM [facility] CO2 27 21 - 32 mmol/L LAB CHEMISTRY METHOD 08/14/2024 6:30 AM [facility] Anion Gap 5 3 - 11 LAB CHEMISTRY METHOD 08/14/2024 6:30 AM [facility] Glucose 104(H) 70 - 100 mg/dL LAB CHEMISTRY METHOD 08/14/2024 6:30 AM [facility] BUN 19 5 - 25 mg/dL LAB CHEMISTRY METHOD 08/14/2024 6:30 AM [facility] Creatinine 0.72 0.70 - 1.30 mg/dL LAB CHEMISTRY METHOD 08/14/2024 6:30 AM [facility] eGFR 94 >=60 mL/min/1. 73m2 LAB CHEMISTRY METHOD 08/14/2024 6:30 AM [facility] Comment:Calculation based on the??Chronic Kidney Disease Epidemiology Collaboration (CKD-EPI) equation refit??without adjustment for race. BUN/Creatinine Ratio 26.4 LAB CHEMISTRY METHOD 08/14/2024 6:30 AM [facility] Calcium 10.0 8.5 - 10.5 mg/dL LAB CHEMISTRY METHOD 08/14/2024 6:30 AM [facility] Blood Venous blood specimen / Unknown Venipuncture / Unknown 08/14/2024 5:43 AM EST 08/14/2024 6:04 AM EST Gardenia Guzman NP LAB BLOOD ORDERABLES Final Result [facility] [address] [place] [address], * (ABNORMAL) Comprehensive metabolic panel (08/10/2024 5:23 AM EST) Only the most recent of2 resultswithin the time period is included. Sodium 134 133 - 145 mmol/L LAB CHEMISTRY METHOD 08/10/2024 6:55 AM [facility] Potassium 4.4 3.5 - 5.5 mmol/L LAB CHEMISTRY METHOD 08/10/2024 6:55 AM [facility] Chloride 101 96 - 110 mmol/L LAB CHEMISTRY METHOD 08/10/2024 6:55 AM [facility] CO2 29 21 - 32 mmol/L LAB CHEMISTRY METHOD 08/10/2024 6:55 AM [facility] Anion Gap 4 3 - 11 LAB CHEMISTRY METHOD 08/10/2024 6:55 AM [facility] Glucose 109(H) 70 - 100 mg/dL LAB CHEMISTRY METHOD 08/10/2024 6:55 AM [facility] BUN 20 5 - 25 mg/dL LAB CHEMISTRY METHOD 08/10/2024 6:55 AM [facility] Creatinine 0.77 0.70 - 1.30 mg/dL LAB CHEMISTRY METHOD 08/10/2024 6:55 AM [facility] eGFR 92 >=60 mL/min/1. 73m2 LAB CHEMISTRY METHOD 08/10/2024 6:55 AM [facility] Comment:Calculation based on the??Chronic Kidney Disease Epidemiology Collaboration (CKD-EPI) equation refit??without adjustment for race. BUN/Creatinine Ratio 26.0 LAB CHEMISTRY METHOD 08/10/2024 6:55 AM [facility] Calcium 9.8 8.5 - 10.5 mg/dL LAB CHEMISTRY METHOD 08/10/2024 6:55 AM [facility] AST (SGOT) 40 10 - 42 unit/L LAB CHEMISTRY METHOD 08/10/2024 6:55 AM [facility] ALT (SGPT) 62(H) 10 - 60 unit/L LAB CHEMISTRY METHOD 08/10/2024 6:55 AM [facility] Alkaline Phosphatase 106 42 - 121 unit/L LAB CHEMISTRY METHOD 08/10/2024 6:55 AM [facility] Total Protein 6.0 6.0 - 8.0 g/dL LAB CHEMISTRY METHOD 08/10/2024 6:55 AM [facility] Albumin 2.8(L) 3.2 - 5.0 g/dL LAB CHEMISTRY METHOD 08/10/2024 6:55 AM [facility] Total Bilirubin 0.8 0.0 - 1.4 mg/dL LAB CHEMISTRY METHOD 08/10/2024 6:55 AM EST [facility] Blood Venous blood specimen / Unknown Venipuncture / Unknown 08/10/2024 5:23 AM EST 08/10/2024 6:00 AM EST us Bri PRINCE LAB BLOOD ORDERABLES Final R esult [facility] ([facility] [address] [place] [address], from Last 3 Months Insurance MEDICARE [facility] Advance Directives Documents on File Type Date Recorded 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 Do not modify or discontinue any currently active code status orders. Care Teams Fretted Instrument Repairer Relationship Specialty Start Date End Date Lee Patel MD [address] [place] [address] Dr Rosalinda MA PCP - General Internal Medicine 04/28/21
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
--- OUTSIDE RECORDS SUMMARY | 2024-08-29 14:10 | XMS_ITS ---
Author Organization [facility] Address [address] [place] [address] Care Team Providers Care Bias Cutting Machine Operator Vertical Name Role Phone Lee Patel MD Primary Care Provider Zac Gamez Unavailable [phone] Encounters Encounter Location Date Provider Diagnosis [facility] [address] [place] [address] 08/12/2023 Zac Overton Plan Of Treatment No Information Progress Notes * Dominguez SOLITARIO RDOB: [birth year] (79 yo M)Acc No.[id number]:08/12/2023 Progress Notes Patient:?Dominguez SOLITARIO Provider:?Zac Overton DPM :1945???Age:78 Y???Sex:Male Ermias e:08/12/2023 Address:[address] [place] [address] , [id number] Pcp:Lee Patel MD Subjective: * Chief Complaints: * ??? * Medical History:? Objective: * Vitals:? Assessment: Plan: * Treatment: * Images: * The named appointment provid er may or may not be the originator of this progress note, and it is not deemed complete until electronically signed by the appointment provider. Sign off status: Pending * Provider:Jesse Overton DPM Date:?2023 Generated for Kiai ng/Faramóng/eTransmitting on:?08/29/2024 02:10 PM EDT
--- OUTSIDE RECORDS SUMMARY | 2024-08-29 14:10 | XMS_ITS | Encounter Summary ---
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 K/mcL LAB HEMETOLOGY METHOD 08/10/2024 7:03 AM [facility] Blood Venous blood specimen / Unknown Venipuncture / Unknown 08/10/2024 5:23 AM EST 08/10/2024 6:00 AM EST us Bri PRINCE LAB BLOOD ORDERABLES Final R esult [facility] [address] [place] [address], * (ABNORMAL) Comprehensive metabolic panel (08/10/2024 5:23 AM EST) [facility] Sodium 134 133 - 145 mmol/L LAB CHEMISTRY METHOD 08/10/2024 6:55 AM [facility] Potassium 4.4 3.5 - 5.5 mmol/L LAB CHEMISTRY METHOD 08/10/2024 6:55 AM [facility] Chloride 101 96 - 110 mmol/L LAB CHEMISTRY METHOD 08/10/2024 6:55 AM [facility] CO2 29 21 - 32 mmol/L LAB CHEMISTRY METHOD 08/10/2024 6:55 AM [facility] Anion Gap 4 3 - 11 LAB CHEMISTRY METHOD 08/10/2024 6:55 AM [facility] Glucose 109(H) 70 - 100 mg/dL LAB CHEMISTRY METHOD 08/10/2024 6:55 AM [facility] BUN 20 5 - 25 mg/dL LAB CHEMISTRY METHOD 08/10/2024 6:55 AM [facility] Creatinine 0.77 0.70 - 1.30 mg/dL LAB CHEMISTRY METHOD 08/10/2024 6:55 AM [facility] eGFR 92 >=60 mL/min/1. 73m2 LAB CHEMISTRY METHOD 08/10/2024 6:55 AM [facility] Comment:Calculation based on the??Chronic Kidney Disease Epidemiology Collaboration (CKD-EPI) equation refit??without adjustment for race. BUN/Creatinine Ratio 26.0 LAB CHEMISTRY METHOD 08/10/2024 6:55 AM [facility] Calcium 9.8 8.5 - 10.5 mg/dL LAB CHEMISTRY METHOD 08/10/2024 6:55 AM [facility] AST (SGOT) 40 10 - 42 unit/L LAB CHEMISTRY METHOD 08/10/2024 6:55 AM [facility] ALT (SGPT) 62(H) 10 - 60 unit/L LAB CHEMISTRY METHOD 08/10/2024 6:55 AM [facility] Alkaline Phosphatase 106 42 - 121 unit/L LAB CHEMISTRY METHOD 08/10/2024 6:55 AM EST [facility] Total Protein 6.0 6.0 - 8.0 g/dL LAB CHEMISTRY METHOD 08/10/2024 6:55 AM [facility] Albumin 2.8(L) 3.2 - 5.0 g/dL LAB CHEMISTRY METHOD 08/10/2024 6:55 AM [facility] Total Bilirubin 0.8 0.0 - 1.4 mg/dL LAB CHEMISTRY METHOD 08/10/2024 6:55 AM [facility] Blood Venous blood specimen / Unknown Venipuncture / Unknown 08/10/2024 5:23 AM EST 08/10/2024 6:00 AM EST us Bri PRINCE LAB BLOOD ORDERABLES Final R esult [facility] [address] [place] [address], * (ABNORMAL) CBC - Every 3 Days (08/07/2024 6:10 AM EST) WBC 8.6 4.8 - 10.8 K/mcL LAB HEMETOLOGY METHOD 08/07/2024 7:18 AM [facility] RBC 4.00(L) 4.50 - 5.50 M/[facility] LAB HEMETOLOGY METHOD 08/07/2024 7:18 AM [facility] Hemoglobin 12.6(L) 13.5 - 17.5 g/dL LAB HEMETOLOGY METHOD 08/07/2024 7:18 AM [facility] Hematocrit 38.8(L) 42.0 - 54.0 % LAB HEMETOLOGY METHOD 08/07/2024 7:18 AM [facility] MCV 97.7 79.0 - 98.0 FL LAB HEMETOLOGY METHOD 08/07/2024 7:18 AM EST [facility] MCH 31.7 27.0 - 32.0 pcg LAB HEMETOLOGY METHOD 08/07/2024 7:18 AM EST [facility] MCHC 32.5 32.0 - 37.0 g/dL LAB HEMETOLOGY METHOD 08/07/2024 7:18 AM EST [facility] RDW 12.7 11.0 - 15.0 % LAB HEMETOLOGY METHOD 08/07/2024 7:18 AM EST [facility] Platelets 306 130 - 400 K/mcL LAB HEMETOLOGY METHOD 08/07/2024 7:18 AM EST [facility] MPV 9.4 7.0 - 11.0 FL LAB HEMETOLOGY METHOD 08/07/2024 7:18 AM EST [facility] NRBC 0.0 <1.0 % LAB HEMETOLOGY METHOD 08/07/2024 7:18 AM EST [facility] NRBC Absolute 0.00 <0.10 K/mcL LAB HEMETOLOGY METHOD 08/07/2024 7:18 AM [facility] Blood Venous blood specimen / Unknown Venipuncture / Unknown 08/07/2024 6:10 AM EST 08/07/2024 7:09 AM EST us Nick PRINCE LAB BLOOD ORDERABLES Final Resu lt [facility] [address] [place] [address], * (ABNORMAL) Comprehensive metabolic panel (08/07/2024 6:09 AM EST) Sodium 134 133 - 145 mmol/L LAB CHEMISTRY METHOD 08/07/2024 8:23 AM EST [facility] Potassium 4.6 3.5 - 5.5 mmol/L LAB CHEMISTRY METHOD 08/07/2024 8:23 AM [facility] Chloride 102 96 - 110 mmol/L LAB CHEMISTRY METHOD 08/07/2024 8:23 AM [facility] CO2 28 21 - 32 mmol/L LAB CHEMISTRY METHOD 08/07/2024 8:23 AM [facility] Anion Gap 4 3 - 11 LAB CHEMISTRY METHOD 08/07/2024 8:23 AM [facility] Glucose 103(H) 70 - 100 mg/dL LAB CHEMISTRY METHOD 08/07/2024 8:23 AM [facility] BUN 15 5 - 25 mg/dL LAB CHEMISTRY METHOD 08/07/2024 8:23 AM [facility] Creatinine 0.72 0.70 - 1.30 mg/dL LAB CHEMISTRY METHOD 08/07/2024 8:23 AM [facility] eGFR 94 >=60 mL/min/1. 73m2 LAB CHEMISTRY METHOD 08/07/2024 8:23 AM [facility] Comment:Calculation based on the??Chronic Kidney Disease Epidemiology Collaboration (CKD-EPI) equation refit??without adjustment for race. BUN/Creatinine Ratio 20.8 LAB CHEMISTRY METHOD 08/07/2024 8:23 AM [facility] Calcium 9.8 8.5 - 10.5 mg/dL LAB CHEMISTRY METHOD 08/07/2024 8:23 AM [facility] AST (SGOT) 125(H) 10 - 42 unit/L LAB CHEMISTRY METHOD 08/07/2024 8:23 AM [facility] ALT (SGPT) 134(H) 10 - 60 unit/L LAB CHEMISTRY METHOD 08/07/2024 8:23 AM [facility] Alkaline Phosphatase 122(H) 42 - 121 unit/L LAB CHEMISTRY METHOD 08/07/2024 8:23 AM [facility] Total Protein 5.8(L) 6.0 - 8.0 g/dL LAB CHEMISTRY METHOD 08/07/2024 8:23 AM EST [facility] Albumin 2.8(L) 3.2 - 5.0 g/dL LAB CHEMISTRY METHOD 08/07/2024 8:23 AM EST [facility] Total Bilirubin 0.7 0.0 - 1.4 mg/dL LAB CHEMISTRY METHOD 08/07/2024 8:23 AM EST [facility] Blood Venous blood specimen / Unknown Venipuncture / Unknown 08/07/2024 6:09 AM EST 08/07/2024 7:09 AM EST us Nick PRINCE LAB BLOOD ORDERABLES Final Resu lt [facility] [address] [place] [address], documented in this encounter Visit Diagnoses Diagnosis Multiple fractures- Primary Closed fracture of unspecified bone documented in this encounter Admitting Diagnoses Diagnosis Multiple fractures Closed fracture of unspecified bone documented in this encounter Administered Medications Inactive Administered Medications - up to 3 most recent administrations Medication Order MAR Action Action Date Dose Rate Site acetaminophen (TYLENOL) tablet 975 mg 975 mg, oral, 3 times daily PRN, mild pain, Starting on Tue08/06/24 at 1746 Given 08/13/2024 8:32 PM EST 975 mg Given 08/13/2024 9:31 AM EST 975 mg Given 08/09/2024 11:35 AM EST 975 mg aluminum-magnesium hydroxide-simethicone (MAALOX) 200-200-20 mg/5 mL suspension 30 mL 30 mL, oral, Every 4 hours PRN, heartburn, Starting on Tue08/06/24 at 1749 aspirin EC tablet 81 mg 81 mg, oral, Daily, First dose on Tue08/06/24 at 1815, Do not crush, chew, or split., Indications: myocardial infarction preventionIndications:myocardial infarction prevention Given 08/14/2024 9:57 AM EST 81 mg Given 08/13/2024 9:32 AM EST 81 mg Given 08/12/2024 8:41 AM EST 81 mg atorvastatin (LIPITOR) tablet 20 mg 20 mg, oral, Nightly, First dose on Tue08/10/24 at 2100 Given 08/13/2024 8:32 PM EST 20 mg Given 08/12/2024 8:49 PM EST 20 mg Given 08/11/2024 8:53 PM EST 20 mg atorvastatin (LIPITOR) tablet 20 mg 20 mg, oral, Nightly, First dose on Tue08/06/24 at 2100, On hold since Tue08/07/2024 at 1706 until manually unheld Given 08/06/2024 10:13 PM EST 20 mg bisacodyL (DULCOLAX) suppository 10 mg 10 mg, rectal, Daily PRN, constipation, Starting on Tue08/06/24 at 1749 docusate sodium (COLACE) capsule 100 mg 100 mg, oral, 2 times daily, First dose on Tue08/06/24 at 2100 Given 08/14/2024 9:57 AM EST 100 mg Given 08/13/2024 8:32 PM EST 100 mg Given 08/13/2024 9:31 AM EST 100 mg enoxaparin (LOVENOX) injection 40 mg 40 mg, subcutaneous, Daily, First dose on Tue08/09/24 at 0900, Indication: VTE/PE Prophylaxis Given 08/14/2024 9:57 AM EST 40 mg Left Upper Abdomen Given 08/13/2024 9:32 AM EST 40 mg Le ft Lower Abdomen Given 08/12/2024 8:41 AM EST 40 mg Le ft Upper Abdomen gabapentin (NEURONTIN) capsule 200 mg 200 mg, oral, 3 times daily, First dose on Tue08/06/24 at 2100 Given 08/14/2024 9:57 AM EST 200 mg Given 08/13/2024 8:32 PM EST 200 mg Given 08/13/2024 1:47 PM EST 200 mg heparin (UFH) injection 5,000 Units 5,000 Units, subcutaneous, Every 8 hours scheduled, First dose on Tue08/06/24 at 2200, Enter Indication for use of heparin (UFH) instead of enoxaparin (LOVENOX): (free text): on previous hospital, Indication: VTE Prophylaxis, Indications: Prophylaxis of Venous ThromboembolismIndications:Pr ophylaxis of Venous Thromboembolism Given 08/08/2024 1:40 PM EST 5,000 Units Left Lower Abdomen Given 08/08/2024 5:10 AM EST 5,000 Units L eft Upper Abdomen Given 08/07/2024 8:30 PM EST 5,000 Units L eft Upper Abdomen magnesium hydroxide (MILK OF MAGNESIA) 400 mg/5 mL suspension 30 mL 30 mL, oral, Daily PRN, constipation, Starting on Tue08/06/24 at 1749 oxyCODONE (ROXICODONE) immediate release tablet 5 mg 5 mg, oral, Every 6 hours PRN, severe pain, Starting on Tue08/07/24 at 1301 pantoprazole (PROTONIX) EC tablet 40 mg 40 mg, oral, Every morning before breakfast, First dose on Tue08/07/24 at 0700, Do not crush, chew, or split. Given 08/14/2024 5:05 AM EST 40 mg Given 08/13/2024 5:32 AM EST 40 mg Given 08/12/2024 5:17 AM EST 40 mg senna (SENOKOT) tablet 8.6 mg 8.6 mg (1 tablet), oral, Daily, First dose on Tue08/06/24 at 1815 Given 08/14/2024 9:57 AM EST 8.6 mg Given 08/13/2024 9:32 AM EST 8.6 mg Given 08/12/2024 8:41 AM EST 8.6 mg tamsulosin (FLOMAX) 24 hr capsule 0.4 mg 0.4 mg, oral, Nightly, First dose (after last modification) on Tue08/11/24 at 2100, For oral administration: capsules should be swallowed whole (Do not crush, chew, or open). For tube administration: open capsule and administer with water (granules should NOT be crushed). Given 08/13/2024 8:32 PM EST 0.4 mg Given 08/12/2024 8:49 PM EST 0.4 mg Given 08/11/2024 8:53 PM EST 0.4 mg tamsulosin (FLOMAX) 24 hr capsule 0.4 mg 0.4 mg, oral, Daily with breakfast, First dose on Tue08/07/24 at 0800, For oral administration: capsules should be swallowed whole (Do not crush, chew, or open). For tube administration: open capsule and administer with water (granules should NOT be crushed). Given 08/11/2024 8:21 AM EST 0.4 mg Given 08/10/2024 8:03 AM EST 0.4 mg Given 08/09/2024 8:30 AM EST 0.4 mg documented in this encounter Discontinued Medications Medication Sig Discontinue Reason Start Date End Da te acetaminophen (TYLENOL) 325 mg tablet Take 3 tablets (975 mg total) by mouth 3 (three) times a day if needed for mild pain. 08/13/2024 aspirin 81 mg EC tablet Take 1 tablet (81 mg total) by mouth 1 (one) time each day. 08/13/2024 docusate sodium (COLACE) 100 mg capsule Take 1 capsule (100 mg total) by mouth 2 (two) times a day. 08/13/2024 gabapentin (NEURONTIN) 100 mg capsule Take 2 capsules (200 mg total) by mouth 3 (three) times a day. 08/13/2024 pantoprazole (PROTONIX) 40 mg EC tablet Take 1 tablet (40 mg total) by mouth 1 (one) time each day before breakfast. Do not crush, chew, or split. 08/13/2024 senna (SENOKOT) 8.6 mg tablet Take 1 tablet (8.6 mg total) by mouth 1 (one) time each day. 08/13/2024 tamsulosin (FLOMAX) 0.4 mg 24 hr capsule Take 1 capsule (0.4 mg total) by mouth 1 (one) time each day with breakfast. Capsules should be taken 30 minutes following the same meal each day. Stop Taking at Discharge 08/14/2024 documented as of this encounter Historical Medications * This list may reflect changes made after this encounter. simvastatin (ZOCOR) 40 mg tablet Take 1 tablet (40 mg total) by mouth at bedtime. tamsulosin (FLOMAX) 0.4 mg 24 hr capsule Take 1 capsule (0.4 mg total) by mouth 1 (one) time each day with breakfast. Capsules should be taken 30 minutes following the same meal each day. senna (SENOKOT) 8.6 mg tablet Take 1 tablet (8.6 mg total) by mouth 1 (one) time each day. pantoprazole (PROTONIX) 40 mg EC tablet Take 1 tablet (40 mg total) by mouth 1 (one) time each day before breakfast. Do not crush, chew, or split. 5 gabapentin (NEURONTIN) 100 mg capsule Take 2 capsules (200 mg total) by mouth 3 (three) times a day. 5 docusate sodium (COLACE) 100 mg capsule Take 1 capsule (100 mg total) by mouth 2 (two) times a day. 5 aspirin 81 mg EC tablet Take 1 tablet (81 mg total) by mouth 1 (one) time each day. 5 acetaminophen (TYLENOL) 325 mg tablet Take 3 tablets (975 mg total) by mouth 3 (three) times a day if needed for mild pain. 5 added in this encounter Active and Recently Administered Medications Times are shown in EST. Scheduled Medication Order 08/12/2024 08/13/2024 08/14/2024 aspirin EC tablet 81 mg 81 mg, oral, Daily, First dose on Tue08/06/24 at 1815, Do not crush, chew, or split., Indications: myocardial infarction prevention 0841 (Given - Provider: Tita Loredo RN) 0932 (Given - Provider: Leida Cabrera RN) 0957 (Given - Provider: Leida Cabrera RN) atorvastatin (LIPITOR) tablet 20 mg 20 mg, oral, Nightly, First dose on Tue08/10/24 at 2100 204 (Given - Provider: Mirta Rothman RN) 2031 (Given - Provider: Maggi Marx RN) docusate sodium (COLACE) capsule 100 mg 100 mg, oral, 2 times daily, First dose on Tue08/06/24 at 2100 0841 (Given - Provider: Tita Loredo RN)2048 (Given - Provider: Mirta Rothman RN) 0931 (Given - Provider: Leida Cabrera RN)2031 (Given - Provider: Maggi Marx RN) 0957 (Given - Provider: Leida Cabrera RN) enoxaparin (LOVENOX) injection 40 mg 40 mg, subcutaneous, Daily, First dose on Tue08/09/24 at 0900, Indication: VTE/PE Prophylaxis 0841 (Given - Provider: Tita Loredo RN) 0932 (Given - Provider: Leida Cabrera RN) 0957 (Given - Provider: Leida Cabrera RN) gabapentin (NEURONTIN) capsule 200 mg 200 mg, oral, 3 times daily, First dose on Tue08/06/24 at 2100 0841 (Given - Provider: Tita Loredo RN)1414 (Given - Provider: Tita Loredo RN)2048 (Given - Provider: Mirta Rothman RN) 0932 (Given - Provider: Leida Cabrera RN)1347 (Given - Provider: Leida Cabrera RN)2031 (Given - Provider: Maggi Marx RN) 0957 (Given - Provider: Leida Cabrera RN) pantoprazole (PROTONIX) EC tablet 40 mg 40 mg, oral, Every morning before breakfast, First dose on Tue08/07/24 at 0700, Do not crush, chew, or split. 0517 (Given - Provider: Mirta Rothman RN) 0532 (Given - Provider: Mirta Rothman RN) 0505 (Given - Provider: Nataly Whipple RN) senna (SENOKOT) tablet 8.6 mg 8.6 mg (1 tablet), oral, Daily, First dose on Tue08/06/24 at 1815 0841 (Given - Provider: Tita Loredo RN) 0932 (Given - Provider: Leida Cabrera RN) 0957 (Given - Provider: Leida Cabrera RN) tamsulosin (FLOMAX) 24 hr capsule 0.4 mg 0.4 mg, oral, Nightly, First dose (after last modification) on Tue08/11/24 at 2100, For oral administration: capsules should be swallowed whole (Do not crush, chew, or open). For tube administration: open capsule and administer with water (granules should NOT be crushed). 2048 (Given - Provider: Mirta Rothman RN) 2031 (Given - Provider: Maggi Marx RN) PRN Medication Order 08/12/2024 08/13/2024 08/14/2024 acetaminophen (TYLENOL) tablet 975 mg 975 mg, oral, 3 times daily PRN, mild pain, Starting on Tue08/06/24 at 1746 0931 (Given - Provider: Jayashree Cabrera RN)2031 (Given - Provider: Maggi Marx RN) aluminum-magnesium hydroxide-simethicone (MAALOX) 200-200-20 mg/5 mL suspension 30 mL 30 mL, oral, Every 4 hours PRN, heartburn, Starting on Tue08/06/24 at 1749 bisacodyL (DULCOLAX) suppository 10 mg 10 mg, rectal, Daily PRN, constipation, Starting on Tue08/06/24 at 1749 magnesium hydroxide (MILK OF MAGNESIA) 400 mg/5 mL suspension 30 mL 30 mL, oral, Daily PRN, constipation, Starting on Tue08/06/24 at 1749 oxyCODONE (ROXICODONE) immediate release tablet 5 mg 5 mg, oral, Every 6 hours PRN, severe pain, Starting on Tue08/07/24 at 1301 documented in this encounter Orders Medications Ordered That Jose Manuel ht Not Have Been Administered Count Last Ordered Date First Ordered Date oxyCODONE (ROXICODONE) immed iate release tablet 5 mg 1 08/07/2024 aluminum-magnesium hydroxide -simethicone (MAALOX) 200-200-20 mg/5 mL suspension 30 mL 1 08/06/2024 bisacodyL (DULCOLAX) suppository 10 mg 1 gabapentin (NEURONTIN) capsule 200 mg 1 magnesium hydroxide (MILK OF MAGNESIA) 400 mg/5 mL suspension 30 mL 1 08/06/2024 Consult Count Last Ordered Date First Orde red Date IP CONSULT TO NUTRITION SERVICES 1 08/06/19 25 CASING MACHINE 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 Last Ordered Date First Orde red Date CASING MACHINE OPERATOR EVAL AND TREAT 1 08/07/2024 Admission Count Last Ordered Date First Orde red Date ADMIT TO INPATIENT REHAB 1 08/06/2024 Discharge Count Last Ordered Date First Orde red Date DISCHARGE PATIENT 1 08/13/2024 documented in this encounter Additional Health Concerns Assessment Noted Time PHQ-9 Depression Total Score: 0 08/15/19 9:53 AM EST documented as of this encounter Care Teams Teacher Learning Disabled Relationship Specialty Start Date End Date Lee Patel MD [address] [place] [address] Dr Rosalinda MA PCP - General Internal Medicine 04/28/21 documented as of this encounter
== END 2024-08-29 11:59 | disposition home or self-care (01) ==
LOC: HO.HMCHD 11:30
PROVIDERS: Visit Provider Internal Medicine
DX: S82.141A Displaced bicondylar fracture of right tibia, initial encounter for closed fracture (principal)

== ENCOUNTER → 2024-08-29 11:30 | Outpatient (BNVA) | payer MEDICARE, SELFPAY | PROVIDERS: Visit Provider Internal Medicine | DX: S82.141D Displaced bicondylar fracture of right tibia, subsequent encounter for closed fracture with routine healing (principal) | CPT/HCPCS: 99202 ==

== ENCOUNTER 2024-09-21 11:53 | Outpatient (REF) | payer MEDICARE, SELFPAY ==
--- OUTSIDE RECORDS SUMMARY | 2024-09-21 12:48 | XMS_ITS | Clinical Summary ---
Author Organization [facility] Address [address] [place] [address] Phone Care Team Providers Care Vocal Performer Name Role Phone Lee Patel MD Primary Care Provider [phone] Allergies Active Allergy Reactions Criticality Noted Date Comments Phenytoin Sodium Extended 08/06/2024 Medications simvastatin (ZOCOR) 40 mg tablet Take 1 tablet (40 mg total) by mouth at bedtime. Active acetaminophen (TYLENOL) 325 mg tablet Take 3 tablets (975 mg total) by mouth 3 (three) times a day if needed for mild pain. 5 Active gabapentin (NEURONTIN) 100 mg capsule Take 2 capsules (200 mg total) by mouth 3 (three) times a day. 180 each 5 Active aspirin 81 mg EC tabletIndicatio ns:myocardial infarction prevention Take 1 tablet (81 mg total) by mouth 1 (one) time each day. 30 each 5 09/13/19 25 docusate sodium (COLACE) 100 mg capsule Take 1 capsule (100 mg total) by mouth 2 (two) times a day. 60 each 5 09/13/19 25 pantoprazole (PROTONIX) 40 mg EC tablet Take 1 tablet (40 mg total) by mouth 1 (one) time each day before breakfast. Do not crush, chew, or split. 30 each 5 09/13/19 25 senna (SENOKOT) 8.6 mg tablet Take 1 tablet (8.6 mg total) by mouth 1 (one) time each day. 30 each 5 09/13/19 25 tamsulosin (FLOMAX) 0.4 mg 24 hr capsule Take 1 capsule (0.4 mg total) by mouth at bedtime. Capsules should be taken 30 minutes following the same meal each day. 30 each 5 09/13/19 25 enoxaparin (LOVENOX) 40 mg/0.4 mL syringeIndicati ons:deep vein thrombosis prevention Inject 0.4 mL (40 mg total) under the skin 1 (one) time each day for 14 days. 14 each 5 08/29/19 25 Active Problems Problem Noted Date Diagnosed Date Multiple fractures 08/06/2024 Encounters Date Type Department Care Team Description 08/08/2024 Plan of Care Documentation [facility] [address] [place] [address] 08/06/2024 4:01 PM EST - 08/14/2024 11:20 AM EST Hospital Encounter [facility] [address] [place] [address] Seema Montero, Discharge Disposition: Home-Health Care Svc from Last [...] Vaccines (1 of 2) 1996 RSV Immunization Adult Patie nts (1 - 1-dose 75+ series) 2021 Cholesterol Screening (Lipid Panel) 05/11/2022 Hepatitis C Screening 05/11/2022 Medicare Annual Wellness Visit 05/11/2022 COVID-19 Vaccine ( - 2023-2 5 season) 2024 Influenza Vaccine (Season Ended) 2025 Depression Screening 08/14/2025 08/14/2024 Falls Risk Assessment [...] age to complete this topic Meningococcal B Vaccine Aged Out No l onger eligible based on patient's age to complete [...] K/mcL LAB HEMETOLOGY METHOD 08/14/2024 6:13 AM [facility] RBC 3.90(L) 4.50 - 5.50 M/mcL LAB HEMETOLOGY METHOD 08/14/2024 6:13 AM [facility] Hemoglobin 12.2(L) 13.5 - 17.5 g/dL LAB HEMETOLOGY METHOD 08/14/2024 6:13 AM [facility] Hematocrit 37.6(L) 42.0 - 54.0 % LAB HEMETOLOGY METHOD 08/14/2024 6:13 AM EST [facility] MCV 97.4 79.0 - 98.0 FL LAB HEMETOLOGY METHOD 08/14/2024 6:13 AM [facility] MCH 31.6 27.0 - 32.0 pcg LAB HEMETOLOGY METHOD 08/14/2024 6:13 AM [facility] MCHC 32.4 32.0 - 37.0 g/dL LAB HEMETOLOGY METHOD 08/14/2024 6:13 AM [facility] RDW 13.1 11.0 - 15.0 % LAB HEMETOLOGY METHOD 08/14/2024 6:13 AM [facility] Platelets 588(H) 130 - 400 K/mcL LAB HEMETOLOGY METHOD 08/14/2024 6:13 AM [facility] MPV 8.7 7.0 - 11.0 FL LAB HEMETOLOGY METHOD 08/14/2024 6:13 AM [facility] NRBC 0.0 <1.0 % LAB HEMETOLOGY METHOD 08/14/2024 6:13 AM [facility] NRBC Absolute 0.00 <0.10 K/mcL LAB HEMETOLOGY METHOD 08/14/2024 6:13 AM [facility] Blood Venous blood specimen / Unknown Venipuncture / Unknown 08/14/2024 5:43 AM EST 08/14/2024 6:04 AM EST us Gardenia Guzman NP LAB BLOOD ORDERABLES Final Result [facility] [address] [place] [address], * (ABNORMAL) Basic metabolic panel (08/14/2024 5:43 AM EST) Sodium 134 133 - 145 mmol/L LAB CHEMISTRY METHOD 08/14/2024 6:30 AM [facility] Potassium 4.3 3.5 - 5.5 mmol/L LAB CHEMISTRY METHOD 08/14/2024 6:30 AM [facility] Chloride 102 96 - 110 mmol/L LAB CHEMISTRY METHOD 08/14/2024 6:30 AM [facility] CO2 27 21 - 32 mmol/L LAB CHEMISTRY METHOD 08/14/2024 6:30 AM [facility] Anion Gap 5 3 - 11 LAB CHEMISTRY METHOD 08/14/2024 6:30 AM [facility] Glucose 104(H) 70 - 100 mg/dL LAB CHEMISTRY METHOD 08/14/2024 6:30 AM [facility] BUN 19 5 - 25 mg/dL LAB CHEMISTRY METHOD 08/14/2024 6:30 AM [facility] Creatinine 0.72 0.70 - 1.30 mg/dL LAB CHEMISTRY METHOD 08/14/2024 6:30 AM [facility] eGFR 94 >=60 mL/min/1. 73m2 LAB CHEMISTRY METHOD 08/14/2024 6:30 AM [facility] Comment:Calculation based on the??Chronic Kidney Disease Epidemiology Collaboration (CKD-EPI) equation refit??without adjustment for race. BUN/Creatinine Ratio 26.4 LAB CHEMISTRY METHOD 08/14/2024 6:30 AM [facility] Calcium 10.0 8.5 - 10.5 mg/dL LAB CHEMISTRY METHOD 08/14/2024 6:30 AM [facility] Blood Venous blood specimen / Unknown Venipuncture / Unknown 08/14/2024 5:43 AM EST 08/14/2024 6:04 AM EST us Gardenia Guzman NP LAB BLOOD ORDERABLES Final Result [facility] [address] [place] [address], * (ABNORMAL) Comprehensive metabolic panel (08/10/2024 5:23 AM EST) Only the most recent of2 resultswithin the time period is included. Sodium 134 133 - 145 mmol/L LAB CHEMISTRY METHOD 08/10/2024 6:55 AM [facility] Potassium 4.4 3.5 - 5.5 mmol/L LAB CHEMISTRY METHOD 08/10/2024 6:55 AM [facility] Chloride 101 96 - 110 mmol/L LAB CHEMISTRY METHOD 08/10/2024 6:55 AM [facility] CO2 29 21 - 32 mmol/L LAB CHEMISTRY METHOD 08/10/2024 6:55 AM [facility] Anion Gap 4 3 - 11 LAB CHEMISTRY METHOD 08/10/2024 6:55 AM [facility] Glucose 109(H) 70 - 100 mg/dL LAB CHEMISTRY METHOD 08/10/2024 6:55 AM [facility] BUN 20 5 - 25 mg/dL LAB CHEMISTRY METHOD 08/10/2024 6:55 AM [facility] Creatinine 0.77 0.70 - 1.30 mg/dL LAB CHEMISTRY METHOD 08/10/2024 6:55 AM [facility] eGFR 92 >=60 mL/min/1. 73m2 LAB CHEMISTRY METHOD 08/10/2024 6:55 AM [facility] Comment:Calculation based on the??Chronic Kidney Disease Epidemiology Collaboration (CKD-EPI) equation refit??without adjustment for race. BUN/Creatinine Ratio 26.0 LAB CHEMISTRY METHOD 08/10/2024 6:55 AM [facility] Calcium 9.8 8.5 - 10.5 mg/dL LAB CHEMISTRY METHOD 08/10/2024 6:55 AM [facility] AST (SGOT) 40 10 - 42 unit/L LAB CHEMISTRY METHOD 08/10/2024 6:55 AM [facility] ALT (SGPT) 62(H) 10 - 60 unit/L LAB CHEMISTRY METHOD 08/10/2024 6:55 AM EST [facility] Alkaline Phosphatase 106 42 - 121 unit/L LAB CHEMISTRY METHOD 08/10/2024 6:55 AM [facility] Total Protein 6.0 6.0 - 8.0 g/dL LAB CHEMISTRY METHOD 08/10/2024 6:55 AM [facility] Albumin 2.8(L) 3.2 - 5.0 g/dL LAB CHEMISTRY METHOD 08/10/2024 6:55 AM [facility] Total Bilirubin 0.8 0.0 - 1.4 mg/dL LAB CHEMISTRY METHOD 08/10/2024 6:55 AM [facility] Blood Venous blood specimen / Unknown Venipuncture / Unknown 08/10/2024 5:23 AM EST 08/10/2024 6:00 AM EST us Bri PRINCE LAB BLOOD ORDERABLES Final R esult [facility] [address] [place] [address], from Last 3 Months Insurance [facility] [place] [address] [place] [phone] MEDICARE [facility] Advance Directives Documents on File Type Date Recorded Patient Registration Clerk Expl anation Advance Directives and Livin g [...] currently active code status orders. Care Teams Vocal Performer Relationship Specialty Start Date End Date Lee Patel MD [address] [place] [address] Dr Rosalinda MA PCP - General Internal Medicine 04/28/21
[2024-09-21 14:00] LABS: PSA,Total (Free>4and<10) 23.79 ng/mL (0.00-4.00)
== END 2024-09-21 11:54 | disposition home or self-care (01) ==
LOC: HO.HMGCLDS 11:53
PROVIDERS: Visit Provider Urology
DX: R97.20 Elevated prostate specific antigen [PSA] (principal); Z12.5 Encounter for screening for malignant neoplasm of prostate
CPT/HCPCS: 36415; 84153

== ENCOUNTER 2024-10-02 14:23 | Outpatient (AMB) | payer MEDICARE, SELFPAY ==
--- NOTE | 2024-10-02 14:52 | A.OFFVIS_ITS ---
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 He is a patient of Dr. Patel. He is seen for following urologic conditions - bladder stone - BPH - elevated PSA Six-month follow-up Adequate urinary performance maintain PSA popped back up after coming off finasteride Previously had run as high as 25 08/31--5.5, 04/03--3.0, 05/05--25, 05/05--18, 03/06 8.6, 10/05 24 Elevated PSA with lower urinary tract symptoms Prior negative biopsy - 2016 PSA - 03/02 5.3, 04/02 6.1, 06/02 4.5 16%, 10/02 3.8, 04/03 3.0, 05/05 25.0 Medication therapy - finasteride and tamsulosin longstanding with oxybutynin for urgency frequency Prostate intervention GreenLight laser prostatectomy 06/02 Cystoscopy - prior gross hematuria with friable vessels Prostate size 120 g 09/03 GreenLight laser, bladder stone, prostate biopsy - NAD Erectile dysfunction Positive result with Cialis previously Nephrolithiasis Known 4 mm stone with spermatocele and hydrocele - december 2018 [facility] Medical History History of skin cancer Balance problems Renal stones Spermatocele Hydrocele H/O urinary frequency H/O urinary retention History of elevated PSA Vasculogenic erectile dysfunction Depression Anxiety Brain hematoma Enlarged prostate Surgical History History of brain surgery Hx of colonoscopy History of hip replacement, total Family History (Updated 08/29/24 @ 11:45 by KELBY Cobian) Mother Heart attack Father Cancer Social History Household Members: Spouse Housing: Condominium Are you a primary career services director to a significant other at home: No Do you presently have visiting nurse or other home services: No Alcohol intake: never Patient Tobacco Use Status: Former Tobacco user Tobacco use type: Cigarette Advance Directives Date on File: 06/01/21 service: No Current occupational status: retired and disabled Cognitive needs: Yes (wheelchair) Hearing needs: No Vision needs: No Office Procedures Post Void Residual Post Residual Void Post Void Residual (PVR): [id number] Void Residual by ultrasound Results AMB Urinalysis, Automated UA Leukoctes 0 Otf/uL Last Edit by [facility] on 10/02/24 15:04 UA Nitrite Last Edit by [facility] on 10/02/24 15:04 UA Urobilinogen 0.2 mg/dL Last Edit by [facility] on 10/02/24 15:04 UA Protein 15 mg/dL Last Edit by [facility] on 10/02/24 15:04 UA pH 6.5 Last Edit by Amin[facility] on 10/02/24 15:04 UA Blood 25 Tao/uL Last Edit by [facility] on 10/02/24 15:04 UA Specific [place] 1.015 Last Edit by Amina Castro Raquel on 10/02/24 15:0 4 UA Ketone Last Edit by Amin[facility] on 10/02/24 15:04 UA Bilirubin 0 mg/dL Last Edit by [facility] on 10/02/24 15:04 UA Glucose 0 mg/dL Last Edit by [facility] on 10/02/24 15:04 Results Reviewed Results Reviewed: Laboratory Last Values Urine pH (Auto) 6.5 10/02/24 14:58 Specific [place] (Auto) 1.015 10/02/24 14:58 Urine Protein (Auto) 15 mg/dL 10/02/24 14:58 Glucose (UA)(Auto) 0 mg/dL 10/02/24 14:58 Urine Blood (Auto) 25 Tao/uL 10/02/24 14:58 Urine Bilirubin (Auto) 0 mg/dL 10/02/24 14:58 Urine Urobilinogen (Auto) 0.2 mg/dL 10/02/24 14:58 Leukocyte Esterase (Auto) 0 Otf/uL 10/02/24 14:58 Assessment & Plan Assessment & Plan (1) BPH w urinary obs/LUTS: Code(s): N40.1 - Benign prostatic hyperplasia with lower urinary tract symptoms; N13.8 - Other obstructive and reflux uropathy Category: Medical (2) Urinary retention with incomplete bladder emptying: Code(s): R33.9 - Retention of urine, unspecified Category: Medical (3) Renal stones: Code(s): N20.0 - Calculus of kidney Category: Medical Plan Six-month follow-up PSA Orders: Orders AMB Post Void Residual by ultrasound Today R97.20 - Elevated prostate specific antigen [PSA] PSA,Total (Free>4and<10) 6 Months R97.20 - Elevated prostate specific antigen [PSA] AMB Urinalysis Automated Today A49.9 - Bacterial infection, unspecified, N39.0 - Urinary tract infection, site not specified Patient Instructions: This note is constructed using voice recognition software. While every effort has been made to ensure accuracy photovoltaic solar cell designer errors may have been included. Imaging studies, laboratory and physical exam results were discussed and reviewed in detail. No major barriers to patient understanding were identified. An opportunity to ask questions regarding the treatment plan was provided. All questions were answered. The patient expressed understanding and agreement with the above treatment plan. The patient is aware they should contact our office by phone for worsening of their current condition or the appearance of new urologic symptoms. Compliance is encouraged with any medications and followup testing that is ordered. It is a privilege to participate in the urologic care of your patient. If you have any questions or concerns regarding treatment for the above conditions, or other urologic issues, please do not hesitate to contact me. The office telephone contact is [phone]. Sincerely, Dr Zaid Wiggins MD, [facility] - Urology Compassionate Specialist Care for the Genitourinary System Coding Level of Care Code Est Pt Level 3 (91453) Complex EM visit Add On G2211 Diagnoses BPH w urinary obs/LUTS N40.1; N13.8 Urinary retention with incomplete bladder emptying R33.9 Renal stones N20.0 CPT Codes Post Residual Void - PVR CPT Code: 10939-Sope Void Residual by ultrasound ([id number])
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
--- OUTSIDE RECORDS SUMMARY | 2024-10-02 17:15 | XMS_ITS | Clinical Summary ---
Author Organization [facility] Address [address] [place] [address] Phone Care Team Providers Care Landscape Crew Member Name Role Phone Lee Patel MD Primary Care Provider Allergies Active Allergy Reactions Criticality Noted Date [...] the same meal each day. 30 each 09/13/19 25 Active Problems Problem Noted Date Diagnosed Date Multiple fractures 08/06/2024 Encounters Date Type Department Care Team Description 08/08/2024 Plan of Care Documentation [facility] Inpatient [facility] [address] [place] [id number] 08/06/2024 4:01 PM EST - 08/14/2024 11:20 AM EST Hospital Encounter [facility] Inpatient Rehab [address] [place] [id number] Seema Montero DO Discharge Disposition: Home-Health Care [...] K/mcL LAB HEMETOLOGY METHOD 08/14/2024 6:13 AM [facility] RBC 3.90(L) 4.50 - 5.50 M/mcL LAB HEMETOLOGY METHOD 08/14/2024 6:13 AM [facility] Hemoglobin 12.2(L) 13.5 - 17.5 g/dL LAB HEMETOLOGY METHOD 08/14/2024 6:13 AM [facility] Hematocrit 37.6(L) 42.0 - 54.0 % LAB HEMETOLOGY METHOD 08/14/2024 6:13 AM [facility] MCV 97.4 79.0 - 98.0 FL LAB HEMETOLOGY METHOD 08/14/2024 6:13 AM [facility] MCH 31.6 27.0 - 32.0 pcg LAB HEMETOLOGY METHOD 08/14/2024 6:13 AM EST [facility] MCHC 32.4 32.0 - 37.0 g/dL LAB HEMETOLOGY METHOD 08/14/2024 6:13 AM [facility] RDW 13.1 11.0 - 15.0 % LAB HEMETOLOGY METHOD 08/14/2024 6:13 AM [facility] Platelets 588(H) 130 - 400 K/mcL LAB HEMETOLOGY METHOD 08/14/2024 6:13 AM [facility] MPV 8.7 7.0 - 11.0 FL LAB HEMETOLOGY METHOD 08/14/2024 6:13 AM [facility] NRBC 0.0 <1.0 % LAB HEMETOLOGY METHOD 08/14/2024 6:13 AM [facility] NRBC Absolute 0.00 <0.10 K/mcL LAB HEMETOLOGY METHOD 08/14/2024 6:13 AM [facility] Blood Venous blood specimen / Unknown Venipuncture / Unknown 08/14/2024 5:43 AM EST 08/14/2024 6:04 AM EST Gardenia Guzman NP LAB BLOOD ORDERABLES Final Result [facility] [address] [place] [address], * (ABNORMAL) Basic metabolic panel (08/14/2024 5:43 AM EST) Sodium 134 133 - 145 mmol/L LAB CHEMISTRY METHOD 08/14/2024 6:30 AM [facility] Potassium 4.3 3.5 - 5.5 mmol/L LAB CHEMISTRY METHOD 08/14/2024 6:30 AM [facility] Chloride 102 96 - 110 mmol/L LAB CHEMISTRY METHOD 08/14/2024 6:30 AM [facility] CO2 27 21 - 32 mmol/L LAB CHEMISTRY METHOD 08/14/2024 6:30 AM [facility] Anion Gap 5 3 - 11 LAB CHEMISTRY METHOD 08/14/2024 6:30 AM [facility] Glucose 104(H) 70 - 100 mg/dL LAB CHEMISTRY METHOD 08/14/2024 6:30 AM [facility] BUN 19 5 - 25 mg/dL LAB CHEMISTRY METHOD 08/14/2024 6:30 AM [facility] Creatinine 0.72 0.70 - 1.30 mg/dL LAB CHEMISTRY METHOD 08/14/2024 6:30 AM [facility] eGFR 94 >=60 mL/min/1. 73m2 LAB CHEMISTRY METHOD 08/14/2024 6:30 AM [facility] Comment:Calculation based on the??Chronic Kidney Disease Epidemiology Collaboration (CKD-EPI) equation refit??without adjustment for race. BUN/Creatinine Ratio 26.4 LAB CHEMISTRY METHOD 08/14/2024 6:30 AM [facility] Calcium 10.0 8.5 - 10.5 mg/dL LAB CHEMISTRY METHOD 08/14/2024 6:30 AM [facility] Blood Venous blood specimen / Unknown Venipuncture / Unknown 08/14/2024 5:43 AM EST 08/14/2024 6:04 AM EST us Gardenia Guzman NP LAB BLOOD ORDERABLES Final Result [facility] [address] [place] [address], * (ABNORMAL) Comprehensive metabolic panel (08/10/2024 5:23 AM EST) Only the most recent of2 resultswithin the time period is included. Sodium 134 133 - 145 mmol/L LAB CHEMISTRY METHOD 08/10/2024 6:55 AM [facility] Potassium 4.4 3.5 - 5.5 mmol/L LAB CHEMISTRY METHOD 08/10/2024 6:55 AM [facility] Chloride 101 96 - 110 mmol/L LAB CHEMISTRY METHOD 08/10/2024 6:55 AM [facility] CO2 29 21 - 32 mmol/L LAB CHEMISTRY METHOD 08/10/2024 6:55 AM [facility] Anion Gap 4 3 - 11 LAB CHEMISTRY METHOD 08/10/2024 6:55 AM [facility] Glucose 109(H) 70 - 100 mg/dL LAB CHEMISTRY METHOD 08/10/2024 6:55 AM [facility] BUN 20 5 - 25 mg/dL LAB CHEMISTRY METHOD 08/10/2024 6:55 AM [facility] Creatinine 0.77 0.70 - 1.30 mg/dL LAB CHEMISTRY METHOD 08/10/2024 6:55 AM [facility] eGFR 92 >=60 mL/min/1. 73m2 LAB CHEMISTRY METHOD 08/10/2024 6:55 AM [facility] Comment:Calculation based on the??Chronic Kidney Disease Epidemiology Collaboration (CKD-EPI) equation refit??without adjustment for race. BUN/Creatinine Ratio 26.0 LAB CHEMISTRY METHOD 08/10/2024 6:55 AM [facility] Calcium 9.8 8.5 - 10.5 mg/dL LAB CHEMISTRY METHOD 08/10/2024 6:55 AM [facility] AST (SGOT) 40 10 - 42 unit/L LAB CHEMISTRY METHOD 08/10/2024 6:55 AM [facility] ALT (SGPT) 62(H) 10 - 60 unit/L LAB CHEMISTRY METHOD 08/10/2024 6:55 AM [facility] Alkaline Phosphatase 106 42 - 121 unit/L LAB CHEMISTRY METHOD 08/10/2024 6:55 AM EST [facility] Total Protein 6.0 6.0 - 8.0 g/dL LAB CHEMISTRY METHOD 08/10/2024 6:55 AM EST [facility] Albumin 2.8(L) 3.2 - 5.0 g/dL LAB CHEMISTRY METHOD 08/10/2024 6:55 AM EST [facility] Total Bilirubin 0.8 0.0 - 1.4 mg/dL LAB CHEMISTRY METHOD 08/10/2024 6:55 AM EST [facility] Blood Venous blood specimen / Unknown Venipuncture / Unknown 08/10/2024 5:23 AM EST 08/10/2024 6:00 AM EST us Bri PRINCE LAB BLOOD ORDERABLES Final R esult [facility] [address] [place] [address], from Last 3 Months Insurance MEDICARE [facility] Advance Directives Documents on File Type Date Recorded 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 Care Teams Landscape Crew Member Relationship Specialty Start Date End Date Lee Patel MD [address] [place] [address] Dr CancinoyokeRIVKA PCP - General Internal Medicine 04/28/21
== END 2024-10-02 15:21 | disposition home or self-care (01) ==
LOC: HO.HUSH 14:24
PROVIDERS: PCP Internal Medicine; Visit Provider Urology
DX: N40.1 Benign prostatic hyperplasia with lower urinary tract symptoms (principal); N13.8 Other obstructive and reflux uropathy; R33.9 Retention of urine, unspecified; N20.0 Calculus of kidney; N39.0 Urinary tract infection, site not specified; A49.9 Bacterial infection, unspecified
CPT/HCPCS: 99213; G2211

== ENCOUNTER → 2024-10-02 14:23 | Outpatient (BNVA) | payer MEDICARE, SELFPAY | PROVIDERS: PCP Internal Medicine; Visit Provider Urology | DX: N40.1 Benign prostatic hyperplasia with lower urinary tract symptoms (principal); N13.8 Other obstructive and reflux uropathy; N20.0 Calculus of kidney; R33.9 Retention of urine, unspecified | CPT/HCPCS: 51798; 81003; 99212 ==

== ENCOUNTER 2024-11-13 15:28 | Outpatient (AMB) | payer MEDICARE, SELFPAY ==
[2024-11-13 15:31] VITALS: BP 136/70; PULSE 103; RESP 16; TEMP 36.7; O2SAT 98; BMI 20.5
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
--- OUTSIDE RECORDS SUMMARY | 2024-11-13 16:52 | XMS_ITS | Clinical Summary ---
Author Organization [facility] Address [address] [place] [address] Phone Care Team Providers Care Oil And Gas Exploration Technician Name Role Phone Lee Patel MD Primary Care Provider [phone] Allergies Active Allergy Reactions Criticality Noted Date Comments Phenytoin Sodium Extended 08/06/2024 Medications simvastatin (ZOCOR) 40 mg tablet Take 1 tablet (40 mg total) by mouth at bedtime. Active acetaminophen (TYLENOL) 325 mg tablet Take 3 tablets (975 mg total) by mouth 3 (three) times a day if needed for mild pain. 08/13/2024 Active gabapentin (NEURONTIN) 100 mg capsule Take 2 capsules (200 mg total) by mouth 3 (three) times a day. 180 each 08/13/2024 Active Active Problems Problem Noted Date Diagnosed Date Multiple fractures 08/06/2024 Encounters Date Type Department Care Team Description 08/06/2024 4:01 PM EST - 08/14/2024 11:20 AM [facility] Hospital Encounter [facility] Inpatient Rehab [address] [place] [address] Seema Montero DO Discharge Disposition: [...] BLOOD COUNT Routine 08/14/2024 5:43 AM EST from Last 3 Months Results * (ABNORMAL) Complete blood count (08/14/2024 5:43 AM EST) WBC 9.3 4.8 - 10.8 K/mcL LAB HEMETOLOGY METHOD 08/14/2024 6:13 AM EST [facility] RBC 3.90(L) 4.50 - 5.50 M/mcL LAB HEMETOLOGY METHOD 08/14/2024 6:13 AM EST [facility] Hemoglobin 12.2(L) 13.5 - 17.5 g/dL LAB HEMETOLOGY METHOD 08/14/2024 6:13 AM EST [facility] Hematocrit 37.6(L) 42.0 - 54.0 % LAB HEMETOLOGY METHOD 08/14/2024 6:13 AM EST [facility] MCV 97.4 79.0 - 98.0 FL LAB HEMETOLOGY METHOD 08/14/2024 6:13 AM EST [facility] MCH 31.6 27.0 - 32.0 pcg LAB HEMETOLOGY METHOD 08/14/2024 6:13 AM EST [facility] MCHC 32.4 32.0 - 37.0 g/dL LAB HEMETOLOGY METHOD 08/14/2024 6:13 AM EST [facility] RDW 13.1 11.0 - 15.0 % LAB HEMETOLOGY METHOD 08/14/2024 6:[address] [facility] Platelets 588(H) 130 - 400 K/mcL LAB HEMETOLOGY METHOD 08/14/2024 6:13 AM EST [facility] MPV 8.7 7.0 - 11.0 FL LAB HEMETOLOGY METHOD 08/14/2024 6:13 AM EST [facility] NRBC 0.0 <1.0 % LAB HEMETOLOGY METHOD 08/14/2024 6:[address] [facility] NRBC Absolute 0.00 <0.10 K/mcL LAB HEMETOLOGY METHOD 08/14/2024 6:[address] [facility] Blood Venous blood specimen / Unknown Venipuncture / Unknown 08/14/2024 5:43 AM EST 08/14/2024 6:04 AM EST us Gardenia Guzman NP LAB BLOOD ORDERABLES Final Result [facility] [address] [place] [address], [place] [phone] * (ABNORMAL) Basic metabolic panel (08/14/2024 5:43 AM EST) Pathologist [facility] Sodium 134 133 - 145 mmol/L LAB CHEMISTRY METHOD 08/14/2024 6:[address] [facility] Potassium 4.3 3.5 - 5.5 mmol/L LAB CHEMISTRY METHOD 08/14/2024 6:[address] [facility] Chloride 102 96 - 110 mmol/L LAB CHEMISTRY METHOD 08/14/2024 6:[address] [facility] CO2 27 21 - 32 mmol/L LAB CHEMISTRY METHOD 08/14/2024 6:[address] [facility] Anion Gap 5 3 - 11 LAB CHEMISTRY METHOD 08/14/2024 6:[address] [facility] Glucose 104(H) 70 - 100 mg/dL LAB CHEMISTRY METHOD 08/14/2024 6:[address] [facility] BUN 19 5 - 25 mg/dL LAB CHEMISTRY METHOD 08/14/2024 6:[address] [facility] Creatinine 0.72 0.70 - 1.30 mg/dL LAB CHEMISTRY METHOD 08/14/2024 6:[address] [facility] eGFR 94 >=60 mL/min/1. 73m2 LAB CHEMISTRY METHOD 08/14/2024 6:[address] [facility] Comment:Calculation based on the??Chronic Kidney Disease Epidemiology Collaboration (CKD-EPI) equation refit??without adjustment for race. BUN/Creatinine Ratio 26.4 LAB CHEMISTRY METHOD 08/14/2024 6:[address] [facility] Calcium 10.0 8.5 - 10.5 mg/dL LAB CHEMISTRY METHOD 08/14/2024 6:[address] [facility] Blood Venous blood specimen / Unknown Venipuncture / Unknown 08/14/2024 5:43 AM EST 08/14/2024 6:04 AM EST Gardenia Guzman NP LAB BLOOD ORDERABLES Final Result [facility] [address] [place] [address], [place] [phone] from Last 3 Months Insurance MEDICARE [facility] Advance Directives Documents on File Type Date Recorded Patient Roustabout Hand Expl anation Advance Directives and Livin g [...] currently active code status orders. Care Teams Oil And Gas Exploration Technician Relationship Specialty Start Date End Date Lee Patel MD [address] [place] [address] Dr Rosalinda [place] PCP - General Internal Medicine 04/28/21
== END 2024-11-13 16:32 | disposition home or self-care (01) ==
PROVIDERS: PCP Internal Medicine; Visit Provider Physician Assistant Medical
DX: R31.9 Hematuria, unspecified (principal); R00.2 Palpitations

== ENCOUNTER → 2024-11-13 15:28 | Outpatient (BNVA) | payer MEDICARE, SELFPAY | PROVIDERS: PCP Internal Medicine; Visit Provider Physician Assistant Medical | DX: R31.9 Hematuria, unspecified (principal); R00.2 Palpitations | CPT/HCPCS: 93005; 99212 ==

== ENCOUNTER 2025-04-10 11:00 | Outpatient (REF) | payer MEDICARE, SELFPAY ==
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
[2025-04-10 14:07] LABS: PSA,Total (Free>4and<10) 16.49 ng/mL (0.00-4.00)
== END 2025-04-10 11:01 | disposition home or self-care (01) ==
LOC: HO.HMGCLDS 11:00
PROVIDERS: PCP Internal Medicine; Visit Provider Urology
DX: N40.1 Benign prostatic hyperplasia with lower urinary tract symptoms (principal); N13.8 Other obstructive and reflux uropathy; Z12.5 Encounter for screening for malignant neoplasm of prostate
CPT/HCPCS: 36415; 51798; 84153

== ENCOUNTER 2025-04-10 15:14 | Outpatient (AMB) | payer MEDICARE, SELFPAY ==
--- NOTE | 2025-04-10 15:43 | MHC.OFFVIS ---
Intake Visit Reasons: 6m/PSA/PVR Intake Note: Patient is present for 6M/PSA/PVR Urology Medication: Antibiotic Allergy:NONE Blood Thinner:ASPIRIN Last PVR 0ML'S: Todays PVR:128ML'S Lobby Attendant Required: No Allergies phenytoin (Dilantin) Allergy (Severe, Verified 04/10/25 15:47) Redness of Skin lactose Allergy (Intermediate, Verified 04/10/25 15:47) Gastrointestinal Upset HPI Comments Details: Dominguez is a pleasant male. He is a patient of Dr. Patel. He is seen for following urologic conditions - bladder stone - BPH - elevated PSA PSA on its way down Would just remain on finasteride 08/31--5.5, 04/03--3.0, 05/05--25, 05/05--18, 03/06 8.6, 10/05 24, 04/06 16 Elevated PSA with lower urinary tract symptoms Prior negative biopsy - 2016 PSA - 03/02 5.3, 04/02 6.1, 06/02 4.5 16%, 10/02 3.8, 04/03 3.0, 05/05 25.0 Medication therapy - finasteride and tamsulosin longstanding with oxybutynin for urgency frequency Prostate intervention GreenLight laser prostatectomy 06/02 Cystoscopy - prior gross hematuria with friable vessels Prostate size 120 g 09/03 GreenLight laser, bladder stone, prostate biopsy - NAD Erectile dysfunction Positive result with Cialis previously Nephrolithiasis Known 4 mm stone with spermatocele and hydrocele - december 2018 [facility] Medical History (Updated 03/06/25 @ 13:14 by SURESH Walsh) Hyperlipidemia Erectile dysfunction History of skin cancer Balance problems Renal stones Spermatocele Hydrocele H/O urinary frequency H/O urinary retention History of elevated PSA Vasculogenic erectile dysfunction Depression Anxiety Brain hematoma Enlarged prostate Surgical History History of brain surgery Hx of colonoscopy (~04/14/09) History of hip replacement, total Family History (Updated 03/06/25 @ 10:40 by Meagan Mills MA) Mother Heart attack Father Cancer Social History Household Members: Spouse Housing: Condominium Are you a primary nurse behavioral health care to a significant other at home: No Do you presently have visiting nurse or other home services: No Alcohol intake: never Patient Tobacco Use Status: Former Tobacco user Tobacco use type: Cigarette e-Cigarette/Vaping Use: Former Use Advance Directives Date on File: 06/01/21 service: No Current occupational status: retired Cognitive needs: Yes (wheelchair) Hearing needs: No Vision needs: No Review of Systems Const Denies chills and Denies fever(s) Card Reports no additional complaints and Denies syncope Resp Denies cough GI Denies abdominal pain and Denies heartburn Reports as per HPI and Denies change in libido Neuro Denies syncope Psych Denies change in libido Endo Denies change in libido Physical Exam Const General: cooperative, healthy appearing, comfortable and no acute distress Orientation/consciousness: patient oriented x3 HEENT Face and sinus: Yes normal facial exam Mouth: moist mucous membranes Neck Neck: Yes normal visual inspection, Yes full ROM and Yes trachea midline Chest Chest palpation & inspection: normal inspection of the chest Resp Effort & Inspection: normal respiratory effort, able to speak in complete sentences and no respiratory distress GI Inspection: Yes normal to inspection Back/Spine/Pelvis Cervical Spine: normal cervical lordosis Thoracic/Lumbar Spine: thoracic and lumbar spine normal to inspection Skin General skin exam: no rashes or lesions noted Neuro General: patient oriented x3, gait normal, tone normal and moves all extremities Extrem General: Yes normal to inspection and Yes capillary refill normal Office Procedures Post Void Residual Post Residual Void Post Void Residual (PVR): 128 [id number]-[id number] Void Residual by ultrasound Assessment & Plan Assessment & Plan (1) Elevated PSA: Code(s): R97.20 - Elevated prostate specific antigen [PSA] Category: Medical (2) BPH w urinary obs/LUTS: Code(s): N40.1 - Benign prostatic hyperplasia with lower urinary tract symptoms; N13.8 - Other obstructive and reflux uropathy Category: Medical Plan Six-month follow-up PSA Orders: Orders PSA,Total (Free>4and<10) 6 Months N40.1 - Benign prostatic hyperplasia with lower urinary tract symptoms, N13.8 - Other obstructive and reflux uropathy Patient Instructions: This note is constructed using voice recognition software. While every effort has been made to ensure accuracy explosive ordnance specialist errors may have been included. Imaging studies, laboratory and physical exam results were discussed and reviewed in detail. No major barriers to patient understanding were identified. An opportunity to ask questions regarding the treatment plan was provided. All questions were answered. The patient expressed understanding and agreement with the above treatment plan. The patient is aware they should contact our office by phone for worsening of their current condition or the appearance of new urologic symptoms. Compliance is encouraged with any medications and followup testing that is ordered. It is a privilege to participate in the urologic care of your patient. If you have any questions or concerns regarding treatment for the above conditions, or other urologic issues, please do not hesitate to contact me. The office telephone contact is [phone]. Sincerely, Dr Zaid Wiggins MD, [facility] - Urology Compassionate Specialist Care for the Genitourinary System Coding Level of Care Code Est Pt Level 3 (70982) Add On Problem Visit Only Diagnoses Elevated PSA R97.20 BPH w urinary obs/LUTS N40.1; N13.8 CPT Codes Post Residual Void - PVR CPT Code: 38328-Ptdw Void Residual by ultrasound ([id number])
== END 2025-04-10 16:21 | disposition home or self-care (01) ==
LOC: HO.HUSH 15:14
PROVIDERS: PCP Internal Medicine; Visit Provider Urology
DX: R97.20 Elevated prostate specific antigen [PSA] (principal); N40.1 Benign prostatic hyperplasia with lower urinary tract symptoms; N13.8 Other obstructive and reflux uropathy
CPT/HCPCS: 99213; G2211